=== PATIENT | male | born 1940 | race Caucasian/White ===

== ENCOUNTER → 2017-03-17 | Outpatient (CLI) | payer MEDICARE, BC ==
--- NOTE | 2017-03-17 09:50 | US ---
EXAMINATION TYPE: US abdomen comp/pelvis limited DATE OF EXAM: 03/17/2017 COMPARISON: US CLINICAL HISTORY: R10.9 abd pain. Patient c/o left abdomen pain when lays on left side and is constip ated. EXAM MEASUREMENTS: Liver Length: 17.7 cm Gallbladder Wall: 0.2 cm CBD: 0.4 cm Spleen: 11.5 cm Right Kidney: 11.6 x 5.4 x 4.9 cm Left Kidney: 11.3 x 5.5 x 6.4 cm Exam is technically limited due to overlying bowel gas Pancreas: hyperechoic as seen Liver: wnl Gallbladder: wnl Evidence for sonographic Trevino's sign: No CBD: wnl Spleen: wnl Right Kidney: No hydronephrosis or masses seen Left Kidney: No hydronephrosis or masses seen Upper IVC: wnl Abd Aorta: abnormally widened mid aorta at 4.7cm A/P with intimal thickening mid and distally Bladder: wnl, no ureteral jets seen after 3 minute observation The pancreas is poorly visualized. The liver is mildly prominent measuring 18 cm. There is no biliary dilatation. The gallbladder is normal without cholelithiasis. The gallbladder wall measures 2.3 mm. The distal co mmon hepatic duct measures 3.6 mm. There is no sonographic Trevino's sign. The spleen is normal in size. Both kidneys are normal. There is an infrarenal abdominal aortic aneurysm with maximal transverse dimension of 4.7 cm. Intrahe patic IVC is normal. IMPRESSION: Infrarenal 1. abdominal aortic aneurysm with maximal transverse diameter of 4.7 cm. 2. Mild hepatomegaly.
== END | disposition home or self-care (01) ==
LOC: RADUSWWP 08:01
PROVIDERS: ATTEND Family Medicine
DX: I71.4 Abdominal aortic aneurysm, without rupture (principal); R16.0 Hepatomegaly, not elsewhere classified
CPT/HCPCS: 76700; 76857

== ENCOUNTER 2017-04-26 14:36 | Observation (INO) | payer MEDICARE, BC ==
[2017-04-26] MEDS ORDERED: NON-FORMULARY DRUG (Sildenafil Citrate [Viagra] 100 MG) PO PRN (17:26)
[2017-04-26] MEDS ORDERED: ARTIFICIAL TEARS-HYPROMELLOSE DROPS 15 ML BTL BOTH EYES PRN (17:26)
[2017-04-26] MEDS ORDERED: diphenhydrAMINE 25 MG CAP PO PRN (17:26)
[2017-04-26] MEDS ORDERED: SODIUM CHLORIDE 0.9% 1,000 ML IV SCH (17:30)
[2017-04-26 19:07] LABS: INR 1.7 (<1.2); Prothrombin Time 16.5 sec (9.0-12.0)
[2017-04-26] MEDS: TERAZOSIN 5 MG CAP PO SCH (20:13)
[2017-04-26] MEDS: DOCUSATE 100 MG CAP PO SCH (20:13)
[2017-04-26] MEDS: MAGNESIUM OXIDE 400 MG TAB PO SCH (20:13)
[2017-04-26 20:36] LABS: Glucose,Whole Blood 110 mg/dL (75-99)
[2017-04-26] MEDS: HYDROcodone/APAP 7.5-325MG 1 EACH TAB PO PRN (21:27)
[2017-04-27] MEDS: HYDROcodone/APAP 7.5-325MG 1 EACH TAB PO PRN (02:19)
[2017-04-27 05:24] VITALS: RESP 16
[2017-04-27 06:56] LABS: Glucose,Whole Blood 95 mg/dL (75-99)
[2017-04-27] MEDS ORDERED: glipiZIDE 5 MG TAB PO SCH (07:30)
[2017-04-27] MEDS ORDERED: PANTOPRAZOLE 40 MG TABLET PO SCH (07:30)
[2017-04-27 08:05] VITALS: TEMP 97.6
[2017-04-27] MEDS ORDERED: FUROSEMIDE 40 MG TAB PO SCH (09:00)
[2017-04-27] MEDS ORDERED: METOPROLOL SUCCINATE (ER) 50 MG TAB.ER.24H PO SCH (09:00)
[2017-04-27] MEDS ORDERED: BISACODYL 5 MG TABLET.DR PO SCH (09:00)
[2017-04-27] MEDS ORDERED: LISINOPRIL 5 MG TAB PO SCH (09:00)
[2017-04-27] MEDS ORDERED: BETA PROSTATE PO SCH (09:00)
[2017-04-27] MEDS: DOCUSATE 100 MG CAP PO SCH (10:56)
[2017-04-27] MEDS: TERAZOSIN 5 MG CAP PO SCH (10:56)
[2017-04-27] MEDS: MAGNESIUM OXIDE 400 MG TAB PO SCH (10:57)
--- NOTE | 2017-04-27 11:03 | CT ---
EXAMINATION TYPE: CT abdomen pelvis wo con DATE OF EXAM: 04/27/2017 COMPARISON: NONE HISTORY: Abdominal aortic aneurysm without rupture CT DLP: 1130 mGycm Automated exposure control for dose reduction was used. TECHNIQUE: Helical acquisition of images was performed from the lung bases through the pelvis. FINDINGS: Limited noncontrast exam performed to assess size of aneurysm. Subsegmental changes involving the lungs are most typical of atelectasis. Chronic rib deformity sugge sts previous trauma and there is hypertrophic and degenerative change of the spine. Extensive atherosclerotic change of the vasculature. Tiny gallstone suspected. And there is extensive atherosclerotic change involving the origin of the SMA and proximal branches of the celiac axis and SMA. Moderate to extensive atherosclerotic change at the origin of the right renal artery. Similar finding s noted involving the left renal artery. Scoliosis and severe multilevel degenerative disc disease. There is an aneurysm of the abdominal aort a which originates approximately 2.9 cm below the lowest renal artery (left renal artery). Maximal di mension of the aneurysm is 4.2 cm in AP dimension. Maximal dimension in transverse diameter is 3.9 cm . Extends to the distal aorta proximal to the bifurcation. Iliac arteries demonstrate atherosclerotic changes and ectasia with a maximal dimension on the right measuring 1.5 cm and on the left measuring 1.4 cm. Atherosclerotic change of the junction of the comm on femoral and external iliac arteries is noted bilaterally with significant disease suspected. Prostate is somewhat prominent size with calcification. No free fluid or free air. Bowel gas pattern nonspecific. No renal stones. Adrenal glands normal morphology. Lack of IV and oral contrast limits assessment of the bowel and abdominal viscera. Cardiomegaly and coronary artery calcification noted. Her graft postsurgical changes involving the lo wer lumbar spine. There are small periumbilical hernia noted. IMPRESSION: 1. Infrarenal abdominal aortic aneurysm which extends to the level above the aortic bifurcation with maximal AP dimension of 4.2 cm in transverse dimension of 3.9 cm. Originates approximately 2.9 cm bel ow the left renal artery (lowest renal artery). 2. Extensive atherosclerotic changes as discussed above in the visualized vasculature.
[2017-04-27 11:54] LABS: Glucose,Whole Blood 200 mg/dL (75-99)
[2017-04-27] MEDS ORDERED: CYANOCOBALAMIN 500 MCG TAB PO SCH (12:00)
[2017-04-27 12:10] VITALS: BP 193/82; PULSE 51
[2017-04-27] MEDS ORDERED: WARFARIN 3 MG TAB PO SCH (18:00)
[2017-04-29] MEDS ORDERED: WARFARIN 3 MG TAB PO SCH (18:00)
--- NOTE | 2017-05-01 08:11 | DS ---
ADMISSION DATE: April 26, 2017 DISCHARGE DATE: April 27, 2017 BRIEF HISTORY: This is a pleasant 76-year-old gentleman who sees Dr. Jose Hines as an outpatient who was diagnosed with enlarging infrarenal aortic aneurysm. He was admitted to the hospital yesterday for hydration in preparation of CTA of the infrarenal aorta. Unfortunately, the creatinine came to be slightly worse and we decided to pursue the CT without contrast. The patient underwent CT without contrast and that showed 4.2 cm infrarenal aortic aneurysm. The patient is going to be discharged home and I will follow up with the patient as an outpatient. SRAVANI
== END 2017-04-27 15:20 | disposition home or self-care (01) ==
LOC: 3OBS 14:49
PROVIDERS: ADMIT Internal Medicine Interventional Cardiology; ATTEND Internal Medicine Interventional Cardiology
DX: I71.4 Abdominal aortic aneurysm, without rupture (principal); I48.2 Chronic atrial fibrillation; I11.0 Hypertensive heart disease with heart failure; I50.9 Heart failure, unspecified; I47.2 Ventricular tachycardia; I25.119 Atherosclerotic heart disease of native coronary artery with unspecified angina pectoris; E11.9 Type 2 diabetes mellitus without complications; Z79.01 Long term (current) use of anticoagulants; Z79.84 Long term (current) use of oral hypoglycemic drugs; Z79.899 Other long term (current) drug therapy; Z87.891 Personal history of nicotine dependence; Z88.0 Allergy status to penicillin
CPT/HCPCS: 96360; 96361 ×2; 82565 ×2; 84520 ×2; 85610; 74176; G0378 ×2; G0379

== ENCOUNTER → 2017-04-26 | Outpatient (CLI) | payer MEDICARE, BC ==
[2017-04-26 17:04] LABS: Glucose,Whole Blood 161 mg/dL (75-99)
== END | disposition home or self-care (01) ==
LOC: RADCTMAIN 13:02
PROVIDERS: ATTEND Internal Medicine Interventional Cardiology
DX: I71.4 Abdominal aortic aneurysm, without rupture (principal)
CPT/HCPCS: 82565; 84520

== ENCOUNTER → 2017-05-13 | Outpatient (CLI) | payer MEDICARE, BC ==
[~2017-05-13] MED LIST: SODIUM CHLORIDE 0.9% 1,000 ML IV ONE
[2017-05-13 07:30] VITALS: TEMP 97.7
[2017-05-13] MEDS: SODIUM CHLORIDE 0.9% 500 ML in EMPTY BAG 1 BAG IV PRN ×2 (07:43→11:56)
[2017-05-13 12:03] VITALS: BP 173/79; PULSE 49; RESP 18
== END | disposition home or self-care (01) ==
LOC: PROCWHC3 07:11
PROVIDERS: ATTEND Internal Medicine Interventional Cardiology
DX: I71.4 Abdominal aortic aneurysm, without rupture (principal)
CPT/HCPCS: 82565; 84520; 96360; 96361

== ENCOUNTER → 2017-05-13 | Outpatient (CLI) | payer MEDICARE, BC ==
--- NOTE | 2017-05-13 12:37 | CT ---
EXAMINATION TYPE: CT angio abd aorta wo/w con DATE OF EXAM: 05/13/2017 COMPARISON: 04/27/2017 HISTORY: Abdomninal aortic aneurysm, without rupture CT DLP: 1881.60 mGycm, Automated Exposure Control for Dose Reduction was Utilized. CONTRAST: CT scan of the abdomen and pelvis is performed with oral and without and with IV Contrast, patient in jected with 100 ml mL of Visipaque 320. FINDINGS: VASCULATURE: Moderate calcific plaquing is seen of the abdominal aorta and its branches. The celiac a xis is patent. There is approximately 50% stenosis of the ostium of the SMA and calcific plaque dista lly creating stenosis at least 50%. Patency is demonstrated to peripheral branches. Two renal arterie s are noted. There is redemonstration of a fusiform infrarenal abdominal aortic aneurysm measuring 4.3 x 3.9 cm in anterior posterior by transverse dimension, similar to the prior exam with measurements of 1.2 x 3.9 cm. This extends over a distance of 5.2 cm and again originates approximately 2.9 cm below the left renal artery. The common iliac arteries are upper limits of normal measuring 1.4 cm each. Anterior eccentric mural thrombus involves the fusiform abdominal aortic aneurysm measuring approximately 1.4 cm in thickness. No penetrating atheromatous ulcers are appreciated. LUNG BASES: Minimal bibasilar subsegmental atelectasis is appreciated. Old healed lateral right rib 8 fracture is present. LIVER/GB: No significant abnormality is appreciated. PANCREAS: No significant abnormality is seen. SPLEEN: No significant abnormality is seen. ADRENALS: No significant abnormality is seen. KIDNEYS: No significant abnormality is seen. BOWEL: No significant abnormality is seen. PROSTATE/SEMINAL VESICLES: Distinct gland is again heterogenous and prominent in size. LYMPH NODES: No greater than 1cm abdominal or pelvic lymph nodes are appreciated. OSSEOUS STRUCTURES: Degenerative changes are appreciated of the thoracolumbar and lumbosacral spine w ith postsurgical fusion of L4-S1. There is mild retrolisthesis of L2 with respect to L3 creating at l east mild spinal canal stenosis. OTHER: Small umbilical hernia is again noted. IMPRESSION: 1. Similar infrarenal fusiform abdominal aortic aneurysm in comparison to the prior exam of 04/27/2017 measuring 4.3 x 3.9 x 5.2 cm indicating 2.9 cm below the left renal artery. 2. No evidence of penetrating atheromatous ulcer, or dissection although there is eccentric mural thr ombus involving the aneurysmal sac measuring up to 1.4 cm.
== END | disposition home or self-care (01) ==
LOC: RADCTMAIN 10:51
PROVIDERS: ATTEND Internal Medicine Interventional Cardiology
DX: I71.4 Abdominal aortic aneurysm, without rupture (principal)
CPT/HCPCS: 82565; 84520; 75635; 96360; 96361; Q9967

== ENCOUNTER 2017-07-07 07:08 | Inpatient (IN) | payer MEDICARE, BC ==
[2017-07-02 16:14] VITALS: BMI 35.6
[~2017-07-07 07:08] MED LIST changes: -SODIUM CHLORIDE 0.9% 1,000 ML IV ONE; +SODIUM CHLORIDE 0.9% 1,000 ML in EMPTY BAG 1 BAG IV ONE
[2017-07-07 07:58] LABS: Glucose,Whole Blood 122 mg/dL (75-99)
[2017-07-07] MEDS ORDERED: LIDOCAINE 1% INJ 10MG/ML (20 ML MDV) ONE (09:24)
[2017-07-07] MEDS ORDERED: ePHEDrine SULFATE/0.9% NACL/PF 50 MG/5 ML SYRINGE IV ONE (09:24)
[2017-07-07] MEDS ORDERED: MIDAZOLAM 2 MG/2 ML VIAL ONE (09:24)
[2017-07-07] MEDS ORDERED: fentaNYL (PF) 50 MCG/ML 2 ML AMP ONE (09:24)
[2017-07-07] MEDS ORDERED: ROCURONIUM BROMIDE 10 MG/ML 10 ML VIAL IV ONE (09:24)
[2017-07-07] MEDS ORDERED: HEPARIN SODIUM,PORCINE 10,000 UNIT/ML 1 ML VIAL ONE (09:24)
[2017-07-07] MEDS ORDERED: SUCCINYLCHOLINE CHLORIDE 100 MG/5 ML SYR IV ONE (09:24)
[2017-07-07] MEDS ORDERED: PROPOFOL 10 MG/ML 20 ML VIAL IV ONE (09:24)
[2017-07-07] MEDS ORDERED: ONDANSETRON 4 MG/2 ML VIAL ONE (09:24)
[2017-07-07] MEDS ORDERED: VANCOMYCIN IVPB STA (09:31)
[2017-07-07] MEDS ORDERED: SODIUM CHLORIDE 0.9% IVPB STA (09:31)
[2017-07-07 09:40] LABS: INR 1.2 (<1.2); Prothrombin Time 11.9 sec (9.0-12.0)
[2017-07-07 09:52] LABS: Calcium 8.8 mg/dL (8.4-10.2); Potassium 4.1 mmol/L (3.5-5.1)
[2017-07-07] MEDS ORDERED: VANCOMYCIN 1,000 MG in SODIUM CHLORIDE 0.9% 250 ML IVPB STA (09:59)
[2017-07-07] MEDS ORDERED: LIDOCAINE 2% INJ 20 MG/ML SQ ONE (10:31)
[2017-07-07] MEDS ORDERED: SODIUM CHLORIDE 0.9% 1,000 ML IV ONE (11:00)
[2017-07-07] MEDS ORDERED: IODIXANOL 320 MG/ML 100 ML INTRAARTER ONE (11:55)
[2017-07-07] MEDS ORDERED: ALPRAZolam 0.25 MG TAB PO PRN (12:07)
[2017-07-07] MEDS ORDERED: ARTIFICIAL TEARS-HYPROMELLOSE DROPS 15 ML BTL BOTH EYES PRN (12:12)
[2017-07-07] MEDS ORDERED: SODIUM CHLORIDE 0.9% 1,000 ML IV SCH (12:15)
--- NOTE | 2017-07-07 12:50 | P.OP ---
Date of Procedure: 07/07/17 Preoperative Diagnosis: Abdominal aortic aneurysm Postoperative Diagnosis: Abdominal aortic aneurysm Procedure(s) Performed: Repair of abdominal aortic aneurysm with aortic stent grafting utilizing Medtronic Endurent device. Anesthesia: GETA Surgeon: Reymundo Armenta Estimated Blood Loss (ml): 50 Pathology: none sent Condition: stable Disposition: floor Description of Procedure: Patient was brought to the endo-grafting hybrid suite to the catheterization laboratory of [facility] he was a abdominal aortic aneurysm patient was under general anesthesia prepped and draped in usual sterile Betadine fashion for aortic endo-grafting cannulation of the common femoral arteries was accomplished bilaterally and Perclose devices to in the right and 2 in the left femoral were deployed guidewire access to the abdominal aneurysm was accomplished without difficulty and angiography and intravascular ultrasound was performed by Dr. Javier Loredo deployment of the endurance device ENG URA ENT by [employer]an[employer] was accomplished under fluoroscopic guidance as well as intravascular ultrasound control the device was placed in an infrarenal location and a extension limb was placed on the ipsilateral side the contralateral side had an extension limb as well distal landing zones were in the common iliac artery just before the bifurcation of the internal iliacs bilaterally Balloons were used to dilate the device once it was completely in position completion aortography revealed no aortic endo-leaks Perclose device was utilized to conclusion the procedure tied the sutures down tight onto the repairing the common femoral arteries bilaterally at the conclusion hemostasis was achieved and pulses were noted distally patient's was awakened and transferred to recovery room in stable condition C end of an operative report on patient Berny Armenta dictating from [facility]
[2017-07-07] MEDS ORDERED: MORPHINE SULFATE 4 MG/ML SYRINGE IVP ONE (12:55)
[2017-07-07] MEDS: hydrALAZINE HCL 20 MG/ML 1 ML VIAL IVP ONE ×2 (13:00→13:07)
[2017-07-07 13:15] LABS: Glucose,Whole Blood 124 mg/dL (75-99)
[2017-07-07] MEDS: NITROGLYCERIN-D5W PMX 50 MG in DEXTROSE/WATER 1 250ML.BAG IV SCH ×2 (13:30→22:20)
[2017-07-07 13:48] LABS: Glucose,Whole Blood 131 mg/dL (75-99)
--- NOTE | 2017-07-07 13:57 | IR ---
Fluoroscopy INDICATION: Abdominal aortic aneurysm FINDINGS: Fluoroscopy time: 17.5 minutes Images obtained: 9 sequences. Please see interpretation report from the cardiology. IMPRESSIONS: 1. Documentation of fluoroscopy.
[2017-07-07] MEDS: HYDROcodone/APAP 5-325MG 1 EACH TAB PO PRN ×2 (14:03→20:28)
[2017-07-07 15:25] LABS: Basophils % (A) 1 %; CH 32.1; CHCM 33.4; Eosinophils # (A) 0.2 k/uL (0-0.7); Eosinophils % (A) 4 %; HCT 38.7 % (39.0-53.0); HDW 2.61; HGB 12.7 gm/dL (13.0-17.5); Luc # (Auto) 0.09; Luc % (Auto) 2; Lymphocytes % (A) 21 %; MCH 31.7 pg (25.0-35.0); MCHC 32.8 g/dL (31.0-37.0); MCV 96.6 fL (80.0-100.0); Monocytes # (A) 0.3 k/uL (0-1.0); Monocytes % (A) 7 %; Neutrophils # (A) 3.2 k/uL (1.3-7.7); Neutrophils % (A) 67 %; RDW 13.6 % (11.5-15.5); WBC 4.9 k/uL (3.8-10.6); WBC (Perox) 5.15
[2017-07-07 16:21] LABS: Anion Gap 10 mmol/L; Blood Urea Nitrogen 30 mg/dL (9-20); Calcium 8.7 mg/dL (8.4-10.2); Carbon Dioxide 22 mmol/L (22-30); Chloride 109 mmol/L (98-107); Glucose 142 mg/dL (74-99); Non-African American GFR(MDRD) 53 (>60 ml/min/1.73 sqM); Potassium 4.1 mmol/L (3.5-5.1); Sodium 141 mmol/L (137-145)
--- NOTE | 2017-07-07 18:43 | AN ---
ANGIOGRAPHY REPORT DATE OF SERVICE: July 07, 2017. PERFORMING PHYSICIAN: Javier Oakley M.D. tariff inspector. PROCEDURE PERFORMED: 1. Catheter/sheath placement in the aorta with non selective injection of the infrarenal aorta under DSA. 2. Radiographic cine and image of endovascular AAA repair. 3. Intravascular ultrasound IVUS of non coronary. 4. Radiographic cine and image of endovascular infrarenal aortic aneurysm repair. INDICATION: This is a pleasant 77-year-old gentleman who is a patient of Dr. Beverly Hines as an outpatient who was diagnosed with infrarenal aortic aneurysm and he was scheduled today to undergo a stent graft of the infrarenal aortic aneurysm. APPROACH: Right and left common femoral arteries. COMPLICATION: None. LEVEL OF SEDATION: Sedation was performed with general anesthesia with the anesthesiologist in the room. DESCRIPTION OF PROCEDURE: I am dictating the radiographic and IVUS finding of the procedure only. Please refer to full dictation of the procedures in detail including the deployment of the stent graft, which was performed by Dr. Reymundo Armenta on a separate report. SELECTIVE PERIPHERAL ANGIOGRAM: Selective infrarenal aortic angiogram was performed using DSA and using a 5-[place] mocked pigtail catheter which was placed at the level of the renal arteries. The angiogram was performed using an LAO5 and 11 under DSA as I mentioned earlier. The angiogram revealed an infrarenal aortic aneurysm with a long neck. No evidence of dissection seen. Also selective bilateral iliac arteries angiogram was performed using the sheath in each groin. Also, the injection was performed using DSA as well. The injection mainly was performed to evaluate the diameter and length of each limb on each side for the stent graft. I performed intravascular ultrasound IVUS of the stent graft of the aorta to prove that the contralateral wire was in the true lumen of the stent graft as well. The IVUS revealed that the 035 wire was in the true lumen of the stent graft and was not behind the stent graft. We did not perform any measurements using the IVUS. CONCLUSION: 1. Infrarenal aortic aneurysm. 2. Status post repair using stent graft with Medtronic. 3. Please refer to full report of deployment of the stent graft was performed by Dr. Reymundo Armenta. MMODL / IJN: [id number] /
[2017-07-07] MEDS ORDERED: LISINOPRIL 10 MG TAB PO STA (19:19)
[2017-07-07] MEDS ORDERED: amLODIPine 5 MG TAB PO STA (19:20)
[2017-07-07] MEDS: TERAZOSIN 2 MG CAP PO SCH (20:18)
[2017-07-07] MEDS: TERAZOSIN 1 MG CAP PO SCH (20:18)
[2017-07-07] MEDS: DOCUSATE 100 MG CAP PO SCH (20:19)
[2017-07-07] MEDS: hydrALAZINE HCL 10 MG TAB PO SCH (23:29)
[2017-07-07] MEDS: CARVEDILOL 3.125 MG TAB PO SCH (23:29)
[2017-07-08] MEDS: ASPIRIN 325 MG TAB PO SCH ×2 (00:19→08:51)
[2017-07-08 04:47] LABS: Basophils % (A) 0 %; CH 31.3; CHCM 33.2; Eosinophils # (A) 0.1 k/uL (0-0.7); Eosinophils % (A) 1 %; HCT 36.6 % (39.0-53.0); HDW 2.61; Luc # (Auto) 0.11; Luc % (Auto) 1; Lymphocytes # (A) 0.7 k/uL (1.0-4.8); Lymphocytes % (A) 8 %; MCH 30.9 pg (25.0-35.0); MCHC 32.6 g/dL (31.0-37.0); MCV 94.7 fL (80.0-100.0); Mean Platelet Volume 8.2; Monocytes # (A) 0.7 k/uL (0-1.0); Monocytes % (A) 9 %; Neutrophils # (A) 6.9 k/uL (1.3-7.7); Neutrophils % (A) 81 %; RBC 3.87 m/uL (4.30-5.90); RDW 12.8 % (11.5-15.5); WBC 8.6 k/uL (3.8-10.6); WBC (Perox) 8.56
[2017-07-08 04:56] LABS: Anion Gap 7 mmol/L; Blood Urea Nitrogen 27 mg/dL (9-20); Carbon Dioxide 22 mmol/L (22-30); Chloride 105 mmol/L (98-107); Glucose 166 mg/dL (74-99); Magnesium 1.6 mg/dL (1.6-2.3); Non-African American GFR(MDRD) 53 (>60 ml/min/1.73 sqM); Potassium 4.4 mmol/L (3.5-5.1); Sodium 134 mmol/L (137-145)
[2017-07-08] MEDS: HYDROcodone/APAP 5-325MG 1 EACH TAB PO PRN ×2 (07:12→22:59)
[2017-07-08] MEDS: FUROSEMIDE 40 MG TAB PO SCH (08:50)
[2017-07-08] MEDS: TERAZOSIN 1 MG CAP PO SCH ×2 (08:50→20:20)
[2017-07-08] MEDS: CARVEDILOL 3.125 MG TAB PO SCH ×2 (08:50→17:29)
[2017-07-08] MEDS: glipiZIDE 5 MG TAB PO SCH ×2 (08:50→17:29)
[2017-07-08] MEDS: CYANOCOBALAMIN 500 MCG TAB PO SCH (08:50)
[2017-07-08] MEDS: PANTOPRAZOLE 40 MG TABLET PO SCH (08:50)
[2017-07-08] MEDS: LISINOPRIL 10 MG TAB PO SCH (08:51)
[2017-07-08] MEDS: DOCUSATE 100 MG CAP PO SCH ×2 (08:51→20:20)
[2017-07-08] MEDS: hydrALAZINE HCL 10 MG TAB PO SCH ×3 (08:52→22:50)
[2017-07-08] MEDS: amLODIPine 5 MG TAB PO SCH ×2 (08:52→20:20)
[2017-07-08] MEDS: TERAZOSIN 2 MG CAP PO SCH ×2 (08:53→20:20)
[2017-07-08] MEDS: BISACODYL 5 MG TABLET.DR PO SCH (09:00)
[2017-07-08] MEDS ORDERED: LISINOPRIL 5 MG TAB PO SCH (09:00)
[2017-07-08] MEDS ORDERED: amLODIPine 5 MG TAB PO SCH (09:00)
--- NOTE | 2017-07-08 09:23 | P.PN ---
Subjective Progress Note Date: 07/08/17 Principal diagnosis: Infrarenal abdominal aortic aneurysm, chronic atrial fibrillation, congestive heart failure class II, hypertension, hyperlipidemia, diabetes mellitus2, remote history of tobacco abuse. POD #1, repair of abdominal aortic aneurysm with aortic stent grafting utilizing Medtronic Endurant device. Patient is sitting up to the bedside chair. No acute distress. He is alert and oriented 3. Denies complaints of pain at this time. Objective - Vital Signs Vital signs: Vital Signs Temp 97.6 F 07/08/17 04:00 Pulse 75 07/08/17 07:00 Resp 24 07/08/17 07:00 BP 132/61 07/08/17 07:00 Pulse Ox 91 L 07/08/17 07:00 Intake & Output 07/07/17 07/08/17 07/08/17 18:59 06:59 18:59 Intake Total 2540 1645.10 403 Output Total 845 588 75 Balance 1695 1057.10 328 Weight 105.4 kg Intake: IV 2140 433 3 Art line 33 3 Sodium Chloride 0.9% 1, 400 0 000 ml @ 100 mls/hr IV . Q10H [place] Rx#:[id number] Intake, IV Titration 400 412.10 Amount Nitroglycerin-D5w Pmx 50 312.10 mg In Dextrose/Water 1 250ml.bag @ Titrate IV . Q0M [place] Rx#:[id number] Sodium Chloride 0.9% 1, 400 100 000 ml @ 100 mls/hr IV . Q10H [place] Rx#:[id number] Oral 800 400 Output: Urine 845 588 75 Other: Voiding Method Indwelling Catheter Indwelling Catheter ABP, PAP, CO, CI - Last Documented Arterial Blood Pressure 184/74 - Constitutional General appearance: Present: cooperative, no acute distress, obese - EENT Eyes: Present: PERRLA ENT: Present: hearing grossly normal - Neck Details: No JVD, no lymphadenopathy. - Respiratory Details: Lungs sounds essentially clear throughout, diminished bilateral bases. Respirations are symmetrical and nonlabored. Room air oxygen saturations are 92 %. - Cardiovascular Details: Irregular rhythm and rate controlled rate. S1 and S2 present, positive pansystolic murmur 2/6. Bedside telemetry showing atrial fibrillation heart rate 82. Positive palpable dorsalis pedis and posterior tibial pulses. No edema present. - Gastrointestinal Gastrointestinal Comment(s): Abdomen is soft, nontender and nondistended. Active bowel sounds to all 4 abdominal quadrants. Tolerating oral intake. - Genitourinary Genitourinary Comment(s): Clear yellow urine. Lai catheter for accurate I&O. - Integumentary Integumentary Comment(s): Bilateral groin puncture site clean dry and well approximated. Small ecchymosis to his bilateral groins. Integumentary: Present: normal turgor - Neurologic Neurologic Comment(s): No focal deficits. Neurologic: Present: CNII-XII intact - Musculoskeletal Musculoskeletal: Present: gait normal (Using a cane with ambulation.), strength equal bilaterally - Psychiatric Psychiatric: Present: A&O x's 3, appropriate affect, intact judgment & insight - Allied health notes Allied health notes reviewed: nursing - Labs CBC & Chem 7: 07/08/17 04:35 07/08/17 04:35 Labs: Abnormal Lab Results - Last 24 Hours (Table) 07/07/17 07/07/17 07/07/17 Range/Units 07:30 07:45 13:13 RBC (4.30-5.90) m/uL Hgb (13.0-17.5) gm/dL Hct (39.0-53.0) % Plt Count (150-450) k/uL Lymphocytes # (1.0-4.8) k/uL INR 1.2 H (<1.2) Sodium (137-145) mmol/L Chloride (98-107) mmol/L BUN 32 H (9-20) mg/dL Creatinine 1.50 H (0.66-1.25) mg/dL Glucose 126 H (74-99) mg/dL POC Glucose (mg/dL) 124 H (75-99) mg/dL Calcium (8.4-10.2) mg/dL 07/07/17 07/07/17 07/07/17 Range/Units 13:46 14:01 15:30 RBC 4.00 L (4.30-5.90) m/uL Hgb 12.7 L (13.0-17.5) gm/dL Hct 38.7 L (39.0-53.0) % Plt Count 66 L D (150-450) k/uL Lymphocytes # (1.0-4.8) k/uL INR (<1.2) Sodium (137-145) mmol/L Chloride 109 H (98-107) mmol/L BUN 30 H (9-20) mg/dL Creatinine 1.30 H (0.66-1.25) mg/dL Glucose 142 H (74-99) mg/dL POC Glucose (mg/dL) 131 H (75-99) mg/dL Calcium (8.4-10.2) mg/dL 07/08/17 07/08/17 Range/Units 04:35 04:35 RBC 3.87 L (4.30-5.90) m/uL Hgb 12.0 L (13.0-17.5) gm/dL Hct 36.6 L (39.0-53.0) % Plt Count 135 L D (150-450) k/uL Lymphocytes # 0.7 L (1.0-4.8) k/uL INR (<1.2) Sodium 134 L (137-145) mmol/L Chloride (98-107) mmol/L BUN 27 H (9-20) mg/dL Creatinine 1.30 H (0.66-1.25) mg/dL Glucose 166 H (74-99) mg/dL POC Glucose (mg/dL) (75-99) mg/dL Calcium 8.0 L (8.4-10.2) mg/dL Assessment and Plan (1) Aneurysm of infrarenal abdominal aorta Current Visit: Yes Status: Acute Code(s): I71.4 - ABDOMINAL AORTIC ANEURYSM , WITHOUT RUPTURE SNOMED Code(s): 884628936 (2) Diabetes mellitus type 2 in obese Current Visit: Yes Status: Acute Code(s): E11.69 - TYPE 2 DIABETES MELLITUS WITH OTHER SPECIFIED COMPLICATION; E66.9 - OBESITY, UNSPECIFIED SNOMED Code(s) : 42923592 (3) History of tobacco abuse Current Visit: Yes Status: Acute Code(s): Z87.891 - PERSONAL HISTORY OF NICOTINE DEPENDENCE SNOMED Code(s): 4300155279085 (4) CHF (congestive heart failure) Current Visit: No Status: Acute Code(s): I50.9 - HEART FAILURE, UNSPECIFIED SNOMED Code(s): 92071635 (5) Chronic a-fib Current Visit: No Status: Acute Code(s): I48.2 - CHRONIC ATRIAL FIBRILLATION SNOMED Code(s): 003291699 (6) HTN (hypertension) Current Visit: No Status: Acute Code(s): I10 - ESSENTIAL (PRIMARY) HYPERTENSION SNOMED Code(s): 99403497 Plan: 1. Wean oxygen as tolerated. 2. Discontinue Lai catheter. 3. May discharge home when okay with Dr. Loredo. Time with Patient: Greater than 30
--- NOTE | 2017-07-08 10:09 | P.PN ---
Progress Note - Text Progress Note Date: 07/08/17 This is a pleasant 77-year-old gentleman who was admitted to the hospital yesterday and underwent an endovascular repair of infrarenal abdominal aortic aneurysm using a Medtronic stent to graft with an excellent results and without any evidence of endoleak by the end of the procedure. The procedure was performed from the right and left groins placing 16-Prydeinig in the right groin and 12-Prydeinig in the left groin with the whole procedure was performed percutaneous 3 and without Down using the Perclose device. Postprocedure, the patient was hypertensive requiring nitro drip for about 12 hours but he is off nitro drip last night and this morning. We did some adjustment on the blood pressure medications by increasing the dose of Norvasc and adding hydralazine as well as increasing the dose of lisinopril. On follow-up with the patient today is doing good and he is asymptomatic. Both groins are soft and nontender and without any bruises. The patient does have reasonable pulses in both feet its in the dorsalis pedis artery. The blood work came in to be also unremarkable with a good hemoglobin and stable renal function. He was slightly the setting earlier today. I am going to obtain a BNP. I am going to transfer the patient to selective units. Keep him overnight for possible discharge home tomorrow morning.
--- NOTE | 2017-07-08 14:29 | CDI ---
In responding to this query, please exercise your independent professional judgment. The [facility] Coding Staff and Clinical Documentation Specialists appreciate your assistance in clarifying documentation, maintaining compliance with coding guidelines, accurately documenting patients condition and capturing severity of illness. The fact that a question is asked does not imply that any particular answer is desired or expected. Communication forms are a method of clarifying documentation and are not made part of the Legal Health Record. Thank you in advance for your clarification. Last Revision, November 2016 Eleuter[address] [place] [address] Documentation Clarification Form Date: 07/08/2017 2:16:00 PM From: Sandra Carias CCS, CCDS Admit Date: 07/07/2017 7:08:00 AM Patient Name: Berny Linares Visit Number: [id number] Discharge Date: Dr. Rhys Jerry: CHF is documented in the 07/08 surgical progress note: "Infrarenal abdominal aortic aneurysm, chronic atrial fibrillation, congestive heart failure class II , hypertension, hyperlipidemia, diabetes mellitus 2, remote history of tobacco abuse." History/Risk Factors: AAA, Chronic Atrial Fib, CHF, Hypertension, hyperlipidemia , DM II, Former smoker. Clinical Indicators: Diminished bilateral bases. VS: R 37 (sob), PO 90 ra BNP: 1950 Treatment: IV Vanco, O2 (weaning), BP meds adjusted per cardiology, ordered BNP. Telemetry In your professional opinion, can you please clarify the acuity and type of CHF if known? Systolic Heart Failure: o Acute o Chronic o Acute on Chronic Diastolic Heart Failure: o Acute o Chronic o Acute on Chronic Systolic & Diastolic Heart Failure: o Acute o Chronic o Acute on Chronic Unable to determine Other, please specify Please document in your progress notes and discharge summary in order to capture severity of illness and risk of mortality. Include clinical findings that support your diagnosis. FYI: Press F11 to launch patient chart. SRAVANI
[2017-07-08] MEDS ORDERED: WARFARIN 5 MG TAB PO ONE (18:00)
[2017-07-09 04:40] LABS: Basophils % (A) 0 %; CH 32.7; CHCM 33.5; Eosinophils # (A) 0.2 k/uL (0-0.7); Eosinophils % (A) 3 %; HCT 39.5 % (39.0-53.0); HDW 2.44; HGB 12.5 gm/dL (13.0-17.5); Luc # (Auto) 0.15; Luc % (Auto) 2; Lymphocytes % (A) 13 %; MCH 31.1 pg (25.0-35.0); MCHC 31.6 g/dL (31.0-37.0); MCV 98.3 fL (80.0-100.0); Mean Platelet Volume 8.7; Monocytes # (A) 0.9 k/uL (0-1.0); Monocytes % (A) 12 %; Neutrophils # (A) 5.3 k/uL (1.3-7.7); Neutrophils % (A) 70 %; RBC 4.02 m/uL (4.30-5.90); RDW 13.9 % (11.5-15.5); WBC 7.6 k/uL (3.8-10.6); WBC (Perox) 7.45
[2017-07-09 04:53] LABS: Calcium 8.4 mg/dL (8.4-10.2); Magnesium 1.8 mg/dL (1.6-2.3); Phosphorus 3.1 mg/dL (2.5-4.5)
[2017-07-09 05:08] LABS: INR 1.3 (<1.2); Prothrombin Time 12.8 sec (9.0-12.0)
[2017-07-09 05:34] VITALS: TEMP 98.5
[2017-07-09] MEDS ORDERED: Magnesium Replacement Protocol 1 EACH MISC MISCELLANE PRN (07:48)
--- NOTE | 2017-07-09 07:52 | P.PN ---
Subjective Progress Note Date: 07/09/17 Principal diagnosis: Infrarenal abdominal aortic aneurysm, chronic atrial fibrillation, congestive heart failure class II, hypertension, hyperlipidemia, diabetes mellitus2, remote history of tobacco abuse. POD #2, repair of abdominal aortic aneurysm with aortic stent grafting utilizing Medtronic Endurant device. Patient is sitting up to the bedside chair. No acute distress. He is alert and oriented 3. Denies complaints of pain at this time. Objective - Vital Signs Vital signs: Vital Signs Temp 98.5 F 07/09/17 04:00 Pulse 73 07/09/17 05:00 Resp 23 07/09/17 05:00 BP 167/80 07/09/17 05:00 Pulse Ox 94 L 07/09/17 05:00 Intake & Output 07/08/17 07/09/17 07/09/17 18:59 06:59 18:59 Intake Total 403 800 Output Total 125 200 Balance 278 600 Weight 104.2 kg Intake: IV 3 Art line 3 Sodium Chloride 0.9% 1, 0 000 ml @ 100 mls/hr IV . Q10H [place] Rx#:[id number] Oral 400 800 Output: Urine 125 200 Other: Voiding Method Urinal Urinal # Voids 2 1 ABP, PAP, CO, CI - Last Documented Arterial Blood Pressure 184/74 - Constitutional General appearance: Present: cooperative, no acute distress, obese - EENT Eyes: Present: PERRLA ENT: Present: hearing grossly normal - Neck Details: No JVD, no lymphadenopathy. - Respiratory Details: Lungs sounds essentially clear throughout, diminished at bilateral bases. Respirations are symmetrical and nonlabored. Oxygen saturation are 95% on 2 L nasal cannula, and 92% on room air. - Cardiovascular Details: Irregular rhythm with controlled rate. S1 and S2 present, pansystolic murmur 2/ 6. Bedside telemetry showing atrial fibrillation heart rate 91. 2+ pitting edema to his bilateral lower extremities. Palpable dorsalis pedis pulses bilateral. Bilateral feet warm to touch. - Gastrointestinal Gastrointestinal Comment(s): Abdomen soft, nontender and nondistended. Active bowel sounds to all 4 abdominal quadrants. Tolerating oral intake. - Genitourinary Genitourinary Comment(s): Clear yellow urine output. Adequate urine output. - Integumentary Integumentary Comment(s): Bilateral groin puncture sites clean, dry and well approximated. Small ecchymosis to his bilateral groins. - Neurologic Neurologic Comment(s): No focal deficits. Neurologic: Present: CNII-XII intact - Musculoskeletal Musculoskeletal: Present: gait normal (Use a cane with ambulation.), strength equal bilaterally - Psychiatric Psychiatric: Present: A&O x's 3, appropriate affect, intact judgment & insight - Allied health notes Allied health notes reviewed: nursing - Labs CBC & Chem 7: 07/09/17 04:10 07/09/17 04:10 Labs: Abnormal Lab Results - Last 24 Hours (Table) 07/09/17 07/09/17 07/09/17 Range/Units 04:10 04:10 04:10 RBC 4.02 L (4.30-5.90) m/uL Hgb 12.5 L (13.0-17.5) gm/dL Plt Count 129 L (150-450) k/uL PT 12.8 H (9.0-12.0) sec INR 1.3 H (<1.2) Sodium 136 L (137-145) mmol/L BUN 29 H (9-20) mg/dL Creatinine 1.50 H (0.66-1.25) mg/dL Assessment and Plan (1) Aneurysm of infrarenal abdominal aorta Current Visit: Yes Status: Acute Code(s): I71.4 - ABDOMINAL AORTIC ANEURYSM , WITHOUT RUPTURE SNOMED Code(s): 791331503 (2) Diabetes mellitus type 2 in obese Current Visit: Yes Status: Acute Code(s): E11.69 - TYPE 2 DIABETES MELLITUS WITH OTHER SPECIFIED COMPLICATION; E66.9 - OBESITY, UNSPECIFIED SNOMED Code(s) : 36350685 (3) History of tobacco abuse Current Visit: Yes Status: Acute Code(s): Z87.891 - PERSONAL HISTORY OF NICOTINE DEPENDENCE SNOMED Code(s): 1051722871800 (4) CHF (congestive heart failure) Current Visit: No Status: Acute Code(s): I50.9 - HEART FAILURE, UNSPECIFIED SNOMED Code(s): 33853740 (5) Chronic a-fib Current Visit: No Status: Acute Code(s): I48.2 - CHRONIC ATRIAL FIBRILLATION SNOMED Code(s): 153901076 (6) HTN (hypertension) Current Visit: No Status: Acute Code(s): I10 - ESSENTIAL (PRIMARY) HYPERTENSION SNOMED Code(s): 09182471 Plan: 1. Wean oxygen as tolerated. 2. Increase activity as tolerated. 3. GI and DVT prophylaxis. 4. May discharge home when okay with Dr. Loredo. Time with Patient: Greater than 30
[2017-07-09] MEDS: CARVEDILOL 3.125 MG TAB PO SCH (07:53)
[2017-07-09] MEDS: glipiZIDE 5 MG TAB PO SCH (07:53)
[2017-07-09] MEDS: PANTOPRAZOLE 40 MG TABLET PO SCH (07:54)
[2017-07-09] MEDS: MAGNESIUM SULFATE-D5W PMX 1 GM in DEXTROSE/WATER 1 100ML.BAG IVPB SCH ×2 (08:15→09:17)
[2017-07-09] MEDS: DOCUSATE 100 MG CAP PO SCH (08:24)
[2017-07-09] MEDS: ASPIRIN 325 MG TAB PO SCH ×2 (08:24→08:31)
[2017-07-09] MEDS: FUROSEMIDE 40 MG TAB PO SCH (08:24)
[2017-07-09] MEDS: CYANOCOBALAMIN 500 MCG TAB PO SCH (08:25)
[2017-07-09] MEDS: amLODIPine 5 MG TAB PO SCH (08:25)
[2017-07-09] MEDS: LISINOPRIL 10 MG TAB PO SCH (08:26)
[2017-07-09] MEDS: BISACODYL 5 MG TABLET.DR PO SCH (09:04)
[2017-07-09 09:07] VITALS: BP 133/81; PULSE 82; RESP 20
[2017-07-09] MEDS: hydrALAZINE HCL 10 MG TAB PO SCH (09:33)
[2017-07-09] MEDS: TERAZOSIN 2 MG CAP PO SCH (09:34)
[2017-07-09] MEDS: TERAZOSIN 1 MG CAP PO SCH (09:34)
--- NOTE | 2017-07-09 19:38 | P.DS ---
Providers Date of admission: 07/07/17 07:08 Attending physician: Javier Oakley Consults: 07/07/17 06:18 Consult to Anesthesia Routine Consulting Provider: Anesthesia,Services Consult Reason/Comments: General anesthesia for Aortic Stent procedure Primary care physician: Kelly Rai [facility] Course: This is a pleasant 77-year-old gentleman who was admitted to the hospital yesterday and underwent an endovascular repair of infrarenal abdominal aortic aneurysm using a Medtronic stent to graft with an excellent results and without any evidence of endoleak by the end of the procedure. The procedure was performed from the right and left groins placing 16-South African in the right groin and 12-South African in the left groin with the whole procedure was performed percutaneous 3 and without Down using the Perclose device. Postprocedure, the patient was hypertensive requiring nitro drip for about 12 hours but he is off nitro drip last night and this morning. We did some adjustment on the blood pressure medications by increasing the dose of Norvasc and adding hydralazine as well as increasing the dose of lisinopril. On follow-up with the patient today is doing good and he is asymptomatic. Both groins are soft and nontender and without any bruises. The patient does have reasonable pulses in both feet its in the dorsalis pedis artery. The blood work came in to be also unremarkable with a good hemoglobin and stable renal function. I am going to discharge the patient home on aspirin and he was started on Coumadin yesterday. I will follow-up with the patient next week in the office. Plan - Discharge Summary Discharge Rx Participant: Yes New Discharge Prescriptions: New Aspirin 325 mg PO DAILY #90 tab Carvedilol [Coreg] 3.125 mg PO BID-W/MEALS #60 tab hydrALAZINE HCL [Apresoline] 15 mg PO TID #90 tab Lisinopril [Zestril] 10 mg PO DAILY #90 tab Terazosin [Hytrin] 1 mg PO BID #90 cap Continue Omeprazole 20 mg PO DAILY Sildenafil Citrate [Viagra] 100 mg PO DAILY PRN PRN Reason: E.D. Terazosin HCl 5 mg PO BID glipiZIDE XL [Glucotrol XL] 10 mg PO DAILY #30 tab Warfarin Sodium [Coumadin] 3 mg PO SUTUTHSA Hydrocodone/Acetaminophen [Hydrocodon-Acetaminoph 7.5-325] 1 tab PO BID PRN PRN Reason: Pain Furosemide [Lasix] 40 mg PO DAILY tab Cyanocobalamin (Vitamin B-12) [Vitamin B-12] 1,000 mcg PO DAILY Artificial Tears-Hypromellose [Artificial Tear Drops] 1 drops BOTH EYES TID PRN PRN Reason: Dry Eye(S) diphenhydrAMINE [Benadryl] 25 mg PO TID PRN PRN Reason: Allergy Symptoms Docusate [Colace] 100 mg PO BID Bisacodyl [Dulcolax] 5 mg PO DAILY Beta-Prostate 1 tab PO DAILY Warfarin [Coumadin] 4.5 mg PO MOWEFR amLODIPine [Norvasc] 5 mg PO DAILY Discontinued Lisinopril [Prinivil] 5 mg PO DAILY Discharge Medication List Omeprazole 20 mg PO DAILY 12/28/15 [History] Sildenafil Citrate [Viagra] 100 mg PO DAILY PRN 12/28/15 [History] Terazosin HCl 5 mg PO BID 12/29/15 [History] glipiZIDE XL [Glucotrol XL] 10 mg PO DAILY #30 tab 01/01/16 [Rx] Warfarin Sodium [Coumadin] 3 mg PO SUTUTHSA 05/21/16 [History] Hydrocodone/Acetaminophen [Hydrocodon-Acetaminoph 7.5-325] 1 tab PO BID PRN 11/05 [History] Furosemide [Lasix] 40 mg PO DAILY tab 05/23/16 [Rx] Artificial Tears-Hypromellose [Artificial Tear Drops] 1 drops BOTH EYES TID PRN 04/26/17 [History] Beta-Prostate 1 tab PO DAILY 04/26/17 [History] Bisacodyl [Dulcolax] 5 mg PO DAILY 04/26/17 [History] Cyanocobalamin (Vitamin B-12) [Vitamin B-12] 1,000 mcg PO DAILY 04/26/17 [ History] Docusate [Colace] 100 mg PO BID 04/26/17 [History] Warfarin [Coumadin] 4.5 mg PO MOWEFR 04/26/17 [History] diphenhydrAMINE [Benadryl] 25 mg PO TID PRN 04/26/17 [History] amLODIPine [Norvasc] 5 mg PO DAILY 07/07/17 [History] Aspirin 325 mg PO DAILY #90 tab 07/09/17 [Rx] Carvedilol [Coreg] 3.125 mg PO BID-W/MEALS #60 tab 07/09/17 [Rx] Lisinopril [Zestril] 10 mg PO DAILY #90 tab 07/09/17 [Rx] Terazosin [Hytrin] 1 mg PO BID #90 cap 07/09/17 [Rx] hydrALAZINE HCL [Apresoline] 15 mg PO TID #90 tab 07/09/17 [Rx] Follow up Appointment(s)/Referral(s): Javier Oakley MD [STAFF PHYSICIAN] - 1 Week (office will be contacting patient in regards to appointment after speaking to dr oakley) Patient Instructions/Handouts: Heart Failure (ED), Abdominal Aortic Aneurysm Repair (DC), Abdominal Aortic Aneurysm (GEN) Discharge Disposition: HOME SELF-CARE
== END 2017-07-09 12:05 | disposition home or self-care (01) | DRG 269 ==
LOC: 2ORMAIN 07:08 → EDSTATUS 10:00 → 6ICU 13:10
PROVIDERS: ADMIT Internal Medicine Interventional Cardiology; ATTEND Internal Medicine Interventional Cardiology
PROC: 04V03DZ Restriction of Abdominal Aorta with Intraluminal Device, Percutaneous Approach (ICD-10-PCS; principal; 2017-07-07 09:35)
DX: I71.4 Abdominal aortic aneurysm, without rupture (principal); I50.32 Chronic diastolic (congestive) heart failure; I11.0 Hypertensive heart disease with heart failure; I42.9 Cardiomyopathy, unspecified; I48.2 Chronic atrial fibrillation; E11.9 Type 2 diabetes mellitus without complications; E66.9 Obesity, unspecified; I25.10 Atherosclerotic heart disease of native coronary artery without angina pectoris; E78.5 Hyperlipidemia, unspecified; Z79.01 Long term (current) use of anticoagulants; Z79.899 Other long term (current) drug therapy; Z88.0 Allergy status to penicillin; Z82.3 Family history of stroke; Z87.891 Personal history of nicotine dependence
CPT/HCPCS: 34803; 37252; 80048; 83735; 83880; 84100; 85025; 85610; 86850; 86900; 86901

== ENCOUNTER → 2018-01-13 | Outpatient (CLI) | payer MEDICARE, BC ==
[2018-01-13 10:56] LABS: Calcium 9.1 mg/dL (8.4-10.2); Potassium 4.8 mmol/L (3.5-5.1)
--- NOTE | 2018-01-13 17:02 | CT ---
EXAMINATION TYPE: CT angio abd aorta wo/w con DATE OF EXAM: 01/13/2018 COMPARISON: NONE INDICATION: Aortic Abd. aneurysm w/o mention of rupture DLP: 3027.8 mGycm, Automated exposure control for dose reduction was used. CONTRAST: 75 mL of Isovue 370. Study performed TECHNIQUE: Axial images were obtained from above the diaphragm to the pubic rami in the axial plane a t 5 mm thick sections. Reconstructed images are reviewed on the computer in the coronal plane. FINDINGS: Limited CT sections are obtained the lung bases. The lung bases are clear. CT ABDOMEN: Liver: Normal Spleen: Normal Pancreas: Some fatty infiltration and atrophy. Adrenal glands: The adrenal glands are normal. Gallbladder: Normal Kidneys: No masses are evident. No hydronephrosis is present. No cysts are present. No renal stone s are evident. Aorta: Vascular calcification is within the aorta. There is a stent within the aorta extending into the iliac vessels. The residual abdominal aortic aneurysm currently measures 4.8 centimeters AP by 3. 5 cm transverse. Postcontrast imaging is performed to evaluate for endovascular leak. Contrast timing however is very poor likely due to the patient's cardiac output. Small amount of contrast is identified within the st ent. Study however appears inadequate for accurate evaluation of endovascular leak. Recommend hydrati on and reattempting the postcontrast portion of this study. Inferior vena cava: Normal. Limited CT PELVIS: Loops of bowel within the abdomen and pelvis are normal. Study is without oral contrast limiting bowel loop evaluation. Appendix: Normal and air-filled as visualized. Osseous structures: No suspicious lytic or sclerotic lesions. Pedicle screws are present from a lumba r spine surgery. Degenerative disc changes are present. There is scoliosis and spondylosis within the visualized lumbar spine. IMPRESSIONS: 1. Stent in position within the abdominal aorta. 2. Contrast timing was in adequate on this examination. Recommend rehydration and reattempting postco ntrast imaging for adequate evaluation of endovascular leak
== END | disposition home or self-care (01) ==
LOC: RADCTMAIN 10:11
PROVIDERS: ATTEND Internal Medicine Interventional Cardiology
DX: I71.4 Abdominal aortic aneurysm, without rupture (principal); N18.9 Chronic kidney disease, unspecified; Z95.828 Presence of other vascular implants and grafts; Z88.0 Allergy status to penicillin
CPT/HCPCS: 80048; 75635; 36415; Q9967

== ENCOUNTER 2018-05-10 14:04 | Inpatient (IN) | payer MEDICARE, BC ==
[2018-05-10] MEDS ORDERED: SODIUM CHLORIDE 0.9% 500 ML IV STA (14:51)
--- NOTE | 2018-05-10 15:17 | ED ---
General Adult HPI - General Chief complaint: Neuro Symptoms/Deficit Stated complaint: Weakness/poss tia Source: family, RN notes reviewed Mode of arrival: wheelchair Limitations: no limitations - History of Present Illness Initial comments: This 77-year-old male who presents emergency department complaining of some numbness and weakness to his left side which started on Wednesday. Patient states on Wednesday he became weaker and fell and was almost unable to get up even with the use of his cane and help from family members. Patient thought it was just a muscle spasm so ignored it. Patient woke up today and had some facial droop on the left side which was noticed by family members at about 9:00 this morning and it was at that time they decided to bring the patient to the emergency department. Patient denies any headache. Patient denies any right- sided symptoms today. Patient denies any speech problems. Patient denies any visual disturbances. Patient states he only noted his weakness when he had fallen. Patient did note that when he was trying to drink his coffee this morning that it was drooling out of the side of his mouth but he didn't think much of it at the time. Patient denies any previous stroke symptoms in the past. Patient denies any chest pain difficulty breathing or shortness of breath. Patient denies any abdominal pain patient denies nausea vomiting diarrhea. Patient denies any recent fever chills or cough. Patient states he is a diabetic he does have high blood pressure and high cholesterol. - Related Data Home Medications Medication Instructions Recorded Confirmed Omeprazole 20 mg PO DAILY 12/28/15 05/10/18 Sildenafil Citrate [Viagra] 100 mg PO DAILY PRN 12/28/15 05/10/18 Terazosin HCl 5 mg PO BID 12/29/15 05/10/18 Warfarin Sodium [Coumadin] 3 mg PO SUTUTHSA 05/21/16 05/10/18 Hydrocodone/Acetaminophen 1 tab PO BID PRN 05/22/16 05/10/18 [Hydrocodone-Acetamin 7.5-325] Artificial Tears-Hypromellose 1 drops BOTH EYES TID PRN 04/26/17 05/10/18 [Artificial Tear Drops] Beta-Prostate 1 tab PO DAILY 04/26/17 05/10/18 Bisacodyl [Dulcolax] 5 mg PO BID 04/26/17 05/10/18 Cyanocobalamin (Vitamin B-12) 1,000 mcg PO DAILY 04/26/17 05/10/18 [Vitamin B-12] Docusate [Colace] 100 mg PO BID 04/26/17 05/10/18 Warfarin [Coumadin] 4.5 mg PO MOWEFR 04/26/17 05/10/18 diphenhydrAMINE [Benadryl] 25 mg PO TID PRN 04/26/17 05/10/18 amLODIPine [Norvasc] 5 mg PO DAILY 07/07/17 05/10/18 Aspirin EC [Ecotrin Low Dose] 81 mg PO DAILY 05/10/18 05/10/18 Cholecalciferol [Vitamin D3] 1,000 unit PO DAILY 05/10/18 05/10/18 Magnesium 1000mg 1 tab PO DAILY 05/10/18 05/10/18 Metoprolol Succinate (ER) [Toprol 50 mg PO DAILY 05/10/18 05/10/18 Xl] Multivitamins, Thera [Multivitamin 1 tab PO DAILY 05/10/18 05/10/18 (formulary)] Vitamin E 5,000 unit PO DAILY 05/10/18 05/10/18 Previous Rx's Medication Instructions Recorded glipiZIDE XL [Glucotrol XL] 10 mg PO DAILY #30 tab 01/01/16 Furosemide [Lasix] 40 mg PO DAILY tab 05/23/16 Lisinopril [Zestril] 10 mg PO DAILY #90 tab 07/09/17 Allergies Allergy/AdvReac Type Severity Reaction Status Date / Time Penicillins Allergy Unknown Verified 05/10/18 15:21 shellfish derived [Shellfish] Allergy Anaphylaxis Verified 05/10/18 15:21 Review of Systems ROS Statement: Those systems with pertinent positive or pertinent negative responses have been documented in the HPI. ROS Other: All systems not noted in ROS Statement are negative. Past Medical History Past Medical History: Atrial Fibrillation, Diabetes Mellitus, GERD/Reflux, Hypertension, Prostate Disorder, Renal Disease Additional Past Medical History / Comment(s): AAA History of Any Multi-Drug Resistant Organisms: None Reported Past Surgical History: Back Surgery, Heart Catheterization, Orthopedic Surgery Additional Past Surgical History / Comment(s): bilat carpal tunnel, sherrie knee replacments,rotator cuff Past Anesthesia/Blood Transfusion Reactions: No Reported Reaction Additional Past Anesthesia/Blood Transfusion Reaction / Comment(s): Clausterphobic Past Psychological History: No Psychological Hx Reported Smoking Status: Former smoker Past Alcohol Use History: None Reported Past Drug Use History: None Reported - Past Family History Father Family Medical History: Cancer Additional Family Medical History / Comment(s): prostate cancer Mother Family Medical History: CVA/TIA Sister(s) Family Medical History: Cancer Additional Family Medical History / Comment(s): heart problems but unsure of what exactly General Exam - General Exam Comments Initial Comments: GENERAL: Patient is well-developed and well-nourished. Patient is nontoxic and well- hydrated and is in mild distress. ENT: Neck is soft and supple. No significant lymphadenopathy is noted. Oropharynx is clear. Moist mucous membranes. Neck has full range of motion without eliciting any pain. EYES: The sclera were anicteric and conjunctiva were pink and moist. Extraocular movements were intact and pupils were equal round and reactive to light. Eyelids were unremarkable. PULMONARY: Unlabored respirations. Good breath sounds bilaterally. No audible rales rhonchi or wheezing was noted. CARDIOVASCULAR: There is a regular rate and rhythm without any murmurs gallops or rubs. ABDOMEN: Soft and nontender with normal bowel sounds. No palpable organomegaly was noted. There is no palpable pulsatile mass. SKIN: Skin is clear with no lesions or rashes and otherwise unremarkable. NEUROLOGIC: Patient is alert and oriented x3. Patient has facial droop on the left side both of the mouth and forehead MUSCULOSKELETAL: Normal extremities with adequate strength and full range of motion. LYMPHATICS: No significant lymphadenopathy is noted PSYCHIATRIC: Normal psychiatric evaluation. Limitations: no limitations Course Vital Signs 05/10/18 05/10/18 05/10/18 14:13 15:11 16:00 Temperature 97.8 F Pulse Rate 53 L 55 L 52 L Respiratory 18 18 18 Rate Blood Pressure 135/72 177/78 177/87 O2 Sat by Pulse 96 95 96 Oximetry Medical Decision Making - Medical Decision Making EKG shows a regular rate with possible flutter waves at a rate of 54 bpm QRS on a 54 QTC is 480 QTC is 455 patient has a right bundle ashli block. CT of the head shows no acute abnormality I spoke with Dr. Kebede he agreed to admit the patient admitted the patient I wrote admitting orders. - Lab Data Result diagrams: 05/10/18 14:39 05/10/18 14:39 Lab Results 05/10/18 05/10/18 05/10/18 Range/Units 14:39 14:39 14:39 WBC 6.0 (3.8-10.6) k/uL RBC 4.83 (4.30-5.90) m/uL Hgb 14.0 (13.0-17.5) gm/dL Hct 45.3 (39.0-53.0) % MCV 93.9 (80.0-100.0) fL MCH 28.9 (25.0-35.0) pg MCHC 30.8 L (31.0-37.0) g/dL RDW 13.2 (11.5-15.5) % Plt Count 173 (150-450) k/uL Neutrophils % 69 % Lymphocytes % 18 % Monocytes % 8 % Eosinophils % 3 % Basophils % 1 % Neutrophils # 4.1 (1.3-7.7) k/uL Lymphocytes # 1.1 (1.0-4.8) k/uL Monocytes # 0.5 (0-1.0) k/uL Eosinophils # 0.2 (0-0.7) k/uL Basophils # 0.1 (0-0.2) k/uL PT (9.0-12.0) sec INR (<1.2) APTT (22.0-30.0) sec Sodium 137 (137-145) mmol/L Potassium 4.8 (3.5-5.1) mmol/L Chloride 103 (98-107) mmol/L Carbon Dioxide 26 (22-30) mmol/L Anion Gap 8 mmol/L BUN 29 H (9-20) mg/dL Creatinine 1.42 H (0.66-1.25) mg/dL Est GFR (CKD-EPI)AfAm 54 (>60 ml/min/1.73 sqM) Est GFR (CKD-EPI)NonAf 47 (>60 ml/min/1.73 sqM) Glucose 140 H (74-99) mg/dL Calcium 8.9 (8.4-10.2) mg/dL Total Bilirubin 0.7 (0.2-1.3) mg/dL AST 35 (17-59) U/L ALT 37 (21-72) U/L Alkaline Phosphatase 61 (38-126) U/L Total Creatine Kinase 173 H (55-170) U/L CK-MB (CK-2) 3.8 H* (0.0-2.4) ng/mL CK-MB (CK-2) Rel Index 2.2 Troponin I 0.059 H* (0.000-0.034) ng/mL Total Protein 6.5 (6.3-8.2) g/dL Albumin 3.8 (3.5-5.0) g/dL 05/10/18 Range/Units 14:39 WBC (3.8-10.6) k/uL RBC (4.30-5.90) m/uL Hgb (13.0-17.5) gm/dL Hct (39.0-53.0) % MCV (80.0-100.0) fL MCH (25.0-35.0) pg MCHC (31.0-37.0) g/dL RDW (11.5-15.5) % Plt Count (150-450) k/uL Neutrophils % % Lymphocytes % % Monocytes % % Eosinophils % % Basophils % % Neutrophils # (1.3-7.7) k/uL Lymphocytes # (1.0-4.8) k/uL Monocytes # (0-1.0) k/uL Eosinophils # (0-0.7) k/uL Basophils # (0-0.2) k/uL PT 27.4 H (9.0-12.0) sec INR 3.1 H (<1.2) APTT 36.4 H (22.0-30.0) sec Sodium (137-145) mmol/L Potassium (3.5-5.1) mmol/L Chloride (98-107) mmol/L Carbon Dioxide (22-30) mmol/L Anion Gap mmol/L BUN (9-20) mg/dL Creatinine (0.66-1.25) mg/dL Est GFR (CKD-EPI)AfAm (>60 ml/min/1.73 sqM) Est GFR (CKD-EPI)NonAf (>60 ml/min/1.73 sqM) Glucose (74-99) mg/dL Calcium (8.4-10.2) mg/dL Total Bilirubin (0.2-1.3) mg/dL AST (17-59) U/L ALT (21-72) U/L Alkaline Phosphatase (38-126) U/L Total Creatine Kinase (55-170) U/L CK-MB (CK-2) (0.0-2.4) ng/mL CK-MB (CK-2) Rel Index Troponin I (0.000-0.034) ng/mL Total Protein (6.3-8.2) g/dL Albumin (3.5-5.0) g/dL Disposition Clinical Impression: Cerebrovascular accident Disposition: ADMITTED IP TO THIS [facility] Time of Disposition: 16:11
[2018-05-10 15:18] LABS: Basophils # (A) 0.1 k/uL (0-0.2); Basophils % (A) 1 %; Eosinophils # (A) 0.2 k/uL (0-0.7); Eosinophils % (A) 3 %; HCT 45.3 % (39.0-53.0); Lymphocytes # (A) 1.1 k/uL (1.0-4.8); Lymphocytes % (A) 18 %; MCH 28.9 pg (25.0-35.0); MCHC 30.8 g/dL (31.0-37.0); MCV 93.9 fL (80.0-100.0); Mean Platelet Volume 7.5; Monocytes # (A) 0.5 k/uL (0-1.0); Monocytes % (A) 8 %; Neutrophils # (A) 4.1 k/uL (1.3-7.7); Neutrophils % (A) 69 %; Platelet Count 173 k/uL (150-450); RBC 4.83 m/uL (4.30-5.90); RDW 13.2 % (11.5-15.5)
[2018-05-10 15:26] LABS: INR 3.1 (<1.2); Partial Thromboplastin Time 36.4 sec (22.0-30.0); Prothrombin Time 27.4 sec (9.0-12.0)
[2018-05-10 15:27] LABS: Albumin 3.8 g/dL (3.5-5.0); Calcium 8.9 mg/dL (8.4-10.2); Potassium 4.8 mmol/L (3.5-5.1); Total Bilirubin 0.7 mg/dL (0.2-1.3); Total Protein 6.5 g/dL (6.3-8.2)
--- NOTE | 2018-05-10 15:42 | CT ---
EXAMINATION TYPE: CT brain wo con DATE OF EXAM: 05/10/2018 HISTORY: Neurodeficits per order. Left-sided weakness. CT DLP: 1135 mGycm. Automated Exposure Control for Dose Reduction was Utilized. TECHNIQUE: CT scan of the head is performed without contrast. COMPARISON: None. FINDINGS: There is no acute intracranial hemorrhage or midline shift identified. There is diffuse v entricular and sulcal prominence consistent with diffuse age-related cerebral atrophy. There are are as of low-attenuation throughout the deep and periventricular white matter most likely on basis of pr oduct of chronic small vessel ischemic change in patient this age. There is 2 mm skin foreign body la teral to right globe axial image 11. Paranasal sinuses are clear. Moderate vascular calcification dis ruslan internal carotid arteries is present bilaterally. IMPRESSION: No acute intracranial hemorrhage or midline shift. There is mild to moderate diffuse ag e-related cerebral atrophy and moderate chronic small vessel ischemic change noted.
--- NOTE | 2018-05-10 16:01 | XR ---
EXAMINATION TYPE: XR chest 2V DATE OF EXAM: 05/10/2018 COMPARISON: Prior chest x-ray May 21, 2016 HISTORY: Altered mental status and weakness. TECHNIQUE: Frontal and lateral views of the chest are obtained. FINDINGS: There is chronic change without suspicious new focal air space opacity, pleural effusion, or pneumothorax seen. The cardiac silhouette size is enlarged with ectatic thoracic aorta. The oss eous structures are demineralized. Degenerative change of both shoulders worse than right shoulder is redemonstrated. High riding right humeral head consistent with chronic rotator cuff tear is redemons trated. There is partial visualization of stent graft in the upper abdomen on lateral view likely wit hin aorta. IMPRESSION: Chronic changes and cardiomegaly without suspicious acute pulmonary process.
[2018-05-10 16:20] LABS: Creatine Kinase MB 3.8 ng/mL (0.0-2.4)
[2018-05-10 16:22] LABS: Troponin I 0.059 ng/mL (0.000-0.034)
[2018-05-10] MEDS ORDERED: diphenhydrAMINE 25 MG CAP PO PRN (20:38)
[2018-05-10] MEDS ORDERED: ARTIFICIAL TEARS-HYPROMELLOSE DROPS 15 ML BTL BOTH EYES PRN (20:38)
[2018-05-10 21:08] LABS: Glucose,Whole Blood 183 mg/dL (75-99)
[2018-05-10] MEDS: HYDROcodone/APAP 7.5-325MG 1 EACH TAB PO PRN (21:30)
[2018-05-10] MEDS: INSULIN ASPART 100 UNIT/ML 1 ML 10 ML VIAL SQ SCH (21:30)
[2018-05-10] MEDS: DOCUSATE 100 MG CAP PO SCH (21:30)
[2018-05-10] MEDS: MAGNESIUM OXIDE 400 MG TAB PO SCH (21:30)
[2018-05-10] MEDS: BISACODYL 5 MG TABLET.DR PO SCH (21:30)
[2018-05-10] MEDS: DOXAZOSIN 4 MG TAB PO SCH (22:12)
[2018-05-10] MEDS: LORATADINE 10 MG TAB PO SCH (22:12)
--- NOTE | 2018-05-10 23:14 | CT ---
EXAMINATION TYPE: CT angio head neck with contrast and with 3-D reconstruction renderings DATE OF EXAM: 05/10/2018 HISTORY: Left sided weakness. COMPARISON: CT brain without contrast 05/10/2018 at 3:[address] DLP: 553.7 mGycm. Automated Exposure Control for Dose Reduction was Utilized. TECHNIQUE: CTA scan of the neck is performed with IV Contrast, patient injected with 130ml mL of Iso griffin 370, axial images are obtained, coronal and sagittal reformatted images are reviewed. Three-D rec onstructed images are created on an independent workstation and reviewed. FINDINGS: AORTIC ARCH: The great vasculature arising from the aortic arch are widely patent. CAROTID ARTERIAL SYSTEMS: The right and left common carotid are widely patent throughout their extent . The proximal right ICA and the proximal left ICA both show complex calcified and noncalcified plaqu e which appears to be laterally flow limiting - although there is no poststenotic dilatation of eithe r ICA. The cervical extent of the bilateral ICA show mild tortuosity. The intracranial anterior circu lation is widely patent, without focal stenosis or aneurysm. VERTEBROBASILAR ARTERIAL SYSTEMS: The bilateral vertebral arteries are patent from their origins and throughout their extent. The intracranial posterior circulation is widely patent, without focal steno sis or aneurysm. OTHER: Visualized lung apices are notable for a 1 cm diameter spherical subpleural soft tissue nodule, jarrett hly marginated, and unchanged when compared to the October 30, 2010 CT. Skeletal structures are unremarkable. Intracranial extravascular examination is unremarkable. The CT brain findings of the 05/10/2018 3:21 P M study can be further characterized using MRI. IMPRESSION: 1. No acute process. 2. Bilateral flow-limiting proximal ICA complex stenoses. 3. 1 cm diameter right upper lobe soft tissue pulmonary nodule, stable since 2010.
[2018-05-11 03:51] LABS: Cholesterol 187 mg/dL (<200); HDL Cholesterol 44 mg/dL (40-60); LDL Cholesterol,Calculated 101 mg/dL (0-99); Triglycerides 210 mg/dL (<150)
[2018-05-11 05:59] LABS: Glucose,Whole Blood 131 mg/dL (75-99)
[2018-05-11] MEDS: INSULIN ASPART 100 UNIT/ML 1 ML 10 ML VIAL SQ SCH ×4 (06:11→21:17)
[2018-05-11] MEDS: glipiZIDE 5 MG TAB PO SCH ×2 (06:32→17:11)
[2018-05-11] MEDS: PANTOPRAZOLE 40 MG TABLET PO SCH (06:32)
[2018-05-11 08:11] LABS: INR 3.2 (<1.2); Prothrombin Time 28.5 sec (9.0-12.0)
[2018-05-11 08:59] LABS: Basophils % (A) 1 %; Eosinophils # (A) 0.2 k/uL (0-0.7); Eosinophils % (A) 3 %; HCT 42.6 % (39.0-53.0); HGB 13.3 gm/dL (13.0-17.5); Lymphocytes # (A) 1.3 k/uL (1.0-4.8); Lymphocytes % (A) 24 %; MCH 29.6 pg (25.0-35.0); MCHC 31.3 g/dL (31.0-37.0); MCV 94.6 fL (80.0-100.0); Mean Platelet Volume 7.5; Monocytes # (A) 0.4 k/uL (0-1.0); Monocytes % (A) 8 %; Neutrophils # (A) 3.2 k/uL (1.3-7.7); Neutrophils % (A) 62 %; Platelet Count 174 k/uL (150-450); RBC 4.51 m/uL (4.30-5.90); RDW 13.2 % (11.5-15.5); WBC 5.2 k/uL (3.8-10.6)
[2018-05-11 09:05] LABS: Albumin 3.2 g/dL (3.5-5.0); Calcium 8.7 mg/dL (8.4-10.2); Potassium 4.5 mmol/L (3.5-5.1); Total Bilirubin 0.4 mg/dL (0.2-1.3); Total Protein 5.7 g/dL (6.3-8.2)
[2018-05-11] MEDS: CHOLECALCIFEROL 1,000 UNIT TAB PO SCH (09:23)
[2018-05-11] MEDS: DOCUSATE 100 MG CAP PO SCH ×2 (09:23→21:17)
[2018-05-11] MEDS: DOXAZOSIN 4 MG TAB PO SCH ×2 (09:23→21:17)
[2018-05-11] MEDS: MAGNESIUM OXIDE 400 MG TAB PO SCH ×2 (09:23→21:18)
[2018-05-11] MEDS: FUROSEMIDE 40 MG TAB PO SCH (09:23)
[2018-05-11] MEDS: LISINOPRIL 10 MG TAB PO SCH (09:23)
[2018-05-11] MEDS: amLODIPine 5 MG TAB PO SCH (09:23)
[2018-05-11] MEDS: BISACODYL 5 MG TABLET.DR PO SCH ×2 (09:25→21:17)
[2018-05-11] MEDS: CYANOCOBALAMIN 500 MCG TAB PO SCH (09:26)
--- NOTE | 2018-05-11 11:19 | P.HPIM ---
History of Present Illness H&P Date: 05/11/18 Chief Complaint: CVA This is a 77-year-old patient of Dr. Rai. Patient presented to the emergency room with complaints of numbness and weakness to his left side which started on Wednesday. Patient says he on Wednesday he became weaker and fell. And patient woke up on Wednesday with some facial droop on the left side which was noticed by family members at 9 am and decided to bring patient to the hospital for further evaluation. She does have a past medical history of atrial fibrillation in which she takes Coumadin. Additional medical history includes heart failure, diabetes mellitus, GERD, hypertension, prostate disorder, renal disease, AAA repair, back surgery, heart catheterization and orthopedic surgery. CT angiogram head and neck was performed in the ER showing no acute process. Bilateral flow limiting proximal ICA complex stenosis. An 1 cm diameter right upper lobe soft tissue pulmonary nodule, stable since 2010. Chest x-ray performed showing chronic changes and cardiomegaly without acute pulmonary process. CT of head performed showing no acute intracranial hemorrhage or midline shift. There is mild to moderate diffuse age-related cerebral atrophy and moderate chronic small vessel ischemic changes noted. EKG performed showing wide QRS rhythm, left axis deviation and right bundle branch block. Neurology services have been consulted. 2-D echo has been ordered. Cardiology service consulted. Patient denies chest pain or shortness of breath. Denies nausea vomiting or diarrhea. Denies any urinary burning or frequency. Review of Systems please refer to HPI otherwise unremarkable Past Medical History Past Medical History: Atrial Fibrillation, Heart Failure, Diabetes Mellitus, GERD/Reflux, Hypertension, Prostate Disorder, Renal Disease Additional Past Medical History / Comment(s): AAA(had sx), at time has difficulty swallowing pills History of Any Multi-Drug Resistant Organisms: None Reported Past Surgical History: Back Surgery, Heart Catheterization, Orthopedic Surgery Additional Past Surgical History / Comment(s): bilat carpal tunnel, sherrie knee replacments, lt rotator cuff Past Anesthesia/Blood Transfusion Reactions: No Reported Reaction Additional Past Anesthesia/Blood Transfusion Reaction / Comment(s): Clausterphobic. stated has never recieved any blood transfusions Smoking Status: Former smoker - Past Family History Father Family Medical History: Cancer Additional Family Medical History / Comment(s): prostate cancer Mother Family Medical History: CVA/TIA Sister(s) Family Medical History: Cancer Additional Family Medical History / Comment(s): heart problems but unsure of what exactly Medications and Allergies Home Medications Medication Instructions Recorded Confirmed Type Omeprazole 40 mg PO DAILY 12/28/15 05/11/18 History Sildenafil Citrate [Viagra] 100 mg PO DAILY PRN 12/28/15 05/10/18 History Terazosin HCl 5 mg PO BID 12/29/15 05/10/18 History glipiZIDE XL [Glucotrol XL] 10 mg PO DAILY #30 tab 01/01/16 05/10/18 Rx Warfarin Sodium [Coumadin] 3 mg PO SUTUWETHSA 05/21/16 05/11/18 History Hydrocodone/Acetaminophen 1 tab PO BID PRN 05/22/16 05/10/18 History [Hydrocodone-Acetamin 7.5-325] Furosemide [Lasix] 40 mg PO DAILY tab 05/23/16 05/10/18 Rx Artificial Tears-Hypromellose 1 drops BOTH EYES TID PRN 04/26/17 05/10/18 History [Artificial Tear Drops] Beta-Prostate 1 tab PO DAILY 04/26/17 05/10/18 History Bisacodyl [Dulcolax] 5 mg PO BID 04/26/17 05/10/18 History Cyanocobalamin (Vitamin B-12) 1,000 mcg PO DAILY 04/26/17 05/10/18 History [Vitamin B-12] Docusate [Colace] 100 mg PO BID 04/26/17 05/10/18 History Warfarin [Coumadin] 4.5 mg PO MOFR 04/26/17 05/11/18 History diphenhydrAMINE [Benadryl] 25 mg PO TID PRN 04/26/17 05/10/18 History amLODIPine [Norvasc] 5 mg PO DAILY 07/07/17 05/10/18 History Lisinopril [Zestril] 10 mg PO DAILY #90 tab 07/09/17 05/10/18 Rx Aspirin EC [Ecotrin Low Dose] 81 mg PO DAILY 05/10/18 05/10/18 History Cetirizine HCl [Zyrtec] 10 mg PO BID 05/10/18 05/10/18 History Cholecalciferol [Vitamin D3] 1,000 unit PO DAILY 05/10/18 05/10/18 History Magnesium 1000mg 1 tab PO BID 05/10/18 05/10/18 History Metoprolol Succinate (ER) [Toprol 50 mg PO DAILY 05/11/18 05/11/18 History Xl] Allergies Allergy/AdvReac Type Severity Reaction Status Date / Time Penicillins Allergy Unknown Verified 05/10/18 15:21 shellfish derived [Shellfish] Allergy Anaphylaxis Verified 05/10/18 15:21 Physical Exam Vitals: Vital Signs Temp Pulse Pulse Resp BP BP Pulse Ox 05/11/18 09:29 97.6 F 53 L 16 146/79 93 L 05/11/18 04:00 68 17 137/74 94 L 05/11/18 00:00 97.8 F 54 L 18 137/72 94 L 05/10/18 20:00 97.1 F L 56 L 17 140/76 93 L 05/10/18 18:26 53 L 18 170/79 96 05/10/18 17:57 98 F 57 L 18 157/111 98 05/10/18 16:00 52 L 18 177/87 96 05/10/18 15:11 55 L 18 177/78 95 05/10/18 14:13 97.8 F 53 L 18 135/72 96 Intake and Output 05/10/18 05/11/18 05/11/18 22:59 06:59 14:59 Output Total 420 300 Balance -420 -300 Output: Urine 420 300 Other: Voiding Method Urinal Urinal Urinal Weight 96.6 kg Head normocephalic Neck supple Lungs clear to auscultation bilaterally no wheezing or crackles Heart regular rate and rhythm S1-S2, no rub or gallop Abdomen is soft nontender nondistended positive bowel sounds no hepatosplenomegaly Extremities no edema Neuro alert and orientated to 3. Memory intact. 4/5 strength noted to left upper extremity. Speech is clear. Mild left facial droop. 4/5 strength noted to the lower left extremity. Results CBC & Chem 7: 05/11/18 07:07 05/11/18 07:07 Labs: Abnormal Lab Results - Last 24 Hours (Table) 05/10/18 05/10/18 05/10/18 Range/Units 14:39 14:39 14:39 MCHC 30.8 L (31.0-37.0) g/dL PT (9.0-12.0) sec INR (<1.2) APTT (22.0-30.0) sec BUN 29 H (9-20) mg/dL Creatinine 1.42 H (0.66-1.25) mg/dL Glucose 140 H (74-99) mg/dL POC Glucose (mg/dL) (75-99) mg/dL Total Creatine Kinase 173 H (55-170) U/L CK-MB (CK-2) 3.8 H* (0.0-2.4) ng/mL Troponin I 0.059 H* (0.000-0.034) ng/mL Total Protein (6.3-8.2) g/dL Albumin (3.5-5.0) g/dL Triglycerides (<150) mg/dL LDL Cholesterol, Calc (0-99) mg/dL 05/10/18 05/10/18 05/10/18 Range/Units 14:39 14:39 21:06 MCHC (31.0-37.0) g/dL PT 27.4 H (9.0-12.0) sec INR 3.1 H (<1.2) APTT 36.4 H (22.0-30.0) sec BUN (9-20) mg/dL Creatinine (0.66-1.25) mg/dL Glucose (74-99) mg/dL POC Glucose (mg/dL) 183 H (75-99) mg/dL Total Creatine Kinase (55-170) U/L CK-MB (CK-2) (0.0-2.4) ng/mL Troponin I (0.000-0.034) ng/mL Total Protein (6.3-8.2) g/dL Albumin (3.5-5.0) g/dL Triglycerides 210 H (<150) mg/dL LDL Cholesterol, Calc 101 H (0-99) mg/dL 05/11/18 05/11/18 05/11/18 Range/Units 05:58 07:07 07:07 MCHC (31.0-37.0) g/dL PT 28.5 H (9.0-12.0) sec INR 3.2 H (<1.2) APTT (22.0-30.0) sec BUN 26 H (9-20) mg/dL Creatinine 1.43 H (0.66-1.25) mg/dL Glucose 124 H (74-99) mg/dL POC Glucose (mg/dL) 131 H (75-99) mg/dL Total Creatine Kinase (55-170) U/L CK-MB (CK-2) (0.0-2.4) ng/mL Troponin I (0.000-0.034) ng/mL Total Protein 5.7 L (6.3-8.2) g/dL Albumin 3.2 L (3.5-5.0) g/dL Triglycerides (<150) mg/dL LDL Cholesterol, Calc (0-99) mg/dL Thrombosis Risk Factor Assmnt - Choose All That Apply Any of the Below Risk Factors Present?: Yes Each Factor Represents 1 point: Obesity (BMI >25), Swollen legs (current) Other Risk Factors: Yes Each Risk Factor Represents 3 Points: Age 75 years or older Other congenital or acquired thrombophilia - If yes, enter type in comment: Yes Each Risk Factor Represents 5 Points: Stroke (< 1 month) Thrombosis Risk Factor Assessment Total Risk Factor Score: 10 Thrombosis Risk Factor Assessment Level: High Risk Assessment and Plan Assessment: 1. Possible cerebrovascular accident. CT of head performed. Showing no acute intracranial hemorrhage or midline shift. There is mild to moderate diffuse age -related cerebral atrophy and moderate chronic small vessel ischemic changes noted. CT of and she'll of head and neck performed showing no acute process. Bilateral flow-limiting proximal ICA complex stenosis. 1 cm diameter right upper lobe soft tissue pulmonary nodule, stable since 2010. Neurology services have been consulted. Physical therapy has been consulted. 2. Chronic atrial fibrillation: Anticoagulated with Coumadin. INR 3.2. EKG performed showing wide QRS rhythm, left axis deviation and right bundle branch block. 2-D echo has been ordered. Cardiology services have been consulted 3. Diabetes mellitus type 2. Continue current home medications. Sliding scale added 4. Chronic kidney disease stage III. Creatinine 1.43 which appears to be baseline for patient. 5. History of congestive heart failure. Continue Lasix 6. History of essential hypertension. Continue home medication of lisinopril, Cardura and Norvasc 7. History of Abdominal aortic aneurysm repair. Performed by Dr. Loredo in June 2017. Cardiology services have been consulted. DVT prophylaxis Coumadin. GI prophylaxis pepcid Time with Patient: Greater than 30 (Greater than 60% of the total time spent in counseling and coordination of care.I performed an examination of the patient and discussed their management with the Nurse Practitioner. I have reviewed the Nurse Practitioner's notes and agree with the documented findings and plan of care)
--- NOTE | 2018-05-11 11:44 | ECHOF ---
Referral Reason:CVA MEASUREMENTS -------- HEIGHT: 167.6 cm WEIGHT: 96.2 kg BP: IVSd: 0.8 cm (0.6 - 1.1) LVIDd: 6.0 cm (3.9 - 5.3) LVPWd: 1.0 cm (0.6 - 1.1) IVSs: 1.4 cm LVIDs: 3.6 cm LVPWs: 1.8 cm LAESV Index (A-L): 37.70 ml/m Ao Diam: 3.1 cm (2.0 - 3.7) AV Cusp: 1.4 cm (1.5 - 2.6) LA Diam: 3.7 cm (2.7 - 3.8) MV EXCURSION: 25.683 mm (> 18.000) MV EF SLOPE: 101 mm/s (70 - 150) EPSS: 1.3 cm AV maxP.42 mmHg AV meanP.43 mmHg FINDINGS -------- Atrial fibrillation. This was a technically difficult study with suboptimal views. The left ventricle is mildly dilated. Left ventricular wall thickness is normal. Overall left maroln tricular systolic function is mildly impaired with, an EF between 45 - 50 %. The right ventricle is normal in size and function. LA is moderately dilated 34-39 ml/m2 The right atrium is normal in size. Lumason used There is mild aortic valve sclerosis. The mitral valve leaflets are mildly thickened. Mild mitral regurgitation is present. Mild tricuspid regurgitation present. The pulmonic valve was not well visualized. The aortic root, ascending aorta and aortic arch are normal. There is no pericardial effusion. CONCLUSIONS -------- 1. Atrial fibrillation. 2. This was a technically difficult study with suboptimal views. 3. The left ventricle is mildly dilated. 4. Left ventricular wall thickness is normal. 5. Overall left ventricular systolic function is mildly impaired with, an EF between 45 - 50 %. 6. LA is moderately dilated 34-39 ml/m2 7. Lumason used 8. There is mild aortic valve sclerosis. 9. The mitral valve leaflets are mildly thickened. 10. Mild mitral regurgitation is present. 11. Mild tricuspid regurgitation present. 12. The pulmonic valve was not well visualized. 13. The aortic root, ascending aorta and aortic arch are normal. 14. There is no pericardial effusion. MANUFACTURING ELECTRICIAN: Nona Salcido RDCS
[2018-05-11] MEDS: BETA PROSTATE PO SCH (12:11)
--- NOTE | 2018-05-11 12:25 | P.CRDCN ---
History of Present Illness Consult date: 05/11/18 Requesting physician: Shilo Kebede Chief complaint: Left-sided weakness History of present illness: This is a 77-year-old gentleman who follows regularly with Dr. VC Hines in the office. He has a known history of congestive heart failure, systolic acute on chronic, persistent atrial fibrillation, anticoagulated with warfarin, diabetes, hypertension, hyperlipidemia, GERD, history also of AAA for which the patient underwent stent graft, patient underwent a cardiac catheterization in December 2015 which revealed diffuse calcification of all of the coronary vessels. Mild irregularity noted in the LAD and the right coronary artery. Acute marginal branch of the right coronary artery was totally occluded and medical therapy was advised at that time. He also had an echo performed in December 2015 which revealed an ejection fraction of 40-45%, evidence of inferior hypokinesia with mild to moderate tricuspid regurgitation. Patient presents to the hospital on this occasion with symptoms of left arm and left leg numbness and weakness, numbness in the left side of his face with associated eye drooping and some drooling out of the left side of his mouth. According to the patient he initially noted symptoms on of last week, but because his was in the hospital he did not want to mention anything. He ultimately came to the hospital because of symptoms persisted. CT angiography was performed on arrival here which did not reveal any acute process , bilateral flow limiting proximal ICA complex stenosis, 1 cm diameter right upper lobe soft tissue pulmonary nodule noted, similar since 2010. CAT scan of the brain did not reveal any acute intracranial hemorrhage or midline shift. There is mild to moderate diffuse age-related cerebral atrophy noted. Chest x- ray showed chronic changes and cardiomegaly without suspicion for any acute process. EKG showed atrial fibrillation with a controlled ventricular response. Blood pressure on arrival here 135/70, heart rate in the 50s to 60s, blood pressure this morning 146/78. CBC is normal, INR 3.1 on admission 3.2 this morning. Sodium 138, potassium 4.5, BUN 26, creatinine 1.4. Troponin 0.059, cholesterol 187, triglycerides 210, LDL 101, HDL 44. At the time of my examination, patient still complains of weakness in his left arm and leg, however he did walk in the sun today with physical therapy. No facial or eyelid drooping is noted this morning. Past Medical History Past Medical History: Atrial Fibrillation, Heart Failure, Diabetes Mellitus, GERD/Reflux, Hypertension, Prostate Disorder, Renal Disease Additional Past Medical History / Comment(s): AAA(had sx), at time has difficulty swallowing pills History of Any Multi-Drug Resistant Organisms: None Reported Past Surgical History: Back Surgery, Heart Catheterization, Orthopedic Surgery Additional Past Surgical History / Comment(s): bilat carpal tunnel, sherrie knee replacments, lt rotator cuff Past Anesthesia/Blood Transfusion Reactions: No Reported Reaction Additional Past Anesthesia/Blood Transfusion Reaction / Comment(s): Clausterphobic. stated has never recieved any blood transfusions Smoking Status: Former smoker - Past Family History Father Family Medical History: Cancer Additional Family Medical History / Comment(s): prostate cancer Mother Family Medical History: CVA/TIA Sister(s) Family Medical History: Cancer Additional Family Medical History / Comment(s): heart problems but unsure of what exactly Medications and Allergies Home Medications Medication Instructions Recorded Confirmed Type Omeprazole 40 mg PO DAILY 12/28/15 05/11/18 History Sildenafil Citrate [Viagra] 100 mg PO DAILY PRN 12/28/15 05/10/18 History Terazosin HCl 5 mg PO BID 12/29/15 05/10/18 History glipiZIDE XL [Glucotrol XL] 10 mg PO DAILY #30 tab 01/01/16 05/10/18 Rx Warfarin Sodium [Coumadin] 3 mg PO SUTUWETHSA 05/21/16 05/11/18 History Hydrocodone/Acetaminophen 1 tab PO BID PRN 05/22/16 05/10/18 History [Hydrocodone-Acetamin 7.5-325] Furosemide [Lasix] 40 mg PO DAILY tab 05/23/16 05/10/18 Rx Artificial Tears-Hypromellose 1 drops BOTH EYES TID PRN 04/26/17 05/10/18 History [Artificial Tear Drops] Beta-Prostate 1 tab PO DAILY 04/26/17 05/10/18 History Bisacodyl [Dulcolax] 5 mg PO BID 04/26/17 05/10/18 History Cyanocobalamin (Vitamin B-12) 1,000 mcg PO DAILY 04/26/17 05/10/18 History [Vitamin B-12] Docusate [Colace] 100 mg PO BID 04/26/17 05/10/18 History Warfarin [Coumadin] 4.5 mg PO MOFR 04/26/17 05/11/18 History diphenhydrAMINE [Benadryl] 25 mg PO TID PRN 04/26/17 05/10/18 History amLODIPine [Norvasc] 5 mg PO DAILY 07/07/17 05/10/18 History Lisinopril [Zestril] 10 mg PO DAILY #90 tab 07/09/17 05/10/18 Rx Aspirin EC [Ecotrin Low Dose] 81 mg PO DAILY 05/10/18 05/10/18 History Cetirizine HCl [Zyrtec] 10 mg PO BID 05/10/18 05/10/18 History Cholecalciferol [Vitamin D3] 1,000 unit PO DAILY 05/10/18 05/10/18 History Magnesium 1000mg 1 tab PO BID 05/10/18 05/10/18 History Metoprolol Succinate (ER) [Toprol 50 mg PO DAILY 05/11/18 05/11/18 History Xl] Allergies Allergy/AdvReac Type Severity Reaction Status Date / Time Penicillins Allergy Unknown Verified 05/10/18 15:21 shellfish derived [Shellfish] Allergy Anaphylaxis Verified 05/10/18 15:21 Physical Exam Vitals: Vital Signs Temp Pulse Pulse Resp BP BP Pulse Ox 05/11/18 09:29 97.6 F 53 L 16 146/79 93 L 05/11/18 04:00 68 17 137/74 94 L 05/11/18 00:00 97.8 F 54 L 18 137/72 94 L 05/10/18 20:00 97.1 F L 56 L 17 140/76 93 L 05/10/18 18:26 53 L 18 170/79 96 05/10/18 17:57 98 F 57 L 18 157/111 98 05/10/18 16:00 52 L 18 177/87 96 05/10/18 15:11 55 L 18 177/78 95 05/10/18 14:13 97.8 F 53 L 18 135/72 96 Intake and Output 05/10/18 05/11/18 05/11/18 22:59 06:59 14:59 Output Total 420 300 Balance -420 -300 Output: Urine 420 300 Other: Voiding Method Urinal Urinal Urinal Weight 96.6 kg PHYSICAL EXAMINATION: GENERAL: 77-year-old gentleman in no acute distress at the time of my examination HEENT: Head is atraumatic, normocephalic. Pupils equal, round. Sclera anicteric. Conjunctiva are clear. Mucous membranes of the mouth are moist. Neck is supple. There is no elevated jugular venous pressure.] bruit is heard. HEART EXAMINATION: Heart S1 and S2 irregularly irregular a systolic murmur is heard. CHEST EXAMINATION: Lungs are clear to auscultation and precussion. No chest wall tenderness is noted on palpation or with deep breathing. ABDOMEN: Soft, obese, nontender. Bowel sounds are heard. No organomegaly noted. EXTREMITIES: 2+ peripheral pulses with no evidence of peripheral edema and no calf tenderness noted. NEUROLOGIC patient is awake, alert and oriented X3. No neuro deficits noted. . Results 05/11/18 07:07 05/11/18 07:07 Cardiac Enzymes 05/10/18 05/10/18 05/11/18 Range/Units 14:39 14:39 07:07 AST 35 28 (17-59) U/L CK-MB (CK-2) 3.8 H* (0.0-2.4) ng/mL Troponin I 0.059 H* (0.000-0.034) ng/mL Coagulation 05/10/18 05/11/18 Range/Units 14:39 07:07 PT 27.4 H 28.5 H (9.0-12.0) sec APTT 36.4 H (22.0-30.0) sec Lipids 05/10/18 Range/Units 14:39 Triglycerides 210 H (<150) mg/dL Cholesterol 187 (<200) mg/dL HDL Cholesterol 44 (40-60) mg/dL CBC 05/10/18 05/11/18 Range/Units 14:39 07:07 WBC 6.0 5.2 (3.8-10.6) k/uL RBC 4.83 4.51 (4.30-5.90) m/uL Hgb 14.0 13.3 (13.0-17.5) gm/dL Hct 45.3 42.6 (39.0-53.0) % Plt Count 173 174 (150-450) k/uL Comprehensive Metabolic Panel 08/21/18 08/22/18 Range/Units 14:39 07:07 Sodium 137 138 (137-145) mmol/L Potassium 4.8 4.5 (3.5-5.1) mmol/L Chloride 103 104 (98-107) mmol/L Carbon Dioxide 26 28 (22-30) mmol/L BUN 29 H 26 H (9-20) mg/dL Creatinine 1.42 H 1.43 H (0.66-1.25) mg/dL Glucose 140 H 124 H (74-99) mg/dL Calcium 8.9 8.7 (8.4-10.2) mg/dL AST 35 28 (17-59) U/L ALT 37 33 (21-72) U/L Alkaline Phosphatase 61 65 (38-126) U/L Total Protein 6.5 5.7 L (6.3-8.2) g/dL Albumin 3.8 3.2 L (3.5-5.0) g/dL Current Medications Generic Name Dose Route Start Last Admin Trade Name Freq PRN Reason Stop Dose Admin Hydrocodone Bitart/Acetaminophen 1 each 05/10/18 20:38 05/10/18 21:30 [place] 7.5-325 PO 1 each BID PRN Administration Pain Amlodipine Besylate 5 mg 05/11/18 09:00 05/11/18 09:23 Norvasc PO 5 mg DAILY [place] Administration Artificial Tears 1 drops 05/10/18 20:38 05/10/18 22:13 Artificial Tear Drops BOTH EYES 1 drops TID PRN Administration Dry Eye(s) Bisacodyl 5 mg 05/10/18 21:00 05/11/18 09:25 Dulcolax PO 5 mg BID [place] Administration Cholecalciferol 1,000 unit 05/11/18 09:00 05/11/18 09:23 Vitamin D3 PO 1,000 unit DAILY [place] Administration Cyanocobalamin 1,000 mcg 05/11/18 09:00 05/11/18 09:26 Vitamin B-12 PO 1,000 mcg DAILY [place] Administration Diphenhydramine HCl 25 mg 05/10/18 20:38 Benadryl PO TID PRN Allergy Symptoms Docusate Sodium 100 mg 05/10/18 21:00 05/11/18 09:23 Colace PO 100 mg BID [place] Administration Doxazosin Mesylate 4 mg 05/10/18 21:00 05/11/18 09:23 Cardura PO 4 mg BID [place] Administration Famotidine 20 mg 05/12/18 09:00 Pepcid PO DAILY [place] Furosemide 40 mg 05/11/18 09:00 05/11/18 09:23 Lasix PO 40 mg DAILY [place] Administration Glipizide 5 mg 05/11/18 07:30 05/11/18 06:32 Glucotrol PO 5 mg AC-BID [place] Administration Insulin Aspart 0 unit 05/10/18 21:00 05/11/18 06:11 Novolog SQ Not Given ACHS [facility] Protocol Lisinopril 10 mg 05/11/18 09:00 05/11/18 09:23 Zestril PO 10 mg DAILY [place] Administration Loratadine 10 mg 05/10/18 21:00 05/10/18 22:12 Claritin PO 10 mg HS [place] Administration Magnesium Oxide 400 mg 05/10/18 21:00 05/11/18 09:23 Mag-Ox PO 400 mg BID [place] Administration Beta-Prostate 1 tab 05/11/18 09:00 PO DAILY [place] Pantoprazole Sodium 40 mg 05/11/18 07:30 05/11/18 06:32 Protonix PO 40 mg [id number] [place] Administration Warfarin Sodium 4.5 mg 05/13/18 18:00 Coumadin PO MOFR [place] Warfarin Sodium 3 mg 05/11/18 18:00 Coumadin PO SUTUWETHSA [facility] Intake and Output 05/10/18 05/11/18 05/11/18 22:59 06:59 14:59 Output Total 420 300 Balance -420 -300 Output: Urine 420 300 Other: Voiding Method Urinal Urinal Urinal Weight 96.6 kg 05/11/18 07:07 05/11/18 07:07 EKG Interpretations (text) EKG shows atrial fibrillation with a controlled ventricular response Assessment and Plan Plan: Assessment and plan #1 symptoms of left-sided numbness and weakness, rule out CVA. Initial CAT scan did not reveal any acute intracranial hemorrhage or midline shift. There is mild to moderate diffuse age-related cerebral atrophy and moderate chronic small vessel ischemic changes noted #2 chronic persistent atrial fibrillation, on Coumadin for anticoagulation. INR 3.2. #3 diabetes #4 chronic kidney disease #5 hypertension #6 coronary artery disease, patient did have a cardiac catheterization performed in December 2015 which revealed diffuse calcification of all of the coronary vessels. Mild irregularity noted in the LAD and the right coronary artery. Acute marginal branch of the right coronary artery was totally occluded was advised at that time. #7 AAA with prior stenting Plan We will obtain an echocardiogram with Doppler study. Patient's INR was therapeutic on admission at 3.1, it is 3.2 this morning. It is possible that the patient's event could be secondary to small vessel disease. I did have a discussion with the patient regarding initiating one of the newer anticoagulants. Further recommendations to follow. DNP note has been reviewed, I agree with a documented findings and plan of care. Patient was seen and examined.
[2018-05-11 15:07] LABS: Hemoglobin A1C 7.7 % (4.0-6.0)
[2018-05-11 16:39] LABS: Glucose,Whole Blood 138 mg/dL (75-99)
[2018-05-11 16:50] LABS: Glucose,Whole Blood 154 mg/dL (75-99)
--- NOTE | 2018-05-11 17:40 | P.CNNES ---
History of Present Illness Consult date: 05/11/18 Requesting physician: Bernard Handley Reason for Consult: CVA Chief complaint: Left Upper and Lower Extremity Weakness History of Present Illness: Neurology is consulting a 77-year-old male with left upper and lower extremity weakness as well as numbness and tingling for 5 days. Patient became weak, difficult to ambulate. She then began experiencing left-sided facial droop and patient was brought to the ED. Patient denied any headache, right-sided symptoms, visual disturbances. Patient did state he had begun experiencing difficulty swallowing, formulating words due to decreased tongue control. Patient also had drooling at time of presentation. He does have a history of diabetes, hypertension, hyperlipidemia. Patient did have testing prior to neurological consult testing included CT angiogram of the head and neck which noted flow-limiting stenosis in the bilateral internal carotid arteries, no acute process. Patient's CT of the brain noted chronic small vessel ischemic disease and mild to moderate cerebral atrophy. MRI is contraindicated and patient due to presence of metal objects. On contact, patient was sitting at the bedside, family and the room, alert and oriented 3, no acute distress. Review of Systems systems not noted in HPI are negative. Past Medical History Past Medical History: Atrial Fibrillation, Heart Failure, Diabetes Mellitus, GERD/Reflux, Hypertension, Prostate Disorder, Renal Disease Additional Past Medical History / Comment(s): AAA(had sx), at time has difficulty swallowing pills History of Any Multi-Drug Resistant Organisms: None Reported Past Surgical History: Back Surgery, Heart Catheterization, Orthopedic Surgery Additional Past Surgical History / Comment(s): bilat carpal tunnel, sherrie knee replacments, lt rotator cuff Past Anesthesia/Blood Transfusion Reactions: No Reported Reaction Additional Past Anesthesia/Blood Transfusion Reaction / Comment(s): Clausterphobic. stated has never recieved any blood transfusions Smoking Status: Former smoker - Past Family History Father Family Medical History: Cancer Additional Family Medical History / Comment(s): prostate cancer Mother Family Medical History: CVA/TIA Sister(s) Family Medical History: Cancer Additional Family Medical History / Comment(s): heart problems but unsure of what exactly Medications and Allergies Home Medications Medication Instructions Recorded Confirmed Type Omeprazole 40 mg PO DAILY 12/28/15 05/11/18 History Sildenafil Citrate [Viagra] 100 mg PO DAILY PRN 12/28/15 05/10/18 History Terazosin HCl 5 mg PO BID 12/29/15 05/10/18 History glipiZIDE XL [Glucotrol XL] 10 mg PO DAILY #30 tab 01/01/16 05/10/18 Rx Warfarin Sodium [Coumadin] 3 mg PO SUTUWETHSA 05/21/16 05/11/18 History Hydrocodone/Acetaminophen 1 tab PO BID PRN 05/22/16 05/10/18 History [Hydrocodone-Acetamin 7.5-325] Furosemide [Lasix] 40 mg PO DAILY tab 05/23/16 05/10/18 Rx Artificial Tears-Hypromellose 1 drops BOTH EYES TID PRN 04/26/17 05/10/18 History [Artificial Tear Drops] Beta-Prostate 1 tab PO DAILY 04/26/17 05/10/18 History Bisacodyl [Dulcolax] 5 mg PO BID 04/26/17 05/10/18 History Cyanocobalamin (Vitamin B-12) 1,000 mcg PO DAILY 04/26/17 05/10/18 History [Vitamin B-12] Docusate [Colace] 100 mg PO BID 04/26/17 05/10/18 History Warfarin [Coumadin] 4.5 mg PO MOFR 04/26/17 05/11/18 History diphenhydrAMINE [Benadryl] 25 mg PO TID PRN 04/26/17 05/10/18 History amLODIPine [Norvasc] 5 mg PO DAILY 07/07/17 05/10/18 History Lisinopril [Zestril] 10 mg PO DAILY #90 tab 07/09/17 05/10/18 Rx Aspirin EC [Ecotrin Low Dose] 81 mg PO DAILY 05/10/18 05/10/18 History Cetirizine HCl [Zyrtec] 10 mg PO BID 05/10/18 05/10/18 History Cholecalciferol [Vitamin D3] 1,000 unit PO DAILY 05/10/18 05/10/18 History Magnesium 1000mg 1 tab PO BID 05/10/18 05/10/18 History Metoprolol Succinate (ER) [Toprol 50 mg PO DAILY 05/11/18 05/11/18 History Xl] Allergies Allergy/AdvReac Type Severity Reaction Status Date / Time Penicillins Allergy Unknown Verified 08/21/18 15:21 shellfish derived [Shellfish] Allergy Anaphylaxis Verified 05/10/18 15:21 Physical Examination - Vital Signs Vital Signs: Vital Signs Temp Pulse Pulse Resp BP BP Pulse Ox 05/11/18 12:33 97.6 F 63 16 188/112 92 L 05/11/18 09:29 97.6 F 53 L 16 146/79 93 L 05/11/18 04:00 68 17 137/74 94 L 05/11/18 00:00 97.8 F 54 L 18 137/72 94 L 05/10/18 20:00 97.1 F L 56 L 17 140/76 93 L 05/10/18 18:26 53 L 18 170/79 96 05/10/18 17:57 98 F 57 L 18 157/111 98 Intake and Output 05/11/18 05/11/18 05/11/18 06:59 14:59 22:59 Intake Total 240 Output Total 300 1000 Balance -300 -760 Intake: Oral 240 Output: Urine 300 1000 Other: Voiding Method Urinal Urinal # Voids 4 # Bowel Movements 2 Weight 96.6 kg General appearance: Alert & oriented x3, no apparent distress. Head: Atraumatic, normocephalic, normal inspection Eyes: Well appearance, PERRLA, EOMI. Absent scleral icterus, conjunctival injection, nystagmus, periorbital swelling. Ear, nose and throat: Normal exam, mucous membranes moist Neck: Normal inspection, absent tenderness, lymphadenopathy. Respiratory: No increased work of breathing Cardiovascular: Regular rate, rhythm GI/abdominal: No guarding Extremities: Full range of motion, normal capillary refill, no tenderness, pedal edema joint swelling, calf tenderness. Neurological: cranial nerves II through XII grossly intact lateralizing weaknessleft upper and lower extremity, left-sided perioral facial droop no seizure activity noted on physical exam no pronator drift and no nystagmus. Left lower extremity: 4-/5 Right lower extremity: 4+/5 Left upper extremity: 4-/5 Right upper extremity: 4+/5 Sensation: Left lower extremity: normal Right lower extremity: normal Left upper extremity: normal Right upper extremity:normal Psychological: Mood and Affect appropriate for setting Results lipid panel noted elevated LDL, elevated triglycerides serum homocystine level ordered CT angiogram head and neck as noted earlier CT brain as noted previous - Laboratory Findings CBC and BMP: 05/11/18 07:07 05/11/18 07:07 Abnormal Lab Findings: Abnormal Labs 05/10/18 05/10/18 05/10/18 14:39 14:39 14:39 MCHC 30.8 L PT INR APTT BUN 29 H Creatinine 1.42 H Glucose 140 H POC Glucose (mg/dL) Total Creatine Kinase 173 H CK-MB (CK-2) 3.8 H* Troponin I 0.059 H* Total Protein Albumin Triglycerides LDL Cholesterol, Calc 05/10/18 05/10/18 05/10/18 14:39 14:39 21:06 MCHC PT 27.4 H INR 3.1 H APTT 36.4 H BUN Creatinine Glucose POC Glucose (mg/dL) 183 H Total Creatine Kinase CK-MB (CK-2) Troponin I Total Protein Albumin Triglycerides 210 H LDL Cholesterol, Calc 101 H 05/11/18 05/11/18 05/11/18 05:58 07:07 07:07 MCHC PT 28.5 H INR 3.2 H APTT BUN 26 H Creatinine 1.43 H Glucose 124 H POC Glucose (mg/dL) 131 H Total Creatine Kinase CK-MB (CK-2) Troponin I Total Protein 5.7 L Albumin 3.2 L Triglycerides LDL Cholesterol, Calc 05/11/18 05/11/18 12:03 16:49 MCHC PT INR APTT BUN Creatinine Glucose POC Glucose (mg/dL) 138 H 154 H Total Creatine Kinase CK-MB (CK-2) Troponin I Total Protein Albumin Triglycerides LDL Cholesterol, Calc Assessment and Plan (1) Cerebrovascular accident Narrative/Plan: as noted elsewhere Current Visit: Yes Status: Acute Code(s): I63.9 - CEREBRAL INFARCTION, UNSPECIFIED SNOMED Code(s): 574926025 (2) Left-sided weakness Narrative/Plan: Patient is currently outside window for TIA and given the ongoing symptoms related to the patient's left upper and lower extremity weakness, left perioral droop,it is still possible that the patient is experiencing CVA although imaging is not currently reflective of that at this time. Patient does have flow-limiting stenosis in the bilateral internal carotid arteries on CT angiogram. Do recommend vascular referral for evaluation of the stenosis. Radiology report does not give percentage classification of stenosis. Further diagnostic workup to include: EEG Serum homocystine level recommend vascular consult related to CT angiogram results repeat CT brain on 05/12/18 ordered: Swallow study Treatment: Recommend PT/OT evaluation and consult Recommend speech consult prescribe Lipitor 20 mg by mouth daily at bedtime Continue antiplatelet therapy as implemented by primary team Continue neurological checks as ordered or implemented. Current Visit: Yes Status: Acute Code(s): R53.1 - WEAKNESS SNOMED Code(s) : 053838620 (3) Dysphasia Narrative/Plan: Patient does have observed difficulty with formulating different consonants and vowel patterns on physical exam. Diagnostic workup to include: Recommend speech evaluation Current Visit: Yes Status: Acute Code(s): R47.02 - DYSPHASIA SNOMED Code(s ): 52739885 (4) Dysphagia Narrative/Plan: Patient does have difficulty swallowing solids. Patient states that he does have a "gag" when attempting to swallow solid objects as well as scratchy dry sensation in his throat on a persistent basis. Diagnostic workup to include: Speech -evaluation and treatment swallow study Current Visit: Yes Status: Acute Code(s): R13.10 - DYSPHAGIA, UNSPECIFIED SNOMED Code(s): 69120439 Plan: Status: Neurology will continue to follow and provide updates as needed or warranted. Contact our office with any questions I have discussed the plan of care with the physician prior to implementation and he agrees with the plan as implemented.
[2018-05-11] MEDS ORDERED: WARFARIN 3 MG TAB PO SCH (18:00)
[2018-05-11 20:48] LABS: Glucose,Whole Blood 188 mg/dL (75-99)
[2018-05-11] MEDS: ATORVASTATIN 20 MG TAB PO SCH (21:17)
[2018-05-11] MEDS: LORATADINE 10 MG TAB PO SCH (21:18)
[2018-05-11] MEDS: HYDROcodone/APAP 7.5-325MG 1 EACH TAB PO PRN (21:19)
[2018-05-12 05:42] LABS: Glucose,Whole Blood 135 mg/dL (75-99)
[2018-05-12] MEDS: INSULIN ASPART 100 UNIT/ML 1 ML 10 ML VIAL SQ SCH ×4 (05:52→21:51)
[2018-05-12 06:58] LABS: Basophils % (A) 1 %; Eosinophils # (A) 0.2 k/uL (0-0.7); Eosinophils % (A) 3 %; HCT 43.5 % (39.0-53.0); INR 2.1 (<1.2); Lymphocytes # (A) 1.1 k/uL (1.0-4.8); Lymphocytes % (A) 18 %; MCH 30.2 pg (25.0-35.0); MCHC 32.3 g/dL (31.0-37.0); MCV 93.5 fL (80.0-100.0); Mean Platelet Volume 7.8; Monocytes # (A) 0.5 k/uL (0-1.0); Monocytes % (A) 9 %; Neutrophils % (A) 68 %; Platelet Count 185 k/uL (150-450); Prothrombin Time 19.1 sec (9.0-12.0); RBC 4.65 m/uL (4.30-5.90); WBC 5.8 k/uL (3.8-10.6)
[2018-05-12 07:17] LABS: Albumin 3.6 g/dL (3.5-5.0); Calcium 9.2 mg/dL (8.4-10.2); Potassium 4.4 mmol/L (3.5-5.1); Total Bilirubin 0.6 mg/dL (0.2-1.3); Total Protein 6.1 g/dL (6.3-8.2)
[2018-05-12] MEDS ORDERED: FAMOTIDINE 20 MG TAB PO SCH (09:00)
--- NOTE | 2018-05-12 09:39 | CT ---
EXAMINATION TYPE: CT brain wo con DATE OF EXAM: 05/12/2018 COMPARISON: Prior CT brain 05/10/2018 HISTORY: CVA CT DLP: 999.3 mGycm Automated exposure control for dose reduction was used. Helical imaging through the brain FINDINGS: There is no significant interval change. IMPRESSION: STABLE EXAM, NO ACUTE BRAIN ABNORMALITY IS EVIDENT.
--- NOTE | 2018-05-12 10:15 | P.PN ---
Subjective Progress Note Date: 05/12/18 Principal diagnosis: TIA/stroke This is a pleasant 77-year-old gentleman who sees Dr. VC Hines in the office as an outpatient with a past medical history significant for chronic atrial fibrillation on oral anticoagulation was Coumadin, mild cardiomyopathy with a known EF around 45%, hypertension, dyslipidemia, obesity, and status post triple a repair, was admitted to the hospital with TIA/CVA. The patient did have an episode of left arm weakness associated with slurred speech. He still have some weakness. He was seen and evaluated by the urology service who recommended obtaining computed tomography scan. The initial CT did not show any acute abnormalities but it did show age-related atrophic changes only. I'll follow-up with him today, he denies having any chest pain or discomfort or shortness of breath. But he still have left arm weakness. The blood pressure is elevated but he did not take his medications today because he is nothing by mouth for possible MARILYN later on today. If the MARILYN did not show any cardiac source of embolization I do recommend that the patient to be started on one of the newer anticoagulation agents and stop the Coumadin. Objective - Vital Signs Vital signs: Vital Signs Temp 98.0 F 05/12/18 04:00 Pulse 64 05/12/18 08:00 Resp 18 05/12/18 08:00 BP 176/84 05/12/18 08:00 Pulse Ox 93 L 05/12/18 08:00 Intake & Output 05/11/18 05/12/18 05/12/18 18:59 06:59 18:59 Intake Total 480 10 0 Output Total 1000 550 Balance -520 -540 0 Weight 98.7 kg Intake: IV 10 Invasive Line 1 10 Oral 480 0 Output: Urine 1000 550 Other: Voiding Method Urinal Urinal # Voids 4 # Bowel Movements 2 - Constitutional General appearance: Present: no acute distress - Respiratory Respiratory: bilateral: CTA - Cardiovascular Rhythm: irregularly irregular Heart sounds: normal: S1, S2 - Labs CBC & Chem 7: 05/12/18 05:39 05/12/18 05:39 Labs: Abnormal Lab Results - Last 24 Hours (Table) 05/10/18 05/11/18 05/11/18 Range/Units 14:39 12:03 16:49 PT (9.0-12.0) sec INR (<1.2) BUN (9-20) mg/dL Creatinine (0.66-1.25) mg/dL Glucose (74-99) mg/dL POC Glucose (mg/dL) 138 H 154 H (75-99) mg/dL Hemoglobin A1c 7.7 H (4.0-6.0) % Total Protein (6.3-8.2) g/dL 05/11/18 05/12/18 05/12/18 Range/Units 20:47 05:39 05:39 PT 19.1 H (9.0-12.0) sec INR 2.1 H (<1.2) BUN 25 H (9-20) mg/dL Creatinine 1.42 H (0.66-1.25) mg/dL Glucose 135 H (74-99) mg/dL POC Glucose (mg/dL) 188 H (75-99) mg/dL Hemoglobin A1c (4.0-6.0) % Total Protein 6.1 L (6.3-8.2) g/dL 05/12/18 Range/Units 05:41 PT (9.0-12.0) sec INR (<1.2) BUN (9-20) mg/dL Creatinine (0.66-1.25) mg/dL Glucose (74-99) mg/dL POC Glucose (mg/dL) 135 H (75-99) mg/dL Hemoglobin A1c (4.0-6.0) % Total Protein (6.3-8.2) g/dL Assessment and Plan Assessment: Assessment #1 TIA/CVA #2 chronic atrial fibrillation on oral anticoagulation was Coumadin #3 mild cardiomyopathy with EF around 45% #4 multiple comorbid conditions Plan #1 continue the current medical regimen #2 the patient is going to have a MARILYN later on today by Dr. VC Hines #3 follow-up with the patient.
--- NOTE | 2018-05-12 10:24 | P.PN ---
Subjective Progress Note Date: 05/12/18 This is a 77-year-old patient of Dr. Rai. Patient presented to the emergency room with complaints of numbness and weakness to his left side which started on Wednesday. Patient says he on Wednesday he became weaker and fell. And patient woke up on Wednesday with some facial droop on the left side which was noticed by family members at 9 am and decided to bring patient to the hospital for further evaluation. She does have a past medical history of atrial fibrillation in which she takes Coumadin. Additional medical history includes heart failure, diabetes mellitus, GERD, hypertension, prostate disorder, renal disease, AAA repair, back surgery, heart catheterization and orthopedic surgery. CT angiogram head and neck was performed in the ER showing no acute process. Bilateral flow limiting proximal ICA complex stenosis. An 1 cm diameter right upper lobe soft tissue pulmonary nodule, stable since 2010. Chest x-ray performed showing chronic changes and cardiomegaly without acute pulmonary process. CT of head performed showing no acute intracranial hemorrhage or midline shift. There is mild to moderate diffuse age-related cerebral atrophy and moderate chronic small vessel ischemic changes noted. EKG performed showing wide QRS rhythm, left axis deviation and right bundle branch block. Neurology services have been consulted. 2-D echo has been ordered. Cardiology service consulted. Patient denies chest pain or shortness of breath. Denies nausea vomiting or diarrhea. Denies any urinary burning or frequency. On 05/12/2018 patient is currently resting comfortably in bed. Patient is a and O 3. No neuro symptoms noted. Repeat CT of had EEG ordered per neurology. 2-D echo completed showing an EF between 45-50%. Cardiology services are following. Possible MARILYN today due to patient having history of atrial fibrillation. Patient denies chest pain or shortness of breath. Denies nausea vomiting or diarrhea. Denies any urinary burning or frequency. Objective - Vital Signs Vital signs: Vital Signs Temp 98.0 F 05/12/18 04:00 Pulse 64 05/12/18 08:00 Resp 18 05/12/18 08:00 BP 176/84 05/12/18 08:00 Pulse Ox 93 L 05/12/18 08:00 Intake & Output 05/11/18 05/12/18 05/12/18 18:59 06:59 18:59 Intake Total 480 10 0 Output Total 1000 550 Balance -520 -540 0 Weight 98.7 kg Intake: IV 10 Invasive Line 1 10 Oral 480 0 Output: Urine 1000 550 Other: Voiding Method Urinal Urinal # Voids 4 # Bowel Movements 2 - Exam Head normocephalic Neck supple Lungs clear to auscultation bilaterally no wheezing or crackles Heart regular rate and rhythm S1-S2, no rub or gallop Abdomen is soft nontender nondistended positive bowel sounds no hepatosplenomegaly Extremities no edema Neuro alert and orientated to 3. Equal strength throughout. No facial droop noted - Labs CBC & Chem 7: 05/12/18 05:39 05/12/18 05:39 Labs: Abnormal Lab Results - Last 24 Hours (Table) 05/10/18 05/11/18 05/11/18 Range/Units 14:39 12:03 16:49 PT (9.0-12.0) sec INR (<1.2) BUN (9-20) mg/dL Creatinine (0.66-1.25) mg/dL Glucose (74-99) mg/dL POC Glucose (mg/dL) 138 H 154 H (75-99) mg/dL Hemoglobin A1c 7.7 H (4.0-6.0) % Total Protein (6.3-8.2) g/dL 05/11/18 05/12/18 05/12/18 Range/Units 20:47 05:39 05:39 PT 19.1 H (9.0-12.0) sec INR 2.1 H (<1.2) BUN 25 H (9-20) mg/dL Creatinine 1.42 H (0.66-1.25) mg/dL Glucose 135 H (74-99) mg/dL POC Glucose (mg/dL) 188 H (75-99) mg/dL Hemoglobin A1c (4.0-6.0) % Total Protein 6.1 L (6.3-8.2) g/dL 05/12/18 Range/Units 05:41 PT (9.0-12.0) sec INR (<1.2) BUN (9-20) mg/dL Creatinine (0.66-1.25) mg/dL Glucose (74-99) mg/dL POC Glucose (mg/dL) 135 H (75-99) mg/dL Hemoglobin A1c (4.0-6.0) % Total Protein (6.3-8.2) g/dL Assessment and Plan Assessment: 1. Symptoms of Left upper and lower extremity weakness rule out cerebrovascular accident. CT of head performed. Showing no acute intracranial hemorrhage or midline shift. There is mild to moderate diffuse age-related cerebral atrophy and moderate chronic small vessel ischemic changes noted. CT of and she'll of head and neck performed showing no acute process. Bilateral flow-limiting proximal ICA complex stenosis. 1 cm diameter right upper lobe soft tissue pulmonary nodule, stable since 2010. Neurology services have been consulted. Physical therapy has been consulted. Per neurology repeat head and EEG has been ordered. Patient started on Lipitor. Homocysteine plasma level has been ordered. 2. Chronic atrial fibrillation: Anticoagulated with Coumadin. INR 3.2. EKG performed showing wide QRS rhythm, left axis deviation and right bundle branch block. 2-D echo has been ordered. Cardiology services have been consulted. 2- D echo completed showing EF of 45-50%. Plan for possible MARILYN today per cardiology. INR today 2.1 3. Diabetes mellitus type 2. Continue current home medications. Sliding scale added 4. Chronic kidney disease stage III. Creatinine 1.42 which appears to be baseline for patient. 5. History of congestive heart failure. Continue Lasix 6. History of essential hypertension. Continue home medication of lisinopril, Cardura and Norvasc 7. History of Abdominal aortic aneurysm repair. Performed by Dr. Loredo in June 2017. Cardiology services have been consulted. 8. Difficulty in swallowing. Discussed case with speech therapy. Bedside swallow did not reveal any significant findings. Will order barium swallow. DVT prophylaxis Coumadin. GI prophylaxis pepcid I performed an examination of the patient and discussed their management with the Nurse Practitioner. I have reviewed the Nurse Practitioner's notes and agree with the documented findings and plan of care
[2018-05-12 11:45] LABS: Glucose,Whole Blood 173 mg/dL (75-99)
[2018-05-12] MEDS ORDERED: fentaNYL (PF) 50 MCG/ML 2 ML AMP ONE (12:05)
[2018-05-12] MEDS ORDERED: MIDAZOLAM 2 MG/2 ML VIAL ONE (12:05)
[2018-05-12] MEDS ORDERED: SODIUM CHLORIDE 0.9% 500 ML IV ONE (12:22)
[2018-05-12] MEDS: BENZOCAINE SPRAY 1 CAN MUCOUS MEM ONE ×2 (12:25→12:40)
[2018-05-12] MEDS ORDERED: MIDAZOLAM 2 MG/2 ML VIAL IVP ONE (12:40)
[2018-05-12] MEDS ORDERED: fentaNYL (PF) 50 MCG/ML 2 ML AMP IV ONE (12:40)
[2018-05-12] MEDS ORDERED: SODIUM CHLORIDE 0.9% 1,000 ML IV SCH (13:45)
--- NOTE | 2018-05-12 14:31 | FL ---
EXAMINATION TYPE: FL barium swallow w video DATE OF EXAM: 05/12/2018 COMPARISON: NONE HISTORY: swallowing difficulty. FINDINGS: Patient was evaluated in real-time fluoroscopy in the lateral projection while ingesting barium mixe d with liquids and solids. No aspiration or laryngeal penetration. See dictated report from speech pathology. 1 minute 50 seconds fluoroscopy time, no intraoperative images.
[2018-05-12] MEDS: FUROSEMIDE 40 MG TAB PO SCH (14:39)
[2018-05-12] MEDS: LISINOPRIL 10 MG TAB PO SCH (14:39)
[2018-05-12] MEDS: MAGNESIUM OXIDE 400 MG TAB PO SCH ×2 (14:39→20:00)
[2018-05-12] MEDS: glipiZIDE 5 MG TAB PO SCH ×2 (14:40→17:45)
[2018-05-12] MEDS: CYANOCOBALAMIN 500 MCG TAB PO SCH (14:41)
[2018-05-12] MEDS: amLODIPine 5 MG TAB PO SCH (14:41)
[2018-05-12] MEDS: DOCUSATE 100 MG CAP PO SCH ×2 (14:41→20:00)
[2018-05-12] MEDS: DOXAZOSIN 4 MG TAB PO SCH ×2 (14:41→20:00)
[2018-05-12] MEDS: PANTOPRAZOLE 40 MG TABLET PO SCH (14:41)
[2018-05-12] MEDS: BISACODYL 5 MG TABLET.DR PO SCH ×2 (14:42→20:03)
[2018-05-12] MEDS: CHOLECALCIFEROL 1,000 UNIT TAB PO SCH (14:42)
--- NOTE | 2018-05-12 14:43 | ECHOT ---
TRANSESOPHAGEAL ECHOCARDIOGRAM Mr. Linares is a 77-year-old gentleman who came with the symptoms suggestive for TIA. Patient's two CAT scans were normal. The patient had recently aortic stent graft placed in. The patient has underlying atrial fibrillation with right bundle branch block, left anterior hemiblock. Patient's INR was therapeutic on admission. Transesophageal echocardiogram was performed to rule out any cardiac thrombi. PROCEDURE: The patient was given intravenous sedation with a fentanyl and Versed and transesophageal echocardiogram was performed without any complications. Left ventricular chamber is normal in size. There is evidence of hypokinetic septum as well as the inferior wall and overall generalized hypokinesia with ejection fraction in the range of 35%. Mitral valve morphology is normal. There is a mild mitral regurgitation noted. Aortic valve is mildly thickened. Minimal aortic regurgitation is noted. Mild tricuspid regurgitation is noted. There is no definite evidence of any thrombus in left atrial appendage or left atrium. There is no evidence of thrombus in the left ventricular apex. This intra-atrial septum is intact. There is no evidence of any PFO by saline contrast study. The descending thoracic aorta shows diffuse mild to moderate atherosclerotic plaque. FINAL IMPRESSION: 1. There is no definite evidence of thrombus in left atrium or atrial appendage or left ventricular apex. 2. There is a septal and inferior wall hypokinesia with moderate degree of global hypokinesis and estimated ejection fraction is in the range of 35%. 3. There is a mild thickening of the aortic wall noted. 4. Mild mitral regurgitation is noted. 5. Interatrial septum is intact. There is no evidence of any PFO. There is a diffuse arthrosclerotic plaque noted in descending thoracic aorta. RECOMMENDATIONS: The patient may benefit from switching from Coumadin to Eliquis after his INR is less than 2. MMODL / IJN: [id number] /
[2018-05-12 16:50] LABS: Glucose,Whole Blood 178 mg/dL (75-99)
--- NOTE | 2018-05-12 17:19 | EEG ---
ELECTROENCEPHALOGRAM REPORT DATE OF SERVICE: 05/12/2018. REASON FOR TESTING: Stroke. DESCRIPTION OF THE PROCEDURE: This EEG was performed using a 21 channel digital electroencephalograph, following international 10-20 system. DESCRIPTION OF THE RECORDING: From the beginning of the tracing, and with patient's eyes closed, the background rhythm was mostly consisting of 9-10 Hz alpha frequency, in the posterior occipital leads. No obvious asymmetry is seen. Photic stimulation was performed with a minimal driving response seen. No pathological waves were elicited. Hyperventilation was not performed. The patient remains awake throughout the tracing. No epileptiform discharges were seen. His EKG lead showed an irregularly irregular rhythm with a normal rate. INTERPRETATION: This awake EEG can be considered within normal limits except his EKG lead showed an irregularly irregular rhythm with a normal rate. No epileptiform discharges were seen. The absence of epileptiform discharges does not rule out the diagnosis of epilepsy; therefore clinical correlation is recommended. [id number] / IJN: [id number] /
[2018-05-12] MEDS: BETA PROSTATE PO SCH (17:40)
--- NOTE | 2018-05-12 19:05 | P.PN ---
Subjective Progress Note Date: 05/12/18 Principal diagnosis: TIA Neurology is following on a 77-year-old male for TIA. Patient had left upper and lower extremity weakness that presented to the ED. Began having extremity weakness as well as numbness and tingling for 5 days prior to presentation as well as difficulty with ambulation. Left-sided facial droop was also observed by family prior to arrival. Patient did not have any headache, right-sided symptoms, visual disturbances. Patient did have problems/difficulties with swallowing, formulating words due to decreased tongue control. Patient also had drooling at time of presentation in the ER. CT angiogram post-arrival of the head and neck noted flow-limiting stenosis in the bilateral internal carotid arteries, no acute process. Patient CT of the brain noted chronic small vessel ischemic disease and mild to moderate cerebral atrophy. MRI is contraindicated in patient due to presence of metal objects. On contact, patient was sitting at the bedside, in no acute distress, alert and oriented 3, spouse in the room. Objective - Vital Signs Vital signs: Vital Signs Temp 98.0 F 05/12/18 04:00 Pulse 52 L 05/12/18 16:00 Resp 16 05/12/18 16:00 BP 141/67 05/12/18 16:00 Pulse Ox 93 L 05/12/18 16:00 Intake & Output 05/11/18 05/12/18 05/12/18 18:59 06:59 18:59 Intake Total 480 10 218 Output Total 1000 550 Balance -520 -540 218 Weight 98.7 kg Intake: IV 10 100 Invasive Line 1 10 Oral 480 118 Output: Urine 1000 550 Other: Voiding Method Urinal Urinal # Voids 4 1 # Bowel Movements 2 1 - Exam General appearance: Alert & oriented x3, no apparent distress. Head: Atraumatic, normocephalic, normal inspection Eyes: Well appearance, PERRLA, EOMI. Absent scleral icterus, conjunctival injection, nystagmus, periorbital swelling. Ear, nose and throat: Normal exam, mucous membranes moist Neck: Normal inspection, absent tenderness, lymphadenopathy. Respiratory: No increased work of breathing Cardiovascular: Regular rate, rhythm GI/abdominal: No guarding Extremities: Full range of motion with exception of left shoulderknown prior deficit, normal capillary refill, no tenderness, pedal edema joint swelling, calf tenderness. Neurological: cranial nerves II through XII intact no lateralizing weakness no seizure activity noted on physical exam no pronator drift and no nystagmus. Left lower extremity: 4/5 Right lower extremity: 4/5 Left upper extremity: 4/5 Right upper extremity:4/5 Sensation: Left lower extremity: normal Right lower extremity: normal Left upper extremity: normal Right upper extremity:normal Psychological: Mood and Affect appropriate for setting - Labs CBC & Chem 7: 05/12/18 05:39 05/12/18 05:39 Labs: Abnormal Lab Results - Last 24 Hours (Table) 05/10/18 05/11/18 05/12/18 Range/Units 14:39 20:47 05:39 PT (9.0-12.0) sec INR (<1.2) BUN (9-20) mg/dL Creatinine (0.66-1.25) mg/dL Glucose (74-99) mg/dL POC Glucose (mg/dL) 188 H (75-99) mg/dL Hemoglobin A1c 7.7 H (4.0-6.0) % Total Protein (6.3-8.2) g/dL Homocysteine 18.28 H (4.00-14.00) umol/L 05/12/18 05/12/18 05/12/18 Range/Units 05:39 05:39 05:41 PT 19.1 H (9.0-12.0) sec INR 2.1 H (<1.2) BUN 25 H (9-20) mg/dL Creatinine 1.42 H (0.66-1.25) mg/dL Glucose 135 H (74-99) mg/dL POC Glucose (mg/dL) 135 H (75-99) mg/dL Hemoglobin A1c (4.0-6.0) % Total Protein 6.1 L (6.3-8.2) g/dL Homocysteine (4.00-14.00) umol/L 05/12/18 05/12/18 Range/Units 11:42 16:47 PT (9.0-12.0) sec INR (<1.2) BUN (9-20) mg/dL Creatinine (0.66-1.25) mg/dL Glucose (74-99) mg/dL POC Glucose (mg/dL) 173 H 178 H (75-99) mg/dL Hemoglobin A1c (4.0-6.0) % Total Protein (6.3-8.2) g/dL Homocysteine (4.00-14.00) umol/L Assessment and Plan (1) TIA (transient ischemic attack) Narrative/Plan: patient is approximate 95% return to baseline per patient and family. It does appear that the patient did experience a rather protracted duration of a TIA. However, patient has known blood thinner use as well as atrial fibrillation which could be contributory underlying etiology. Patient and family state that the patient is still progressing back to baseline in a positive manner. CT brain #2 was negative for acute process. Patient's EEG was normal but noted an arrhythmia. Cardiology is already on consult. continue risk reduction: Blood thinning agent, antihyperlipidemic, blood pressure control Current Visit: Yes Status: Acute Code(s): G45.9 - TRANSIENT CEREBRAL ISCHEMIC ATTACK, UNSPECIFIED SNOMED Code(s): 961203138 (2) Left-sided weakness Narrative/Plan: resolved Current Visit: Yes Status: Acute Code(s): R53.1 - WEAKNESS SNOMED Code(s) : 553388119 (3) Dysphasia Narrative/Plan: resolved Current Visit: Yes Status: Acute Code(s): R47.02 - DYSPHASIA SNOMED Code(s ): 91014336 (4) Dysphagia Narrative/Plan: Patient does have difficulty swallowing solids. Patient states that he does have a "gag" when attempting to swallow solid objects as well as scratchy dry sensation in his throat on a persistent basis. Barium swallow performed today. Defer to speech therapy for further recommendations and treatment. Primary team to continue ongoing management. Current Visit: Yes Status: Acute Code(s): R13.10 - DYSPHAGIA, UNSPECIFIED SNOMED Code(s): 14730178 Plan: STATUS: Patient will be cleared for discharge from a neurological standpoint. Patient to contact our office within 10 days for follow up. I have discussed the plan of care with the physician prior to implementation and he agrees with the plan as implemented.
[2018-05-12] MEDS: ATORVASTATIN 20 MG TAB PO SCH (20:00)
[2018-05-12] MEDS: LORATADINE 10 MG TAB PO SCH (20:00)
[2018-05-12 21:10] LABS: Glucose,Whole Blood 93 mg/dL (75-99)
[2018-05-13] MEDS ORDERED: MELATONIN 5 MG TABLET PO SCH (01:40)
[2018-05-13 05:51] LABS: Glucose,Whole Blood 110 mg/dL (75-99)
[2018-05-13] MEDS: INSULIN ASPART 100 UNIT/ML 1 ML 10 ML VIAL SQ SCH ×2 (05:53→13:08)
[2018-05-13] MEDS: PANTOPRAZOLE 40 MG TABLET PO SCH (06:41)
[2018-05-13] MEDS: glipiZIDE 5 MG TAB PO SCH (06:41)
[2018-05-13 06:53] LABS: Basophils % (A) 1 %; Eosinophils # (A) 0.2 k/uL (0-0.7); Eosinophils % (A) 2 %; HCT 45.9 % (39.0-53.0); HGB 14.7 gm/dL (13.0-17.5); Lymphocytes # (A) 1.4 k/uL (1.0-4.8); Lymphocytes % (A) 18 %; MCH 29.5 pg (25.0-35.0); MCHC 31.9 g/dL (31.0-37.0); MCV 92.5 fL (80.0-100.0); Mean Platelet Volume 7.8; Monocytes # (A) 0.6 k/uL (0-1.0); Monocytes % (A) 8 %; Neutrophils # (A) 5.2 k/uL (1.3-7.7); Neutrophils % (A) 69 %; Platelet Count 199 k/uL (150-450); RBC 4.97 m/uL (4.30-5.90); RDW 12.9 % (11.5-15.5); WBC 7.5 k/uL (3.8-10.6)
[2018-05-13 07:03] LABS: INR 1.8 (<1.2); Prothrombin Time 16.1 sec (9.0-12.0)
[2018-05-13 07:19] LABS: Albumin 3.9 g/dL (3.5-5.0); Calcium 9.6 mg/dL (8.4-10.2); Potassium 4.6 mmol/L (3.5-5.1); Total Protein 6.5 g/dL (6.3-8.2)
[2018-05-13] MEDS ORDERED: APIXABAN 5 MG TAB PO SCH (09:00)
--- NOTE | 2018-05-13 09:07 | P.PN ---
Subjective Progress Note Date: 05/13/18 Principal diagnosis: TIA/stroke This is a pleasant 77-year-old gentleman who sees Dr. VC Hines in the office as an outpatient with a past medical history significant for chronic atrial fibrillation on oral anticoagulation was Coumadin, mild cardiomyopathy with a known EF around 45%, hypertension, dyslipidemia, obesity, and status post triple a repair, was admitted to the hospital with TIA/CVA. The patient did have an episode of left arm weakness associated with slurred speech. He still have some weakness. He was seen and evaluated by the urology service who recommended obtaining computed tomography scan. The initial CT did not show any acute abnormalities but it did show age-related atrophic changes only. I'll follow-up with him today, he denies having any chest pain or discomfort or shortness of breath. But he still have left arm weakness. He underwent a MARILYN yesterday which revealed no evidence of cardiac source of embolization. The Coumadin was stopped yesterday and the patient was started on one of the new or anticoagulation agents. He is currently on Eliquis. From the cardiovascular standpoint overview, the patient can be discharged home. Objective - Vital Signs Vital signs: Vital Signs Temp 97.9 F 05/13/18 04:00 Pulse 77 05/13/18 04:00 Resp 18 05/13/18 04:00 BP 131/78 05/13/18 04:00 Pulse Ox 93 L 05/13/18 04:00 Intake & Output 05/12/18 05/13/18 05/13/18 18:59 06:59 18:59 Intake Total 218 400 Output Total 1030 Balance 218 -630 Weight 98.5 kg Intake: IV 100 Oral 118 400 Output: Urine 1030 Other: Voiding Method Urinal # Voids 1 400 # Bowel Movements 1 - Constitutional General appearance: Present: no acute distress - Respiratory Respiratory: bilateral: CTA - Cardiovascular Rhythm: irregularly irregular Heart sounds: normal: S1, S2 - Labs CBC & Chem 7: 05/13/18 06:12 05/13/18 06:12 Labs: Abnormal Lab Results - Last 24 Hours (Table) 05/12/18 05/12/18 05/12/18 Range/Units 05:39 11:42 16:47 PT (9.0-12.0) sec INR (<1.2) BUN (9-20) mg/dL Creatinine (0.66-1.25) mg/dL Glucose (74-99) mg/dL POC Glucose (mg/dL) 173 H 178 H (75-99) mg/dL Homocysteine 18.28 H (4.00-14.00) umol/L 05/13/18 05/13/18 05/13/18 Range/Units 05:50 06:12 06:12 PT 16.1 H (9.0-12.0) sec INR 1.8 H (<1.2) BUN 26 H (9-20) mg/dL Creatinine 1.58 H (0.66-1.25) mg/dL Glucose 113 H (74-99) mg/dL POC Glucose (mg/dL) 110 H (75-99) mg/dL Homocysteine (4.00-14.00) umol/L Assessment and Plan Assessment: Assessment #1 TIA/CVA #2 chronic atrial fibrillation on oral anticoagulation was Coumadin #3 mild cardiomyopathy with EF around 45% #4 multiple comorbid conditions Plan #1 continue the current medical regimen #2 the MARILYN did not show any evidence of cardiac source of embolization #3 the patient can be discharged home.
[2018-05-13 09:12] VITALS: RESP 16; TEMP 97.6
[2018-05-13] MEDS: CHOLECALCIFEROL 1,000 UNIT TAB PO SCH (09:17)
[2018-05-13] MEDS: amLODIPine 5 MG TAB PO SCH (09:17)
[2018-05-13] MEDS: DOCUSATE 100 MG CAP PO SCH (09:18)
[2018-05-13] MEDS: MAGNESIUM OXIDE 400 MG TAB PO SCH (09:18)
[2018-05-13] MEDS: BISACODYL 5 MG TABLET.DR PO SCH (09:18)
[2018-05-13] MEDS: LISINOPRIL 10 MG TAB PO SCH (09:18)
[2018-05-13] MEDS: FUROSEMIDE 40 MG TAB PO SCH (09:18)
[2018-05-13] MEDS: BETA PROSTATE PO SCH (09:18)
[2018-05-13] MEDS: CYANOCOBALAMIN 500 MCG TAB PO SCH (09:18)
[2018-05-13] MEDS: DOXAZOSIN 4 MG TAB PO SCH (09:18)
[2018-05-13 11:50] LABS: Glucose,Whole Blood 193 mg/dL (75-99)
[2018-05-13 12:54] VITALS: BP 160/94; PULSE 86
--- NOTE | 2018-05-13 14:02 | P.DS ---
Providers Date of admission: 05/10/18 16:11 Expected date of discharge: 05/13/18 Attending physician: Shilo Kebede Consults: 05/10/18 16:11 Consult Physician Routine Consulting Provider: Chanda Woods Consult Reason/Comments: CVA Do you want consulting provider notified?: Yes 05/11/18 10:46 Consult Physician Routine Consulting Provider: Berta Jason Consult Reason/Comments: CVA, history of a-fib Do you want consulting provider notified?: Yes Primary care physician: Kelly Rai Hospital Course: Discharge diagnosis 1. TIA: Symptoms of Left upper and lower extremity weakness . Continue statin and Eliquis 2. Chronic atrial fibrillation: Patient switched to Eliquis . There is a $ 43.50 co-pay which patient is willing to pay for 3. Diabetes mellitus type 2. Continue current home medications. Sliding scale added 4. Acute on Chronic kidney disease stage III. Creatinine 1.42 which appears to be baseline for patient. Creatinine at discharge is 1.58. Recommend checking BMP in 1 week 5. History of congestive heart failure. Continue Lasix 6. History of essential hypertension. Continue home medication of lisinopril, Cardura and Norvasc 7. History of Abdominal aortic aneurysm repair. Performed by Dr. Loredo in June 2017. Cardiology services have been consulted. 8. Difficulty in swallowing. Underwent modified barium swallow no evidence of aspiration. Speech therapy recommended regular diet and thin liquids Hospital course This is a 77-year-old patient of Dr. Rai. Patient presented to the emergency room with complaints of numbness and weakness to his left side which started on Wednesday. Patient says he on Wednesday he became weaker and fell. And patient woke up on Wednesday with some facial droop on the left side which was noticed by family members at 9 am and decided to bring patient to the hospital for further evaluation. She does have a past medical history of atrial fibrillation in which she takes Coumadin. Additional medical history includes heart failure, diabetes mellitus, GERD, hypertension, prostate disorder, renal disease, AAA repair, back surgery, heart catheterization and orthopedic surgery. CT angiogram head and neck was performed in the ER showing no acute process. Bilateral flow limiting proximal ICA complex stenosis. An 1 cm diameter right upper lobe soft tissue pulmonary nodule, stable since 2010. Chest x-ray performed showing chronic changes and cardiomegaly without acute pulmonary process. CT of head performed showing no acute intracranial hemorrhage or midline shift. There is mild to moderate diffuse age-related cerebral atrophy and moderate chronic small vessel ischemic changes noted. EKG performed showing wide QRS rhythm, left axis deviation and right bundle branch block. Neurology services have been consulted. 2-D echo has been ordered. Cardiology service consulted. Patient denies chest pain or shortness of breath. Denies nausea vomiting or diarrhea. Denies any urinary burning or frequency. On 05/12/2018 patient is currently resting comfortably in bed. Patient is a and O 3. No neuro symptoms noted. Repeat CT of had EEG ordered per neurology. 2-D echo completed showing an EF between 45-50%. Cardiology services are following. Possible MARILYN today due to patient having history of atrial fibrillation. Patient denies chest pain or shortness of breath. Denies nausea vomiting or diarrhea. Denies any urinary burning or frequency. Patient is medically stable for discharge on 05/13/2018. He's been cleared by cardiology and neurology for discharge. The MARILYN showed no evidence of thrombus or PFO. Showed EF of 35%. Repeat computed tomography scan of the brain was negative and EEG negative for any seizure activity. Cardiology has discontinue the Coumadin and place patient on Eliquis for anticoagulation for his atrial fibrillation to help prevent clots that could be contributing to his TIA. Patient also was evaluated for some difficulty with swallowing underwent a modified barium swallow speech therapy recommended to continue regular diet with thin liquids. Patient's symptoms are improving he reports still having some left-sided weakness. But better than admission. Patient is medically stable for discharge. We'll have him follow up with vascular surgery regarding CTA of the head and neck showing a bilateral flow limiting proximal ICA complex stenosis. Check BMP in 1 week I performed an examination of the patient and discussed their management with the physician Systems Eng. I have reviewed the Physician Systems Eng's notes and agree with the documented findings and plan of care Patient Condition at Discharge: Stable Plan - Discharge Summary Discharge Rx Participant: No New Discharge Prescriptions: New Apixaban [Eliquis] 5 mg PO BID #60 tab Atorvastatin [Lipitor] 20 mg PO HS #30 tab Continue Omeprazole 40 mg PO DAILY Sildenafil Citrate [Viagra] 100 mg PO DAILY PRN PRN Reason: E.D. Terazosin HCl 5 mg PO BID glipiZIDE XL [Glucotrol XL] 10 mg PO DAILY #30 tab Hydrocodone/Acetaminophen [Hydrocodone-Acetamin 7.5-325] 1 tab PO BID PRN PRN Reason: Pain Furosemide [Lasix] 40 mg PO DAILY tab Cyanocobalamin (Vitamin B-12) [Vitamin B-12] 1,000 mcg PO DAILY Artificial Tears-Hypromellose [Artificial Tear Drops] 1 drops BOTH EYES TID PRN PRN Reason: Dry Eye(S) diphenhydrAMINE [Benadryl] 25 mg PO TID PRN PRN Reason: Allergy Symptoms Docusate [Colace] 100 mg PO BID Bisacodyl [Dulcolax] 5 mg PO BID Beta-Prostate 1 tab PO DAILY amLODIPine [Norvasc] 5 mg PO DAILY Lisinopril [Zestril] 10 mg PO DAILY #90 tab Cholecalciferol [Vitamin D3] 1,000 unit PO DAILY Magnesium 1000mg 1 tab PO BID Cetirizine HCl [Zyrtec] 10 mg PO BID Metoprolol Succinate (ER) [Toprol XL] 50 mg PO DAILY Discontinued Warfarin Sodium [Coumadin] 3 mg PO SUTUWETHSA Warfarin [Coumadin] 4.5 mg PO MOFR No Action Aspirin EC [Ecotrin Low Dose] 81 mg PO DAILY Discharge Medication List Omeprazole 40 mg PO DAILY 12/28/15 [History] Sildenafil Citrate [Viagra] 100 mg PO DAILY PRN 12/28/15 [History] Terazosin HCl 5 mg PO BID 12/29/15 [History] glipiZIDE XL [Glucotrol XL] 10 mg PO DAILY #30 tab 01/01/16 [Rx] Hydrocodone/Acetaminophen [Hydrocodone-Acetamin 7.5-325] 1 tab PO BID PRN [History] Furosemide [Lasix] 40 mg PO DAILY tab 05/23/16 [Rx] Artificial Tears-Hypromellose [Artificial Tear Drops] 1 drops BOTH EYES TID PRN 04/26/17 [History] Beta-Prostate 1 tab PO DAILY 04/26/17 [History] Bisacodyl [Dulcolax] 5 mg PO BID 04/26/17 [History] Cyanocobalamin (Vitamin B-12) [Vitamin B-12] 1,000 mcg PO DAILY 04/26/17 [ History] Docusate [Colace] 100 mg PO BID 04/26/17 [History] diphenhydrAMINE [Benadryl] 25 mg PO TID PRN 04/26/17 [History] amLODIPine [Norvasc] 5 mg PO DAILY 07/07/17 [History] Lisinopril [Zestril] 10 mg PO DAILY #90 tab 07/09/17 [Rx] Aspirin EC [Ecotrin Low Dose] 81 mg PO DAILY 05/10/18 [History] Cetirizine HCl [Zyrtec] 10 mg PO BID 05/10/18 [History] Cholecalciferol [Vitamin D3] 1,000 unit PO DAILY 05/10/18 [History] Magnesium 1000mg 1 tab PO BID 05/10/18 [History] Metoprolol Succinate (ER) [Toprol XL] 50 mg PO DAILY 05/11/18 [History] Apixaban [Eliquis] 5 mg PO BID #60 tab 05/13/18 [Rx] Atorvastatin [Lipitor] 20 mg PO HS #30 tab 05/13/18 [Rx] Follow up Appointment(s)/Referral(s): [facility], [NON-STAFF] - Kelly Rai MD [Primary Care Provider] - 05/16/18 1:15 pm (Wednesday) Jermaine Schmitt NPC [REFERRING] - 2 Weeks (Office will call you at home to make follow up appointment. ) Javier Oakley MD [STAFF PHYSICIAN] - 06/17/18 3:45 pm Nikita Grayson MD [STAFF PHYSICIAN] - 1 Week Patient Instructions/Handouts: Ischemic Stroke (DC) Activity/Diet/Wound Care/Special Instructions: Diet: cardiac Activity: as tolerated Discharge Disposition: HOME WITH HOME HEALTH SERVICES
[2018-05-13] MEDS ORDERED: WARFARIN 1.5 MG TAB PO SCH (18:00)
== END 2018-05-13 15:29 | disposition home health service (06) | DRG 69 ==
LOC: EC 14:04 → 6SEL 16:11
PROVIDERS: ADMIT Internal Medicine; ATTEND Internal Medicine
DX: G45.9 Transient cerebral ischemic attack, unspecified (principal); I13.0 Hypertensive heart and chronic kidney disease with heart failure and stage 1 through stage 4 chronic kidney disease, or unspecified chronic kidney disease; I42.9 Cardiomyopathy, unspecified; I50.22 Chronic systolic (congestive) heart failure; N17.9 Acute kidney failure, unspecified; E11.22 Type 2 diabetes mellitus with diabetic chronic kidney disease; E78.00 Pure hypercholesterolemia, unspecified; E78.5 Hyperlipidemia, unspecified; I07.1 Rheumatic tricuspid insufficiency; I25.10 Atherosclerotic heart disease of native coronary artery without angina pectoris; I25.82 Chronic total occlusion of coronary artery; I45.10 Unspecified right bundle-branch block; I48.2 Chronic atrial fibrillation; K21.9 Gastro-esophageal reflux disease without esophagitis; N18.3 Chronic kidney disease, stage 3 (moderate); R13.10 Dysphagia, unspecified; R47.02 Dysphasia; Z79.01 Long term (current) use of anticoagulants; Z79.899 Other long term (current) drug therapy; Z80.42 Family history of malignant neoplasm of prostate; Z86.79 Personal history of other diseases of the circulatory system; R53.1 Weakness; Z96.653 Presence of artificial knee joint, bilateral; Z79.84 Long term (current) use of oral hypoglycemic drugs; Z79.82 Long term (current) use of aspirin; Z79.891 Long term (current) use of opiate analgesic; Z88.0 Allergy status to penicillin; Z91.013 Allergy to seafood
CPT/HCPCS: 36415; 70450; 70496; 70498; 71046; 74230; 80053; 80061; 82550; 82553; 83036; 83090; 84484; 85025; 85610; 85730; 93005; 93306; 93312; 93320; 93325; 95816; 96360; 99285

== ENCOUNTER 2019-01-09 05:04 | Inpatient (IN) | payer MEDICARE, BC ==
--- NOTE | 2019-01-09 05:08 | ED ---
SOB HPI - General Stated Complaint: CARMEL Time Seen by Provider: 01/09/19 05:06 - History of Present Illness Initial Comments: Berny is an 78-year-old gentleman with a known history of systolic heart failure with an ejection fraction of only 35%. Patient comes the emergency department today for evaluation of 3-4 days of progressively worsening shortness of breath. Patient has had multiple sick contacts with family members who have nasal congestion and nonproductive cough consistent with viral URI symptoms. Initially this is what the patient and family believed he was suffering from however he has persistent shortness of breath and is not getting better - Related Data Home Medications Medication Instructions Recorded Confirmed Omeprazole 40 mg PO DAILY 12/28/15 05/11/18 Sildenafil Citrate [Viagra] 100 mg PO DAILY PRN 12/28/15 05/10/18 Terazosin HCl 5 mg PO BID 12/29/15 05/10/18 Hydrocodone/Acetaminophen 1 tab PO BID PRN 05/22/16 05/10/18 [Hydrocodone-Acetamin 7.5-325] Artificial Tears-Hypromellose 1 drops BOTH EYES TID PRN 04/26/17 05/10/18 [Artificial Tear Drops] Beta-Prostate 1 tab PO DAILY 04/26/17 05/10/18 Bisacodyl [Dulcolax] 5 mg PO BID 04/26/17 05/10/18 Cyanocobalamin (Vitamin B-12) 1,000 mcg PO DAILY 04/26/17 05/10/18 [Vitamin B-12] Docusate [Colace] 100 mg PO BID 04/26/17 05/10/18 diphenhydrAMINE [Benadryl] 25 mg PO TID PRN 04/26/17 05/10/18 amLODIPine [Norvasc] 5 mg PO DAILY 07/07/17 05/10/18 Cetirizine HCl [Zyrtec] 10 mg PO BID 05/10/18 05/10/18 Cholecalciferol [Vitamin D3] 1,000 unit PO DAILY 05/10/18 05/10/18 Magnesium 1000mg 1 tab PO BID 05/10/18 05/10/18 Previous Rx's Medication Instructions Recorded glipiZIDE XL [Glucotrol XL] 10 mg PO DAILY #30 tab 01/01/16 Furosemide [Lasix] 40 mg PO DAILY tab 05/23/16 Lisinopril [Zestril] 10 mg PO DAILY #90 tab 07/09/17 Apixaban [Eliquis] 5 mg PO BID #60 tab 05/13/18 Atorvastatin [Lipitor] 20 mg PO HS #30 tab 05/13/18 Metoprolol Succinate (ER) [Toprol 25 mg PO DAILY #30 tab 05/13/18 XL] Allergies Allergy/AdvReac Type Severity Reaction Status Date / Time Penicillins Allergy Unknown Verified 01/09/19 05:12 shellfish derived [Shellfish] Allergy Anaphylaxis Verified 01/09/19 05:12 Review of Systems ROS Statement: Those systems with pertinent positive or pertinent negative responses have been documented in the HPI. ROS Other: All systems not noted in ROS Statement are negative. Past Medical History Past Medical History: Atrial Fibrillation, Heart Failure, Diabetes Mellitus, GERD/Reflux, Hypertension, Prostate Disorder, Renal Disease Additional Past Medical History / Comment(s): AAA(had sx), at time has difficulty swallowing pills History of Any Multi-Drug Resistant Organisms: None Reported Past Surgical History: Back Surgery, Heart Catheterization, Orthopedic Surgery Additional Past Surgical History / Comment(s): bilat carpal tunnel, sherrie knee replacments, lt rotator cuff Past Anesthesia/Blood Transfusion Reactions: No Reported Reaction Additional Past Anesthesia/Blood Transfusion Reaction / Comment(s): Clausterphobic. stated has never recieved any blood transfusions Smoking Status: Former smoker - Past Family History Father Family Medical History: Cancer Additional Family Medical History / Comment(s): prostate cancer Mother Family Medical History: CVA/TIA Sister(s) Family Medical History: Cancer Additional Family Medical History / Comment(s): heart problems but unsure of what exactly Course Vital Signs 01/09/19 01/09/19 01/09/19 05:08 05:19 05:20 Temperature 98.4 F Pulse Rate 80 Respiratory 30 H Rate Blood Pressure 140/69 O2 Sat by Pulse 93 L 85 L 84 L Oximetry 01/09/19 01/09/19 01/09/19 05:25 05:28 05:33 Temperature Pulse Rate 80 84 Respiratory 27 H Rate Blood Pressure O2 Sat by Pulse Oximetry 01/09/19 01/09/19 06:00 06:20 Temperature Pulse Rate 77 80 Respiratory 18 27 H Rate Blood Pressure 144/87 O2 Sat by Pulse 96 94 L Oximetry Medical Decision Making - Medical Decision Making The patient was seen and evaluated, history is obtained from the patient and family at bedside pleasant 78-year-old gentleman with URI symptoms for 4 days but persistent shortness of breath Labs and imaging were ordered audible wheezing though no history of COPD, DuoNeb was ordered EKG reveals wide complex rhythm at a rate is 90 there are no discernible P waves, there is a right bundle branch block, QRS is 158, QTC is [address] elevations or depressions there is no evidence of acute ischemia or infarction. Previous EKG is not available for evaluation. CBC and CMP are baseline, troponin is mildly elevated, influenza A is positive Patients PCP admits to Dr Kebede who is being covered by Dr. Mooney, Dr Vinicio segovia for admission - Lab Data Result diagrams: 01/09/19 05:21 01/09/19 05:21 Lab Results 01/09/19 01/09/19 01/09/19 Range/Units 05:21 05:21 05:21 WBC 3.7 L (3.8-10.6) k/uL RBC 4.22 L (4.30-5.90) m/uL Hgb 12.7 L (13.0-17.5) gm/dL Hct 39.3 (39.0-53.0) % MCV 93.3 (80.0-100.0) fL MCH 30.2 (25.0-35.0) pg MCHC 32.3 (31.0-37.0) g/dL RDW 12.9 (11.5-15.5) % Plt Count 117 L (150-450) k/uL Neutrophils % 72 % Lymphocytes % 15 % Monocytes % 9 % Eosinophils % 1 % Basophils % 0 % Neutrophils # 2.7 (1.3-7.7) k/uL Lymphocytes # 0.6 L (1.0-4.8) k/uL Monocytes # 0.3 (0-1.0) k/uL Eosinophils # 0.1 (0-0.7) k/uL Basophils # 0.0 (0-0.2) k/uL PT (9.0-12.0) sec INR (<1.2) APTT (22.0-30.0) sec Sodium 135 L (137-145) mmol/L Potassium 3.9 (3.5-5.1) mmol/L Chloride 101 (98-107) mmol/L Carbon Dioxide 26 (22-30) mmol/L Anion Gap 8 mmol/L BUN 40 H (9-20) mg/dL Creatinine 1.74 H (0.66-1.25) mg/dL Est GFR (CKD-EPI)AfAm 42 (>60 ml/min/1.73 sqM) Est GFR (CKD-EPI)NonAf 36 (>60 ml/min/1.73 sqM) Glucose 171 H (74-99) mg/dL Calcium 8.1 L (8.4-10.2) mg/dL Magnesium 1.5 L (1.6-2.3) mg/dL Total Bilirubin 0.4 (0.2-1.3) mg/dL AST 41 (17-59) U/L ALT 35 (21-72) U/L Alkaline Phosphatase 60 (38-126) U/L Troponin I (0.000-0.034) ng/mL NT-Pro-B Natriuret Pep 2200 pg/mL Total Protein 5.8 L (6.3-8.2) g/dL Albumin 3.5 (3.5-5.0) g/dL Influenza Type A RNA (Not Detectd) Influenza Type B (PCR) (Not Detectd) 01/09/19 01/09/19 01/09/19 Range/Units 05:21 05:21 06:35 WBC (3.8-10.6) k/uL RBC (4.30-5.90) m/uL Hgb (13.0-17.5) gm/dL Hct (39.0-53.0) % MCV (80.0-100.0) fL MCH (25.0-35.0) pg MCHC (31.0-37.0) g/dL RDW (11.5-15.5) % Plt Count (150-450) k/uL Neutrophils % % Lymphocytes % % Monocytes % % Eosinophils % % Basophils % % Neutrophils # (1.3-7.7) k/uL Lymphocytes # (1.0-4.8) k/uL Monocytes # (0-1.0) k/uL Eosinophils # (0-0.7) k/uL Basophils # (0-0.2) k/uL PT 11.1 (9.0-12.0) sec INR 1.0 (<1.2) APTT 33.3 H (22.0-30.0) sec Sodium (137-145) mmol/L Potassium (3.5-5.1) mmol/L Chloride (98-107) mmol/L Carbon Dioxide (22-30) mmol/L Anion Gap mmol/L BUN (9-20) mg/dL Creatinine (0.66-1.25) mg/dL Est GFR (CKD-EPI)AfAm (>60 ml/min/1.73 sqM) Est GFR (CKD-EPI)NonAf (>60 ml/min/1.73 sqM) Glucose (74-99) mg/dL Calcium (8.4-10.2) mg/dL Magnesium (1.6-2.3) mg/dL Total Bilirubin (0.2-1.3) mg/dL AST (17-59) U/L ALT (21-72) U/L Alkaline Phosphatase (38-126) U/L Troponin I 0.181 H* (0.000-0.034) ng/mL NT-Pro-B Natriuret Pep pg/mL Total Protein (6.3-8.2) g/dL Albumin (3.5-5.0) g/dL Influenza Type A RNA Detected H (Not Detectd) Influenza Type B (PCR) Not Detected (Not Detectd) Disposition Referrals: Kelly Rai MD [Primary Care Provider] - 1-2 days
[2019-01-09] MEDS ORDERED: SODIUM CHLORIDE 0.9% 1,000 ML IV STA (05:13)
[2019-01-09] MEDS ORDERED: ASPIRIN 81 MG PO STA (05:13)
[2019-01-09] MEDS ORDERED: IPRATROPIUM-ALBUTEROL 3 ML NEB INHALATION STA (05:24)
[2019-01-09] MEDS ORDERED: FUROSEMIDE 10 MG/ML 4 ML VIAL IV STA (05:39)
[2019-01-09 05:45] LABS: Basophils % (A) 0 %; Eosinophils # (A) 0.1 k/uL (0-0.7); Eosinophils % (A) 1 %; HCT 39.3 % (39.0-53.0); HGB 12.7 gm/dL (13.0-17.5); Lymphocytes # (A) 0.6 k/uL (1.0-4.8); Lymphocytes % (A) 15 %; MCH 30.2 pg (25.0-35.0); MCHC 32.3 g/dL (31.0-37.0); MCV 93.3 fL (80.0-100.0); Mean Platelet Volume 8.5; Monocytes # (A) 0.3 k/uL (0-1.0); Monocytes % (A) 9 %; Neutrophils # (A) 2.7 k/uL (1.3-7.7); Neutrophils % (A) 72 %; Platelet Count 117 k/uL (150-450); RBC 4.22 m/uL (4.30-5.90); RDW 12.9 % (11.5-15.5); WBC 3.7 k/uL (3.8-10.6)
--- NOTE | 2019-01-09 05:54 | XR ---
EXAM: XR Chest, 2 Views CLINICAL HISTORY: ITS.REASON XR Reason: Chest Pain TECHNIQUE: Frontal and lateral views of the chest. COMPARISON: 05/17/2018 chest x-ray IMPRESSION: Cardiomegaly. No consolidation or pleural effusion. Tortuous aorta.
[2019-01-09 05:58] LABS: Partial Thromboplastin Time 33.3 sec (22.0-30.0); Prothrombin Time 11.1 sec (9.0-12.0)
[2019-01-09 05:59] LABS: Albumin 3.5 g/dL (3.5-5.0); Calcium 8.1 mg/dL (8.4-10.2); Magnesium 1.5 mg/dL (1.6-2.3); Potassium 3.9 mmol/L (3.5-5.1); Total Bilirubin 0.4 mg/dL (0.2-1.3); Total Protein 5.8 g/dL (6.3-8.2)
[2019-01-09] MEDS ORDERED: NALOXONE 0.4 MG/ML 1 ML VIAL IV PRN (07:15)
[2019-01-09] MEDS ORDERED: IPRATROPIUM-ALBUTEROL 3 ML NEB INHALATION PRN (07:18)
[2019-01-09] MEDS ORDERED: ACETAMINOPHEN TAB 325 MG TAB PO PRN (10:24)
[2019-01-09] MEDS ORDERED: amLODIPine 5 MG TAB PO SCH (11:15)
[2019-01-09] MEDS: APIXABAN 5 MG TAB PO SCH ×2 (11:32→20:46)
[2019-01-09] MEDS: LOSARTAN 25 MG TAB PO SCH (11:32)
[2019-01-09] MEDS: MAGNESIUM SULFATE-D5W PMX 1 GM in DEXTROSE/WATER 1 100ML.BAG IVPB SCH ×2 (11:33→15:43)
[2019-01-09] MEDS: OSELTAMIVIR 60 MG/10 ML ORAL SYRINGE PO SCH ×2 (11:33→20:46)
[2019-01-09 12:00] LABS: Creatine Kinase MB 5.9 ng/mL (0.0-2.4)
[2019-01-09 12:02] LABS: Glucose,Whole Blood 123 mg/dL (75-99)
[2019-01-09 12:06] LABS: Troponin I 0.196 ng/mL (0.000-0.034)
--- NOTE | 2019-01-09 12:28 | CONS ---
CONSULTATION CHIEF COMPLAINT: Elevated troponin. Berny is an 78-year-old gentleman with history of chronic systolic heart failure, chronic atrial fibrillation, diabetes, hypertension, abdominal aortic aneurysm, status post stent graft and coronary artery disease who is admitted to hospital with influenza A and Cardiology has been consulted because of mild elevation in troponin. His predominant symptom is in the form of shortness of breath and patient also became hypoxic at home. He has history of COPD and is currently on home O2. PAST MEDICAL HISTORY: Past medical history is significant for chronic systolic heart failure, chronic atrial fibrillation, hypertension, dyslipidemia. MEDICATIONS: Medications at home include Eliquis 5 b.i.d., atorvastatin 20 q. daily, Toprol-XL 25 q. daily, glipizide, Lasix, Zyrtec, Norvasc, Benadryl, vitamin D, Viagra, Dulcolax and Colace. ALLERGIES: Allergic to PENICILLIN and SHELLFISH. FAMILY HISTORY: Family history is negative for premature coronary artery disease. SOCIAL HISTORY: Social history is negative for current smoking, EtOH abuse or drug abuse. PAST SURGICAL HISTORY: Significant for back surgery, AAA repair, and cardiac catheterization. REVIEW OF SYSTEMS: Fourteen out of fourteen system review had been performed. Pertinent for as documented. PHYSICAL EXAMINATION: On exam, patient appears comfortable at rest. Afebrile. Heart rate is 77 beats per minute. Blood pressure is 170/72. Respiratory rate is 18. Chest exam reveals bilateral wheezing. Heart exam reveals first and second heart sounds, irregular rhythm. Examination of extremities revealed trace edema. Peripheral pulses are palpable. EKG shows atrial fibrillation with left bundle branch block. LABS: Labs show that the hemoglobin is 12.7, potassium is 3.4, creatinine is 1.7. BNP is at 0.18. He has always had elevated troponins. BNP is 2200. Again, he usually runs elevated BNP. At last admission, he was 2130 BNP. ASSESSMENT: 1. Elevated troponin of no clinical significance. Could be related to the flu-like illness or could be due to underlying renal insufficiency. The patient did not have myocardial infarction. 2. Chronic atrial fibrillation. 3. Uncontrolled hypertension. 4. Influenza. PLAN: Increase the dose of Norvasc to 10 mg daily for more optimal blood pressure control. The patient is having frequent PVCs. He was on beta blockers in the outpatient setting, not quite sure why this was stopped. Will get hold of his information from the office and if he has frequent ventricular ectopy and did not have bradycardia, we will consider restarting the beta blockers. STEPHANIE / AGATHAN: [id number] /
--- NOTE | 2019-01-09 12:38 | P.HPIM ---
History of Present Illness H&P Date: 01/09/19 Chief Complaint: Cough and shortness of breath This is a 78-year-old male, patient of Dr. Rai. He has a known past medical history of systolic congestive heart failure with an EF of 35%, chronic atrial fibrillation anticoagulated with Eliquis, diabetes mellitus, TIA, chronic kidney disease and an abdominal aortic aneurysm that was repaired in June 2017 and COPD. Patient presented to the emergency room with complaints of worsening shortness of breath over the last 3-4 days. Also having productive cough. He had multiple sick contacts with family members. Complaining of muscle aches throughout the body. He was found to be influenza A positive. Started on Ta miflu. He did complain of one episode of chest pain when he came into the ER. Troponin was elevated at 0.181. Cardiology on consult. Patient also having PVCs on grill associate. Her daughter the metoprolol was discontinued about 8 weeks ago by patient's PCP due to patient having a heart rate in the 40s. EKG on admission showed a wide QRS with frequent PVCs and a right bundle branch block. Patient also received 1 dose of IV Lasix for possible fluid overload in the ER. BNP was elevated at 2200. Chest x-ray was negative. Cardiology has ordered an echocardiogram. Patient denies any nausea vomiting or diarrhea. He is currently on 3 L of oxygen satting at 95%. Oxygen when he came into the ER was 84-85%. He does not usually have home oxygen. Pulmonary service has been placed on consult. Patient denies any fevers chills or sweats. Review of Systems Please refer to HPI otherwise unremarkable Past Medical History Past Medical History: Atrial Fibrillation, Heart Failure, Diabetes Mellitus, GERD/Reflux, Hypertension, Prostate Disorder, Renal Disease Additional Past Medical History / Comment(s): AAA with repair, NIDDM type II, TIA 2018, difficulty swallowing pills if he has a full stomach, CKD stage III, lower GI bleed, diverticular disease, benign colon polyp, anemia, seasonal sinus problems, constipation, arthritis bilateral elbows/shoulders with limied ROM shoulders and elbows bilaterally, chronic low back pain, gait disturbance. History of Any Multi-Drug Resistant Organisms: None Reported Past Surgical History: Back Surgery, Heart Catheterization, Orthopedic Surgery Additional Past Surgical History / Comment(s): AAA repair, bilat carpal tunnel, L knee arthroscopy, sherrie total knee replacments, lt rotator cuff repair, low back surgery, pain clinic procedures, colonoscopy/benitn polypectomy. Past Anesthesia/Blood Transfusion Reactions: No Reported Reaction Additional Past Anesthesia/Blood Transfusion Reaction / Comment(s): Clausterphobic. stated has never recieved any blood transfusions Smoking Status: Former smoker - Past Family History Father Family Medical History: Cancer Additional Family Medical History / Comment(s): prostate cancer Mother Family Medical History: CVA/TIA Sister(s) Family Medical History: Cancer Additional Family Medical History / Comment(s): heart problems but unsure of what exactly Medications and Allergies Home Medications Medication Instructions Recorded Confirmed Type Terazosin HCl 5 mg PO BID 12/29/15 01/09/19 History glipiZIDE XL [Glucotrol XL] 10 mg PO DAILY #30 tab 01/01/16 01/09/19 Rx Hydrocodone/Acetaminophen 1 tab PO BID PRN 05/22/16 01/09/19 History [Hydrocodone-Acetamin 7.5-325] Bisacodyl [Dulcolax] 5 mg PO BID 04/26/17 01/09/19 History Cyanocobalamin (Vitamin B-12) 1,000 mcg PO DAILY 04/26/17 01/09/19 History [Vitamin B-12] Docusate [Colace] 200 mg PO BID 04/26/17 01/09/19 History amLODIPine [Norvasc] 5 mg PO DAILY 07/07/17 01/09/19 History Cholecalciferol [Vitamin D3] 1,000 unit PO HS 05/10/18 01/09/19 History Apixaban [Eliquis] 5 mg PO BID #60 tab 05/13/18 01/09/19 Rx Atorvastatin [Lipitor] 20 mg PO HS #30 tab 05/13/18 01/09/19 Rx Cholecalciferol [Vitamin D3] 2,000 unit PO DAILY 01/09/19 01/09/19 History Furosemide [Lasix] 40 mg PO BID@0800,1200 01/09/19 01/09/19 History Losartan Potassium [Cozaar] 25 mg PO DAILY 01/09/19 01/09/19 History Magnesium Oxide [Mag-Ox] 500 mg PO BID 01/09/19 01/09/19 History Metolazone [Zaroxolyn] 2.5 mg PO DAILY PRN 01/09/19 01/09/19 History Omeprazole [PriLOSEC] 40 mg PO DAILY 01/09/19 01/09/19 History Prosta Genix 1 tab PO BID 01/09/19 01/09/19 History Allergies Allergy/AdvReac Type Severity Reaction Status Date / Time Penicillins Allergy Unknown Verified 01/09/19 07:29 shellfish derived [Shellfish] Allergy Anaphylaxis Verified 01/09/19 07:29 Physical Exam Vitals: Vital Signs Temp Pulse Pulse Resp BP BP Pulse Ox 01/09/19 09:35 98.3 F 77 22 171/72 95 01/09/19 09:13 98.4 F 80 27 H 144/87 94 L 01/09/19 06:20 80 27 H 144/87 94 L 01/09/19 06:00 77 18 96 01/09/19 05:33 84 01/09/19 05:28 80 01/09/19 05:25 27 H 01/09/19 05:20 84 L 01/09/19 05:19 85 L 01/09/19 05:08 98.4 F 80 30 H 140/69 93 L Intake and Output 01/08/19 01/09/19 01/09/19 22:59 06:59 14:59 Output Total 300 Balance -300 Output: Urine 300 Other: Weight 94.801 kg Head normocephalic Neck supple Lungs coarse breath sounds with few scattered wheezes bilaterally Heart regular rate and rhythm S1-S2, no rub or gallop Abdomen is soft nontender nondistended positive bowel sounds no hepatosplenomegaly Extremities trace edema bilateral lower extremities Neuro alert and orientated to 3 Results CBC & Chem 7: 01/09/19 05:21 01/09/19 05:21 Labs: Abnormal Lab Results - Last 24 Hours (Table) 01/09/19 01/09/19 01/09/19 Range/Units 05:21 05:21 05:21 WBC 3.7 L (3.8-10.6) k/uL RBC 4.22 L (4.30-5.90) m/uL Hgb 12.7 L (13.0-17.5) gm/dL Plt Count 117 L (150-450) k/uL Lymphocytes # 0.6 L (1.0-4.8) k/uL APTT 33.3 H (22.0-30.0) sec Sodium 135 L (137-145) mmol/L BUN 40 H (9-20) mg/dL Creatinine 1.74 H (0.66-1.25) mg/dL Glucose 171 H (74-99) mg/dL POC Glucose (mg/dL) (75-99) mg/dL Calcium 8.1 L (8.4-10.2) mg/dL Magnesium 1.5 L (1.6-2.3) mg/dL CK-MB (CK-2) (0.0-2.4) ng/mL Troponin I (0.000-0.034) ng/mL Total Protein 5.8 L (6.3-8.2) g/dL Influenza Type A RNA (Not Detectd) 01/09/19 01/09/19 01/09/19 Range/Units 05:21 05:21 06:35 WBC (3.8-10.6) k/uL RBC (4.30-5.90) m/uL Hgb (13.0-17.5) gm/dL Plt Count (150-450) k/uL Lymphocytes # (1.0-4.8) k/uL APTT (22.0-30.0) sec Sodium (137-145) mmol/L BUN (9-20) mg/dL Creatinine (0.66-1.25) mg/dL Glucose (74-99) mg/dL POC Glucose (mg/dL) (75-99) mg/dL Calcium (8.4-10.2) mg/dL Magnesium (1.6-2.3) mg/dL CK-MB (CK-2) 4.9 H (0.0-2.4) ng/mL Troponin I 0.181 H* (0.000-0.034) ng/mL Total Protein (6.3-8.2) g/dL Influenza Type A RNA Detected H (Not Detectd) 01/09/19 01/09/19 Range/Units 11:07 11:48 WBC (3.8-10.6) k/uL RBC (4.30-5.90) m/uL Hgb (13.0-17.5) gm/dL Plt Count (150-450) k/uL Lymphocytes # (1.0-4.8) k/uL APTT (22.0-30.0) sec Sodium (137-145) mmol/L BUN (9-20) mg/dL Creatinine (0.66-1.25) mg/dL Glucose (74-99) mg/dL POC Glucose (mg/dL) 123 H (75-99) mg/dL Calcium (8.4-10.2) mg/dL Magnesium (1.6-2.3) mg/dL CK-MB (CK-2) 5.9 H (0.0-2.4) ng/mL Troponin I 0.196 H* (0.000-0.034) ng/mL Total Protein (6.3-8.2) g/dL Influenza Type A RNA (Not Detectd) Thrombosis Risk Factor Assmnt - Choose All That Apply Any of the Below Risk Factors Present?: Yes Each Factor Represents 1 point: Obesity (BMI >25) Other Risk Factors: Yes Each Risk Factor Represents 3 Points: Age 75 years or older Other congenital or acquired thrombophilia - If yes, enter type in comment: No Thrombosis Risk Factor Assessment Total Risk Factor Score: 4 Thrombosis Risk Factor Assessment Level: Moderate Risk Assessment and Plan Assessment: 1. Acute hypoxic respiratory failure: Patient requiring 3 L of nasal cannula. Consult pulmonary service. Possibly secondary to patient's influenza infection. We'll monitor. Add scheduled DuoNeb nebulizer treatments. 2. Influenza A+: Start Tamiflu 75 mg twice a day 3. Hypomagnesemia: Patient receiving magnesium supplement. Repeat magnesium level in a.m. 4. Acute on chronic systolic CHF exacerbation: Patient did receive a dose of IV Lasix in the ER. Cardiology on consult. They did order a 2-D echo. Per ER report patient has known EF of 35% 5. Elevated troponins consult cardiology 6. Frequent PVCs on EKG and telemetry monitoring. Patient recently had metoprolol discontinued by his PCP due to heart rate in the 40s. While patient evaluated by cardiology 7. Chronic atrial fibrillation anticoagulated with Eliquis 8. Acute on chronic renal failure stage III: Baseline creatinine close to 1.5. Due to patient's low EF encouraged oral water intake. We'll monitor 9. Diabetes mellitus type 2: Had sinus coverage. Continue glipizide. Check A1c 10. Essential hypertension: Patient did have some elevated blood pressures resume his Norvasc and Cozaar GI prophylaxis Protonix and DVT prophylaxis Eliquis Time with Patient: Greater than 30 (Greater than 50% of the total time spent in counseling and coordination of care.I performed an examination of the patient and discussed their management with the physician Rotoprinter. I have reviewed the Physician Rotoprinter's notes and agree with the documented findings and plan of care)
[2019-01-09 14:31] VITALS: BMI 32.7
[2019-01-09] MEDS: INSULIN ASPART (NovoLOG) 100 UNIT/ML VIAL SQ SCH ×3 (15:42→20:47)
[2019-01-09] MEDS: DOCUSATE 100 MG CAP PO SCH ×2 (15:43→20:50)
[2019-01-09] MEDS: BISACODYL 5 MG TABLET.DR PO SCH (15:43)
--- NOTE | 2019-01-09 16:38 | P.CNPUL ---
History of Present Illness Consult date: 01/09/19 Reason for consult: dyspnea, cough Chief complaint: Cough History of present illness: This is an 78-year-old gentleman who presented to the emergency department complaining of cough and shortness of breath. The patient states he could not lay down flat because he was coughing. He had to sleep in the recliner. He den ies fevers and chills. He states he was not producing phlegm a few days ago but he is now. He denies any chest pain or chest tightness. He denies abdominal pain, nausea, vomiting, diarrhea. The patient is currently complaining of left arm pain. He denies numbness and tingling. He denies pain in his chest or jaw or back. He is a former smoker and quit 30 years ago. He states he used to smoke less than 2 packs per day for about 20 years. He used cigarettes with no filters. He denies a history of COPD or asthma. He states he did have a pulmonary function test in the past but is unsure of when or where it was done. He does occasionally wheeze. He states he is never short of breath. He does not use any inhalers or nebulizers at home. He does use a nasal spray. He does not wear home oxygen and states that he never well. The patient has known congestive heart failure with an ejection fraction of 35%. He also has atrial fibrillation and is on Eliquis. The patient's chest x-ray is reviewed and shows no acute process. Review of Systems All systems: negative Past Medical History Past Medical History: Atrial Fibrillation, Heart Failure, Diabetes Mellitus, GERD/Reflux, Hypertension, Prostate Disorder, Renal Disease Additional Past Medical History / Comment(s): AAA with repair, NIDDM type II, TIA 2018, difficulty swallowing pills if he has a full stomach, CKD stage III, lower GI bleed, diverticular disease, benign colon polyp, anemia, seasonal sinus problems, constipation, arthritis bilateral elbows/shoulders with limied ROM shoulders and elbows bilaterally, chronic low back pain, gait disturbance. History of Any Multi-Drug Resistant Organisms: None Reported Past Surgical History: Back Surgery, Heart Catheterization, Orthopedic Surgery Additional Past Surgical History / Comment(s): AAA repair, bilat carpal tunnel, L knee arthroscopy, sherrie total knee replacments, lt rotator cuff repair, low back surgery, pain clinic procedures, colonoscopy/benitn polypectomy. Past Anesthesia/Blood Transfusion Reactions: No Reported Reaction Additional Past Anesthesia/Blood Transfusion Reaction / Comment(s): Clausterphobic. stated has never recieved any blood transfusions Smoking Status: Former smoker - Past Family History Father Family Medical History: Cancer Additional Family Medical History / Comment(s): prostate cancer Mother Family Medical History: CVA/TIA Sister(s) Family Medical History: Cancer Additional Family Medical History / Comment(s): heart problems but unsure of what exactly Medications and Allergies Home Medications Medication Instructions Recorded Confirmed Type Terazosin HCl 5 mg PO BID 12/29/15 01/09/19 History glipiZIDE XL [Glucotrol XL] 10 mg PO DAILY #30 tab 01/01/16 01/09/19 Rx Hydrocodone/Acetaminophen 1 tab PO BID PRN 05/22/16 01/09/19 History [Hydrocodone-Acetamin 7.5-325] Bisacodyl [Dulcolax] 5 mg PO BID 04/26/17 01/09/19 History Cyanocobalamin (Vitamin B-12) 1,000 mcg PO DAILY 04/26/17 01/09/19 History [Vitamin B-12] Docusate [Colace] 200 mg PO BID 04/26/17 01/09/19 History amLODIPine [Norvasc] 5 mg PO DAILY 07/07/17 01/09/19 History Cholecalciferol [Vitamin D3] 1,000 unit PO HS 05/10/18 01/09/19 History Apixaban [Eliquis] 5 mg PO BID #60 tab 05/13/18 01/09/19 Rx Atorvastatin [Lipitor] 20 mg PO HS #30 tab 05/13/18 01/09/19 Rx Cholecalciferol [Vitamin D3] 2,000 unit PO DAILY 01/09/19 01/09/19 History Furosemide [Lasix] 40 mg PO BID@0800,1200 01/09/19 01/09/19 History Losartan Potassium [Cozaar] 25 mg PO DAILY 01/09/19 01/09/19 History Magnesium Oxide [Mag-Ox] 500 mg PO BID 01/09/19 01/09/19 History Metolazone [Zaroxolyn] 2.5 mg PO DAILY PRN 01/09/19 01/09/19 History Omeprazole [PriLOSEC] 40 mg PO DAILY 01/09/19 01/09/19 History Prosta Genix 1 tab PO BID 01/09/19 01/09/19 History Allergies Allergy/AdvReac Type Severity Reaction Status Date / Time Penicillins Allergy Unknown Verified 01/09/19 07:29 shellfish derived [Shellfish] Allergy Anaphylaxis Verified 01/09/19 07:29 Physical Exam Osteopathic Statement: *. No significant issues noted on an osteopathic structural exam other than those noted in the History and Physical/Consult. Vitals: Vital Signs Temp Pulse Pulse Resp BP BP Pulse Ox 01/09/19 12:00 98.1 F 77 20 139/95 94 L 01/09/19 09:35 98.3 F 77 22 171/72 95 01/09/19 09:13 98.4 F 80 27 H 144/87 94 L 01/09/19 06:20 80 27 H 144/87 94 L 01/09/19 06:00 77 18 96 01/09/19 05:33 84 01/09/19 05:28 80 01/09/19 05:25 27 H 01/09/19 05:20 84 L 01/09/19 05:19 85 L 01/09/19 05:08 98.4 F 80 30 H 140/69 93 L Intake and Output 01/09/19 01/09/19 01/09/19 06:59 14:59 22:59 Intake Total 440 Output Total 300 Balance -300 440 Intake: Oral 440 Output: Urine 300 Other: Weight 94.801 kg 94.801 kg General: Patient is alert and oriented 3, no acute distress Cardiovascular: Regular rate and rhythm, S1/S2 Lungs: Diffuse bilateral expiratory wheezing Abdomen: Soft nontender nondistended positive bowel sounds Extremities: +1 pitting edema Results - Laboratory Findings CBC and BMP: 01/09/19 05:21 01/09/19 05:21 PT/INR, D-dimer PT 11.1 sec (9.0-12.0) 01/09/19 05:21 INR 1.0 (<1.2) 01/09/19 05:21 Abnormal lab findings: Abnormal Labs 01/09/19 01/09/19 01/09/19 05:21 05:21 05:21 WBC 3.7 L RBC 4.22 L Hgb 12.7 L Plt Count 117 L Lymphocytes # 0.6 L APTT 33.3 H Sodium 135 L BUN 40 H Creatinine 1.74 H Glucose 171 H POC Glucose (mg/dL) Calcium 8.1 L Magnesium 1.5 L CK-MB (CK-2) Troponin I Total Protein 5.8 L Influenza Type A RNA 01/09/19 01/09/19 01/09/19 05:21 05:21 06:35 WBC RBC Hgb Plt Count Lymphocytes # APTT Sodium BUN Creatinine Glucose POC Glucose (mg/dL) Calcium Magnesium CK-MB (CK-2) 4.9 H Troponin I 0.181 H* Total Protein Influenza Type A RNA Detected H 01/09/19 01/09/19 11:07 11:48 WBC RBC Hgb Plt Count Lymphocytes # APTT Sodium BUN Creatinine Glucose POC Glucose (mg/dL) 123 H Calcium Magnesium CK-MB (CK-2) 5.9 H Troponin I 0.196 H* Total Protein Influenza Type A RNA - Diagnostic Findings Chest x-ray: report reviewed, image reviewed Assessment and Plan Assessment: Acute hypoxic respiratory failure Influenza A Tracheobronchitis Acute on chronic congestive heart failure, systolic, ejection fraction 35% Hypomagnesemia Pancytopenia Chronic Atrial fibrillation Diabetes mellitus type 2 History of TIA Chronic kidney disease 3 Abdominal aortic aneurysm Remote history of tobacco use Hypertension Troponin release Suspect PASQUALE O2 to maintain saturation greater than or equal to 90%, currently on 3L NC Will order CT chest EKG now as patient is having left arm pain which he states is atypical for him Serial troponin Duonebs Add Pulmicort Add Mucinex Add Prednisone taper Outpatient PFT and PSG Tamiflu ABX: add Doxycycline Sputum culture GI and DVT prophylaxis: Eliquis and Protonix IS and pulmonary hygiene Thank you for this consultation. We will continue to follow along.
[2019-01-09 17:10] LABS: Glucose,Whole Blood 131 mg/dL (75-99)
[2019-01-09] MEDS: IPRATROPIUM-ALBUTEROL 3 ML NEB INHALATION SCH ×2 (17:14→21:30)
[2019-01-09 17:52] LABS: Creatine Kinase MB 6.5 ng/mL (0.0-2.4)
[2019-01-09 18:10] LABS: Troponin I 0.214 ng/mL (0.000-0.034)
[2019-01-09] MEDS: predniSONE 20 MG TAB PO SCH (18:15)
--- NOTE | 2019-01-09 18:38 | CT ---
EXAMINATION TYPE: CT chest wo con DATE OF EXAM: 01/09/2019 COMPARISON: CT chest 10/30/2010 HISTORY: Hypoxia, influenza a, cough and wheezing. CT DLP: 573.3 mGycm. Automated Exposure Control for Dose Reduction was Utilized. TECHNIQUE: CT scan of the thorax is performed without IV contrast. FINDINGS: There is a 10 mm noncalcified subpleural nodule in the posterior right upper lobe. There is some subp leural mild infiltrate in the lateral right lower lobe. There are adjacent old rib fracture. There is no pleural effusion or pneumothorax. There is very small pericardial effusion. Heart is slightly enl arged. There is coronary artery calcification. There is no evidence of thoracic aortic aneurysm. Ther e are no hilar masses. There is no mediastinal adenopathy. The bony thorax shows hypertrophic spurrin g in the mid and lower thoracic spine. I see no focal bone destruction. 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 Non calcified right upper lobe nodule. Chest appears not significantly different than old exam. No eviden ce of acute lung disease.
[2019-01-09 20:39] LABS: Glucose,Whole Blood 190 mg/dL (75-99)
[2019-01-09] MEDS: DOXAZOSIN 4 MG TAB PO SCH (20:45)
[2019-01-09] MEDS: ATORVASTATIN 20 MG TAB PO SCH (20:46)
[2019-01-09] MEDS: CHOLECALCIFEROL 1,000 UNIT TAB PO SCH (20:46)
[2019-01-09] MEDS: MAGNESIUM OXIDE 400 MG TAB PO SCH (20:46)
[2019-01-09] MEDS: DOXYCYCLINE 100 MG CAP PO SCH (20:46)
[2019-01-09] MEDS: guaiFENesin 600 MG TABLET.ER PO SCH (20:46)
[2019-01-09] MEDS: HYDROcodone/APAP 7.5-325MG 1 EACH TAB PO PRN (20:50)
[2019-01-09] MEDS ORDERED: BISACODYL 5 MG TABLET.DR PO SCH (21:00)
[2019-01-09] MEDS ORDERED: DOCUSATE 100 MG CAP PO SCH (21:00)
[2019-01-09] MEDS: BUDESONIDE 0.5 MG/2 ML NEBU INHALATION SCH (21:30)
[2019-01-10 06:21] LABS: Glucose,Whole Blood 239 mg/dL (75-99)
[2019-01-10] MEDS: BISACODYL 5 MG TABLET.DR PO SCH ×3 (06:58→21:38)
[2019-01-10] MEDS: PANTOPRAZOLE 40 MG TABLET PO SCH (07:01)
[2019-01-10] MEDS: INSULIN ASPART (NovoLOG) 100 UNIT/ML VIAL SQ SCH ×4 (07:02→21:45)
[2019-01-10] MEDS: glipiZIDE 5 MG TAB PO SCH ×2 (07:02→17:11)
[2019-01-10 07:23] LABS: Albumin 3.5 g/dL (3.5-5.0); Calcium 8.3 mg/dL (8.4-10.2); Magnesium 2.1 mg/dL (1.6-2.3); Potassium 4.7 mmol/L (3.5-5.1); Total Bilirubin 0.4 mg/dL (0.2-1.3); Total Protein 5.9 g/dL (6.3-8.2)
[2019-01-10 07:27] LABS: Basophils % (A) 0 %; Eosinophils % (A) 1 %; HCT 40.7 % (39.0-53.0); HGB 13.2 gm/dL (13.0-17.5); Lymphocytes # (A) 0.3 k/uL (1.0-4.8); Lymphocytes % (A) 18 %; MCH 30.5 pg (25.0-35.0); MCHC 32.4 g/dL (31.0-37.0); Mean Platelet Volume 9.4; Monocytes # (A) 0.1 k/uL (0-1.0); Monocytes % (A) 5 %; Neutrophils # (A) 1.3 k/uL (1.3-7.7); Neutrophils % (A) 74 %; Platelet Count 119 k/uL (150-450); RBC 4.33 m/uL (4.30-5.90); RDW 13.3 % (11.5-15.5); WBC 1.8 k/uL (3.8-10.6)
[2019-01-10] MEDS ORDERED: LOSARTAN 25 MG TAB PO SCH (09:00)
[2019-01-10] MEDS ORDERED: amLODIPine 5 MG TAB PO SCH (09:00)
[2019-01-10] MEDS: IPRATROPIUM-ALBUTEROL 3 ML NEB INHALATION SCH ×4 (09:13→20:43)
[2019-01-10] MEDS: BUDESONIDE 0.5 MG/2 ML NEBU INHALATION SCH ×2 (09:13→20:43)
[2019-01-10] MEDS: HYDROcodone/APAP 7.5-325MG 1 EACH TAB PO PRN ×2 (09:29→21:38)
[2019-01-10] MEDS: amLODIPine 10 MG TAB PO SCH (09:29)
[2019-01-10] MEDS: FUROSEMIDE 40 MG TAB PO SCH ×2 (09:29→12:40)
[2019-01-10] MEDS: CYANOCOBALAMIN 500 MCG TAB PO SCH (09:29)
[2019-01-10] MEDS: CHOLECALCIFEROL 1,000 UNIT TAB PO SCH ×3 (09:30→21:39)
[2019-01-10] MEDS: DOCUSATE 100 MG CAP PO SCH ×2 (09:30→21:38)
[2019-01-10] MEDS: predniSONE 20 MG TAB PO SCH (09:30)
[2019-01-10] MEDS: APIXABAN 5 MG TAB PO SCH (09:30)
[2019-01-10] MEDS: LOSARTAN 25 MG TAB PO SCH (09:31)
[2019-01-10] MEDS: MAGNESIUM OXIDE 400 MG TAB PO SCH ×2 (09:32→21:38)
[2019-01-10] MEDS: OSELTAMIVIR 60 MG/10 ML ORAL SYRINGE PO SCH ×2 (09:32→23:17)
[2019-01-10] MEDS: DOXYCYCLINE 100 MG CAP PO SCH ×2 (09:32→21:45)
[2019-01-10] MEDS: guaiFENesin 600 MG TABLET.ER PO SCH ×2 (09:32→21:39)
--- NOTE | 2019-01-10 10:07 | P.PN ---
Subjective Progress Note Date: 01/10/19 01/10/2019: Patient seen and examined. Patient is sitting up in the chair. He is on 2 L nasal cannula. He states that his cough is about the same. He continues to have wheezing. His shortness of breath is slightly improved. The patient had computed tomography scan which showed chronic changes as well as a 10 mm right upper lobe pulmonary nodule. This is discussed with patient. He will need repeat CT in 6-12 months. The patient is asking to have his pancreas checked. He states that his sisters both from pancreatic cancer. T-max 99.4. Creatinine is stable at 1.79. The patient's white blood cell count has gone down to 1.8. Objective - Vital Signs Vital signs: Vital Signs Temp 99.4 F 01/10/19 04:00 Pulse 72 01/10/19 09:27 Resp 17 01/10/19 04:00 BP 163/76 01/10/19 04:00 Pulse Ox 95 01/10/19 09:13 Intake & Output 01/09/19 01/10/19 01/10/19 18:59 06:59 18:59 Intake Total 440 780 Output Total 200 Balance 440 580 Weight 94.801 kg 96 kg Intake: Oral 440 780 Output: Urine 200 Other: Voiding Method Toilet # Voids 3 1 - Exam General: Patient is alert and oriented 3, no acute distress Cardiovascular: Regular rate and rhythm, S1/S2 Lungs: Bilateral expiratory wheezing - improving Abdomen: Soft nontender nondistended positive bowel sounds Extremities: +1 pitting edema L > R - Labs CBC & Chem 7: 01/10/19 06:18 01/10/19 06:18 Labs: Abnormal Lab Results - Last 24 Hours (Table) 01/09/19 01/09/19 01/09/19 Range/Units 11:07 11:48 17:03 WBC (3.8-10.6) k/uL Plt Count (150-450) k/uL Lymphocytes # (1.0-4.8) k/uL Sodium (137-145) mmol/L BUN (9-20) mg/dL Creatinine (0.66-1.25) mg/dL Glucose (74-99) mg/dL POC Glucose (mg/dL) 123 H 131 H (75-99) mg/dL Calcium (8.4-10.2) mg/dL CK-MB (CK-2) 5.9 H (0.0-2.4) ng/mL Troponin I 0.196 H* (0.000-0.034) ng/mL Total Protein (6.3-8.2) g/dL 01/09/19 01/09/19 01/10/19 Range/Units 17:12 20:37 06:18 WBC 1.8 L (3.8-10.6) k/uL Plt Count 119 L (150-450) k/uL Lymphocytes # 0.3 L (1.0-4.8) k/uL Sodium (137-145) mmol/L BUN (9-20) mg/dL Creatinine (0.66-1.25) mg/dL Glucose (74-99) mg/dL POC Glucose (mg/dL) 190 H (75-99) mg/dL Calcium (8.4-10.2) mg/dL CK-MB (CK-2) 6.5 H (0.0-2.4) ng/mL Troponin I 0.214 H* (0.000-0.034) ng/mL Total Protein (6.3-8.2) g/dL 01/10/19 01/10/19 Range/Units 06:18 06:20 WBC (3.8-10.6) k/uL Plt Count (150-450) k/uL Lymphocytes # (1.0-4.8) k/uL Sodium 135 L (137-145) mmol/L BUN 45 H (9-20) mg/dL Creatinine 1.79 H (0.66-1.25) mg/dL Glucose 257 H (74-99) mg/dL POC Glucose (mg/dL) 239 H (75-99) mg/dL Calcium 8.3 L (8.4-10.2) mg/dL CK-MB (CK-2) (0.0-2.4) ng/mL Troponin I (0.000-0.034) ng/mL Total Protein 5.9 L (6.3-8.2) g/dL Assessment and Plan Assessment: Acute hypoxic respiratory failure Influenza A Tracheobronchitis Acute on chronic congestive heart failure, systolic, ejection fraction 35% Hypomagnesemia 10 mm RUL pulmonary nodule Pancytopenia Chronic Atrial fibrillation Diabetes mellitus type 2 History of TIA Chronic kidney disease 3 Abdominal aortic aneurysm Remote history of tobacco use Hypertension Troponin release Suspect PASQUALE O2 to maintain saturation greater than or equal to 90%, currently on 3L NC Repeat CT in 6-12 months to assess pulmonary nodule Duonebs Pulmicort Mucinex Prednisone taper Outpatient PFT and PSG Tamiflu ABX: Doxycycline Sputum culture pending GI and DVT prophylaxis: Eliquis and Protonix IS and pulmonary hygiene Monitor labs including CBC closely
[2019-01-10 11:51] LABS: Glucose,Whole Blood 126 mg/dL (75-99)
--- NOTE | 2019-01-10 12:02 | P.PN ---
Subjective Progress Note Date: 01/10/19 This is a 78-year-old male, patient of Dr. Rai. He has a known past medical history of systolic congestive heart failure with an EF of 35%, chronic atrial fibrillation anticoagulated with Eliquis, diabetes mellitus, TIA, chronic kidney disease and an abdominal aortic aneurysm that was repaired in June 2017 and COPD. Patient presented to the emergency room with complaints of worsening shortness of breath over the last 3-4 days. Also having productive cough. He had multiple sick contacts with family members. Complaining of muscle aches throughout the body. He was found to be influenza A positive. Started on Tamiflu. He did complain of one episode of chest pain when he came into the ER. Troponin was elevated at 0.181. Cardiology on consult. Patient also having PVCs on monitoring analyst. Her daughter the metoprolol was discontinued about 8 weeks ago by patient's PCP due to patient having a heart rate in the 40s. EKG on admission showed a wide QRS with frequent PVCs and a right bundle branch block. Patient also received 1 dose of IV Lasix for possible fluid overload in the ER. BNP was elevated at 2200. Chest x-ray was negative. Cardiology has ordered an echocardiogram. Patient denies any nausea vomiting or diarrhea. He is currently on 3 L of oxygen satting at 95%. Oxygen when he came into the ER was 84-85%. He does not usually have home oxygen. Pulmonary service has been placed on consult. Patient denies any fevers chills or sweats. 01/10/2019 patient has been seen by both pulmonary and cardiology services. Pulmonary service has cleared patient for discharge. He did have some bradycardia heart rate in the 40s while sleeping. Patient reports that his cough and shortness of breath improving. He did have a low-grade temp of 99.4. Did have cold couple blood sugars are elevated in the 200s likely related to steroids. Pulmonary service to place him on prednisone and doxycycline for his bronchitis. They ordered a computed tomography scan of the chest which showed a 10 mm non-calcified right upper lobe nodule and an old right rib fracture. White count is 1.8 platelets are 119. Patient denies any chest pain. Was able to ambulate to the bathroom without shortness of breath. Denies any nausea or vomiting. Denies any difficulty urinating. Objective - Vital Signs Vital signs: Vital Signs Temp 99.4 F 01/10/19 04:00 Pulse 72 01/10/19 09:27 Resp 16 01/10/19 11:28 BP 168/77 01/10/19 08:00 Pulse Ox 95 01/10/19 09:13 Intake & Output 01/09/19 01/10/19 01/10/19 18:59 06:59 18:59 Intake Total 440 780 120 Output Total 200 Balance 440 580 120 Weight 94.801 kg 96 kg Intake: Oral 440 780 120 Output: Urine 200 Other: Voiding Method Toilet Toilet # Voids 3 1 0 - Exam Head normocephalic Neck supple Lungs few coarse breath sounds with wheezing Heart regular rate and rhythm S1-S2, no rub or gallop Abdomen is soft nontender nondistended positive bowel sounds no hepatosplenomegaly Extremities no edema Neuro alert and orientated to 3 - Labs CBC & Chem 7: 01/10/19 06:18 01/10/19 06:18 Labs: Abnormal Lab Results - Last 24 Hours (Table) 01/09/19 01/09/19 01/09/19 Range/Units 11:07 11:48 17:03 WBC (3.8-10.6) k/uL Plt Count (150-450) k/uL Lymphocytes # (1.0-4.8) k/uL Sodium (137-145) mmol/L BUN (9-20) mg/dL Creatinine (0.66-1.25) mg/dL Glucose (74-99) mg/dL POC Glucose (mg/dL) 123 H 131 H (75-99) mg/dL Calcium (8.4-10.2) mg/dL CK-MB (CK-2) 5.9 H (0.0-2.4) ng/mL Troponin I 0.196 H* (0.000-0.034) ng/mL Total Protein (6.3-8.2) g/dL 01/09/19 01/09/19 01/10/19 Range/Units 17:12 20:37 06:18 WBC 1.8 L (3.8-10.6) k/uL Plt Count 119 L (150-450) k/uL Lymphocytes # 0.3 L (1.0-4.8) k/uL Sodium (137-145) mmol/L BUN (9-20) mg/dL Creatinine (0.66-1.25) mg/dL Glucose (74-99) mg/dL POC Glucose (mg/dL) 190 H (75-99) mg/dL Calcium (8.4-10.2) mg/dL CK-MB (CK-2) 6.5 H (0.0-2.4) ng/mL Troponin I 0.214 H* (0.000-0.034) ng/mL Total Protein (6.3-8.2) g/dL 01/10/19 01/10/19 01/10/19 Range/Units 06:18 06:20 11:45 WBC (3.8-10.6) k/uL Plt Count (150-450) k/uL Lymphocytes # (1.0-4.8) k/uL Sodium 135 L (137-145) mmol/L BUN 45 H (9-20) mg/dL Creatinine 1.79 H (0.66-1.25) mg/dL Glucose 257 H (74-99) mg/dL POC Glucose (mg/dL) 239 H 126 H (75-99) mg/dL Calcium 8.3 L (8.4-10.2) mg/dL CK-MB (CK-2) (0.0-2.4) ng/mL Troponin I (0.000-0.034) ng/mL Total Protein 5.9 L (6.3-8.2) g/dL Assessment and Plan Assessment: 1. Acute hypoxic respiratory failure: Patient requiring 3 L of nasal cannula. Possibly secondary to patient's influenza infection and bronchitis. Add scheduled DuoNeb nebulizer treatments. Patient evaluated by pulmonary service appreciates their recommendations 2. Influenza A: Start Tamiflu 75 mg twice a day 3. Hypomagnesemia: Patient receiving magnesium supplement. Magnesium level normalized 4. Acute on chronic systolic CHF exacerbation: Patient did receive a dose of IV Lasix in the ER. Per ER report patient has known EF of 35%. Echo pending 5. Elevated troponins: Evaluated by cardiology. Frederick with elevated troponins were likely related to patient's acute infection and renal failure 6. Frequent PVCs on EKG and telemetry monitoring. Patient recently had metoprolol discontinued by his PCP due to heart rate in the 40s. Discussed with cardiology they will hold off on starting a beta wil due to patient's respiratory issues 7. Chronic atrial fibrillation anticoagulated with Eliquis 8. Acute on chronic renal failure stage III: Baseline creatinine close to 1.5. Due to patient's low EF encouraged oral water intake and hold off on starting IV fluids. 9. Diabetes mellitus type 2: Continue sliding scale coverage. Continue glipizide. Check A1c. Patient did have elevated blood sugar likely related to steroids. We'll monitor 10. Essential hypertension: Patient did have some elevated blood pressures resu me his Norvasc and Cozaar. Cardiology increased patient's Norvasc 10 mg daily. Continue to monitor blood pressures 11. Suspected obstructive sleep apnea per pulmonary service 12. 10 mm right upper lobe pulmonary nodule: Pulmicort service recommending repeat computed tomography scan in 6-12 months 13. Acute tracheal bronchitis. Plan her service has added prednisone and doxycycline GI prophylaxis Protonix and DVT prophylaxis Eliquis Plan Try to wean patient off of oxygen Consult PT OT I performed an examination of the patient and discussed their management with the physician Net Application Support Specialist. I have reviewed the Physician Net Application Support Specialist's notes and agree with the documented findings and plan of care
--- NOTE | 2019-01-10 12:52 | ECHOF ---
Referral Reason:[facility] MEASUREMENTS -------- HEIGHT: 170.2 cm WEIGHT: 94.8 kg BP: IVSd: 0.8 cm (0.6 - 1.1) LVIDd: 5.3 cm (3.9 - 5.3) LVPWd: 1.2 cm (0.6 - 1.1) IVSs: 1.1 cm LVIDs: 4.5 cm LVPWs: 1.4 cm Ao Diam: 3.1 cm (2.0 - 3.7) AV Cusp: 1.6 cm (1.5 - 2.6) LA Diam: 4.8 cm (2.7 - 3.8) MV E Rivas: 1.20 m/s MV DecT: 288 ms MV A Rivas: 0.34 m/s MV E/A Ratio: 3.51 AV maxP.86 mmHg AV meanP.70 mmHg RAP: 5.00 mmHg RVSP: 10.65 mmHg FINDINGS -------- Atrial fibrillation. Right bundle branch block. This was a technically difficult study with suboptimal views. The left ventricular size is normal. There is mild concentric left ventricular hypertrophy. Overa ll left ventricular systolic function is moderately impaired with, an EF between 35 - 40 %. The right ventricle is normal in size. The left atrium is moderately dilated. The right atrial size is normal. Interatrial and interventricular septum intact. Aortic valve is trileaflet and is mildly thickened. There is mild aortic stenosis present. Peak/m morris gradient across the Aortic Valve is 15.86mmHg / 9.70mmHg. The mitral valve leaflets are mildly thickened. Mild mitral regurgitation is present. Mild tricuspid regurgitation present. The right ventricular systolic pressure, as measured by Doppl er, is 10.65mmHg. There is no pulmonic regurgitation present. The aortic root size is normal. IVC Not well visulized. There is no pericardial effusion. Lumason used CONCLUSIONS -------- 1. Atrial fibrillation. 2. Right bundle branch block. 3. This was a technically difficult study with suboptimal views. 4. The left ventricular size is normal. 5. There is mild concentric left ventricular hypertrophy. 6. The right ventricle is normal in size. 7. The left atrium is moderately dilated. 8. The right atrial size is normal. 9. Interatrial and interventricular septum intact. 10. Lumason used 11. Aortic valve is trileaflet and is mildly thickened. 12. There is mild aortic stenosis present. 13. Peak/mean gradient across the Aortic Valve is 15.86mmHg / 9.70mmHg. 14. The mitral valve leaflets are mildly thickened. 15. Mild mitral regurgitation is present. 16. Mild tricuspid regurgitation present. 17. The right ventricular systolic pressure, as measured by Doppler, is 10.65mmHg. 18. There is no pulmonic regurgitation present. 19. The aortic root size is normal. 20. IVC Not well visulized. 21. There is no pericardial effusion. PRODUCTION MANAGER: Nona Salcido RDCS
[2019-01-10 13:29] LABS: Hemoglobin A1C 8.2 % (4.0-6.0)
--- NOTE | 2019-01-10 14:21 | P.PN ---
Subjective Progress Note Date: 01/10/19 Is an 78-year-old gentleman with history of chronic systolic congestive heart failure, chronic persistent atrial fibrillation, hypertension, diabetes, abdominal aortic aneurysm, status post stent graft and coronary artery disease was admitted to the hospital with influenza A. Cardiology consultation was r equested because of abnormality in troponin. Patient also has history of COPD and is currently on home O2. also has sleep apnea, and it is noted that while he is sleeping his heart rate is down into the 40s. While he was awake, the heart rate is mainly in the 60s to 70s. We will put him on a low-dose beta wil. He had an echocardiogram with Doppler study performed which revealed an ejection fraction of 35-40%. Let pressure 134/72 with a heart rate in the 70s, 94% on room air. White blood cell count 1.8, hemoglobin 13.2, platelet count 119. Sodium 135, potassium 4.7, BUN 45 and creatinine 1.7. Objective - Vital Signs Vital signs: Vital Signs Temp 99.4 F 01/10/19 04:00 Pulse 72 01/10/19 12:45 Resp 16 01/10/19 12:00 BP 134/73 01/10/19 12:00 Pulse Ox 94 L 01/10/19 12:00 Intake & Output 01/09/19 01/10/19 01/10/19 18:59 06:59 18:59 Intake Total 440 780 360 Output Total 200 Balance 440 580 360 Weight 94.801 kg 96 kg Intake: Oral 440 780 360 Output: Urine 200 Other: Voiding Method Toilet Toilet # Voids 3 1 1 - Exam PHYSICAL EXAMINATION: GENERAL: 78-year-old gentleman in no acute distress at the time of my examination HEENT: Head is atraumatic, normocephalic. Pupils equal, round. Sclera anicteric. Conjunctiva are clear. Mucous membranes of the mouth are moist. Neck is supple. There is no elevated jugular venous pressure. No carotid bruit is heard. HEART EXAMINATION: R S1 and S2 irregularly irregular CHEST EXAMINATION: On's reveal wheezing bilaterally. ABDOMEN: Soft, nontender. Bowel sounds are heard. No organomegaly noted. EXTREMITIES: 2+ peripheral pulses with trace evidence of peripheral edema and no calf tenderness noted. NEUROLOGIC patient is awake, alert and oriented 3 . . - Labs CBC & Chem 7: 01/10/19 06:18 01/10/19 06:18 Labs: Abnormal Lab Results - Last 24 Hours (Table) 01/09/19 01/09/19 01/09/19 Range/Units 17:03 17:12 20:37 WBC (3.8-10.6) k/uL Plt Count (150-450) k/uL Lymphocytes # (1.0-4.8) k/uL Sodium (137-145) mmol/L BUN (9-20) mg/dL Creatinine (0.66-1.25) mg/dL Glucose (74-99) mg/dL POC Glucose (mg/dL) 131 H 190 H (75-99) mg/dL Hemoglobin A1c (4.0-6.0) % Calcium (8.4-10.2) mg/dL CK-MB (CK-2) 6.5 H (0.0-2.4) ng/mL Troponin I 0.214 H* (0.000-0.034) ng/mL Total Protein (6.3-8.2) g/dL 01/10/19 01/10/19 01/10/19 Range/Units 06:18 06:18 06:18 WBC 1.8 L (3.8-10.6) k/uL Plt Count 119 L (150-450) k/uL Lymphocytes # 0.3 L (1.0-4.8) k/uL Sodium 135 L (137-145) mmol/L BUN 45 H (9-20) mg/dL Creatinine 1.79 H (0.66-1.25) mg/dL Glucose 257 H (74-99) mg/dL POC Glucose (mg/dL) (75-99) mg/dL Hemoglobin A1c 8.2 H (4.0-6.0) % Calcium 8.3 L (8.4-10.2) mg/dL CK-MB (CK-2) (0.0-2.4) ng/mL Troponin I (0.000-0.034) ng/mL Total Protein 5.9 L (6.3-8.2) g/dL 01/10/19 01/10/19 Range/Units 06:20 11:45 WBC (3.8-10.6) k/uL Plt Count (150-450) k/uL Lymphocytes # (1.0-4.8) k/uL Sodium (137-145) mmol/L BUN (9-20) mg/dL Creatinine (0.66-1.25) mg/dL Glucose (74-99) mg/dL POC Glucose (mg/dL) 239 H 126 H (75-99) mg/dL Hemoglobin A1c (4.0-6.0) % Calcium (8.4-10.2) mg/dL CK-MB (CK-2) (0.0-2.4) ng/mL Troponin I (0.000-0.034) ng/mL Total Protein (6.3-8.2) g/dL Microbiology - Last 24 Hours (Table) 01/09/19 20:30 Gram Stain - Preliminary Sputum Assessment and Plan Plan: Assessment and plan #1 influenza A #2 abnormality in troponin, likely secondary to influenza #3 chronic persistent atrial fibrillation #4 hypertension Plan Will put the patient on 12-1/2 of metoprolol twice a day. He may be able to be discharged once cleared by primary, we will make a follow-up appointment in the office post discharge. DNP note has been reviewed, I agree with a documented findings and plan of care. Patient was seen and examined.
[2019-01-10 16:56] LABS: Glucose,Whole Blood 325 mg/dL (75-99)
[2019-01-10 20:32] LABS: Glucose,Whole Blood 385 mg/dL (75-99)
[2019-01-10] MEDS: METOPROLOL TARTRATE 12.5 MG TAB PO SCH (21:37)
[2019-01-10] MEDS: APIXABAN 2.5 MG TABLET PO SCH (21:38)
[2019-01-10] MEDS: ATORVASTATIN 20 MG TAB PO SCH (21:38)
[2019-01-10] MEDS: DOXAZOSIN 4 MG TAB PO SCH (21:38)
[2019-01-11 05:37] LABS: Glucose,Whole Blood 92 mg/dL (75-99)
[2019-01-11] MEDS: INSULIN ASPART (NovoLOG) 100 UNIT/ML VIAL SQ SCH ×3 (06:29→17:49)
[2019-01-11] MEDS: PANTOPRAZOLE 40 MG TABLET PO SCH (06:37)
[2019-01-11] MEDS: glipiZIDE 5 MG TAB PO SCH ×2 (06:37→17:49)
[2019-01-11 06:52] LABS: Basophils % (A) 0 %; Eosinophils % (A) 0 %; HCT 37.7 % (39.0-53.0); HGB 12.7 gm/dL (13.0-17.5); Lymphocytes # (A) 0.7 k/uL (1.0-4.8); Lymphocytes % (A) 15 %; MCH 30.5 pg (25.0-35.0); MCHC 33.5 g/dL (31.0-37.0); MCV 91.1 fL (80.0-100.0); Mean Platelet Volume 9.2; Monocytes # (A) 0.4 k/uL (0-1.0); Monocytes % (A) 9 %; Neutrophils # (A) 3.4 k/uL (1.3-7.7); Neutrophils % (A) 75 %; Platelet Count 123 k/uL (150-450); RBC 4.14 m/uL (4.30-5.90); RDW 13.3 % (11.5-15.5); WBC 4.5 k/uL (3.8-10.6)
[2019-01-11 07:06] LABS: Albumin 3.5 g/dL (3.5-5.0); Calcium 8.8 mg/dL (8.4-10.2); Magnesium 1.9 mg/dL (1.6-2.3); Potassium 4.1 mmol/L (3.5-5.1); Total Bilirubin 0.4 mg/dL (0.2-1.3); Total Protein 5.9 g/dL (6.3-8.2)
[2019-01-11] MEDS: CHOLECALCIFEROL 1,000 UNIT TAB PO SCH (08:36)
[2019-01-11] MEDS: guaiFENesin 600 MG TABLET.ER PO SCH (08:37)
[2019-01-11] MEDS: FUROSEMIDE 40 MG TAB PO SCH ×2 (08:37→12:24)
[2019-01-11] MEDS: MAGNESIUM OXIDE 400 MG TAB PO SCH (08:37)
[2019-01-11] MEDS: APIXABAN 2.5 MG TABLET PO SCH (08:37)
[2019-01-11] MEDS: predniSONE 20 MG TAB PO SCH (08:37)
[2019-01-11] MEDS: DOCUSATE 100 MG CAP PO SCH (08:37)
[2019-01-11] MEDS: amLODIPine 10 MG TAB PO SCH (08:37)
[2019-01-11] MEDS: CYANOCOBALAMIN 500 MCG TAB PO SCH (08:37)
[2019-01-11] MEDS: BISACODYL 5 MG TABLET.DR PO SCH (08:37)
[2019-01-11] MEDS: METOPROLOL TARTRATE 12.5 MG TAB PO SCH (08:38)
[2019-01-11] MEDS: OSELTAMIVIR 60 MG/10 ML ORAL SYRINGE PO SCH (08:38)
[2019-01-11] MEDS: DOXYCYCLINE 100 MG CAP PO SCH (08:39)
[2019-01-11] MEDS: LOSARTAN 25 MG TAB PO SCH (08:39)
[2019-01-11 08:54] VITALS: RESP 16
[2019-01-11] MEDS: IPRATROPIUM-ALBUTEROL 3 ML NEB INHALATION SCH ×3 (08:58→16:18)
[2019-01-11] MEDS: BUDESONIDE 0.5 MG/2 ML NEBU INHALATION SCH (08:58)
[2019-01-11 09:37] LABS: T4, Free (Free Thyroxine) 1.61 ng/dL (0.78-2.19)
--- NOTE | 2019-01-11 09:56 | PN ---
PROGRESS NOTE DATE OF SERVICE: 01/11/2019 He continues to have some shortness of breath and wheezing. He has been bradycardic. PHYSICAL EXAMINATION: Respiratory rate is 16, pulse rate of 47, temperature 97.8, blood pressure 156/77, O2 saturation on room air is 93%. HEENT is unremarkable. Chest reveals decreased breath sounds in the bases with prolonged exhalation and faint expiratory wheeze. Cardiovascular system reveals an S1, S2. Abdomen is soft. There is no edema. IMPRESSION: 1. Acute hypoxic respiratory failure. 2. Tracheobronchitis. 3. Congestive heart failure. 4. Influenza A. 5. Right upper lobe nodule. Optimize his fluid status. Increase his activity level. Continue bronchodilators, steroid taper, would benefit from an outpatient PFT. Depending on how he does, we shall make further changes to his care. STEPHANIE / CARLOZ: [id number] /
--- NOTE | 2019-01-11 11:50 | P.PN ---
Subjective Progress Note Date: 01/11/19 Is an 78-year-old gentleman with history of chronic systolic congestive heart failure, chronic persistent atrial fibrillation, hypertension, diabetes, abdominal aortic aneurysm, status post stent graft and coronary artery disease was admitted to the hospital with influenza A. Cardiology consultation was r equested because of abnormality in troponin. Patient also has history of COPD and is currently on home O2. also has sleep apnea, and it is noted that while he is sleeping his heart rate is down into the 40s. While he was awake, the heart rate is mainly in the 60s to 70s. We will put him on a low-dose beta wil. He had an echocardiogram with Doppler study performed which revealed an ejection fraction of 35-40%. Let pressure 134/72 with a heart rate in the 70s, 94% on room air. White blood cell count 1.8, hemoglobin 13.2, platelet count 119. Sodium 135, potassium 4.7, BUN 45 and creatinine 1.7. 01/11/2019 Patient was seen and examined this morning, overall doing well. Heart rate remaining in the 70s during the day, he does dip down into the 40s but only with sleep. His blood pressure today is 156/70 with a heart rate in the 60s to 70s, 93% on room air. White blood cell count 4.5, hemoglobin 12.7, platelet count 123. Sodium 136, potassium 4.1, BUN 52 and creatinine 1.7, magnesium level is 1.9. Objective - Vital Signs Vital signs: Vital Signs Temp 97.8 F 01/11/19 08:53 Pulse 64 01/11/19 09:36 Resp 16 01/11/19 08:53 BP 156/77 01/11/19 08:53 Pulse Ox 93 L 01/11/19 08:53 Intake & Output 01/10/19 01/11/19 01/11/19 18:59 06:59 18:59 Intake Total 600 240 Balance 600 240 Weight 96.9 kg Intake: Oral 600 240 Other: Voiding Method Toilet Toilet Toilet # Voids 1 1 1 - Exam PHYSICAL EXAMINATION: GENERAL: 78-year-old gentleman in no acute distress at the time of my examination HEENT: Head is atraumatic, normocephalic. Pupils equal, round. Sclera anicteric. Conjunctiva are clear. Mucous membranes of the mouth are moist. Neck is supple. There is no elevated jugular venous pressure. No carotid bruit is heard. HEART EXAMINATION: R S1 and S2 irregularly irregular CHEST EXAMINATION: On's reveal wheezing bilaterally. ABDOMEN: Soft, nontender. Bowel sounds are heard. No organomegaly noted. EXTREMITIES: 2+ peripheral pulses with trace evidence of peripheral edema and no calf tenderness noted. NEUROLOGIC patient is awake, alert and oriented 3 . . - Labs CBC & Chem 7: 01/11/19 06:14 01/11/19 06:14 Labs: Abnormal Lab Results - Last 24 Hours (Table) 01/10/19 01/10/19 01/10/19 Range/Units 06:18 11:45 16:51 RBC (4.30-5.90) m/uL Hgb (13.0-17.5) gm/dL Hct (39.0-53.0) % Plt Count (150-450) k/uL Lymphocytes # (1.0-4.8) k/uL Sodium (137-145) mmol/L BUN (9-20) mg/dL Creatinine (0.66-1.25) mg/dL POC Glucose (mg/dL) 126 H 325 H (75-99) mg/dL Hemoglobin A1c 8.2 H (4.0-6.0) % Total Protein (6.3-8.2) g/dL TSH (0.465-4.680) mIU/L 01/10/19 01/11/19 01/11/19 Range/Units 20:30 06:14 06:14 RBC 4.14 L (4.30-5.90) m/uL Hgb 12.7 L (13.0-17.5) gm/dL Hct 37.7 L (39.0-53.0) % Plt Count 123 L (150-450) k/uL Lymphocytes # 0.7 L (1.0-4.8) k/uL Sodium 136 L (137-145) mmol/L BUN 52 H (9-20) mg/dL Creatinine 1.79 H (0.66-1.25) mg/dL POC Glucose (mg/dL) 385 H (75-99) mg/dL Hemoglobin A1c (4.0-6.0) % Total Protein 5.9 L (6.3-8.2) g/dL TSH 0.392 L (0.465-4.680) mIU/L Microbiology - Last 24 Hours (Table) 01/09/19 20:30 Gram Stain - Preliminary Sputum Assessment and Plan Plan: Assessment and plan #1 influenza A #2 abnormality in troponin, likely secondary to influenza #3 chronic persistent atrial fibrillation #4 hypertension Plan From cardiology's perspective, patient may be able to be discharged home once cleared by primary. He may also transferred to medical surgical unit from our standpoint. DNP note has been reviewed, I agree with a documented findings and plan of care. Patient was seen and examined.
[2019-01-11 12:09] LABS: Glucose,Whole Blood 215 mg/dL (75-99)
[2019-01-11 12:40] VITALS: BP 155/74; TEMP 98.1
--- NOTE | 2019-01-11 15:18 | P.DS ---
Providers Date of admission: 01/09/19 07:15 Expected date of discharge: 01/11/19 Attending physician: Shilo Kebede Consults: 01/09/19 07:16 Consult Physician Urgent Consulting Provider: [facility] Consult Reason/Comments: EKG changes, elevateed trop Do you want consulting provider notified?: Yes 01/09/19 12:29 Consult Physician Routine Consulting Provider: Juliana Baker Consult Reason/Comments: hypoxia Do you want consulting provider notified?: Yes Primary care physician: Kelly Rai Hospital Course: Discharge diagnosis 1. Acute hypoxic respiratory failure: Patient requiring 3 L of nasal cannula. Possibly secondary to patient's influenza infection and bronchitis. Add scheduled DuoNeb nebulizer treatments. Patient evaluated by pulmonary service appreciates their recommendations. Patient has been cleared for discharge from pulmonary standpoint. Patient to continue with steroid taper and doxycycline. Patient also outpatient PFTs. Patient has been tolerating room air 2. Influenza A: Start Tamiflu 75 mg twice a day. Patient has received 5 doses inpatient Tamiflu. Patient to follow-up outpatient with 5 more doses 3. Hypomagnesemia: Patient receiving magnesium supplement. Magnesium level normalized 4. Acute on chronic systolic CHF exacerbation: Patient did receive a dose of IV Lasix in the ER. Per ER report patient has known EF of 35%. 2-D echo completed showing EF of 35-40%. Patient is maintained on Lasix 5. Elevated troponins: Evaluated by cardiology. [place] with elevated troponins were likely related to patient's acute infection and renal failure 6. Frequent PVCs on EKG and telemetry monitoring. Patient recently had metoprolol discontinued by his PCP due to heart rate in the 40s. Beta wil has been added per cardiology services. Per urology aware of patient's low heart rate was sleeping continue beta wil per cardiology 7. Chronic atrial fibrillation anticoagulated with Eliquis 8. Acute on chronic renal failure stage III: Baseline creatinine close to 1.5. Due to patient's low EF encouraged oral water intake and hold off on starting IV fluids. Creatinine has remained the same 1.79. 9. Diabetes mellitus type 2: Continue sliding scale coverage. Continue glipizide. Hemoglobin A1c of 8.2. Patient did have elevated blood sugar likely related to steroids. We'll monitor 10. Essential hypertension: Patient did have some elevated blood pressures resume his Norvasc and Cozaar. Cardiology increased patient's Norvasc 10 mg daily. Continue to monitor blood pressures 11. Suspected obstructive sleep apnea per pulmonary service 12. 10 mm right upper lobe pulmonary nodule: Pulmicort service recommending repeat computed tomography scan in 6-12 months 13. Acute tracheal bronchitis. Plan her service has added prednisone and doxycycline 14. TSH 0.392. Patient to follow-up outpatient with endocrinology services for further management 15. leukopenia and thrombocytopenia: Likely secondary to infection process. WBC improving at 4.5. Platelets also increasing to 123 16. Patient mentioned that sister has pancreatic cancer and he would like to have a CT of the Abdomen. Check Amylase and lipase. recommend CT abdomen to be completed outpatient. Amylase 39 lipase 50. Patient to follow-up outpatient with PCP for further workup 17. Episodes of bradycardia while sleeping. Discussed case with cardiology services. Per Dr. Cruz with cardiology team, bradycardia does occur when sleeping. Recommending that patient continue current dose of all medications including increased dose of Norvasc and additional dose of beta wil. Hospital course This is a 78-year-old male, patient of Dr. Rai. He has a known past medical history of systolic congestive heart failure with an EF of 35%, chronic atrial fibrillation anticoagulated with Eliquis, diabetes mellitus, TIA, chronic kidney disease and an abdominal aortic aneurysm that was repaired in June 2017 and COPD. Patient presented to the emergency room with complaints of worsening shortness of breath over the last 3-4 days. Also having productive cough. He had multiple sick contacts with family members. Complaining of muscle aches throughout the body. He was found to be influenza A positive. Started on Tamiflu. He did complain of one episode of chest pain when he came into the ER. Troponin was elevated at 0.181. Cardiology on consult. Patient also having PVCs on child and family services worker. Her daughter the metoprolol was discontinued about 8 weeks ago by patient's PCP due to patient having a heart rate in the 40s. EKG on admission showed a wide QRS with frequent PVCs and a right bundle branch block. Patient also received 1 dose of IV Lasix for possible fluid overload in the ER. BNP was elevated at 2200. Chest x-ray was negative. Cardiology has ordered an echocardiogram. Patient denies any nausea vomiting or diarrhea. He is currently on 3 L of oxygen satting at 95%. Oxygen when he came into the ER was 84-85%. He does not usually have home oxygen. Pulmonary service has been placed on consult. Patient denies any fevers chills or sweats. 01/10/2019 patient has been seen by both pulmonary and cardiology services. Pulmonary service has cleared patient for discharge. He did have some bradycardia heart rate in the 40s while sleeping. Patient reports that his cough and shortness of breath improving. He did have a low-grade temp of 99.4. Did have cold couple blood sugars are elevated in the 200s likely related to st eroids. Pulmonary service to place him on prednisone and doxycycline for his bronchitis. They ordered a computed tomography scan of the chest which showed a 10 mm non-calcified right upper lobe nodule and an old right rib fracture. White count is 1.8 platelets are 119. Patient denies any chest pain. Was able to ambulate to the bathroom without shortness of breath. Denies any nausea or vomiting. Denies any difficulty urinating. On 01/11/2019 patient is currently on room air. Patient expresses he is very eager to go home and feels that he is back to his baseline. Patient has been cleared for discharge from cardiology and pulmonary services. Patient will be DC'd home on additional doses of Tamiflu, prednisone taper and doxycycline. Patient did have episodes of heart rate dropping down in the 40s while sleeping. Discussed case with cardiology Dr. Cruz. Requesting the patient be maintained on all current medication including increased dose of Norvasc and metoprolol 12.5 twice a day. Patient to follow-up outpatient with cardiology and pulmonary services. TSH level also low at 0.392. Patient to follow-up outpatient with endocrinology's services for further workup. Patient has been cleared for discharge from cardiology and pulmonary services. I performed an examination of the patient and discussed their management with the Nurse Practitioner. I have reviewed the Nurse Practitioner's notes and agree with the documented findings and plan of care Patient Condition at Discharge: Stable Plan - Discharge Summary Discharge Rx Participant: No New Discharge Prescriptions: New Oseltamivir 6Mg/ml Oral Susp [Tamiflu] 30 mg PO Q12HR 3 Days #25 ml predniSONE 10 mg PO DIRECTED 15 Days #48 tab Doxycycline [Vibramycin] 100 mg PO BID 5 Days #10 cap Continue glipiZIDE XL [Glucotrol XL] 10 mg PO DAILY #30 tab Hydrocodone/Acetaminophen [Hydrocodone-Acetamin 7.5-325] 1 tab PO BID PRN PRN Reason: Pain/Discomfort Cyanocobalamin (Vitamin B-12) [Vitamin B-12] 1,000 mcg PO DAILY Docusate [Colace] 200 mg PO BID Bisacodyl [Dulcolax] 5 mg PO BID Cholecalciferol [Vitamin D3] 1,000 unit PO HS Apixaban [Eliquis] 5 mg PO BID #60 tab Atorvastatin [Lipitor] 20 mg PO HS #30 tab Omeprazole [PriLOSEC] 40 mg PO DAILY Losartan Potassium [Cozaar] 25 mg PO DAILY Furosemide [Lasix] 40 mg PO BID@0800,1200 Prosta Genix 1 tab PO BID Cholecalciferol [Vitamin D3] 2,000 unit PO DAILY Magnesium Oxide [Mag-Ox] 500 mg PO BID Metolazone [Zaroxolyn] 2.5 mg PO DAILY PRN PRN Reason: Edema No Action Terazosin HCl 5 mg PO BID amLODIPine [Norvasc] 5 mg PO DAILY Discharge Medication List Terazosin HCl 5 mg PO BID 12/29/15 [History] glipiZIDE XL [Glucotrol XL] 10 mg PO DAILY #30 tab 01/01/16 [Rx] Hydrocodone/Acetaminophen [Hydrocodone-Acetamin 7.5-325] 1 tab PO BID PRN 05/22/16 [History] Bisacodyl [Dulcolax] 5 mg PO BID 04/26/17 [History] Cyanocobalamin (Vitamin B-12) [Vitamin B-12] 1,000 mcg PO DAILY 04/26/17 [History] Docusate [Colace] 200 mg PO BID 04/26/17 [History] amLODIPine [Norvasc] 5 mg PO DAILY 07/07/17 [History] Cholecalciferol [Vitamin D3] 1,000 unit PO HS 05/10/18 [History] Apixaban [Eliquis] 5 mg PO BID #60 tab 05/13/18 [Rx] Atorvastatin [Lipitor] 20 mg PO HS #30 tab 05/13/18 [Rx] Cholecalciferol [Vitamin D3] 2,000 unit PO DAILY 01/09/19 [History] Furosemide [Lasix] 40 mg PO BID@0800,1200 01/09/19 [History] Losartan Potassium [Cozaar] 25 mg PO DAILY 01/09/19 [History] Magnesium Oxide [Mag-Ox] 500 mg PO BID 01/09/19 [History] Metolazone [Zaroxolyn] 2.5 mg PO DAILY PRN 01/09/19 [History] Omeprazole [PriLOSEC] 40 mg PO DAILY 01/09/19 [History] Prosta Genix 1 tab PO BID 01/09/19 [History] Doxycycline [Vibramycin] 100 mg PO BID 5 Days #10 cap 01/11/19 [Rx] Oseltamivir 6Mg/ml Oral Susp [Tamiflu] 30 mg PO Q12HR 3 Days #25 ml 01/11/19 [Rx] predniSONE 10 mg PO DIRECTED 15 Days #48 tab 01/11/19 [Rx] Follow up Appointment(s)/Referral(s): Kelly Rai MD [Primary Care Provider] - 01/18/19 1:15 pm (Wednesday) Morro Fontenot MD [STAFF PHYSICIAN] - 1 Week Franck Grullon MD [STAFF PHYSICIAN] - 1 Week Activity/Diet/Wound Care/Special Instructions: cardio cleared Activity as tolerated Heart healthy diet Discharge Disposition: HOME SELF-CARE
[2019-01-11 16:29] VITALS: PULSE 72
[2019-01-11 16:54] LABS: Glucose,Whole Blood 358 mg/dL (75-99)
== END 2019-01-11 19:03 | disposition home or self-care (01) | DRG 291 ==
LOC: EC 05:04 → 3SCARD 07:15
PROVIDERS: ADMIT Internal Medicine; ATTEND Internal Medicine
DX: I13.0 Hypertensive heart and chronic kidney disease with heart failure and stage 1 through stage 4 chronic kidney disease, or unspecified chronic kidney disease (principal); J96.01 Acute respiratory failure with hypoxia; I50.23 Acute on chronic systolic (congestive) heart failure; N17.9 Acute kidney failure, unspecified; D61.818 Other pancytopenia; J44.0 Chronic obstructive pulmonary disease with (acute) lower respiratory infection; I48.1 Persistent atrial fibrillation; E11.22 Type 2 diabetes mellitus with diabetic chronic kidney disease; E11.65 Type 2 diabetes mellitus with hyperglycemia; E83.42 Hypomagnesemia; N18.3 Chronic kidney disease, stage 3 (moderate); I45.10 Unspecified right bundle-branch block; R00.1 Bradycardia, unspecified; J10.1 Influenza due to other identified influenza virus with other respiratory manifestations; R74.8 Abnormal levels of other serum enzymes; K21.9 Gastro-esophageal reflux disease without esophagitis; N42.9 Disorder of prostate, unspecified; E78.5 Hyperlipidemia, unspecified; J20.9 Acute bronchitis, unspecified; I25.10 Atherosclerotic heart disease of native coronary artery without angina pectoris; G47.33 Obstructive sleep apnea (adult) (pediatric); R91.1 Solitary pulmonary nodule; T38.0X5A Adverse effect of glucocorticoids and synthetic analogues, initial encounter; Z79.01 Long term (current) use of anticoagulants; Z79.899 Other long term (current) drug therapy; Z79.84 Long term (current) use of oral hypoglycemic drugs; Z96.653 Presence of artificial knee joint, bilateral; Z87.891 Personal history of nicotine dependence; Z86.73 Personal history of transient ischemic attack (TIA), and cerebral infarction without residual deficits; Z95.5 Presence of coronary angioplasty implant and graft; Z86.79 Personal history of other diseases of the circulatory system; Z87.81 Personal history of (healed) traumatic fracture; Z99.81 Dependence on supplemental oxygen; Z88.0 Allergy status to penicillin; Z91.013 Allergy to seafood; Z80.42 Family history of malignant neoplasm of prostate; Z82.3 Family history of stroke; Z80.0 Family history of malignant neoplasm of digestive organs
CPT/HCPCS: 36415; 71046; 71250; 80053; 82150; 82553; 83036; 83690; 83735; 83880; 84439; 84443; 84484; 85025; 85610; 85730; 87070; 87205; 87502; 93005; 93306; 94640; 94760; 96374; 99285

== ENCOUNTER 2021-04-19 23:34 | Inpatient (IN) | payer MEDICARE, BC ==
--- NOTE | 2021-04-20 00:25 | XR ---
EXAMINATION TYPE: XR chest 1V portable DATE OF EXAM: 04/20/2021 COMPARISON: 01/07/2019 HISTORY: Chest pain TECHNIQUE: Single view FINDINGS: Heart is enlarged. There is mild pulmonary vascular congestion. There is blunting of the co stophrenic angles. There are chest leads. IMPRESSION: There is some congestive heart failure with pleural fluid that is new compared to old patricia mAlden
[2021-04-20 00:38] LABS: Basophils % (A) 1 %; Eosinophils # (A) 0.1 k/uL (0-0.7); Eosinophils % (A) 1 %; HCT 38.5 % (39.0-53.0); HGB 12.4 gm/dL (13.0-17.5); Lymphocytes # (A) 0.7 k/uL (1.0-4.8); Lymphocytes % (A) 15 %; MCH 31.3 pg (25.0-35.0); MCHC 32.2 g/dL (31.0-37.0); MCV 97.1 fL (80.0-100.0); Mean Platelet Volume 9.6; Monocytes # (A) 0.4 k/uL (0-1.0); Monocytes % (A) 9 %; Neutrophils # (A) 3.1 k/uL (1.3-7.7); Neutrophils % (A) 71 %; Platelet Count 108 k/uL (150-450); RBC 3.97 m/uL (4.30-5.90); RDW 14.9 % (11.5-15.5); WBC 4.4 k/uL (3.8-10.6)
[2021-04-20 00:40] LABS: INR 1.4 (<1.2); Partial Thromboplastin Time 29.1 sec (22.0-30.0); Prothrombin Time 14.2 sec (9.0-12.0)
[2021-04-20 00:45] LABS: Albumin 3.6 g/dL (3.5-5.0); Magnesium 2.1 mg/dL (1.6-2.3); Potassium 4.2 mmol/L (3.5-5.1); Total Bilirubin 0.8 mg/dL (0.2-1.3); Total Protein 5.8 g/dL (6.3-8.2)
[2021-04-20] MEDS ORDERED: FUROSEMIDE 10 MG/ML 4 ML VIAL IV STA (00:49)
[2021-04-20] MEDS ORDERED: MORPHINE SULFATE 4 MG/ML SYRINGE IV STA (01:47)
--- NOTE | 2021-04-20 02:08 | ED ---
Chest Pain [facility] - General Chief Complaint: Chest Pain Stated Complaint: SOB Time Seen by Provider: 04/19/21 23:48 Source: patient Mode of arrival: ambulatory Limitations: no limitations - History of Present Illness Initial Comments: This patient is an 80-year-old man with history of congestive heart failure and also COPD. Patient presents for evaluation of dyspnea and also upper thorax pain. He had some mild symptoms starting over a day ago but he notes that the shortness of breath started getting bad last night. He notes it is worse if he is attempting to lie flat. He notes that he is having increasing leg edema and that he has gained a number of pounds recently. He describes the thorax pain as being in both shoulders and also towards the back of his neck. He has not noted worsening or relieving factors. MD Complaint: chest pain -: hour(s) Onset: during rest Pain Location: other (Back) Pain Radiation: RUE, LUE Severity: moderate Quality: aching Consistency: constant Improves With: nothing Worsens With: nothing Anginal Symptoms: dyspnea Treatments Prior to Arrival: none - Related Data Home Medications Medication Instructions Recorded Confirmed Terazosin HCl 5 mg PO BID 12/29/15 04/20/21 Hydrocodone/Acetaminophen 1 tab PO QID PRN 05/22/16 04/20/21 [Hydrocodone-Acetamin 7.5-325] Cyanocobalamin (Vitamin B-12) 1,000 mcg PO DAILY 04/26/17 04/20/21 [Vitamin B-12] Docusate [Colace] 200 mg PO BID 04/26/17 04/20/21 bisacodyL [Dulcolax] 5 mg PO BID 04/26/17 04/20/21 Cholecalciferol [Vitamin D3 (25 1,000 unit PO HS 05/10/18 04/20/21 Mcg = 1000 Iu)] Cholecalciferol [Vitamin D3 (25 2,000 unit PO DAILY 01/09/19 04/20/21 Mcg = 1000 Iu)] Furosemide [Lasix] 80 mg PO BID@0800,1200 01/09/19 04/20/21 Losartan Potassium [Cozaar] 25 mg PO DAILY 01/09/19 04/20/21 Magnesium Oxide [Mag-Ox] 500 mg PO BID 01/09/19 04/20/21 Omeprazole [PriLOSEC] 40 mg PO DAILY 01/09/19 04/20/21 metOLazone [Zaroxolyn] 2.5 mg PO DAILY PRN 01/09/19 04/20/21 Metoprolol Tartrate [Lopressor] 12.5 mg PO DAILY 04/20/21 04/20/21 Sildenafil [Revatio] 40 mg PO BID 04/20/21 04/20/21 diphenhydrAMINE [Benadryl] 25 mg PO BID 04/20/21 04/20/21 Previous Rx's Medication Instructions Recorded glipiZIDE XL [Glucotrol XL] 10 mg PO DAILY #30 tab 01/01/16 Apixaban [Eliquis] 5 mg PO BID #60 tab 05/13/18 Atorvastatin [Lipitor] 20 mg PO HS #30 tab 05/13/18 Allergies Allergy/AdvReac Type Severity Reaction Status Date / Time Penicillins Allergy Unknown Verified 04/20/21 08:14 shellfish derived [Shellfish] Allergy Anaphylaxis Verified 04/20/21 08:14 Review of Systems ROS Statement: Those systems with pertinent positive or pertinent negative responses have been documented in the HPI. ROS Other: All systems not noted in ROS Statement are negative. Constitutional: Denies: fever, chills Respiratory: Reports: dyspnea. Denies: cough, wheezes, hemoptysis Cardiovascular: Reports: as per HPI, chest pain, orthopnea, edema. Denies: palpitations, syncope Gastrointestinal: Denies: abdominal pain, nausea, vomiting, diarrhea, melena, hematochezia Genitourinary: Denies: dysuria, hematuria Musculoskeletal: Denies: back pain Skin: Denies: rash Neurological: Denies: headache, weakness, numbness Past Medical History Past Medical History: Atrial Fibrillation, Heart Failure, CVA/TIA, Diabetes Mellitus, GERD/Reflux, Hypertension, Prostate Disorder, Renal Disease Additional Past Medical History / Comment(s): AAA(had sx), at time has difficulty swallowing pills History of Any Multi-Drug Resistant Organisms: None Reported Past Surgical History: Back Surgery, Heart Catheterization, Orthopedic Surgery Additional Past Surgical History / Comment(s): bilat carpal tunnel, sherrie knee replacments, lt rotator cuff Past Anesthesia/Blood Transfusion Reactions: No Reported Reaction Additional Past Anesthesia/Blood Transfusion Reaction / Comment(s): Clausterphobic. stated has never recieved any blood transfusions Past Psychological History: No Psychological Hx Reported Smoking Status: Former smoker Past Alcohol Use History: None Reported Past Drug Use History: None Reported - Past Family History Father Family Medical History: Cancer Additional Family Medical History / Comment(s): prostate cancer Mother Family Medical History: CVA/TIA Sister(s) Family Medical History: Cancer Additional Family Medical History / Comment(s): heart problems but unsure of what exactly General Exam Limitations: no limitations General appearance: alert, in distress Head exam: Present: atraumatic, normocephalic Eye exam: Present: normal appearance. Absent: scleral icterus, conjunctival injection ENT exam: Present: normal oropharynx Neck exam: Present: normal inspection Respiratory exam: Present: respiratory distress, rales (Bilateral bases). Absent: wheezes, rhonchi, stridor Cardiovascular Exam: Present: bradycardia, irregular rhythm, gallop. Absent: systolic murmur, diastolic murmur, rubs GI/Abdominal exam: Present: soft. Absent: distended, tenderness, guarding, r ebound, rigid, mass Extremities exam: Present: normal capillary refill, pedal edema (There is bilateral leg edema to the knees). Absent: tenderness, calf tenderness Back exam: Present: normal inspection. Absent: CVA tenderness (R), CVA tenderness (L) Neurological exam: Present: alert Skin exam: Present: warm, dry, intact, normal color. Absent: rash Course Vital Signs 04/19/21 04/20/21 04/20/21 23:35 00:39 00:58 Temperature 98.1 F Pulse Rate 49 L 40 L Pulse Rate [ 44 L Manager Mass ] Respiratory 20 18 Rate Blood Pressure 118/63 129/65 O2 Sat by Pulse 92 L 95 Oximetry Chest Pain [facility] Patient is an 80-year-old man brought for dyspnea and chest pain. History and physical are consistent with exacerbation of congestive heart failure. The wor kup supports this as well. The patient does have mildly elevated troponin and at this point suspect this is related to the congestive heart failure and renal failure. Patient admitted for cardiology and nephrology consultation as well as further diuresis and oxygen treatment. He is feeling better with therapy. Critical Care Time Critical Care Time: Yes (30 minutes) Disposition Clinical Impression: Acute exacerbation of CHF (congestive heart failure), Elevated troponin, Chest pain, Symptomatic bradycardia Disposition: ADMITTED IP TO THIS HOSP Condition: Poor
[2021-04-20] MEDS ORDERED: FUROSEMIDE 10 MG/ML 4 ML VIAL IV SCH (02:15)
[2021-04-20 06:44] LABS: Glucose,Whole Blood 145 mg/dL (75-99)
[2021-04-20] MEDS: INSULIN ASPART (NovoLOG) 100 UNIT/ML VIAL SQ SCH ×4 (06:54→21:00)
[2021-04-20] MEDS ORDERED: metOLazone 2.5 MG TAB PO PRN (08:47)
[2021-04-20] MEDS ORDERED: METOPROLOL TARTRATE 25 MG TAB PO SCH (09:00)
[2021-04-20] MEDS ORDERED: ENOXAPARIN 30 MG/0.3 ML SYRINGE SQ SCH (09:00)
[2021-04-20] MEDS: bisacodyL 5 MG TABLET.DR PO SCH ×2 (09:19→21:02)
[2021-04-20] MEDS: DOCUSATE 100 MG CAP PO SCH ×2 (09:19→21:02)
[2021-04-20] MEDS: CHOLECALCIFEROL 25 MCG (1000 IU) TABLET PO SCH ×2 (09:19→21:02)
[2021-04-20] MEDS: CYANOCOBALAMIN 500 MCG TAB PO SCH (09:19)
[2021-04-20] MEDS: APIXABAN 5 MG TAB PO SCH ×2 (09:19→21:03)
[2021-04-20] MEDS: DOXAZOSIN 4 MG TAB PO SCH (09:20)
[2021-04-20] MEDS: MAGNESIUM OXIDE 400 MG TAB PO SCH ×2 (09:20→21:02)
[2021-04-20] MEDS: SILDENAFIL 20 MG TAB PO SCH ×2 (09:20→21:02)
[2021-04-20] MEDS: PANTOPRAZOLE 40 MG TABLET PO SCH (09:20)
[2021-04-20] MEDS: glipiZIDE 5 MG TAB PO SCH ×2 (09:20→21:03)
[2021-04-20] MEDS: diphenhydrAMINE 25 MG CAP PO SCH ×2 (09:20→21:03)
[2021-04-20] MEDS: LOSARTAN 25 MG TAB PO SCH (09:20)
--- NOTE | 2021-04-20 09:20 | P.HPIM ---
History of Present Illness H&P Date: 04/20/21 Berny Linares, is an 80 year old male who presented to [facility] emergency room with a chief complaint of worsening shortness of breath and upper chest pain, patient stated that his symptoms started 1 day prior to presentation and has been worsening, he was having difficulty breathing when he was trying to lie down, he was also having worsening lower extremity edema, on the day of presentation patient started having upper chest pain radiating to the back of his neck and to both shoulders, at that point he decided to come to emergency room. He was evaluated in the emergency room vital examination on presentation revealed a temperature of 98.1 pulse 49 respiration 20 blood pressure 118/62 pulse ox 92% on room air Laboratory data reveals a white blood count of 4.4 hemoglobin 12.4 platelet count 108 sodium 134 potassium 4.2 chloride 95 CO2 31 BUN 61 creatinine 2.33 troponin level was elevated at 0.183. Review of the chart revealed creatinine 2.2 on 10/16/2020 and 1.8 on 06/20/2020. BNP was 16,400 Testing in the emergency room revealed, chest x-ray done in the emergency room revealed evidence of congestive heart failure blunting of the bilateral costophrenic angles suggestive of mild bilateral pleural effusion Patient was admitted to medical floor for further evaluation and treatment, he was started on IV Lasix, cardiology consultation was requested. Past medical history is significant for history of chronic systolic congestive heart failure echocardiogram done in December 2018 revealed ejection fraction of 35-40%, patient also has a known history of atrial fibrillation maintained on coagulation with Eliquis, history of diffuse coronary artery disease patient had cardiac catheterization in 2015 at that time medication treatment was advised. History of AAA for which patient underwent stent grafting, patient also has a known history of hypertension, [id number] diabetes mellitus, benign prostatic hypertrophy, chronic kidney disease stage III, diverticulosis was previous history of lower gastrointestinal bleeding, degenerative disc disease with history of back surgery. Patient stated that he used to smoke he quit many years ago. Past Medical History Past Medical History: Atrial Fibrillation, Heart Failure, CVA/TIA, Diabetes Mellitus, GERD/Reflux, Hypertension, Prostate Disorder, Renal Disease Additional Past Medical History / Comment(s): AAA(had sx), at time has difficu lty swallowing pills History of Any Multi-Drug Resistant Organisms: None Reported Past Surgical History: Back Surgery, Heart Catheterization, Orthopedic Surgery Additional Past Surgical History / Comment(s): bilat carpal tunnel, sherrie knee replacments, lt rotator cuff Past Anesthesia/Blood Transfusion Reactions: No Reported Reaction Additional Past Anesthesia/Blood Transfusion Reaction / Comment(s): Clausterphobic. stated has never recieved any blood transfusions Past Psychological History: No Psychological Hx Reported Smoking Status: Former smoker Past Alcohol Use History: None Reported Past Drug Use History: None Reported - Past Family History Father Family Medical History: Cancer Additional Family Medical History / Comment(s): prostate cancer Mother Family Medical History: CVA/TIA Sister(s) Family Medical History: Cancer Additional Family Medical History / Comment(s): heart problems but unsure of what exactly Medications and Allergies Home Medications Medication Instructions Recorded Confirmed Type Terazosin HCl 5 mg PO BID 12/29/15 04/20/21 History glipiZIDE XL [Glucotrol XL] 10 mg PO DAILY #30 tab 01/01/16 04/20/21 Rx Hydrocodone/Acetaminophen 1 tab PO QID PRN 05/22/16 04/20/21 History [Hydrocodone-Acetamin 7.5-325] Cyanocobalamin (Vitamin B-12) 1,000 mcg PO DAILY 04/26/17 04/20/21 History [Vitamin B-12] Docusate [Colace] 200 mg PO BID 04/26/17 04/20/21 History bisacodyL [Dulcolax] 5 mg PO BID 04/26/17 04/20/21 History Cholecalciferol [Vitamin D3 (25 1,000 unit PO HS 05/10/18 04/20/21 History Mcg = 1000 Iu)] Apixaban [Eliquis] 5 mg PO BID #60 tab 05/13/18 04/20/21 Rx Atorvastatin [Lipitor] 20 mg PO HS #30 tab 05/13/18 04/20/21 Rx Cholecalciferol [Vitamin D3 (25 2,000 unit PO DAILY 01/09/19 04/20/21 History Mcg = 1000 Iu)] Furosemide [Lasix] 80 mg PO BID@0800,1200 01/09/19 04/20/21 History Losartan Potassium [Cozaar] 25 mg PO DAILY 01/09/19 04/20/21 History Magnesium Oxide [Mag-Ox] 500 mg PO BID 01/09/19 04/20/21 History Omeprazole [PriLOSEC] 40 mg PO DAILY 01/09/19 04/20/21 History metOLazone [Zaroxolyn] 2.5 mg PO DAILY PRN 01/09/19 04/20/21 History Metoprolol Tartrate [Lopressor] 12.5 mg PO DAILY 04/20/21 04/20/21 History Sildenafil [Revatio] 40 mg PO BID 04/20/21 04/20/21 History diphenhydrAMINE [Benadryl] 25 mg PO BID 04/20/21 04/20/21 History Allergies Allergy/AdvReac Type Severity Reaction Status Date / Time Penicillins Allergy Unknown Verified 04/20/21 08:14 shellfish derived [Shellfish] Allergy Anaphylaxis Verified 04/20/21 08:14 Physical Exam Vitals: Vital Signs Temp Pulse Pulse Pulse Resp BP BP 04/20/21 08:00 40 L 19 04/20/21 07:58 40 L 19 145/64 04/20/21 04:30 47 L 20 04/20/21 04:00 97.6 F 51 L 20 135/81 04/20/21 03:12 97.7 F 46 L 20 145/78 04/20/21 00:58 40 L 18 129/65 04/20/21 00:39 44 L 04/19/21 23:35 98.1 F 49 L 20 118/63 Pulse Ox 04/20/21 08:00 04/20/21 07:58 94 L 04/20/21 04:30 04/20/21 04:00 96 04/20/21 03:12 94 L 04/20/21 00:58 95 04/20/21 00:39 04/19/21 23:35 92 L Intake and Output 04/19/21 04/20/21 04/20/21 22:59 06:59 14:59 Intake Total 0 Output Total 500 Balance 0 -500 Intake: Oral 0 Output: Urine 500 Other: Voiding Method Indwelling Catheter Indwelling Catheter Weight 104.5 kg In general patient is alert and oriented x 3 in no distress HEENT head normocephalic and atraumatic Neck is supple no JVD no goiter no lymphadenopathy no carotid bruit Chest examination few scattered rhonchi no wheezing Cardiac exam reveals irregular heart sounds S1 and S2 no gallops no murmurs Abdomen is soft nontender no organomegaly with normal bowel sounds Extremity exam reveals no edema no cyanosis or clubbing Neurological examination reveals no gross focal deficits Results CBC & Chem 7: 04/19/21 00:09 04/19/21 00:09 Labs: Abnormal Lab Results - Last 24 Hours (Table) 04/19/21 04/19/21 04/19/21 Range/Units 00:09 00:09 00:09 RBC 3.97 L (4.30-5.90) m/uL Hgb 12.4 L (13.0-17.5) gm/dL Hct 38.5 L (39.0-53.0) % Plt Count 108 L (150-450) k/uL Lymphocytes # 0.7 L (1.0-4.8) k/uL PT 14.2 H (9.0-12.0) sec INR 1.4 H (<1.2) Sodium 134 L (137-145) mmol/L Chloride 95 L (98-107) mmol/L Carbon Dioxide 31 H (22-30) mmol/L BUN 61 H (9-20) mg/dL Creatinine 2.33 H (0.66-1.25) mg/dL Glucose 197 H (74-99) mg/dL POC Glucose (mg/dL) (75-99) mg/dL Troponin I (0.000-0.034) ng/mL Total Protein 5.8 L (6.3-8.2) g/dL 04/19/21 04/20/21 04/20/21 Range/Units 00:09 03:28 06:42 RBC (4.30-5.90) m/uL Hgb (13.0-17.5) gm/dL Hct (39.0-53.0) % Plt Count (150-450) k/uL Lymphocytes # (1.0-4.8) k/uL PT (9.0-12.0) sec INR (<1.2) Sodium (137-145) mmol/L Chloride (98-107) mmol/L Carbon Dioxide (22-30) mmol/L BUN (9-20) mg/dL Creatinine (0.66-1.25) mg/dL Glucose (74-99) mg/dL POC Glucose (mg/dL) 145 H (75-99) mg/dL Troponin I 0.167 H* 0.183 H* (0.000-0.034) ng/mL Total Protein (6.3-8.2) g/dL 04/20/21 Range/Units 07:27 RBC (4.30-5.90) m/uL Hgb (13.0-17.5) gm/dL Hct (39.0-53.0) % Plt Count (150-450) k/uL Lymphocytes # (1.0-4.8) k/uL PT (9.0-12.0) sec INR (<1.2) Sodium (137-145) mmol/L Chloride (98-107) mmol/L Carbon Dioxide (22-30) mmol/L BUN (9-20) mg/dL Creatinine (0.66-1.25) mg/dL Glucose (74-99) mg/dL POC Glucose (mg/dL) (75-99) mg/dL Troponin I 0.165 H* (0.000-0.034) ng/mL Total Protein (6.3-8.2) g/dL Thrombosis Risk Factor Assmnt - Choose All That Apply Any of the Below Risk Factors Present?: Yes Each Factor Represents 1 point: Abnormal pulmonary function (COPD), Obesity (BMI >25) Each Risk Factor Represents 3 Points: Age 75 years or older Thrombosis Risk Factor Assessment Total Risk Factor Score: 5 Thrombosis Risk Factor Assessment Level: High Risk Assessment and Plan Plan: Acute on chronic systolic congestive heart failure exacerbation Underlying history of coronary artery disease Underlying history of atrial fibrillation Bradycardia on presentation Underlying history of hypertension Underlying history of chronic kidney disease stage III Underlying history of [id number] diabetes mellitus type 2 Underlying history of hyperlipidemia Underlying history of diverticulosis with previous history of gastrointestinal bleeding Underlying history of degenerative disc disease with chronic back pain Underlying history of benign prostatic hypertrophy At this time patient is admitted to telemetry floor He was started on IV Lasix 40 mg every 12 hours Home medications reviewed and reordered Metoprolol is held due to bradycardia on presentation Cardiology consultation was requested Nephrology consultation was also requested in the emergency room We will follow closely
--- NOTE | 2021-04-20 11:03 | P.CRDCN ---
History of Present Illness History of present illness: HISTORY OF PRESENTING ILLNESS Patient is a pleasant 80-year-old male with history of chronic systolic heart failure, chronic atrial fibrillation, diabetes mellitus type 2, hypertension, abdominal aortic aneurysm status post graft placement, COPD on home O2 and coronary artery disease. Patient has a history of cardiomyopathy with ejection fraction 35-40% by most recent echo 01/09/2019. At the time he had mild aortic stenosis, mild mitral regurgitation. He had a heart catheterization in 2016 which showed heavily calcified arteries however mild disease and a DIE MAINTENANCE of the marginal branch however no intervention. Patient states he has been feeling short of breath for one week. He states that he has also been having lower extremity edema. No fevers, chills or cough. He was thinking about going out to the lawn to mow his lawn however called his daughter and daughter convinced him to come to the emergency department as he has been significantly short of breath. Chest x-ray performed this morning showed new congestive heart failure, mild pulmonary vascular congestion. EKG shows atrial fibrillation, right bundle branch block, Q waves inferiorly, occasional PVCs. On telemetry he has been bradycardic with heart rates in the predominantly 40-50s, and occasion of the 30s. His metoprolol has been held. He was placed on Lasix 40 mg IV twice a day and has had 500 mL output. Normally on Lasix 80 mg as well as Zaroxolyn at home and we will increase his Lasix to 80 mg IV twice a day. He states he also has been having off-and-on chest pain. He states it mainly occurred when he was having a hard time breathing yesterday and is better today, has not had any recurrence. REVIEW OF SYSTEMS At the time of my exam: CONSTITUTIONAL: Denies fever or chills. CARDIOVASCULAR: + chest pain, +shortness of breath, +orthopnea, no palpitations. RESPIRATORY: Denies cough. GASTROINTESTINAL: Denies abdominal pain, diarrhea, constipation, nausea or vomiting. MUSCULOSKELETAL: Denies myalgias. NEUROLOGIC: Denies numbness, tingling or weakness. ENDOCRINE: Denies fatigue, weight change, polydipsia or polyurina. GENITOURINARY: Denies burning, hematuria or urgency with micturation. HEMATOLOGIC: Denies history of anemia or bleeding. PHYSICAL EXAMINATION Vital signs reviewed. CONSTITUTIONAL: No apparent distress, somewhat somnolent, mildly tachypnic HEENT: Head is normocephalic. Pupils are equal, round. Sclerae anicteric. Mucous membranes of the mouth are moist. No JVD. No carotid bruit. CHEST EXAMINATION: +bilateral crackles HEART EXAMINATION: +Bradycardic, irregular, +3/6 systolic murmur, no gallops or rub. ABDOMEN: Soft, nontender. Positive bowel sounds. EXTREMITIES: 2+ peripheral pulses, 2+ lower extremity edema and no calf tenderness. NEUROLOGIC EXAMINATION: Patient is awake, alert ASSESSMENT 1. Acute on chronic systolic heart failure 2. Chronic atrial fibrillation 3. Bradycardia with heart rates in the 40s. Data block on hold. Rule out sick sinus syndrome 4. History of heavily calcified however nonobstructive coronary artery disease by heart catheterization 2015 5. Non-STEMI, rule out type I mechanism with chest pain occurring on presentation 6. Hypertension 7. Diabetes mellitus 8. Systolic murmur PLAN Increased IV diuresis from 40 mg up to 80 mg IV twice a day as well as one dose of Zaroxolyn now. Monitor kidney function, appears close to his baseline. Check repeat 2-D echo given elevated troponins and chest pain, rule out worsened ejection fraction. Previously his heart catheterization showed nonobstructive disease. Patient is having significant bradycardia and monitor if this responds with discontinuing beta wil. Rule out sick sinus syndrome causing worsening heart failure. If this is the case, patient may need pacemaker or AICD. Past Medical History Past Medical History: Atrial Fibrillation, Heart Failure, CVA/TIA, Diabetes Mellitus, GERD/Reflux, Hypertension, Prostate Disorder, Renal Disease Additional Past Medical History / Comment(s): AAA(had sx), at time has difficulty swallowing pills History of Any Multi-Drug Resistant Organisms: None Reported Past Surgical History: Back Surgery, Heart Catheterization, Orthopedic Surgery Additional Past Surgical History / Comment(s): bilat carpal tunnel, sherrei knee replacments, lt rotator cuff Past Anesthesia/Blood Transfusion Reactions: No Reported Reaction Additional Past Anesthesia/Blood Transfusion Reaction / Comment(s): Clausterphobic. stated has never recieved any blood transfusions Past Psychological History: No Psychological Hx Reported Smoking Status: Former smoker Past Alcohol Use History: None Reported Past Drug Use History: None Reported - Past Family History Father Family Medical History: Cancer Additional Family Medical History / Comment(s): prostate cancer Mother Family Medical History: CVA/TIA Sister(s) Family Medical History: Cancer Additional Family Medical History / Comment(s): heart problems but unsure of what exactly Medications and Allergies Home Medications Medication Instructions Recorded Confirmed Type Terazosin HCl 5 mg PO BID 12/29/15 04/20/21 History glipiZIDE XL [Glucotrol XL] 10 mg PO DAILY #30 tab 01/01/16 04/20/21 Rx Hydrocodone/Acetaminophen 1 tab PO QID PRN 05/22/16 04/20/21 History [Hydrocodone-Acetamin 7.5-325] Cyanocobalamin (Vitamin B-12) 1,000 mcg PO DAILY 04/26/17 04/20/21 History [Vitamin B-12] Docusate [Colace] 200 mg PO BID 04/26/17 04/20/21 History bisacodyL [Dulcolax] 5 mg PO BID 04/26/17 04/20/21 History Cholecalciferol [Vitamin D3 (25 1,000 unit PO HS 05/10/18 04/20/21 History Mcg = 1000 Iu)] Apixaban [Eliquis] 5 mg PO BID #60 tab 05/13/18 04/20/21 Rx Atorvastatin [Lipitor] 20 mg PO HS #30 tab 05/13/18 04/20/21 Rx Cholecalciferol [Vitamin D3 (25 2,000 unit PO DAILY 01/09/19 04/20/21 History Mcg = 1000 Iu)] Furosemide [Lasix] 80 mg PO BID@0800,1200 01/09/19 04/20/21 History Losartan Potassium [Cozaar] 25 mg PO DAILY 01/09/19 04/20/21 History Magnesium Oxide [Mag-Ox] 500 mg PO BID 01/09/19 04/20/21 History Omeprazole [PriLOSEC] 40 mg PO DAILY 01/09/19 04/20/21 History metOLazone [Zaroxolyn] 2.5 mg PO DAILY PRN 01/09/19 04/20/21 History Metoprolol Tartrate [Lopressor] 12.5 mg PO DAILY 04/20/21 04/20/21 History Sildenafil [Revatio] 40 mg PO BID 04/20/21 04/20/21 History diphenhydrAMINE [Benadryl] 25 mg PO BID 04/20/21 04/20/21 History Allergies Allergy/AdvReac Type Severity Reaction Status Date / Time Penicillins Allergy Unknown Verified 04/20/21 08:14 shellfish derived [Shellfish] Allergy Anaphylaxis Verified 04/20/21 08:14 Physical Exam Vitals: Vital Signs Temp Pulse Pulse Pulse Resp BP BP 04/20/21 08:00 40 L 19 04/20/21 07:58 40 L 19 145/64 04/20/21 04:30 47 L 20 04/20/21 04:00 97.6 F 51 L 20 135/81 04/20/21 03:12 97.7 F 46 L 20 145/78 04/20/21 00:58 40 L 18 129/65 04/20/21 00:39 44 L 04/19/21 23:35 98.1 F 49 L 20 118/63 Pulse Ox 04/20/21 08:00 04/20/21 07:58 94 L 04/20/21 04:30 04/20/21 04:00 96 04/20/21 03:12 94 L 04/20/21 00:58 95 04/20/21 00:39 04/19/21 23:35 92 L Intake and Output 04/19/21 04/20/21 04/20/21 22:59 06:59 14:59 Intake Total 0 240 Output Total 500 Balance 0 -260 Intake: Oral 0 240 Output: Urine 500 Other: Voiding Method Indwelling Catheter Indwelling Catheter Weight 104.5 kg Results 04/19/21 00:09 04/19/21 00:09 Cardiac Enzymes 04/19/21 04/19/21 04/20/21 Range/Units 00:09 00:09 03:28 AST 28 (17-59) U/L Troponin I 0.167 H* 0.183 H* (0.000-0.034) ng/mL 04/20/21 Range/Units 07:27 AST (17-59) U/L Troponin I 0.165 H* (0.000-0.034) ng/mL Coagulation 04/19/21 Range/Units 00:09 PT 14.2 H (9.0-12.0) sec APTT 29.1 (22.0-30.0) sec CBC 04/19/21 Range/Units 00:09 WBC 4.4 (3.8-10.6) k/uL RBC 3.97 L (4.30-5.90) m/uL Hgb 12.4 L (13.0-17.5) gm/dL Hct 38.5 L (39.0-53.0) % Plt Count 108 L (150-450) k/uL Comprehensive Metabolic Panel 04/19/21 Range/Units 00:09 Sodium 134 L (137-145) mmol/L Potassium 4.2 (3.5-5.1) mmol/L Chloride 95 L (98-107) mmol/L Carbon Dioxide 31 H (22-30) mmol/L BUN 61 H (9-20) mg/dL Creatinine 2.33 H (0.66-1.25) mg/dL Glucose 197 H (74-99) mg/dL Calcium 9.0 (8.4-10.2) mg/dL AST 28 (17-59) U/L ALT 15 (4-49) U/L Alkaline Phosphatase 69 (38-126) U/L Total Protein 5.8 L (6.3-8.2) g/dL Albumin 3.6 (3.5-5.0) g/dL Current Medications Generic Name Dose Route Start Last Admin Trade Name Freq PRN Reason Stop Dose Admin Hydrocodone Bitart/Acetaminophen 1 each 04/20/21 08:47 Hydrocodone/Apap 7.5-325mg 1 Each Tab PO QID PRN Pain Apixaban 5 mg 04/20/21 09:00 04/20/21 09:19 Apixaban 5 Mg Tab PO 5 mg BID [place] Administration Protocol Atorvastatin Calcium 20 mg 04/20/21 21:00 Atorvastatin 20 Mg Tab PO HS [place] Bisacodyl 5 mg 04/20/21 09:00 04/20/21 09:19 Bisacodyl 5 Mg Tablet.Dr PO 5 mg BID [place] Administration Cholecalciferol 25 mcg 04/20/21 21:00 Cholecalciferol 25 Mcg (1000 Iu) Tablet PO HS [place] Cholecalciferol 50 mcg 04/20/21 09:00 04/20/21 09:19 Cholecalciferol 25 Mcg (1000 Iu) Tablet PO 50 mcg DAILY [place] Administration Cyanocobalamin 1,000 mcg 04/20/21 09:00 04/20/21 09:19 Cyanocobalamin 500 Mcg Tab PO 1,000 mcg DAILY [place] Administration Diphenhydramine HCl 25 mg 04/20/21 09:00 04/20/21 09:20 Diphenhydramine 25 Mg Cap PO 25 mg BID [place] Administration Docusate Sodium 200 mg 04/20/21 09:00 04/20/21 09:19 Docusate 100 Mg Cap PO 200 mg BID [place] Administration Doxazosin Mesylate 8 mg 04/20/21 09:00 04/20/21 09:20 Doxazosin 4 Mg Tab PO 8 mg DAILY [place] Administration Furosemide 80 mg 04/20/21 10:56 Furosemide 10 Mg/Ml 4 Ml Vial IV Q12H [place] Glipizide 5 mg 04/20/21 09:00 04/20/21 09:20 Glipizide 5 Mg Tab PO 5 mg BID [place] Administration Insulin Aspart 0 unit 04/20/21 07:30 04/20/21 06:54 Insulin Aspart (Novolog) 100 Unit/Ml Vial SQ 1 unit ACHS [place] Administration Protocol Losartan Potassium 25 mg 04/20/21 09:00 04/20/21 09:20 Losartan 25 Mg Tab PO 25 mg DAILY [place] Administration Magnesium Oxide 400 mg 04/20/21 09:00 04/20/21 09:20 Magnesium Oxide 400 Mg Tab PO 400 mg BID [place] Administration Metolazone 2.5 mg 04/20/21 08:47 Metolazone 2.5 Mg Tab PO DAILY PRN Edema Pantoprazole Sodium 40 mg 04/20/21 09:00 04/20/21 09:20 Pantoprazole 40 Mg Tablet PO 40 mg DAILY [place] Administration Sildenafil Citrate 40 mg 04/20/21 09:00 04/20/21 09:20 Sildenafil 20 Mg Tab PO 40 mg BID [place] Administration Sodium Chloride 10 ml 04/20/21 09:00 04/20/21 07:54 Sodium Chloride 0.9% Flush 10 Ml Syringe IV 10 ml BID [place] Administration Intake and Output 04/19/21 04/20/21 04/20/21 22:59 06:59 14:59 Intake Total 0 240 Output Total 500 Balance 0 -260 Intake: Oral 0 240 Output: Urine 500 Other: Voiding Method Indwelling Catheter Indwelling Catheter Weight 104.5 kg 04/19/21 00:09 04/19/21 00:09
[2021-04-20 11:29] LABS: Glucose,Whole Blood 194 mg/dL (75-99)
[2021-04-20] MEDS ORDERED: FUROSEMIDE 10 MG/ML 10 ML VIAL IV SCH (12:00)
--- NOTE | 2021-04-20 14:46 | P.NPCON ---
History of Present Illness - Reason for Consult Consult date: 04/20/21 chronic renal failure - Chief Complaint Shortness of breath - History of Present Illness 86-year-old gentleman coming to the hospital with worsening shortness of breath. He is more sleepy today, most of the history obtained from the son at bedside and the charts. He has no previous nephrology care. Baseline creatinine around 2.0-2.2 MG per DL with CK D stage IIIB him a suspected nephrosclerosis. He takes Lasix 2 g by mouth twice a day along with losartan 25 mg daily. He has EF of 25-30%. No documented hypotensive episodes. Chest x-ray consistent with pulmonary vascular congestion. No recent contrast studies or NSAID use. As per the son not compliant with dietary component of low fluid and salt intake Review of Systems Constitutional: Reports as per HPI Past Medical History Past Medical History: Atrial Fibrillation, Heart Failure, CVA/TIA, Diabetes Mellitus, GERD/Reflux, Hypertension, Prostate Disorder, Renal Disease Additional Past Medical History / Comment(s): AAA(had sx), at time has difficulty swallowing pills History of Any Multi-Drug Resistant Organisms: None Reported Past Surgical History: Back Surgery, Heart Catheterization, Orthopedic Surgery Additional Past Surgical History / Comment(s): bilat carpal tunnel, sherrie knee replacments, lt rotator cuff Past Anesthesia/Blood Transfusion Reactions: No Reported Reaction Additional Past Anesthesia/Blood Transfusion Reaction / Comment(s): Clausterphobic. stated has never recieved any blood transfusions Past Psychological History: No Psychological Hx Reported Smoking Status: Former smoker Past Alcohol Use History: None Reported Past Drug Use History: None Reported - Past Family History Father Family Medical History: Cancer Additional Family Medical History / Comment(s): prostate cancer Mother Family Medical History: CVA/TIA Sister(s) Family Medical History: Cancer Additional Family Medical History / Comment(s): heart problems but unsure of what exactly Medications and Allergies Home Medications Medication Instructions Recorded Confirmed Type Terazosin HCl 5 mg PO BID 12/29/15 04/20/21 History glipiZIDE XL [Glucotrol XL] 10 mg PO DAILY #30 tab 01/01/16 04/20/21 Rx Hydrocodone/Acetaminophen 1 tab PO QID PRN 05/22/16 04/20/21 History [Hydrocodone-Acetamin 7.5-325] Cyanocobalamin (Vitamin B-12) 1,000 mcg PO DAILY 04/26/17 04/20/21 History [Vitamin B-12] Docusate [Colace] 200 mg PO BID 04/26/17 04/20/21 History bisacodyL [Dulcolax] 5 mg PO BID 04/26/17 04/20/21 History Cholecalciferol [Vitamin D3 (25 1,000 unit PO HS 05/10/18 04/20/21 History Mcg = 1000 Iu)] Apixaban [Eliquis] 5 mg PO BID #60 tab 05/13/18 04/20/21 Rx Atorvastatin [Lipitor] 20 mg PO HS #30 tab 05/13/18 04/20/21 Rx Cholecalciferol [Vitamin D3 (25 2,000 unit PO DAILY 01/09/19 04/20/21 History Mcg = 1000 Iu)] Furosemide [Lasix] 80 mg PO BID@0800,1200 01/09/19 04/20/21 History Losartan Potassium [Cozaar] 25 mg PO DAILY 01/09/19 04/20/21 History Magnesium Oxide [Mag-Ox] 500 mg PO BID 01/09/19 04/20/21 History Omeprazole [PriLOSEC] 40 mg PO DAILY 01/09/19 04/20/21 History metOLazone [Zaroxolyn] 2.5 mg PO DAILY PRN 01/09/19 04/20/21 History Metoprolol Tartrate [Lopressor] 12.5 mg PO DAILY 04/20/21 04/20/21 History Sildenafil [Revatio] 40 mg PO BID 04/20/21 04/20/21 History diphenhydrAMINE [Benadryl] 25 mg PO BID 04/20/21 04/20/21 History Allergies Allergy/AdvReac Type Severity Reaction Status Date / Time Penicillins Allergy Unknown Verified 04/20/21 08:14 shellfish derived [Shellfish] Allergy Anaphylaxis Verified 04/20/21 08:14 Physical Exam Vitals: Vital Signs Temp Pulse Pulse Pulse Resp BP BP 04/20/21 13:09 41 L 19 04/20/21 11:30 98.2 F 41 L 19 118/69 04/20/21 08:00 40 L 19 04/20/21 07:58 40 L 19 145/64 04/20/21 04:30 47 L 20 04/20/21 04:00 97.6 F 51 L 20 135/81 04/20/21 03:12 97.7 F 46 L 20 145/78 04/20/21 00:58 40 L 18 129/65 04/20/21 00:39 44 L 04/19/21 23:35 98.1 F 49 L 20 118/63 Pulse Ox 04/20/21 13:09 04/20/21 11:30 95 04/20/21 08:00 04/20/21 07:58 94 L 04/20/21 04:30 04/20/21 04:00 96 04/20/21 03:12 94 L 04/20/21 00:58 95 04/20/21 00:39 04/19/21 23:35 92 L Intake and Output 04/19/21 04/20/21 04/20/21 22:59 06:59 14:59 Intake Total 0 480 Output Total 500 Balance 0 -20 Intake: Oral 0 480 Output: Urine 500 Other: Voiding Method Indwelling Catheter Indwelling Catheter Weight 104.5 kg No acute distress S1-S2 heard Decreased breath sounds Abdomen distended Edema Results - Lab Results Most recent lab results Calcium 9.0 mg/dL (8.4-10.2) 04/19/21 00:09 Magnesium 2.1 mg/dL (1.6-2.3) 04/19/21 00:09 04/19/21 00:09 04/19/21 00:09 Assessment and Plan Assessment: #1 nonoliguric acute kidney injury secondary to type I CRS. #2 CHF with systolic dysfunction #3 volume overload #4 CK D3 B secondary to nephrosclerosis with a baseline creatinine of 2.0-2.2 MG per DL. #5 anemia with chronic kidney disease #6 hypertension with chronic kidney disease Plan: #1 renal function stable around baseline. Currently on Lasix and metolazone. #2 increase Lasix to 80 mg IV 3 times a day and metolazone to 2.5 mg twice a day. Goal net negative of 2.5 L per day. #3 avoid nephrotoxic agents and hypotensive episodes. #4 labs in the morning
[2021-04-20 16:36] LABS: Glucose,Whole Blood 109 mg/dL (75-99)
[2021-04-20] MEDS: FUROSEMIDE 10 MG/ML 10 ML VIAL IV SCH ×2 (16:45→21:03)
[2021-04-20] MEDS: HYDROcodone/APAP 7.5-325MG 1 EACH TAB PO PRN (21:01)
[2021-04-20] MEDS: ATORVASTATIN 20 MG TAB PO SCH (21:02)
[2021-04-20] MEDS: metOLazone 2.5 MG TAB PO SCH (21:02)
[2021-04-20 21:04] LABS: Glucose,Whole Blood 160 mg/dL (75-99)
[2021-04-21] MEDS: HYDROcodone/APAP 7.5-325MG 1 EACH TAB PO PRN ×3 (03:19→23:11)
[2021-04-21] MEDS: INSULIN ASPART (NovoLOG) 100 UNIT/ML VIAL SQ SCH ×4 (06:29→21:23)
[2021-04-21 06:50] LABS: Glucose,Whole Blood 138 mg/dL (75-99)
[2021-04-21 08:09] LABS: Calcium 9.1 mg/dL (8.4-10.2)
--- NOTE | 2021-04-21 08:59 | P.PN ---
Subjective Patient is seen in follow-up for acute kidney injury on chronic kidney disease. Renal function is stable. Maintained on IV Lasix. Nonoliguric. Currently on 4 L nasal cannula. Oral intake is good. Vital signs are stable. General: The patient appeared well nourished and normally developed. HEENT: Head exam is unremarkable. Neck is without jugular venous distension. LUNGS: Breath sounds decreased. HEART: Rate and Rhythm are regular. ABDOMEN: Soft, no distention. EXTREMITITES: 2+ edema. Objective - Vital Signs Vital signs: Vital Signs Temp 98.8 F 04/21/21 08:00 Pulse 62 04/21/21 08:00 Resp 16 04/21/21 08:00 BP 119/63 04/21/21 08:00 Pulse Ox 91 L 04/21/21 08:00 Intake & Output 04/20/21 04/21/21 04/21/21 18:59 06:59 18:59 Intake Total 720 120 240 Output Total 800 1300 Balance -80 -1180 240 Weight 104 kg Intake: Oral 720 120 240 Output: Urine 800 1300 Other: Voiding Method Indwelling Catheter Indwelling Catheter Indwelling Catheter # Voids 0 - Labs CBC & Chem 7: 04/19/21 00:09 04/21/21 07:21 Labs: Abnormal Lab Results - Last 24 Hours (Table) 04/20/21 04/20/21 04/20/21 Range/Units 11:26 16:35 20:20 Chloride (98-107) mmol/L Carbon Dioxide (22-30) mmol/L BUN (9-20) mg/dL Creatinine (0.66-1.25) mg/dL Glucose (74-99) mg/dL POC Glucose (mg/dL) 194 H 109 H 160 H (75-99) mg/dL 04/21/21 04/21/21 Range/Units 06:17 07:21 Chloride 95 L (98-107) mmol/L Carbon Dioxide 36 H (22-30) mmol/L BUN 59 H (9-20) mg/dL Creatinine 2.35 H (0.66-1.25) mg/dL Glucose 129 H (74-99) mg/dL POC Glucose (mg/dL) 138 H (75-99) mg/dL Assessment and Plan Plan: Assessment: 1. Acute kidney injury secondary to ATN secondary to cardiorenal syndrome. Renal function stable. 2. Acute on chronic systolic CHF with ejection fraction of 35-40%. 3. Volume overload. 4. Diabetes mellitus. 5. Chronic kidney disease stage IIIb with baseline creatinine near 2. Plan: Maintain IV Lasix and metolazone. Dobutamine added today by cardiology. Low-salt diet. Follow-up echocardiogram. Continue to monitor renal function and urine output.
[2021-04-21] MEDS: diphenhydrAMINE 25 MG CAP PO SCH ×2 (09:00→21:32)
[2021-04-21] MEDS: DOCUSATE 100 MG CAP PO SCH ×2 (09:00→21:33)
[2021-04-21] MEDS: CHOLECALCIFEROL 25 MCG (1000 IU) TABLET PO SCH ×2 (09:00→21:33)
[2021-04-21] MEDS: FUROSEMIDE 10 MG/ML 10 ML VIAL IV SCH ×3 (09:00→21:37)
[2021-04-21] MEDS: APIXABAN 5 MG TAB PO SCH (09:01)
[2021-04-21] MEDS: PANTOPRAZOLE 40 MG TABLET PO SCH (09:01)
[2021-04-21] MEDS: MAGNESIUM OXIDE 400 MG TAB PO SCH ×2 (09:01→21:33)
[2021-04-21] MEDS: bisacodyL 5 MG TABLET.DR PO SCH ×2 (09:01→21:33)
[2021-04-21] MEDS: LOSARTAN 25 MG TAB PO SCH (09:01)
[2021-04-21] MEDS: DOXAZOSIN 4 MG TAB PO SCH (09:01)
[2021-04-21] MEDS: CYANOCOBALAMIN 500 MCG TAB PO SCH (09:01)
[2021-04-21] MEDS: glipiZIDE 5 MG TAB PO SCH ×2 (09:02→21:32)
[2021-04-21] MEDS: SILDENAFIL 20 MG TAB PO SCH ×2 (09:03→21:37)
[2021-04-21] MEDS: metOLazone 2.5 MG TAB PO SCH ×2 (09:03→21:38)
[2021-04-21] MEDS: DOBUTamine DRIP 500 MG in DEXTROSE/WATER 1 250ML.BAG IV SCH (10:10)
[2021-04-21 11:00] LABS: Glucose,Whole Blood 189 mg/dL (75-99)
--- NOTE | 2021-04-21 11:46 | P.PN ---
Subjective HISTORY OF PRESENTING ILLNESS Patient is a pleasant 80-year-old male with history of chronic systolic heart failure, chronic atrial fibrillation, diabetes mellitus type 2, hypertension, abdominal aortic aneurysm status post graft placement, COPD on home O2, severe pulmonary hypertension, non-ischemic cardiomyopathy and mild non-obstructive coronary artery disease. He is seen and examined sitting up in bed in mild respiratory distress. He continues to feel short of breath and fatigued. He denies chest pain, dizziness or palpitations. Blood pressure 136/64 heart rate 80 afebrile and maintaining oxygen saturation on nasal cannula. Laboratory data reviewed, sodium 137, potassium 4, creatinine 2.35 and magnesium 2.0. 24-hr urine output 2.1 liters. Heart rates are improved with beta blockers discontinued. No plans for PPM at this time. PHYSICAL EXAMINATION CONSTITUTIONAL: No apparent distress, somewhat somnolent, mildly tachypnic HEENT: Head is normocephalic. Pupils are equal, round. Sclerae anicteric. Mucous membranes of the mouth are moist. No JVD. No carotid bruit. CHEST EXAMINATION: Bilateral rales, no wheezes or rhonchi HEART EXAMINATION: Irregular rate and rhythm, +3/6 systolic murmur at the base, no gallops or rub. EXTREMITIES: 2+ peripheral pulses, 2+ lower extremity edema with weeping noted on the left and no calf tenderness. ASSESSMENT Acute on chronic systolic heart failure Chronic persistent atrial fibrillation Bradycardia with heart rates in the 40s. Data block on hold. Rule out sick sinus syndrome History of heavily calcified however nonobstructive coronary artery disease by heart catheterization 2016 Non-STEMI, rule out type I mechanism with chest pain occurring on presentation Hypertension Diabetes mellitus PLAN Add dobutamine for renal perfusion. Continue IV lasix. Echo has been obtained and will be reviewed. Continue to follow renal function and electrolytes daily. Document accurate intake and output along with daily weights. Continue close monitoring of telemetry for bradycardia. No AV aylin blocking agents to be given. Further recommendations to follow based on clinical course. Nurse Practitioner note has been reviewed, I agree with a documented findings and plan of care. Patient was seen and examined. Objective - Vital Signs Vital signs: Vital Signs Temp 98.8 F 04/21/21 11:23 Pulse 80 04/21/21 11:23 Resp 18 04/21/21 11:23 BP 136/64 04/21/21 11:23 Pulse Ox 94 L 04/21/21 11:23 Intake & Output 04/20/21 04/21/21 04/21/21 18:59 06:59 18:59 Intake Total 720 120 240 Output Total 800 1300 1000 Balance -80 1180 -760 Weight 104 kg Intake: Oral 720 120 240 Output: Urine 800 1300 1000 Other: Voiding Method Indwelling Catheter Indwelling Catheter Indwelling Catheter # Voids 0 - Labs CBC & Chem 7: 04/19/21 00:09 04/21/21 07:21 Labs: Abnormal Lab Results - Last 24 Hours (Table) 04/20/21 04/20/21 04/20/21 Range/Units 11:26 16:35 20:20 Chloride (98-107) mmol/L Carbon Dioxide (22-30) mmol/L BUN (9-20) mg/dL Creatinine (0.66-1.25) mg/dL Glucose (74-99) mg/dL POC Glucose (mg/dL) 194 H 109 H 160 H (75-99) mg/dL 04/21/21 04/21/21 04/21/21 Range/Units 06:17 07:21 10:58 Chloride 95 L (98-107) mmol/L Carbon Dioxide 36 H (22-30) mmol/L BUN 59 H (9-20) mg/dL Creatinine 2.35 H (0.66-1.25) mg/dL Glucose 129 H (74-99) mg/dL POC Glucose (mg/dL) 138 H 189 H (75-99) mg/dL
--- NOTE | 2021-04-21 12:40 | ECHOF ---
Referral Reason:CHF exacerbation MEASUREMENTS -------- HEIGHT: 170.2 cm WEIGHT: 104.3 kg BP: 116/59 RVIDd: 3.8 cm (< 3.3) IVSd: 1.2 cm (0.6 - 1.1) LVIDd: 5.2 cm (3.9 - 5.3) LVPWd: 1.3 cm (0.6 - 1.1) IVSs: 1.7 cm LVIDs: 4.2 cm LVPWs: 1.5 cm LA Diam: 3.8 cm (2.7 - 3.8) LAESV Index (A-L): 59.59 ml/m Ao Diam: 3.4 cm (2.0 - 3.7) AV Cusp: 2.0 cm (1.5 - 2.6) MV EXCURSION: 16.594 mm (> 18.000) MV EF SLOPE: 58 mm/s (70 - 150) EPSS: 1.8 cm AV maxP.08 mmHg AV meanP.16 mmHg RAP: 15.00 mmHg RVSP: 64.53 mmHg FINDINGS -------- Atrial fibrillation. This was a technically adequate study. The left ventricular size is normal. There is mild concentric left ventricular hypertrophy. Overa ll left ventricular systolic function is moderate-severely impaired with, an EF between 30 - 35 %. Basal inferoseptal LV wall motion is hypokinetic. Mid inferoseptal LV wall motion is hypokinetic. Apical septum LV wall motion is hypokinetic. The right ventricle is mild to moderately enlarged. LA is severely dilated >40 ml/m2 The right atrial size is normal. Interatrial and interventricular septum intact. There is moderate aortic valve sclerosis. There is mild aortic stenosis present. Peak/mean gradie nt across the Aortic Valve is 24.08mmHg / 13.16mmHg. Moderate mitral annular calcification present. Ievn-wr-lyoncuui mitral regurgitation is present. The tricuspid valve appears structurally normal. Mild tricuspid regurgitation present. There is s evere pulmonary hypertension. The right ventricular systolic pressure, as measured by Doppler, is 6 4.53mmHg. Trace/mild (physiologic) pulmonic regurgitation. The aortic root size is normal. The inferior vena cava is dilated with no significant inspiratory collapse which is consistent estima annette right atrial pressure of >15 mmHg. There is a trivial pericardial effusion present. CONCLUSIONS -------- 1. Atrial fibrillation. 2. There is mild concentric left ventricular hypertrophy. 3. Overall left ventricular systolic function is moderate-severely impaired with, an EF between 30 - 35 %. 4. Basal inferoseptal LV wall motion is hypokinetic. 5. Mid inferoseptal LV wall motion is hypokinetic. 6. Apical septum LV wall motion is hypokinetic. 7. The right ventricle is mild to moderately enlarged. 8. LA is severely dilated >40 ml/m2 9. There is moderate aortic valve sclerosis. 10. There is mild aortic stenosis present. 11. Peak/mean gradient across the Aortic Valve is 24.08mmHg / 13.16mmHg. 12. Lihi-ti-gxelfpeg mitral regurgitation is present. 13. Mild tricuspid regurgitation present. 14. There is severe pulmonary hypertension. 15. Trace/mild (physiologic) pulmonic regurgitation. 16. The inferior vena cava is dilated with no significant inspiratory collapse which is consistent es timated right atrial pressure of >15 mmHg. [employer] HELPER PRESERVES: Penny Obrien RDCS
[2021-04-21 17:01] LABS: Glucose,Whole Blood 131 mg/dL (75-99)
--- NOTE | 2021-04-21 19:25 | P.PN ---
Subjective Progress Note Date: 04/21/21 Berny Linares, is an 80 year old male who presented to [facility] emergency room with a chief complaint of worsening shortness of breath and upper chest pain, patient stated that his symptoms started 1 day prior to presentation and has been worsening, he was having difficulty breathing when he was trying to lie down, he was also having worsening lower extremity edema, on the day of presentation patient started having upper chest pain radiating to the back of his neck and to both shoulders, at that point he decided to come to emergency room. He was evaluated in the emergency room vital examination on presentation revealed a temperature of 98.1 pulse 49 respiration 20 blood pressure 118/62 pulse ox 92% on room air Laboratory data reveals a white blood count of 4.4 hemoglobin 12.4 platelet count 108 sodium 134 potassium 4.2 chloride 95 CO2 31 BUN 61 creatinine 2.33 troponin level was elevated at 0.183. Review of the chart revealed creatinine 2.2 on 10/16/2020 and 1.8 on 06/20/2020. BNP was 16,400 Testing in the emergency room revealed, chest x-ray done in the emergency room revealed evidence of congestive heart failure blunting of the bilateral costophrenic angles suggestive of mild bilateral pleural effusion Patient was admitted to medical floor for further evaluation and treatment, he was started on IV Lasix, cardiology consultation was requested. Past medical history is significant for history of chronic systolic congestive heart failure echocardiogram done in December 2018 revealed ejection fraction of 35-40%, patient also has a known history of atrial fibrillation maintained on coagulation with Eliquis, history of diffuse coronary artery disease patient had cardiac catheterization in 2016 at that time medication treatment was advised. History of AAA for which patient underwent stent grafting, patient also has a known history of hypertension, esq-wjlivus-saadbseef diabetes mellitus, benign prostatic hypertrophy, chronic kidney disease stage III, diverticulosis was previous history of lower gastrointestinal bleeding, degenerative disc disease with history of back surgery. Patient stated that he used to smoke he quit many years ago. On 04/21/2021 Patient was seen and examined on the medical floor, he is alert and oriented x 3 in no distress, patient is complaining of shortness of breath with activity otherwise he denies any complaints there is no fever or chills no headache or dizziness no chest pain no cough no nausea or vomiting no abdominal pain no diarrhea no blood in the stools no burning with urination no frequency or urgency and no hematuria, there is no weakness or numbness in any of the extremities no change in vision speech or gait. Objective - Vital Signs Vital signs: Vital Signs Temp 99.4 F 04/21/21 16:00 Pulse 70 04/21/21 16:00 Resp 20 04/21/21 16:00 BP 123/50 04/21/21 16:00 Pulse Ox 94 L 04/21/21 16:00 Intake & Output 04/21/21 04/21/21 04/22/21 06:59 18:59 06:59 Intake Total 120 720 Output Total 1300 1650 Balance -1180 -930 Weight 104 kg 104 kg Intake: Oral 120 720 Output: Urine 1300 1650 Other: Voiding Method Indwelling Catheter Indwelling Catheter # Voids 0 - Exam In general patient is alert and oriented x 3 in no distress HEENT head normocephalic and atraumatic Neck is supple no JVD no goiter no lymphadenopathy no carotid bruit Chest examination few scattered rhonchi no wheezing Cardiac exam reveals irregular heart sounds S1 and S2 no gallops no murmurs Abdomen is soft nontender no organomegaly with normal bowel sounds Extremity exam reveals no edema no cyanosis or clubbing Neurological examination reveals no gross focal deficits - Labs CBC & Chem 7: 04/19/21 00:09 04/21/21 07:21 Labs: Abnormal Lab Results - Last 24 Hours (Table) 04/20/21 04/21/21 04/21/21 Range/Units 20:20 06:17 07:21 Chloride 95 L (98-107) mmol/L Carbon Dioxide 36 H (22-30) mmol/L BUN 59 H (9-20) mg/dL Creatinine 2.35 H (0.66-1.25) mg/dL Glucose 129 H (74-99) mg/dL POC Glucose (mg/dL) 160 H 138 H (75-99) mg/dL 04/21/21 04/21/21 Range/Units 10:58 16:47 Chloride (98-107) mmol/L Carbon Dioxide (22-30) mmol/L BUN (9-20) mg/dL Creatinine (0.66-1.25) mg/dL Glucose (74-99) mg/dL POC Glucose (mg/dL) 189 H 131 H (75-99) mg/dL Assessment and Plan Plan: Acute on chronic systolic congestive heart failure exacerbation Underlying history of coronary artery disease Underlying history of atrial fibrillation Bradycardia on presentation Underlying history of hypertension Underlying history of chronic kidney disease stage III Underlying history of [id number]-iuemwbpko diabetes mellitus type 2 Underlying history of hyperlipidemia Underlying history of diverticulosis with previous history of gastrointestinal bleeding Underlying history of degenerative disc disease with chronic back pain Underlying history of benign prostatic hypertrophy At this time patient is admitted to telemetry floor He was started on IV Lasix 40 mg every 12 hours IV dopamine drip was added by cardiology Home medications reviewed and reordered Metoprolol is held due to bradycardia on presentation Cardiology consultation was requested Nephrology consultation was also requested in the emergency room We will follow closely
[2021-04-21 20:17] LABS: Glucose,Whole Blood 122 mg/dL (75-99)
[2021-04-21] MEDS: ATORVASTATIN 20 MG TAB PO SCH (21:32)
[2021-04-21] MEDS: APIXABAN 2.5 MG TABLET PO SCH (21:32)
[2021-04-22 06:22] LABS: Glucose,Whole Blood 58 mg/dL (75-99)
[2021-04-22] MEDS: INSULIN ASPART (NovoLOG) 100 UNIT/ML VIAL SQ SCH ×4 (06:28→21:27)
[2021-04-22 06:36] LABS: Glucose,Whole Blood 60 mg/dL (75-99)
[2021-04-22 06:51] LABS: Glucose,Whole Blood 75 mg/dL (75-99)
[2021-04-22] MEDS: glipiZIDE 5 MG TAB PO SCH ×2 (08:30→21:32)
--- NOTE | 2021-04-22 08:40 | P.PN ---
Subjective Patient is seen in follow-up for acute kidney injury on chronic kidney disease. Renal function stable as of yesterday. Maintained on IV Lasix and dobutamine. Nonoliguric. Currently on 4 L nasal cannula. Oral intake is good. Complaining of constipation. Vital signs are stable. General: The patient appeared well nourished and normally developed. HEENT: Head exam is unremarkable. Neck is without jugular venous distension. LUNGS: Breath sounds decreased. HEART: Rate and Rhythm are regular. ABDOMEN: Soft, no distention. EXTREMITITES: 1+ edema. Objective - Vital Signs Vital signs: Vital Signs Temp 98.4 F 04/22/21 04:50 Pulse 57 L 04/22/21 04:50 Resp 20 04/22/21 04:50 BP 151/54 04/22/21 04:50 Pulse Ox 92 L 04/22/21 04:50 Intake & Output 04/21/21 04/22/21 04/22/21 18:59 06:59 18:59 Intake Total 720 Output Total 1650 1800 Balance -930 -1800 Weight 104 kg 105.5 kg Intake: Oral 720 Output: Urine 1650 1800 Other: Voiding Method Indwelling Catheter Indwelling Catheter # Voids 0 - Labs CBC & Chem 7: 04/19/21 00:09 04/21/21 07:21 Labs: Abnormal Lab Results - Last 24 Hours (Table) 04/21/21 04/21/21 04/21/21 Range/Units 10:58 16:47 20:15 POC Glucose (mg/dL) 189 H 131 H 122 H (75-99) mg/dL 04/22/21 04/22/21 Range/Units 06:21 06:35 POC Glucose (mg/dL) 58 L 60 L (75-99) mg/dL Assessment and Plan Plan: Assessment: 1. Acute kidney injury secondary to ATN secondary to cardiorenal syndrome. Renal function stable as of yesterday. 2. Acute on chronic systolic CHF with ejection fraction of 30-35% with mild to moderate mitral regurgitation and severe pulmonary hypertension. 3. Volume overload. Improving with diuresis. 4. Diabetes mellitus. 5. Chronic kidney disease stage IIIb with baseline creatinine near 2. Plan: Decreased metolazone to 2.5 mg once daily. Decrease dose of IV Lasix to 40 mg IV twice daily. Dobutamine per cardiology. Low-salt diet. Continue to monitor renal function and urine output.
[2021-04-22] MEDS: FUROSEMIDE 10 MG/ML 10 ML VIAL IV SCH (08:44)
[2021-04-22] MEDS: APIXABAN 2.5 MG TABLET PO SCH ×2 (08:44→21:32)
[2021-04-22] MEDS: DOXAZOSIN 4 MG TAB PO SCH (08:44)
[2021-04-22] MEDS: diphenhydrAMINE 25 MG CAP PO SCH ×2 (08:45→21:31)
[2021-04-22] MEDS: PANTOPRAZOLE 40 MG TABLET PO SCH (08:45)
[2021-04-22] MEDS: CYANOCOBALAMIN 500 MCG TAB PO SCH (08:45)
[2021-04-22] MEDS: LOSARTAN 25 MG TAB PO SCH (08:45)
[2021-04-22] MEDS: SILDENAFIL 20 MG TAB PO SCH ×2 (08:46→21:32)
[2021-04-22] MEDS: DOCUSATE 100 MG CAP PO SCH ×2 (08:46→21:32)
[2021-04-22] MEDS: bisacodyL 5 MG TABLET.DR PO SCH ×2 (08:46→21:32)
[2021-04-22] MEDS: HYDROcodone/APAP 7.5-325MG 1 EACH TAB PO PRN ×2 (08:47→23:39)
[2021-04-22] MEDS: metOLazone 2.5 MG TAB PO SCH (08:50)
[2021-04-22] MEDS: FUROSEMIDE 10 MG/ML 4 ML VIAL IV SCH ×2 (08:51→21:33)
[2021-04-22] MEDS: MAGNESIUM OXIDE 400 MG TAB PO SCH ×2 (08:52→21:31)
[2021-04-22] MEDS: CHOLECALCIFEROL 25 MCG (1000 IU) TABLET PO SCH ×2 (08:52→21:31)
[2021-04-22 09:08] LABS: Magnesium 1.9 mg/dL (1.6-2.3); Potassium 3.7 mmol/L (3.5-5.1); Total Bilirubin 1.2 mg/dL (0.2-1.3); Total Protein 5.2 g/dL (6.3-8.2)
[2021-04-22 09:14] LABS: HCT 37.2 % (39.0-53.0); HGB 11.9 gm/dL (13.0-17.5); Hypochromasia Slight; MCH 31.4 pg (25.0-35.0); MCHC 31.9 g/dL (31.0-37.0); MCV 98.4 fL (80.0-100.0); Mean Platelet Volume 9.5; RBC 3.78 m/uL (4.30-5.90); RDW 14.8 % (11.5-15.5)
[2021-04-22] MEDS: DOBUTamine DRIP 500 MG in DEXTROSE/WATER 1 250ML.BAG IV SCH (10:20)
--- NOTE | 2021-04-22 10:31 | P.PN ---
Subjective HISTORY OF PRESENTING ILLNESS Patient is a pleasant 80-year-old male with history of chronic systolic heart failure, chronic atrial fibrillation, diabetes mellitus type 2, hypertension, abdominal aortic aneurysm status post graft placement, COPD on home O2, severe pulmonary hypertension, non-ischemic cardiomyopathy and mild non-obstructive coronary artery disease. He is seen and examined sitting up in bed in mild respiratory distress. He continues to feel short of breath and fatigued. He denies chest pain, dizziness or palpitations. Blood pressure 136/64 heart rate 80 afebrile and maintaining oxygen saturation on nasal cannula. Laboratory data reviewed, sodium 137, potassium 4, creatinine 2.35 and magnesium 2.0. 24-hr urine output 2.1 liters. Heart rates are improved with beta blockers discontinued. No plans for PPM at this time. 04/22/2021 Pt seen and examined sitting up in bed with daughter at the bedside. He still feels weak and short of breath, but does admit some improvement in the last 24 hours. Blood pressure 112/50 heart rate 68 afebrile and maintaining oxygen saturation on nasal cannula. Laboratory data reviewed, WBC 8.0, hgb 11.9, sodium 134, potassium 3.7, creatinine 2.35 and magnesium 1.9. 24-hr urine output 3.4 li ters and maintaining a negative balance. Telemetry tracings reviewed, he is in persistent afib with frequent PVCs. Daughter at the bedside states prior to arrival he was short of breath and bradycardic. 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 Echocardiogram obtained revealed impaired LV systoilc function with EF 30-35%, basal inferoseptal, mid inferoseptal and apical septal hypokinesia, severely dilated LA, RV mild to moderately enlarged, mild with mean gradient 13 mmHg, mild-moderate MR, mild TR and severe pulmonary hypertension with RVSP 64 mmHg. PHYSICAL EXAMINATION CONSTITUTIONAL: No apparent distress, somewhat somnolent, mildly tachypnic HEENT: Head is normocephalic. Pupils are equal, round. Sclerae anicteric. Mucous membranes of the mouth are moist. No JVD. No carotid bruit. CHEST EXAMINATION: Bilateral rales, no wheezes or rhonchi. HEART EXAMINATION: Irregular rate and rhythm, +3/6 systolic murmur at the base, no gallops or rub. EXTREMITIES: 2+ peripheral pulses, 1+ lower extremity edema with weeping noted on the left and no calf tenderness. ASSESSMENT Acute on chronic systolic heart failure Chronic persistent atrial fibrillation Bradycardia with heart rates in the 40s. Beta wil on hold. Rule out sick sinus syndrome History of heavily calcified however nonobstructive coronary artery disease by heart catheterization 2016 Non-STEMI, rule out type I mechanism with chest pain occurring on presentation Hypertension Diabetes mellitus Acute kidney injury. PLAN Diuretic adjustments per neprhology. We will ask Dr. Esparza to evaluate for possible BiV pacemaker implantation. Follow renal function and electrolytes in the morning. Further recommendations to follow. Nurse Practitioner note has been reviewed, I agree with a documented findings and plan of care. Patient was seen and examined. Objective - Vital Signs Vital signs: Vital Signs Temp 99.6 F 04/22/21 08:00 Pulse 68 04/22/21 08:00 Resp 18 04/22/21 08:00 BP 112/50 04/22/21 08:00 Pulse Ox 94 L 04/22/21 08:00 Intake & Output 04/21/21 04/22/21 04/22/21 18:59 06:59 18:59 Intake Total 720 188.5 Output Total 1650 1800 Balance -930 -1800 188.5 Weight 104 kg 105.5 kg Intake: Intake, IV Titration 188.5 Amount DOBUTamine DRIP 500 mg In 188.5 Dextrose/Water 1 250ml. bag @ 2.5 MCG/KG/MIN 7.8 mls/hr IV .Q24H [place] Rx#: [id number] Oral 720 Output: Urine 1650 1800 Other: Voiding Method Indwelling Catheter Indwelling Catheter # Voids 0 - Labs CBC & Chem 7: 04/22/21 07:45 04/22/21 07:45 Labs: Abnormal Lab Results - Last 24 Hours (Table) 04/21/21 04/21/21 04/21/21 Range/Units 10:58 16:47 20:15 RBC (4.30-5.90) m/uL Hgb (13.0-17.5) gm/dL Hct (39.0-53.0) % Sodium (137-145) mmol/L Chloride (98-107) mmol/L Carbon Dioxide (22-30) mmol/L BUN (9-20) mg/dL Creatinine (0.66-1.25) mg/dL Glucose (74-99) mg/dL POC Glucose (mg/dL) 189 H 131 H 122 H (75-99) mg/dL Total Protein (6.3-8.2) g/dL Albumin (3.5-5.0) g/dL 04/22/21 04/22/21 04/22/21 Range/Units 06:21 06:35 07:45 RBC (4.30-5.90) m/uL Hgb (13.0-17.5) gm/dL Hct (39.0-53.0) % Sodium 134 L (137-145) mmol/L Chloride 93 L (98-107) mmol/L Carbon Dioxide 32 H (22-30) mmol/L BUN 67 H (9-20) mg/dL Creatinine 2.35 H (0.66-1.25) mg/dL Glucose 109 H (74-99) mg/dL POC Glucose (mg/dL) 58 L 60 L (75-99) mg/dL Total Protein 5.2 L (6.3-8.2) g/dL Albumin 3.0 L (3.5-5.0) g/dL 04/22/21 Range/Units 07:45 RBC 3.78 L (4.30-5.90) m/uL Hgb 11.9 L (13.0-17.5) gm/dL Hct 37.2 L (39.0-53.0) % Sodium (137-145) mmol/L Chloride (98-107) mmol/L Carbon Dioxide (22-30) mmol/L BUN (9-20) mg/dL Creatinine (0.66-1.25) mg/dL Glucose (74-99) mg/dL POC Glucose (mg/dL) (75-99) mg/dL Total Protein (6.3-8.2) g/dL Albumin (3.5-5.0) g/dL
[2021-04-22 11:44] LABS: Glucose,Whole Blood 115 mg/dL (75-99)
[2021-04-22 13:06] LABS: Lymphocytes # (M) 0.56 k/uL (1.0-4.8); Monocytes # (M) 1.12 k/uL (0-1.0); Neutrophils # (M) 6.32 k/uL (1.3-7.7); Neutrophils % (M) 79 %; Nucleated Red Blood Cells 0 /100 WBC (0-0); Platelet Count 90 k/uL (150-450); Total Cells Counted 100
[2021-04-22 16:52] LABS: Glucose,Whole Blood 120 mg/dL (75-99)
--- NOTE | 2021-04-22 17:04 | P.PN ---
Subjective Progress Note Date: 04/22/21 Berny Linares, is an 80 year old male who presented to [facility] emergency room with a chief complaint of worsening shortness of breath and upper chest pain, patient stated that his symptoms started 1 day prior to presentation and has been worsening, he was having difficulty breathing when he was trying to lie down, he was also having worsening lower extremity edema, on the day of presentation patient started having upper chest pain radiating to the back of his neck and to both shoulders, at that point he decided to come to emergency room. He was evaluated in the emergency room vital examination on presentation revealed a temperature of 98.1 pulse 49 respiration 20 blood pressure 118/62 pulse ox 92% on room air Laboratory data reveals a white blood count of 4.4 hemoglobin 12.4 platelet count 108 sodium 134 potassium 4.2 chloride 95 CO2 31 BUN 61 creatinine 2.33 troponin level was elevated at 0.183. Review of the chart revealed creatinine 2.2 on 10/16/2020 and 1.8 on 06/20/2020. BNP was 16,400 Testing in the emergency room revealed, chest x-ray done in the emergency room revealed evidence of congestive heart failure blunting of the bilateral costophrenic angles suggestive of mild bilateral pleural effusion Patient was admitted to medical floor for further evaluation and treatment, he was started on IV Lasix, cardiology consultation was requested. Past medical history is significant for history of chronic systolic congestive heart failure echocardiogram done in December 2018 revealed ejection fraction of 35-40%, patient also has a known history of atrial fibrillation maintained on coagulation with Eliquis, history of diffuse coronary artery disease patient had cardiac catheterization in 2016 at that time medication treatment was advised. History of AAA for which patient underwent stent grafting, patient also has a known history of hypertension, [id number] diabetes mellitus, benign prostatic hypertrophy, chronic kidney disease stage III, diverticulosis was previous history of lower gastrointestinal bleeding, degenerative disc disease with history of back surgery. Patient stated that he used to smoke he quit many years ago. On 04/21/2021 Patient was seen and examined on the medical floor, he is alert and oriented x 3 in no distress, patient is complaining of shortness of breath with activity otherwise he denies any complaints there is no fever or chills no headache or dizziness no chest pain no cough no nausea or vomiting no abdominal pain no diarrhea no blood in the stools no burning with urination no frequency or urgency and no hematuria, there is no weakness or numbness in any of the extremities no change in vision speech or gait. On 04/22/2021 Patient was seen and examined on the medical floor, he is alert and oriented x 3 in no distress, he denies any complaints there is no fever or chills no headache or dizziness no chest pain no shortness of breath no palpitation no cough no nausea or vomiting no abdominal pain no diarrhea no blood in the stools no burning with urination no frequency or urgency and no hematuria, there is no weakness or numbness in any of the extremities no change in vision speech or gait. Patient is comfortable while lying in bed he has significant shortness of breath with any activity Objective - Vital Signs Vital signs: Vital Signs Temp 99.6 F 04/22/21 08:00 Pulse 68 04/22/21 08:00 Resp 18 04/22/21 08:00 BP 112/50 04/22/21 08:00 Pulse Ox 94 L 04/22/21 08:00 Intake & Output 04/21/21 04/22/21 04/22/21 18:59 06:59 18:59 Intake Total 720 Output Total 1650 1800 Balance -930 -1800 Weight 104 kg 105.5 kg Intake: Oral 720 Output: Urine 1650 1800 Other: Voiding Method Indwelling Catheter Indwelling Catheter # Voids 0 - Exam In general patient is alert and oriented x 3 in no distress HEENT head normocephalic and atraumatic Neck is supple no JVD no goiter no lymphadenopathy no carotid bruit Chest examination few scattered rhonchi no wheezing Cardiac exam reveals irregular heart sounds S1 and S2 no gallops no murmurs Abdomen is soft nontender no organomegaly with normal bowel sounds Extremity exam reveals no edema no cyanosis or clubbing Neurological examination reveals no gross focal deficits - Labs CBC & Chem 7: 04/22/21 07:45 04/22/21 07:45 Labs: Abnormal Lab Results - Last 24 Hours (Table) 04/21/21 04/21/21 04/21/21 Range/Units 10:58 16:47 20:15 RBC (4.30-5.90) m/uL Hgb (13.0-17.5) gm/dL Hct (39.0-53.0) % Sodium (137-145) mmol/L Chloride (98-107) mmol/L Carbon Dioxide (22-30) mmol/L BUN (9-20) mg/dL Creatinine (0.66-1.25) mg/dL Glucose (74-99) mg/dL POC Glucose (mg/dL) 189 H 131 H 122 H (75-99) mg/dL Total Protein (6.3-8.2) g/dL Albumin (3.5-5.0) g/dL 04/22/21 04/22/21 04/22/21 Range/Units 06:21 06:35 07:45 RBC (4.30-5.90) m/uL Hgb (13.0-17.5) gm/dL Hct (39.0-53.0) % Sodium 134 L (137-145) mmol/L Chloride 93 L (98-107) mmol/L Carbon Dioxide 32 H (22-30) mmol/L BUN 67 H (9-20) mg/dL Creatinine 2.35 H (0.66-1.25) mg/dL Glucose 109 H (74-99) mg/dL POC Glucose (mg/dL) 58 L 60 L (75-99) mg/dL Total Protein 5.2 L (6.3-8.2) g/dL Albumin 3.0 L (3.5-5.0) g/dL 04/22/21 Range/Units 07:45 RBC 3.78 L (4.30-5.90) m/uL Hgb 11.9 L (13.0-17.5) gm/dL Hct 37.2 L (39.0-53.0) % Sodium (137-145) mmol/L Chloride (98-107) mmol/L Carbon Dioxide (22-30) mmol/L BUN (9-20) mg/dL Creatinine (0.66-1.25) mg/dL Glucose (74-99) mg/dL POC Glucose (mg/dL) (75-99) mg/dL Total Protein (6.3-8.2) g/dL Albumin (3.5-5.0) g/dL Assessment and Plan Plan: Acute on chronic systolic congestive heart failure exacerbation Underlying history of coronary artery disease Underlying history of atrial fibrillation Bradycardia on presentation Underlying history of hypertension Underlying history of chronic kidney disease stage III Underlying history of [id number] diabetes mellitus type 2 Underlying history of hyperlipidemia Underlying history of diverticulosis with previous history of gastrointestinal bleeding Underlying history of degenerative disc disease with chronic back pain Underlying history of benign prostatic hypertrophy At this time patient is admitted to telemetry floor He was started on IV Lasix 40 mg every 12 hours IV dopamine drip was added by cardiology Dr. Esparza was consulted for evaluation for pacemaker placement Home medications reviewed and reordered Metoprolol is held due to bradycardia on presentation Cardiology consultation was requested Nephrology consultation was also requested in the emergency room We will follow closely
--- NOTE | 2021-04-22 18:42 | P.EPCON ---
Electrophysiology Consult - EP Consult Electrophysiology Consult: This is Dr. Esparza dictating a consult on this patient The patient was interviewed and examined IMPRESSION / ASSESSMENT: Acute and chronic congestive heart failure, systolic, patient short of breath at rest Bradycardia necessitating backing off on beta blockers Underlying atrial fibrillation with alternating bundle branch block and PVCs Acute kidney injury secondary to cardiorenal syndrome Elevated RVSP Hypertension Coronary artery disease PLAN: I had a detailed discussion with the patient and I also called his daughter He has atrial fibrillation with a slow ventricular response and intolerance to beta blockers A standard permanent pacemaker would be detrimental to his heart failure He has significant conduction system disease with alternating bundle branch block and a biventricular pacemaker with beta blockers would be beneficial If not, AV node modification can be considered at a later date but not at this time. I would recommend a biventricular device with beta blockers and heart failure therapy His main risk is that of anesthesia. I would like him to be evaluated by anesthesia tomorrow, well before the procedure Tentatively I am planning for The patient would like a biventricular ICD he understands the benefits of biventricular pacing as explained to him I will speak to the cardiac team regarding starting him on Lasix drip at least in the morning of the procedure He will continue ELIQUIS I will also start hydralazine 25 mg 4 times a day for afterload reduction along with IV dobutamine Follow procedure the TVP may be placed from the right femoral vein just before starting the device implant IV vancomycin 1 dose few hours prior to the procedure HPI 80y male patient with a history of congestive heart failure who presented with worsening shortness of breath or chest discomfort He is a history of coronary myopathy with ejection fraction of 35% documented in 2019 at that time he had mild aortic stenosis mild mitral regurgitation and cardiac catheterization in 2016 showed heavily calcified arteries with mild disease and a chronically occluded marginal branch The patient is been complaining of worsening shortness of breath for about a week and his daughter that he was extremely short of breath while trying to cut the grass He has known persistent atrial fibrillation His twelve-lead EKG shows underlying atrial fibrillation with right bundle branch block but there are some beats which appeared to be a left bundle branch block morphology and could represent alternating bundle branch block. He also has left bundle branch block like morphology PVCs He was found to be bradycardic with heart rates in the 40s and beta blockers were held ROS: No fever chills or rigors, no cough, phlegm or expectoration, no nausea, vomiting or diarrhea, no hematuria, dysuria, no musculoskeletal complaints, no strokes or seizures, no skin lesions. EXAMINATION: REVIEW OF LABS, ECG & MEDICAL DATA Twelve-lead EKG shows atrial fibrillation with bradycardia, right bundle branch block pattern/alternating with left bundle branch block morphology CC PVCs 2-D echo shows severe LV dysfunction ejection fraction 30-35% Inferior and apical septal hypokinesis Moderately enlarged right ventricle Severely enlarged left atrium Mild aortic stenosis with peak gradient of 24 mmHg and a mean gradient of 13 mmHg Mild to moderate mitral regurgitation Elevated RVSP of 60 Dilated IVC
[2021-04-22 20:18] LABS: Glucose,Whole Blood 140 mg/dL (75-99)
[2021-04-22] MEDS: hydrALAZINE HCL 25 MG TAB PO SCH (21:32)
[2021-04-22] MEDS: ATORVASTATIN 20 MG TAB PO SCH (21:32)
[2021-04-23 06:03] LABS: Glucose,Whole Blood 149 mg/dL (75-99)
[2021-04-23] MEDS: INSULIN ASPART (NovoLOG) 100 UNIT/ML VIAL SQ SCH ×4 (06:41→20:49)
[2021-04-23] MEDS: hydrALAZINE HCL 25 MG TAB PO SCH ×4 (07:50→20:39)
[2021-04-23] MEDS: CYANOCOBALAMIN 500 MCG TAB PO SCH (07:50)
[2021-04-23] MEDS: LOSARTAN 25 MG TAB PO SCH (07:50)
[2021-04-23] MEDS: DOXAZOSIN 4 MG TAB PO SCH (07:50)
[2021-04-23] MEDS: SILDENAFIL 20 MG TAB PO SCH ×2 (07:50→20:47)
[2021-04-23] MEDS: APIXABAN 2.5 MG TABLET PO SCH ×2 (07:50→20:48)
[2021-04-23] MEDS: bisacodyL 5 MG TABLET.DR PO SCH ×2 (07:50→20:40)
[2021-04-23] MEDS: CHOLECALCIFEROL 25 MCG (1000 IU) TABLET PO SCH ×2 (07:51→20:40)
[2021-04-23] MEDS: DOCUSATE 100 MG CAP PO SCH ×2 (07:51→20:49)
[2021-04-23] MEDS: PANTOPRAZOLE 40 MG TABLET PO SCH (07:51)
[2021-04-23] MEDS: glipiZIDE 5 MG TAB PO SCH ×2 (07:51→20:40)
[2021-04-23] MEDS: HYDROcodone/APAP 7.5-325MG 1 EACH TAB PO PRN ×2 (07:51→20:39)
[2021-04-23] MEDS: MAGNESIUM OXIDE 400 MG TAB PO SCH ×2 (07:51→20:40)
[2021-04-23] MEDS: FUROSEMIDE 10 MG/ML 4 ML VIAL IV SCH ×2 (07:51→20:40)
[2021-04-23] MEDS: diphenhydrAMINE 25 MG CAP PO SCH ×2 (07:51→20:40)
[2021-04-23] MEDS: metOLazone 2.5 MG TAB PO SCH (07:52)
[2021-04-23 08:50] LABS: Potassium 3.9 mmol/L (3.5-5.1)
--- NOTE | 2021-04-23 09:25 | P.PN ---
Subjective Patient is seen in follow-up for acute kidney injury on chronic kidney disease. Renal function stable. Maintained on IV Lasix and dobutamine. Nonoliguric. Currently on 4 L nasal cannula. Oral intake is good. Vital signs are stable. General: The patient appeared well nourished and normally developed. HEENT: Head exam is unremarkable. Neck is without jugular venous distension. LUNGS: Breath sounds decreased. HEART: Rate and Rhythm are regular. ABDOMEN: Soft, no distention. EXTREMITITES: 1+ edema. Objective - Vital Signs Vital signs: Vital Signs Temp 98.8 F 04/23/21 08:00 Pulse 60 04/23/21 08:00 Resp 22 04/23/21 08:00 BP 106/64 04/23/21 08:00 Pulse Ox 95 04/23/21 08:51 Intake & Output 04/22/21 04/23/21 04/23/21 18:59 06:59 18:59 Intake Total 968.5 120 Output Total 1025 300 400 Balance -56.5 -300 -280 Weight 94.5 kg Intake: Intake, IV Titration 188.5 Amount DOBUTamine DRIP 500 mg In 188.5 Dextrose/Water 1 250ml. bag @ 2.5 MCG/KG/MIN 7.8 mls/hr IV .Q24H [facility] Rx#: [id number] Oral 780 120 Output: Urine 1025 300 400 Other: Voiding Method Indwelling Catheter Indwelling Catheter Indwelling Catheter # Bowel Movements 1 1 - Labs CBC & Chem 7: 04/22/21 07:45 04/23/21 07:40 Labs: Abnormal Lab Results - Last 24 Hours (Table) 04/22/21 04/22/21 04/22/21 Range/Units 07:45 11:42 16:49 RBC 3.78 L (4.30-5.90) m/uL Hgb 11.9 L (13.0-17.5) gm/dL Hct 37.2 L (39.0-53.0) % Plt Count 90 L (150-450) k/uL Lymphocytes # (Manual) 0.56 L (1.0-4.8) k/uL Monocytes # (Manual) 1.12 H (0-1.0) k/uL Sodium (137-145) mmol/L Chloride (98-107) mmol/L Carbon Dioxide (22-30) mmol/L BUN (9-20) mg/dL Creatinine (0.66-1.25) mg/dL Glucose (74-99) mg/dL POC Glucose (mg/dL) 115 H 120 H (75-99) mg/dL 04/22/21 04/23/21 04/23/21 Range/Units 20:16 06:02 07:40 RBC (4.30-5.90) m/uL Hgb (13.0-17.5) gm/dL Hct (39.0-53.0) % Plt Count (150-450) k/uL Lymphocytes # (Manual) (1.0-4.8) k/uL Monocytes # (Manual) (0-1.0) k/uL Sodium 131 L (137-145) mmol/L Chloride 90 L (98-107) mmol/L Carbon Dioxide 33 H (22-30) mmol/L BUN 74 H (9-20) mg/dL Creatinine 2.26 H (0.66-1.25) mg/dL Glucose 134 H (74-99) mg/dL POC Glucose (mg/dL) 140 H 149 H (75-99) mg/dL Assessment and Plan Plan: Assessment: 1. Acute kidney injury secondary to ATN secondary to cardiorenal syndrome. Renal function stable. 2. Acute on chronic systolic CHF with ejection fraction of 30-35% with mild to moderate mitral regurgitation and severe pulmonary hypertension. 3. Volume overload. Improving with diuresis. 4. Diabetes mellitus. 5. Chronic kidney disease stage IIIb with baseline creatinine near 2. 6. Bradycardia. Plan for biventricular ICD this admission. 7. Hypervolemic hyponatremia. Plan: Maintain IV Lasix and metolazone. Dobutamine per cardiology. Low-salt diet. 1200 mL fluid restriction. Continue to monitor renal function and urine output. Follow-up chest x-ray.
--- NOTE | 2021-04-23 09:50 | P.PN ---
Subjective Progress Note Date: 04/23/21 Berny Linares, is an 80 year old male who presented to [facility] emergency room with a chief complaint of worsening shortness of breath and upper chest pain, patient stated that his symptoms started 1 day prior to presentation and has been worsening, he was having difficulty breathing when he was trying to lie down, he was also having worsening lower extremity edema, on the day of presentation patient started having upper chest pain radiating to the back of his neck and to both shoulders, at that point he decided to come to emergency room. He was evaluated in the emergency room vital examination on presentation revealed a temperature of 98.1 pulse 49 respiration 20 blood pressure 118/62 pulse ox 92% on room air Laboratory data reveals a white blood count of 4.4 hemoglobin 12.4 platelet count 108 sodium 134 potassium 4.2 chloride 95 CO2 31 BUN 61 creatinine 2.33 troponin level was elevated at 0.183. Review of the chart revealed creatinine 2.2 on 10/16/2020 and 1.8 on 06/20/2020. BNP was 16,400 Testing in the emergency room revealed, chest x-ray done in the emergency room revealed evidence of congestive heart failure blunting of the bilateral costophrenic angles suggestive of mild bilateral pleural effusion Patient was admitted to medical floor for further evaluation and treatment, he was started on IV Lasix, cardiology consultation was requested. Past medical history is significant for history of chronic systolic congestive heart failure echocardiogram done in December 2018 revealed ejection fraction of 35-40%, patient also has a known history of atrial fibrillation maintained on coagulation with Eliquis, history of diffuse coronary artery disease patient had cardiac catheterization in 2016 at that time medication treatment was advised. History of AAA for which patient underwent stent grafting, patient also has a known history of hypertension, [id number] diabetes mellitus, benign prostatic hypertrophy, chronic kidney disease stage III, diverticulosis was previous history of lower gastrointestinal bleeding, degenerative disc disease with history of back surgery. Patient stated that he used to smoke he quit many years ago. On 04/21/2021 Patient was seen and examined on the medical floor, he is alert and oriented x 3 in no distress, patient is complaining of shortness of breath with activity otherwise he denies any complaints there is no fever or chills no headache or dizziness no chest pain no cough no nausea or vomiting no abdominal pain no diarrhea no blood in the stools no burning with urination no frequency or urgency and no hematuria, there is no weakness or numbness in any of the extremities no change in vision speech or gait. On 04/22/2021 Patient was seen and examined on the medical floor, he is alert and oriented x 3 in no distress, he denies any complaints there is no fever or chills no headache or dizziness no chest pain no shortness of breath no palpitation no cough no nausea or vomiting no abdominal pain no diarrhea no blood in the stools no burning with urination no frequency or urgency and no hematuria, there is no weakness or numbness in any of the extremities no change in vision speech or gait. Patient is comfortable while lying in bed he has significant shortness of breath with any activity On 04/23/2021 patient is alert and oriented 3 resting comfortably in bed. Tentative plans for AICD placement tomorrow per Dr. Jara. Patient maintained on dobutamine drip. Patient remains on IV Lasix. At this time patient denies chest pain or shortness of breath. Patient denies nausea vomiting or diarrhea. Patient denies any urinary burning or frequency. Objective - Vital Signs Vital signs: Vital Signs Temp 98.8 F 04/23/21 08:00 Pulse 60 04/23/21 08:00 Resp 22 04/23/21 08:00 BP 106/64 04/23/21 08:00 Pulse Ox 95 04/23/21 08:51 Intake & Output 04/22/21 04/23/21 04/23/21 18:59 06:59 18:59 Intake Total 968.5 120 Output Total 1025 300 400 Balance -56.5 -300 -280 Weight 94.5 kg Intake: Intake, IV Titration 188.5 Amount DOBUTamine DRIP 500 mg In 188.5 Dextrose/Water 1 250ml. bag @ 2.5 MCG/KG/MIN 7.8 mls/hr IV .Q24H [facility] Rx#: [id number] Oral 780 120 Output: Urine 1025 300 400 Other: Voiding Method Indwelling Catheter Indwelling Catheter Indwelling Catheter # Bowel Movements 1 1 - Exam In general patient is alert and oriented x 3 in no distress HEENT head normocephalic and atraumatic Neck is supple no JVD no goiter no lymphadenopathy no carotid bruit Chest examination few scattered rhonchi no wheezing Cardiac exam reveals irregular heart sounds S1 and S2 no gallops no murmurs Abdomen is soft nontender no organomegaly with normal bowel sounds Extremity exam reveals no edema no cyanosis or clubbing Neurological examination reveals no gross focal deficits - Labs CBC & Chem 7: 04/22/21 07:45 04/23/21 07:40 Labs: Abnormal Lab Results - Last 24 Hours (Table) 04/22/21 04/22/21 04/22/21 Range/Units 07:45 11:42 16:49 Plt Count 90 L (150-450) k/uL Lymphocytes # (Manual) 0.56 L (1.0-4.8) k/uL Monocytes # (Manual) 1.12 H (0-1.0) k/uL Sodium (137-145) mmol/L Chloride (98-107) mmol/L Carbon Dioxide (22-30) mmol/L BUN (9-20) mg/dL Creatinine (0.66-1.25) mg/dL Glucose (74-99) mg/dL POC Glucose (mg/dL) 115 H 120 H (75-99) mg/dL 04/22/21 04/23/21 04/23/21 Range/Units 20:16 06:02 07:40 Plt Count (150-450) k/uL Lymphocytes # (Manual) (1.0-4.8) k/uL Monocytes # (Manual) (0-1.0) k/uL Sodium 131 L (137-145) mmol/L Chloride 90 L (98-107) mmol/L Carbon Dioxide 33 H (22-30) mmol/L BUN 74 H (9-20) mg/dL Creatinine 2.26 H (0.66-1.25) mg/dL Glucose 134 H (74-99) mg/dL POC Glucose (mg/dL) 140 H 149 H (75-99) mg/dL Assessment and Plan Plan: Acute on chronic systolic congestive heart failure exacerbation Underlying history of coronary artery disease Underlying history of atrial fibrillation Bradycardia on presentation Underlying history of hypertension Underlying history of chronic kidney disease stage III Underlying history of hrh-mshvicw-claswcyud diabetes mellitus type 2 Underlying history of hyperlipidemia Underlying history of diverticulosis with previous history of gastrointestinal bleeding Underlying history of degenerative disc disease with chronic back pain Underlying history of benign prostatic hypertrophy At this time patient is admitted to telemetry floor Maintained on IV Lasix IV dopamine drip was added by cardiology And for AICD placement on 04/24/[address] Esparza Home medications reviewed and reordered Metoprolol is held due to bradycardia on presentation Cardiology consultation was requested Nephrology consultation was also requested in the emergency room We will follow closely
--- NOTE | 2021-04-23 10:11 | XR ---
EXAMINATION TYPE: XR chest 1V portable DATE OF EXAM: 04/23/2021 Comparison: 04/20/2021 Clinical History: 80-year-old male follow up diuresis Findings: Heart remains enlarged. Continued small to moderate right effusion with right basilar opacity. A smal l left effusion is noted. Advanced bone on bone degenerative change both shoulders. Bilateral chronic full-thickness rotator cuff tears. Impression: Persistent cardiomegaly. A small to moderate right pleural effusion with adjacent atelectasis and/or consolidation shows slight improvement. Small left pleural effusion better seen now.
[2021-04-23] MEDS: DOBUTamine DRIP 500 MG in DEXTROSE/WATER 1 250ML.BAG IV SCH (10:36)
--- NOTE | 2021-04-23 11:23 | P.PN ---
Subjective HISTORY OF PRESENTING ILLNESS Patient is a pleasant 80-year-old male with history of chronic systolic heart failure, chronic atrial fibrillation, diabetes mellitus type 2, hypertension, abdominal aortic aneurysm status post graft placement, COPD on home O2, severe pulmonary hypertension, non-ischemic cardiomyopathy and mild non-obstructive coronary artery disease. He is seen and examined sitting up in bed in mild respiratory distress. He continues to feel short of breath and fatigued. He denies chest pain, dizziness or palpitations. Blood pressure 136/64 heart rate 80 afebrile and maintaining oxygen saturation on nasal cannula. Laboratory data reviewed, sodium 137, potassium 4, creatinine 2.35 and magnesium 2.0. 24-hr urine output 2.1 liters. Heart rates are improved with beta blockers discontinued. No plans for PPM at this time. 04/23/2021 Pt seen and examined sitting up eating breakfast. He states he was quite restless last night and didn't sleep too well. Dr. Esparza evaluated him last night and is recommending BiV device implantation tomorrow. He added hydralazine. Laboratory data reviewed, sodium 131, potassium 3.9, magnesium 2.0 and creatinine 2.26. Blood pressure 106/64 heart rate 60 afebrile maintaining oxygen saturation on nasal cannula. 24 hour urine output 1.3 L. PHYSICAL EXAMINATION CONSTITUTIONAL: No apparent distress, somewhat somnolent, mildly tachypnic HEENT: Head is normocephalic. Pupils are equal, round. Sclerae anicteric. Mucous membranes of the mouth are moist. No JVD. No carotid bruit. CHEST EXAMINATION: Bilateral rales, no wheezes or rhonchi. HEART EXAMINATION: Irregular rate and rhythm, +3/6 systolic murmur at the base, no gallops or rub. EXTREMITIES: 2+ peripheral pulses, 1+ lower extremity edema with weeping noted on the left and no calf tenderness. ASSESSMENT Acute on chronic systolic heart failure Chronic persistent atrial fibrillation Bradycardia with heart rates in the 40s. Beta wil on hold. Rule out sick sinus syndrome History of heavily calcified however non-obstructive coronary artery disease by heart catheterization 2015 Non-STEMI, rule out type I mechanism with chest pain occurring on presentation Hypertension Diabetes mellitus Acute kidney injury Pulmonary hypertension PLAN Continue current medical regimen with addition of hydralazine for afterload reduction. Discussed with [employer] charge regarding him being seen today for anesthesia recommendations prior to device implantation. NPO after midnight tonight. Lasix drip to start tomorrow at 0600 in preparation for procedure. Nurse Practitioner note has been reviewed, I agree with a documented findings and plan of care. Patient was seen and examined. Objective - Vital Signs Vital signs: Vital Signs Temp 98.8 F 04/23/21 08:00 Pulse 60 04/23/21 08:00 Resp 22 04/23/21 08:00 BP 106/64 04/23/21 08:00 Pulse Ox 95 04/23/21 08:51 Intake & Output 04/22/21 04/23/21 04/23/21 18:59 06:59 18:59 Intake Total 968.5 120 Output Total 1025 300 400 Balance -56.5 -300 -280 Weight 94.5 kg Intake: Intake, IV Titration 188.5 Amount DOBUTamine DRIP 500 mg In 188.5 Dextrose/Water 1 250ml. bag @ 2.5 MCG/KG/MIN 7.8 mls/hr IV .Q24H [facility] Rx#: [id number] Oral 780 120 Output: Urine 1025 300 400 Other: Voiding Method Indwelling Catheter Indwelling Catheter Indwelling Catheter # Bowel Movements 1 1 - Labs CBC & Chem 7: 04/22/21 07:45 04/23/21 07:40 Labs: Abnormal Lab Results - Last 24 Hours (Table) 04/22/21 04/22/21 04/22/21 Range/Units 07:45 07:45 11:42 RBC 3.78 L (4.30-5.90) m/uL Hgb 11.9 L (13.0-17.5) gm/dL Hct 37.2 L (39.0-53.0) % Plt Count 90 L (150-450) k/uL Lymphocytes # (Manual) 0.56 L (1.0-4.8) k/uL Monocytes # (Manual) 1.12 H (0-1.0) k/uL Sodium 134 L (137-145) mmol/L Chloride 93 L (98-107) mmol/L Carbon Dioxide 32 H (22-30) mmol/L BUN 67 H (9-20) mg/dL Creatinine 2.35 H (0.66-1.25) mg/dL Glucose 109 H (74-99) mg/dL POC Glucose (mg/dL) 115 H (75-99) mg/dL Total Protein 5.2 L (6.3-8.2) g/dL Albumin 3.0 L (3.5-5.0) g/dL 04/22/21 04/22/21 04/23/21 Range/Units 16:49 20:16 06:02 RBC (4.30-5.90) m/uL Hgb (13.0-17.5) gm/dL Hct (39.0-53.0) % Plt Count (150-450) k/uL Lymphocytes # (Manual) (1.0-4.8) k/uL Monocytes # (Manual) (0-1.0) k/uL Sodium (137-145) mmol/L Chloride (98-107) mmol/L Carbon Dioxide (22-30) mmol/L BUN (9-20) mg/dL Creatinine (0.66-1.25) mg/dL Glucose (74-99) mg/dL POC Glucose (mg/dL) 120 H 140 H 149 H (75-99) mg/dL Total Protein (6.3-8.2) g/dL Albumin (3.5-5.0) g/dL 04/23/21 Range/Units 07:40 RBC (4.30-5.90) m/uL Hgb (13.0-17.5) gm/dL Hct (39.0-53.0) % Plt Count (150-450) k/uL Lymphocytes # (Manual) (1.0-4.8) k/uL Monocytes # (Manual) (0-1.0) k/uL Sodium 131 L (137-145) mmol/L Chloride 90 L (98-107) mmol/L Carbon Dioxide 33 H (22-30) mmol/L BUN 74 H (9-20) mg/dL Creatinine 2.26 H (0.66-1.25) mg/dL Glucose 134 H (74-99) mg/dL POC Glucose (mg/dL) (75-99) mg/dL Total Protein (6.3-8.2) g/dL Albumin (3.5-5.0) g/dL
[2021-04-23 11:54] LABS: Glucose,Whole Blood 265 mg/dL (75-99)
[2021-04-23] MEDS ORDERED: ONDANSETRON 4 MG/2 ML VIAL IVP ONE (14:00)
[2021-04-23] MEDS ORDERED: DEXAMETHASONE SOD PHOSPHATE 4 MG/ML 1 ML VIAL IV ONE (14:00)
[2021-04-23] MEDS ORDERED: LIDOCAINE 1% (10MG/ML) FOR IV START INTRADERMA PRN (14:00)
[2021-04-23 16:44] LABS: Glucose,Whole Blood 268 mg/dL (75-99)
[2021-04-23 20:14] LABS: Glucose,Whole Blood 284 mg/dL (75-99)
[2021-04-23] MEDS: ATORVASTATIN 20 MG TAB PO SCH (20:40)
[2021-04-24 06:13] LABS: Basophils % (A) 0 %; Eosinophils % (A) 0 %; HGB 11.9 gm/dL (13.0-17.5); Hypochromasia Slight; Lymphocytes # (A) 0.3 k/uL (1.0-4.8); Lymphocytes % (A) 5 %; MCH 31.8 pg (25.0-35.0); MCHC 32.1 g/dL (31.0-37.0); MCV 99.2 fL (80.0-100.0); Mean Platelet Volume 9.8; Monocytes # (A) 0.4 k/uL (0-1.0); Monocytes % (A) 8 %; Neutrophils # (A) 4.8 k/uL (1.3-7.7); Neutrophils % (A) 84 %; Platelet Count 109 k/uL (150-450); RBC 3.73 m/uL (4.30-5.90); RDW 14.4 % (11.5-15.5); WBC 5.7 k/uL (3.8-10.6)
[2021-04-24] MEDS: LACTATED RINGERS 1,000 ML IV SCH (06:20)
[2021-04-24 06:29] LABS: Albumin 2.9 g/dL (3.5-5.0); Calcium 8.9 mg/dL (8.4-10.2); Magnesium 2.1 mg/dL (1.6-2.3); Potassium 4.3 mmol/L (3.5-5.1); Total Bilirubin 0.7 mg/dL (0.2-1.3); Total Protein 5.3 g/dL (6.3-8.2)
[2021-04-24 06:33] LABS: Glucose,Whole Blood 208 mg/dL (75-99)
[2021-04-24] MEDS: FUROSEMIDE 100 MG in SODIUM CHLORIDE 0.9% 90 ML IV SCH (06:37)
[2021-04-24] MEDS: INSULIN ASPART (NovoLOG) 100 UNIT/ML VIAL SQ SCH ×4 (06:40→22:45)
[2021-04-24] MEDS ORDERED: CLINDAMYCIN 900 MG in DEXTROSE 5% IN WATER 50 ML IVPB PRN ×2 (07:00)
[2021-04-24] MEDS ORDERED: CLINDAMYCIN 600 MG in SODIUM CHLORIDE 0.9% 250 ML IRRIGATION PRN (07:00)
[2021-04-24] MEDS: glipiZIDE 5 MG TAB PO SCH ×2 (08:40→21:52)
[2021-04-24] MEDS: DOCUSATE 100 MG CAP PO SCH ×2 (09:05→21:51)
[2021-04-24] MEDS: APIXABAN 2.5 MG TABLET PO SCH ×4 (09:06→22:25)
[2021-04-24] MEDS: bisacodyL 5 MG TABLET.DR PO SCH ×2 (09:06→21:52)
[2021-04-24] MEDS: CHOLECALCIFEROL 25 MCG (1000 IU) TABLET PO SCH ×2 (09:06→21:52)
[2021-04-24] MEDS: PANTOPRAZOLE 40 MG TABLET PO SCH (09:06)
[2021-04-24] MEDS: CYANOCOBALAMIN 500 MCG TAB PO SCH (09:06)
[2021-04-24] MEDS: DOXAZOSIN 4 MG TAB PO SCH (09:06)
[2021-04-24] MEDS: MAGNESIUM OXIDE 400 MG TAB PO SCH ×2 (09:06→21:52)
[2021-04-24] MEDS: LOSARTAN 25 MG TAB PO SCH (09:07)
[2021-04-24] MEDS: hydrALAZINE HCL 25 MG TAB PO SCH ×3 (09:07→21:52)
[2021-04-24] MEDS: diphenhydrAMINE 25 MG CAP PO SCH ×2 (09:07→21:51)
[2021-04-24] MEDS: SILDENAFIL 20 MG TAB PO SCH ×2 (09:07→22:45)
[2021-04-24] MEDS: metOLazone 2.5 MG TAB PO SCH (09:08)
--- NOTE | 2021-04-24 09:41 | P.PN ---
Subjective Patient is seen in follow-up for acute kidney injury on chronic kidney disease. Renal function fairly stable. Maintained on Lasix drip and dobutamine. Still quite edematous. Nonoliguric. Currently on 3 L nasal cannula. Oral intake is good. Vital signs are stable. General: The patient appeared well nourished and normally developed. HEENT: Head exam is unremarkable. Neck is without jugular venous distension. LUNGS: Breath sounds decreased. HEART: Rate and Rhythm are regular. ABDOMEN: Soft, no distention. EXTREMITITES: 2+ edema. Objective - Vital Signs Vital signs: Vital Signs Temp 98.0 F 04/24/21 08:37 Pulse 54 L 04/24/21 08:37 Resp 16 04/24/21 04:04 BP 132/69 04/24/21 08:37 Pulse Ox 94 L 04/24/21 08:37 Intake & Output 04/23/21 04/24/21 04/24/21 18:59 06:59 18:59 Intake Total 789.28 Output Total 1000 400 Balance -210.72 -400 Weight 102.2 kg Intake: Intake, IV Titration 189.28 Amount DOBUTamine DRIP 500 mg In 189.28 Dextrose/Water 1 250ml. bag @ 2.5 MCG/KG/MIN 7.8 mls/hr IV .Q24H [facility] Rx#: [id number] Oral 600 Output: Urine 1000 400 Other: Voiding Method Indwelling Catheter Indwelling Catheter # Bowel Movements 1 - Labs CBC & Chem 7: 04/24/21 05:50 04/24/21 05:50 Labs: Abnormal Lab Results - Last 24 Hours (Table) 04/23/21 04/23/21 04/23/21 Range/Units 11:53 16:42 20:10 RBC (4.30-5.90) m/uL Hgb (13.0-17.5) gm/dL Hct (39.0-53.0) % Plt Count (150-450) k/uL Lymphocytes # (1.0-4.8) k/uL Sodium (137-145) mmol/L Chloride (98-107) mmol/L Carbon Dioxide (22-30) mmol/L BUN (9-20) mg/dL Creatinine (0.66-1.25) mg/dL Glucose (74-99) mg/dL POC Glucose (mg/dL) 265 H 268 H 284 H (75-99) mg/dL Total Protein (6.3-8.2) g/dL Albumin (3.5-5.0) g/dL 04/24/21 04/24/21 04/24/21 Range/Units 05:50 05:50 06:09 RBC 3.73 L (4.30-5.90) m/uL Hgb 11.9 L (13.0-17.5) gm/dL Hct 37.0 L (39.0-53.0) % Plt Count 109 L (150-450) k/uL Lymphocytes # 0.3 L (1.0-4.8) k/uL Sodium 130 L (137-145) mmol/L Chloride 89 L (98-107) mmol/L Carbon Dioxide 34 H (22-30) mmol/L BUN 80 H (9-20) mg/dL Creatinine 2.42 H (0.66-1.25) mg/dL Glucose 225 H (74-99) mg/dL POC Glucose (mg/dL) 208 H (75-99) mg/dL Total Protein 5.3 L (6.3-8.2) g/dL Albumin 2.9 L (3.5-5.0) g/dL Assessment and Plan Plan: Assessment: 1. Acute kidney injury secondary to ATN secondary to cardiorenal syndrome. Renal function fairly stable. Creatinine 2.42 today. 2. Acute on chronic systolic CHF with ejection fraction of 30-35% with mild to moderate mitral regurgitation and severe pulmonary hypertension. 3. Volume overload. Improving with diuresis. 4. Diabetes mellitus. 5. Chronic kidney disease stage IIIb with baseline creatinine near 2. 6. Bradycardia. Plan for biventricular ICD this admission. 7. Hypervolemic hyponatremia. Plan: Increase Lasix drip to 15 mL an hour. Maintain metolazone. Dobutamine per cardiology. Low-salt diet. 1200 mL fluid restriction. Continue to monitor renal function and urine output.
[2021-04-24 11:43] LABS: Glucose,Whole Blood 179 mg/dL (75-99)
[2021-04-24 16:32] LABS: Glucose,Whole Blood 135 mg/dL (75-99)
[2021-04-24] MEDS ORDERED: MIDAZOLAM 2 MG/2 ML VIAL ONE (17:23)
[2021-04-24] MEDS ORDERED: IV FLUID CONTINUATION 900 ML IV ONE (17:28)
[2021-04-24] MEDS ORDERED: SODIUM CHLORIDE 0.9% 250 ML IV ONE (17:28)
[2021-04-24] MEDS ORDERED: LIDOCAINE 1% INJ 10MG/ML (20 ML MDV) ONE ×2 (17:41)
[2021-04-24] MEDS ORDERED: IOPAMIDOL-250 50ML BTL IV ONE (17:52)
[2021-04-24] MEDS ORDERED: LIDOCAINE 1% INJ 10MG/ML (20 ML MDV) SQ ONE ×2 (18:14→18:26)
--- NOTE | 2021-04-24 21:29 | P.EPPROC ---
- EP Procedure Note Electrophysiology Procedure Note: Patient underwent a Bi V ICD generator implant He has Severe pulmonary hypertension with high right-sided pressures Severe LV dysfunction with severe congestive heart failure class 3 unstable, with cardiorenal syndrome Extremely large right atrium Extremely enlarged right ventricle that could barely accommodate the standard single-chamber ICD lead, 62 cm This was successfully implanted but with great difficulty. Excellent thresholds and sensing as well as impedances at the end of the procedure Very tortuous and enlarged coronary sinus After multiple attempts and numerous sheath cultures the coronary sinus was accessed Thereafter multiple different telescoping/inner sheaths were used. Multiple telescoping sheaths and guidewires were used to gain a deeper access into the coronary sinus Coronary sinus venography revealed dilated mean coronary sinus, very diminutive /small caliber LV veins LV lead placement was attempted at multiple veins including the anterior veins, lateral vein and the posterior lateral vein However these veins could not be accessed because the diameter of these veins was smaller than the subselective sheaths as well as the LV lead A [employer] lead as well as a [employer] medical social worker was attempted but the lead diameter was larger than the coronary veins diameter Finally the lead was placed in the septal branch but once the stylet was removed the lead spontaneously dislodged as a result of high pressures and the tortuosity of the coronary sinus The septal branch in the great cardiac vein is a suboptimal LV position anyways A biventricular ICD with a bipolar LV port was implanted for future placement of an epicardial LV lead RV lead was a ICD lead, model number 6935M, 62 cm in length and serial number [id number] This was screwed in the low RV septum This 62 cm lead was barely adequate in length given the size of the right atrium and the right ventricle with a final position was excellent R waves 10 mV, pacing impedance 456 ohms high-voltage impedance 49 ohms and pacing threshold 0.5 V at 0.4 ms The device placed was a EQU[employer]ADER-D cobalt heart failure MRI device which will accommodate a bipolar epicardial LV lead This is a very long procedure lasting four hours Despite being a very sick patient, with severe heart failure he was able to lie flat in bed and tolerate a lengthy procedure very comfortably without any respiratory distress Currently the device is been programmed to VVI 50 beats a minute but over time RV pacing is detrimental to his heart failure and therefore biventricular pacing is his best option followed by beta wil therapy He has severe conduction system disease with permanent atrial fibrillation. He is alternating bundle branch block pattern with severe bradycardia and intolerance to beta blockers on account of bradycardia A His bundle lead was not attempted given the extremely large size of the right atrium and the presence of both right and left bundle disease Plan Hold ELIQUIS for one to 2 doses Continue Lasix drip Continue IV dobutamine I discussed this with the family in detail and I would recommend epicardial LV lead placement RV pacing will be detrimental to his heart failure
[2021-04-24] MEDS: ATORVASTATIN 20 MG TAB PO SCH (21:51)
[2021-04-24] MEDS: HYDROcodone/APAP 7.5-325MG 1 EACH TAB PO PRN (21:51)
[2021-04-24 22:14] LABS: Glucose,Whole Blood 132 mg/dL (75-99)
--- NOTE | 2021-04-24 22:16 | XR ---
EXAMINATION TYPE: XR chest 1V portable DATE OF EXAM: 04/24/2021 COMPARISON: 04/23/2021 HISTORY: 80 years Male. STUDY INDICATION GIVEN: Lead placement check . TECHNIQUE: Portable chest radiograph FINDINGS AND IMPRESSION: Interval placement of single lead AICD device placed over the left upper chest. Cardiomegaly with mild pulmonary vascular congestion and small bilateral right greater than left pleu ral effusions, findings improved in the interval. Bibasilar subsegmental atelectasis mildly improved in the interval. Generalized osteopenia, no acute osseous abnormality. Degenerative changes demonstrated in the spine and right shoulder joint.
[2021-04-25] MEDS: CLINDAMYCIN 900 MG in DEXTROSE 5% IN WATER 50 ML IVPB SCH ×6 (00:55→11:42)
[2021-04-25] MEDS: LACTATED RINGERS 1,000 ML IV SCH ×2 (06:22→14:09)
[2021-04-25 06:26] LABS: Glucose,Whole Blood 111 mg/dL (75-99)
[2021-04-25] MEDS: DOBUTamine DRIP 500 MG in DEXTROSE/WATER 1 250ML.BAG IV SCH ×2 (06:27→14:08)
[2021-04-25] MEDS: hydrALAZINE HCL 25 MG TAB PO SCH ×5 (06:27→20:44)
[2021-04-25] MEDS: FUROSEMIDE 100 MG in SODIUM CHLORIDE 0.9% 90 ML IV SCH ×5 (06:43→22:17)
[2021-04-25] MEDS: INSULIN ASPART (NovoLOG) 100 UNIT/ML VIAL SQ SCH ×4 (08:02→20:43)
[2021-04-25] MEDS: PANTOPRAZOLE 40 MG TABLET PO SCH (08:16)
[2021-04-25] MEDS: DOXAZOSIN 4 MG TAB PO SCH (08:17)
[2021-04-25] MEDS: CYANOCOBALAMIN 500 MCG TAB PO SCH (08:17)
[2021-04-25] MEDS: glipiZIDE 5 MG TAB PO SCH ×2 (08:17→20:43)
[2021-04-25] MEDS: DOCUSATE 100 MG CAP PO SCH ×2 (08:17→20:42)
[2021-04-25] MEDS: diphenhydrAMINE 25 MG CAP PO SCH ×2 (08:17→20:42)
[2021-04-25] MEDS: CHOLECALCIFEROL 25 MCG (1000 IU) TABLET PO SCH ×2 (08:17→20:42)
[2021-04-25] MEDS: bisacodyL 5 MG TABLET.DR PO SCH ×2 (08:17→20:42)
[2021-04-25] MEDS: metOLazone 2.5 MG TAB PO SCH (08:18)
[2021-04-25] MEDS: SILDENAFIL 20 MG TAB PO SCH ×2 (08:18→20:43)
[2021-04-25] MEDS: MAGNESIUM OXIDE 400 MG TAB PO SCH ×2 (08:18→20:43)
[2021-04-25] MEDS: LOSARTAN 25 MG TAB PO SCH (08:18)
[2021-04-25 08:51] LABS: Calcium 8.9 mg/dL (8.4-10.2); Magnesium 2.2 mg/dL (1.6-2.3); Potassium 4.3 mmol/L (3.5-5.1)
[2021-04-25 09:29] LABS: Total Bilirubin 0.7 mg/dL (0.2-1.3); Total Protein 5.4 g/dL (6.3-8.2)
[2021-04-25 09:36] LABS: Basophils % (A) 0 %; Eosinophils # (A) 0.1 k/uL (0-0.7); Eosinophils % (A) 2 %; HCT 35.4 % (39.0-53.0); HGB 11.5 gm/dL (13.0-17.5); Hypochromasia Slight; Lymphocytes # (A) 0.6 k/uL (1.0-4.8); Lymphocytes % (A) 13 %; MCH 31.8 pg (25.0-35.0); MCHC 32.4 g/dL (31.0-37.0); MCV 98.2 fL (80.0-100.0); Mean Platelet Volume 9.2; Monocytes # (A) 0.5 k/uL (0-1.0); Monocytes % (A) 11 %; Neutrophils % (A) 71 %; Platelet Count 112 k/uL (150-450); RBC 3.61 m/uL (4.30-5.90); WBC 4.2 k/uL (3.8-10.6)
--- NOTE | 2021-04-25 09:52 | P.PN ---
Subjective Progress Note Date: 04/25/21 Berny Linares, is an 80 year old male who presented to [facility] emergency room with a chief complaint of worsening shortness of breath and upper chest pain, patient stated that his symptoms started 1 day prior to presentation and has been worsening, he was having difficulty breathing when he was trying to lie down, he was also having worsening lower extremity edema, on the day of presentation patient started having upper chest pain radiating to the back of his neck and to both shoulders, at that point he decided to come to emergency room. He was evaluated in the emergency room vital examination on presentation revealed a temperature of 98.1 pulse 49 respiration 20 blood pressure 118/62 pulse ox 92% on room air Laboratory data reveals a white blood count of 4.4 hemoglobin 12.4 platelet count 108 sodium 134 potassium 4.2 chloride 95 CO2 31 BUN 61 creatinine 2.33 troponin level was elevated at 0.183. Review of the chart revealed creatinine 2.2 on 10/16/2020 and 1.8 on 06/20/2020. BNP was 16,400 Testing in the emergency room revealed, chest x-ray done in the emergency room revealed evidence of congestive heart failure blunting of the bilateral costophrenic angles suggestive of mild bilateral pleural effusion Patient was admitted to medical floor for further evaluation and treatment, he was started on IV Lasix, cardiology consultation was requested. Past medical history is significant for history of chronic systolic congestive heart failure echocardiogram done in December 2018 revealed ejection fraction of 35-40%, patient also has a known history of atrial fibrillation maintained on coagulation with Eliquis, history of diffuse coronary artery disease patient had cardiac catheterization in 2016 at that time medication treatment was advised. History of AAA for which patient underwent stent grafting, patient also has a known history of hypertension, [id number] diabetes mellitus, benign prostatic hypertrophy, chronic kidney disease stage III, diverticulosis was previous history of lower gastrointestinal bleeding, degenerative disc disease with history of back surgery. Patient stated that he used to smoke he quit many years ago. On 04/21/2021 Patient was seen and examined on the medical floor, he is alert and oriented x 3 in no distress, patient is complaining of shortness of breath with activity otherwise he denies any complaints there is no fever or chills no headache or dizziness no chest pain no cough no nausea or vomiting no abdominal pain no diarrhea no blood in the stools no burning with urination no frequency or urgency and no hematuria, there is no weakness or numbness in any of the extremities no change in vision speech or gait. On 04/22/2021 Patient was seen and examined on the medical floor, he is alert and oriented x 3 in no distress, he denies any complaints there is no fever or chills no headache or dizziness no chest pain no shortness of breath no palpitation no cough no nausea or vomiting no abdominal pain no diarrhea no blood in the stools no burning with urination no frequency or urgency and no hematuria, there is no weakness or numbness in any of the extremities no change in vision speech or gait. Patient is comfortable while lying in bed he has significant shortness of breath with any activity On 04/23/2021 patient is alert and oriented 3 resting comfortably in bed. Tentative plans for AICD placement tomorrow per Dr. Jara. Patient maintained on dobutamine drip. Patient remains on IV Lasix. At this time patient denies chest pain or shortness of breath. Patient denies nausea vomiting or diarrhea. Patient denies any urinary burning or frequency. On 04/24/2021 patient is alert and oriented 3 in no distress, he denies any chest pain or palpitation no shortness of breath at rest he has shortness of breath with any activity. Tentative plans for AICD placement tomorrow per Dr. Jara. Patient maintained on dobutamine drip. Patient remains on IV Lasix. At this time patient denies chest pain or shortness of breath. Patient denies nausea vomiting or diarrhea. Patient denies any urinary burning or frequency. On 04/25/2021 patient is alert and oriented 3. Status post BIV ICD placement Dr. Esparza. Postop day 1. Patient remains on Lasix and dobutamine drip. Patient still having +2 pitting edema. Cardiology and nephrology services are following. Cardiothoracic surgery consulted for requirement of epicardial lead placement per Dr. Jara. At this time patient denies any chest pain or shortness of breath. Patient denies nausea vomiting or diarrhea. Patient den ies any urinary burning or frequency Objective - Vital Signs Vital signs: Vital Signs Temp 98.2 F 04/25/21 08:15 Pulse 57 L 04/25/21 08:15 Resp 18 04/25/21 08:15 BP 129/79 04/25/21 08:15 Pulse Ox 94 L 04/25/21 08:15 Intake & Output 04/24/21 04/25/21 04/25/21 18:59 06:59 18:59 Intake Total 206 550 240 Output Total 400 800 Balance -194 550 -560 Weight 102 kg Intake: IV 106 Intake, IV Titration 100 Amount Furosemide 100 mg In 100 Sodium Chloride 0.9% 90 ml @ 15 MG/HR 15 mls/hr IV .Q6H40M [facility] Rx#: [id number] Oral 0 550 240 Output: Urine 400 800 Other: Voiding Method Indwelling Catheter Indwelling Catheter - Exam In general patient is alert and oriented x 3 in no distress HEENT head normocephalic and atraumatic Neck is supple no JVD no goiter no lymphadenopathy no carotid bruit Chest examination few scattered rhonchi no wheezing Cardiac exam reveals irregular heart sounds S1 and S2 no gallops no murmurs Abdomen is soft nontender no organomegaly with normal bowel sounds Extremity exam reveals no edema no cyanosis or clubbing Neurological examination reveals no gross focal deficits - Labs CBC & Chem 7: 04/25/21 07:42 04/25/21 07:42 Labs: Abnormal Lab Results - Last 24 Hours (Table) 04/24/21 04/24/21 04/24/21 Range/Units 11:40 16:20 22:09 RBC (4.30-5.90) m/uL Hgb (13.0-17.5) gm/dL Hct (39.0-53.0) % Plt Count (150-450) k/uL Lymphocytes # (1.0-4.8) k/uL Sodium (137-145) mmol/L Chloride (98-107) mmol/L Carbon Dioxide (22-30) mmol/L BUN (9-20) mg/dL Creatinine (0.66-1.25) mg/dL Glucose (74-99) mg/dL POC Glucose (mg/dL) 179 H 135 H 132 H (75-99) mg/dL Total Protein (6.3-8.2) g/dL Albumin (3.5-5.0) g/dL 04/25/21 04/25/21 04/25/21 Range/Units 06:20 07:42 07:42 RBC 3.61 L (4.30-5.90) m/uL Hgb 11.5 L (13.0-17.5) gm/dL Hct 35.4 L (39.0-53.0) % Plt Count 112 L (150-450) k/uL Lymphocytes # 0.6 L (1.0-4.8) k/uL Sodium 129 L (137-145) mmol/L Chloride 88 L (98-107) mmol/L Carbon Dioxide 33 H (22-30) mmol/L BUN 92 H (9-20) mg/dL Creatinine 2.95 H (0.66-1.25) mg/dL Glucose 104 H (74-99) mg/dL POC Glucose (mg/dL) 111 H (75-99) mg/dL Total Protein 5.4 L (6.3-8.2) g/dL Albumin 3.0 L (3.5-5.0) g/dL Assessment and Plan Plan: Acute on chronic systolic congestive heart failure exacerbation Underlying history of coronary artery disease Underlying history of atrial fibrillation Bradycardia on presentation here he is status post AICD placement on 04/24/2021 Underlying history of hypertension Underlying history of chronic kidney disease stage III Underlying history of [id number] diabetes mellitus type 2 Underlying history of hyperlipidemia Underlying history of diverticulosis with previous history of gastrointestinal bleeding Underlying history of degenerative disc disease with chronic back pain Underlying history of benign prostatic hypertrophy At this time patient is admitted to telemetry floor Patient remains on IV Lasix and dobutamine drips Cardiology nephrology services are following Cardiothoracic surgery consulted for requirement of epicardial lead placement
--- NOTE | 2021-04-25 10:16 | P.PN ---
Subjective Patient is seen in follow-up for acute kidney injury on chronic kidney disease. Renal function worse from diuresis. Maintained on Lasix drip and dobutamine. Still quite edematous. Nonoliguric. Currently on 3 L nasal cannula. Oral intake is good. Underwent biventricular ICD placement yesterday. Vital signs are stable. General: The patient appeared well nourished and normally developed. HEENT: Head exam is unremarkable. Neck is without jugular venous distension. LUNGS: Breath sounds decreased. HEART: Rate and Rhythm are regular. ABDOMEN: Soft, no distention. EXTREMITITES: 2+ edema. Objective - Vital Signs Vital signs: Vital Signs Temp 98.2 F 04/25/21 08:15 Pulse 57 L 04/25/21 08:15 Resp 18 04/25/21 08:15 BP 129/79 04/25/21 08:15 Pulse Ox 94 L 04/25/21 08:15 Intake & Output 04/24/21 04/25/21 04/25/21 18:59 06:59 18:59 Intake Total 206 550 240 Output Total 400 800 Balance -194 550 -560 Weight 102 kg Intake: IV 106 Intake, IV Titration 100 Amount Furosemide 100 mg In 100 Sodium Chloride 0.9% 90 ml @ 15 MG/HR 15 mls/hr IV .Q6H40M [facility] Rx#: [id number] Oral 0 550 240 Output: Urine 400 800 Other: Voiding Method Indwelling Catheter Indwelling Catheter - Labs CBC & Chem 7: 04/25/21 07:42 04/25/21 07:42 Labs: Abnormal Lab Results - Last 24 Hours (Table) 04/24/21 04/24/21 04/24/21 Range/Units 11:40 16:20 22:09 RBC (4.30-5.90) m/uL Hgb (13.0-17.5) gm/dL Hct (39.0-53.0) % Plt Count (150-450) k/uL Lymphocytes # (1.0-4.8) k/uL Sodium (137-145) mmol/L Chloride (98-107) mmol/L Carbon Dioxide (22-30) mmol/L BUN (9-20) mg/dL Creatinine (0.66-1.25) mg/dL Glucose (74-99) mg/dL POC Glucose (mg/dL) 179 H 135 H 132 H (75-99) mg/dL Total Protein (6.3-8.2) g/dL Albumin (3.5-5.0) g/dL 04/25/21 04/25/21 04/25/21 Range/Units 06:20 07:42 07:42 RBC 3.61 L (4.30-5.90) m/uL Hgb 11.5 L (13.0-17.5) gm/dL Hct 35.4 L (39.0-53.0) % Plt Count 112 L (150-450) k/uL Lymphocytes # 0.6 L (1.0-4.8) k/uL Sodium 129 L (137-145) mmol/L Chloride 88 L (98-107) mmol/L Carbon Dioxide 33 H (22-30) mmol/L BUN 92 H (9-20) mg/dL Creatinine 2.95 H (0.66-1.25) mg/dL Glucose 104 H (74-99) mg/dL POC Glucose (mg/dL) 111 H (75-99) mg/dL Total Protein 5.4 L (6.3-8.2) g/dL Albumin 3.0 L (3.5-5.0) g/dL Assessment and Plan Plan: Assessment: 1. Acute kidney injury secondary to ATN secondary to cardiorenal syndrome. Renal function worsened diuresis. Creatinine 2.95 today. 2. Acute on chronic systolic CHF with ejection fraction of 30-35% with mild to moderate mitral regurgitation and severe pulmonary hypertension. 3. Volume overload. Improving with diuresis. 4. Diabetes mellitus. 5. Chronic kidney disease stage IIIb with baseline creatinine near 2. 6. Bradycardia. Status post biventricular ICD placement on 04/24/2021. 7. Hypervolemic hyponatremia. Plan: Maintain Lasix drip. Maintain metolazone. Dobutamine per cardiology. Low-salt diet. 1200 mL fluid restriction. Samsca 15 mg once today. Continue to monitor renal function and urine output.
--- NOTE | 2021-04-25 10:29 | P.PN ---
Subjective HISTORY OF PRESENTING ILLNESS Patient is a pleasant 80-year-old male with history of chronic systolic heart failure, chronic atrial fibrillation, diabetes mellitus type 2, hypertension, abdominal aortic aneurysm status post graft placement, COPD on home O2, severe pulmonary hypertension, non-ischemic cardiomyopathy and mild non-obstructive coronary artery disease. He is seen and examined sitting up in bed in mild respiratory distress. He continues to feel short of breath and fatigued. He denies chest pain, dizziness or palpitations. Blood pressure 136/64 heart rate 80 afebrile and maintaining oxygen saturation on nasal cannula. Laboratory data reviewed, sodium 137, potassium 4, creatinine 2.35 and magnesium 2.0. 24-hr urine output 2.1 liters. Heart rates are improved with beta blockers discontinued. No plans for PPM at this time. 04/25/2021 Pt is seen and examined sitting up in bed in no acute distress. He is eating breakfast comfortably. Dr. Esparza attempted BiV ICD placement yesterday, however was only successful at single lead placement due to anatomy. He continues to be maintained on lasix infusion, dobutamine infusion, hydralazine, losartan, zaroxolyn, cardura, atorvastatin and eliquis. Blood pressure 129/79 heart rate 57 afebrile and maintaining oxygen saturation on nasal cannula. 24- hour urine output 400 ml. Laboratory data reviewed, sodium 129, potassium 4.3, creatinine 2.95. Repeat chest xray last night revealed interval improvement in bibasilar atelectasis, mild pulmonary congestion and small right greater than left bilateral effusions that are improving. PHYSICAL EXAMINATION CONSTITUTIONAL: No apparent distress, somewhat somnolent, mildly tachypnic HEENT: Head is normocephalic. Pupils are equal, round. Sclerae anicteric. Mucous membranes of the mouth are moist. No JVD. No carotid bruit. CHEST EXAMINATION: Diminished bilaterally, no wheezes, rales or rhonchi. HEART EXAMINATION: Irregular rate and rhythm, +3/6 systolic murmur at the base, no gallops or rub. EXTREMITIES: 2+ peripheral pulses, 1+ lower extremity edema with weeping noted on the left and no calf tenderness. ASSESSMENT Acute on chronic systolic heart failure Chronic persistent atrial fibrillation Bradycardia with heart rates in the 40s. Beta wil on hold. Rule out sick sinus syndrome History of heavily calcified however non-obstructive coronary artery disease by heart catheterization 2016 Non-STEMI, rule out type I mechanism with chest pain occurring on presentation Hypertension Diabetes mellitus Acute kidney injury Pulmonary hypertension PLAN Dr. Esparza has recommended epicardial lead placement per CT surgery, we will place the consult this morning. Continue current medical regimen. Further recommendations to follow based on clinical course. Nurse Practitioner note has been reviewed, I agree with a documented findings and plan of care. Patient was seen and examined. Objective - Vital Signs Vital signs: Vital Signs Temp 98.2 F 04/25/21 08:15 Pulse 57 L 04/25/21 08:15 Resp 18 04/25/21 08:15 BP 129/79 04/25/21 08:15 Pulse Ox 94 L 04/25/21 08:15 Intake & Output 04/24/21 04/25/21 04/25/21 18:59 06:59 18:59 Intake Total 206 550 240 Output Total 400 800 Balance -194 550 -560 Weight 102 kg Intake: IV 106 Intake, IV Titration 100 Amount Furosemide 100 mg In 100 Sodium Chloride 0.9% 90 ml @ 15 MG/HR 15 mls/hr IV .Q6H40M [facility] Rx#: [id number] Oral 0 550 240 Output: Urine 400 800 Other: Voiding Method Indwelling Catheter Indwelling Catheter - Labs CBC & Chem 7: 04/25/21 07:42 04/25/21 07:42 Labs: Abnormal Lab Results - Last 24 Hours (Table) 04/24/21 04/24/21 04/24/21 Range/Units 11:40 16:20 22:09 Sodium (137-145) mmol/L Chloride (98-107) mmol/L Carbon Dioxide (22-30) mmol/L BUN (9-20) mg/dL Creatinine (0.66-1.25) mg/dL Glucose (74-99) mg/dL POC Glucose (mg/dL) 179 H 135 H 132 H (75-99) mg/dL 04/25/21 04/25/21 Range/Units 06:20 07:42 Sodium 129 L (137-145) mmol/L Chloride 88 L (98-107) mmol/L Carbon Dioxide 33 H (22-30) mmol/L BUN 92 H (9-20) mg/dL Creatinine 2.95 H (0.66-1.25) mg/dL Glucose 104 H (74-99) mg/dL POC Glucose (mg/dL) 111 H (75-99) mg/dL
[2021-04-25] MEDS ORDERED: TOLVAPTAN 15 MG 1/2 TABLET PO ONE (11:00)
[2021-04-25 11:35] LABS: Glucose,Whole Blood 130 mg/dL (75-99)
[2021-04-25] MEDS: HYDROcodone/APAP 7.5-325MG 1 EACH TAB PO PRN ×2 (11:39→21:21)
[2021-04-25 16:41] LABS: Glucose,Whole Blood 132 mg/dL (75-99)
--- NOTE | 2021-04-25 17:22 | P.GSCN ---
History of Present Illness Consult date: 04/25/21 Reason for Consult: Left ventricular epicardial lead placement Requesting physician: Bipin Esparza History of present illness: This is an 80-year-old gentleman who follows with Dr. Rai on an outpatient basis for his primary care needs. His past medical history significant for chronic systolic heart failure, cardiomyopathy with an ejection fraction 35-40%, chronic atrial fibrillation on Eliquis for anticoagulation, diabetes mellitus type 2, hypertension, hyperlipidemia, history of CVA, benign prostatic hypertro phy, chronic kidney disease stage IIIB with a baseline creatinine near to, COPD on home oxygen at 2 L nasal cannula, abdominal aortic aneurysm status post graft placement, coronary artery disease with previous PCI and remote history of smoking dependence. He presented to the emergency department here at [facility] on 04/19/2021 with complaints of increased shortness of breath, increased edema to his bilateral lower extremities and upper chest pain which radiated to his back. He denies any recent fever, chills, cough, hematemesis, hemoptysis, headache, syncope, nausea, vomiting, diarrhea or constipation. A 12-lead EKG was completed which showed atrial fibrillation with slow ventricular response with premature ventricular complexes, a right bundle branch block, Q waves inferiorly with a heart rate of 53 BPM. Initial laboratory results showed a WBC count 4.4, hemoglobin 12.4, hematocrit 38.5, platelets 108, INR 1.4, PT 14.2, sodium 134, BUN 61, creatinine 2.33, glucose 197, plasma lactic acid 1.3, and positive serial troponins as high as 0.183. Initial chest x-ray was completed which showed some congestive heart failure with pleural fluid. Due to the patient's presenting symptoms and positive troponins a consult was placed to Dr. Montoya from cardiology for further evaluation and treatment recommendations. Due to the patient's bradycardia is beta blockers were subsequently held and he was seen by Dr. Esparza from electrophysiology. On 04/24/2021 the patient underwent a placement of a bi-V ICD generator with RV lead placement performed by Dr. Esparza, although due to some challenging anatomy the patient's LV lead placement was attempted but was unsuccessfully placed. Subsequently, due to the challenge of the LV lead placement Dr. Reymundo Aleman from cardiothoracic surgery was consulted for an epicardial LV lead placement. Review of Systems A 14 point review of systems was discussed and negative except as mentioned in the HPI. Past Medical History Past Medical History: Atrial Fibrillation, Coronary Artery Disease (CAD), Chest Pain / Angina, Heart Failure, COPD, CVA/TIA, Diabetes Mellitus, GERD/Reflux, Hearing Disorder / Deafness, Hyperlipidemia, Hypertension, Prostate Disorder, Renal Disease, Thyroid Disorder Additional Past Medical History / Comment(s): AAA(had sx), at time has difficulty swallowing pills History of Any Multi-Drug Resistant Organisms: None Reported Past Surgical History: Back Surgery, Heart Catheterization, Orthopedic Surgery Additional Past Surgical History / Comment(s): bilat carpal tunnel, sherrie knee replacments, lt rotator cuff Past Anesthesia/Blood Transfusion Reactions: No Reported Reaction Additional Past Anesthesia/Blood Transfusion Reaction / Comm: Clausterphobic. stated has never recieved any blood transfusions Type of Cardiac Device: AICD Device Placement Date:: 04/24/2021 Past Psychological History: No Psychological Hx Reported Smoking Status: Former smoker Past Alcohol Use History: None Reported Past Drug Use History: None Reported - Past Family History Father Family Medical History: Cancer Additional Family Medical History / Comment(s): prostate cancer Mother Family Medical History: CVA/TIA Sister(s) Family Medical History: Cancer Additional Family Medical History / Comment(s): heart problems but unsure of what exactly Medications and Allergies Home Medications Medication Instructions Recorded Confirmed Type Terazosin HCl 5 mg PO BID 12/29/15 04/20/21 History glipiZIDE XL [Glucotrol XL] 10 mg PO DAILY #30 tab 01/01/16 04/20/21 Rx Hydrocodone/Acetaminophen 1 tab PO QID PRN 05/22/16 04/20/21 History [Hydrocodone-Acetamin 7.5-325] Cyanocobalamin (Vitamin B-12) 1,000 mcg PO DAILY 04/26/17 04/20/21 History [Vitamin B-12] Docusate [Colace] 200 mg PO BID 04/26/17 04/20/21 History bisacodyL [Dulcolax] 5 mg PO BID 04/26/17 04/20/21 History Cholecalciferol [Vitamin D3 (25 1,000 unit PO HS 05/10/18 04/20/21 History Mcg = 1000 Iu)] Apixaban [Eliquis] 5 mg PO BID #60 tab 05/13/18 04/20/21 Rx Atorvastatin [Lipitor] 20 mg PO HS #30 tab 05/13/18 04/20/21 Rx Cholecalciferol [Vitamin D3 (25 2,000 unit PO DAILY 01/09/19 04/20/21 History Mcg = 1000 Iu)] Furosemide [Lasix] 80 mg PO BID@0800,1200 01/09/19 04/20/21 History Losartan Potassium [Cozaar] 25 mg PO DAILY 01/09/19 04/20/21 History Magnesium Oxide [Mag-Ox] 500 mg PO BID 01/09/19 04/20/21 History Omeprazole [PriLOSEC] 40 mg PO DAILY 01/09/19 04/20/21 History metOLazone [Zaroxolyn] 2.5 mg PO DAILY PRN 01/09/19 04/20/21 History Metoprolol Tartrate [Lopressor] 12.5 mg PO DAILY 04/20/21 04/20/21 History Sildenafil [Revatio] 40 mg PO BID 04/20/21 04/20/21 History diphenhydrAMINE [Benadryl] 25 mg PO BID 04/20/21 04/20/21 History Allergies Allergy/AdvReac Type Severity Reaction Status Date / Time Penicillins Allergy Unknown Verified 04/20/21 08:14 shellfish derived [Shellfish] Allergy Anaphylaxis Verified 04/20/21 08:14 Surgical - Exam Vital Signs Temp Pulse Resp BP Pulse Ox 98.1 F 49 L 20 118/63 92 L 04/19/21 23:35 04/19/21 23:35 04/19/21 23:35 04/19/21 23:35 04/19/21 23:35 CONSTITUTIONAL: Sitting up to the bedside chair on the cardiac stepdown unit, appears comfortable, cooperative, no apparent acute distress. HEENT: Neck is supple, no JVD, no lymphadenopathy. RESPIRATORY: Lungs sounds with few scattered crackles throughout, diminished to his bilateral bases. Respirations are symmetrical and nonlabored. Currently on 5 L nasal cannula with oxygen saturations 96%. +2 edema to his bilateral lower extremities. No calf tenderness. Mildly tachpynic. CARDIOVASCULAR: Irregular rhythm and controlled rate. S1 and S2 present, negative for S3, or gallop. Positive systolic murmur 3/6 heard best to his left sternal border. GASTROINTESTINAL: Abdomen soft, nontender, nondistended. Hypoactive bowel sounds present 4 quadrants. Tolerating diet. Passing flatus. No guarding or rigidity. GENITOURINARY: Lai catheter present for accurate I&O, clear antonietta urine. INTEGUMENTARY: Skin is warm and dry with no evidence of clubbing or cyanosis. NEUROLOGIC: Cranial nerves II through XII intact. No focal deficits. MUSKULOSKELETAL: Able to move all extremities, strength equal bilaterally, generalized weakness. PSYCHIATRIC: Alert and oriented to person place and time, appropriate affect, intact judgment and insight. Results - Labs 04/25/21 07:42 04/25/21 07:42 Abnormal Lab Results - Last 24 Hours (Table) 04/24/21 04/25/21 04/25/21 Range/Units 22:09 06:20 07:42 RBC (4.30-5.90) m/uL Hgb (13.0-17.5) gm/dL Hct (39.0-53.0) % Plt Count (150-450) k/uL Lymphocytes # (1.0-4.8) k/uL Sodium 129 L (137-145) mmol/L Chloride 88 L (98-107) mmol/L Carbon Dioxide 33 H (22-30) mmol/L BUN 92 H (9-20) mg/dL Creatinine 2.95 H (0.66-1.25) mg/dL Glucose 104 H (74-99) mg/dL POC Glucose (mg/dL) 132 H 111 H (75-99) mg/dL Total Protein 5.4 L (6.3-8.2) g/dL Albumin 3.0 L (3.5-5.0) g/dL 04/25/21 04/25/21 Range/Units 07:42 11:34 RBC 3.61 L (4.30-5.90) m/uL Hgb 11.5 L (13.0-17.5) gm/dL Hct 35.4 L (39.0-53.0) % Plt Count 112 L (150-450) k/uL Lymphocytes # 0.6 L (1.0-4.8) k/uL Sodium (137-145) mmol/L Chloride (98-107) mmol/L Carbon Dioxide (22-30) mmol/L BUN (9-20) mg/dL Creatinine (0.66-1.25) mg/dL Glucose (74-99) mg/dL POC Glucose (mg/dL) 130 H (75-99) mg/dL Total Protein (6.3-8.2) g/dL Albumin (3.5-5.0) g/dL Diabetes panel 04/25/21 Range/Units 07:42 Sodium 129 L (137-145) mmol/L Potassium 4.3 (3.5-5.1) mmol/L Chloride 88 L (98-107) mmol/L Carbon Dioxide 33 H (22-30) mmol/L BUN 92 H (9-20) mg/dL Creatinine 2.95 H (0.66-1.25) mg/dL Glucose 104 H (74-99) mg/dL Calcium 8.9 (8.4-10.2) mg/dL AST 45 (17-59) U/L ALT 25 (4-49) U/L Alkaline Phosphatase 73 (38-126) U/L Total Protein 5.4 L (6.3-8.2) g/dL Albumin 3.0 L (3.5-5.0) g/dL Calcium panel 04/25/21 Range/Units 07:42 Calcium 8.9 (8.4-10.2) mg/dL Albumin 3.0 L (3.5-5.0) g/dL Pituitary panel 04/25/21 Range/Units 07:42 Sodium 129 L (137-145) mmol/L Potassium 4.3 (3.5-5.1) mmol/L Chloride 88 L (98-107) mmol/L Carbon Dioxide 33 H (22-30) mmol/L BUN 92 H (9-20) mg/dL Creatinine 2.95 H (0.66-1.25) mg/dL Glucose 104 H (74-99) mg/dL Calcium 8.9 (8.4-10.2) mg/dL Adrenal panel 04/25/21 Range/Units 07:42 Sodium 129 L (137-145) mmol/L Potassium 4.3 (3.5-5.1) mmol/L Chloride 88 L (98-107) mmol/L Carbon Dioxide 33 H (22-30) mmol/L BUN 92 H (9-20) mg/dL Creatinine 2.95 H (0.66-1.25) mg/dL Glucose 104 H (74-99) mg/dL Calcium 8.9 (8.4-10.2) mg/dL Total Bilirubin 0.7 (0.2-1.3) mg/dL AST 45 (17-59) U/L ALT 25 (4-49) U/L Alkaline Phosphatase 73 (38-126) U/L Total Protein 5.4 L (6.3-8.2) g/dL Albumin 3.0 L (3.5-5.0) g/dL - Imaging Chest x-ray: report reviewed, image reviewed EKG: image reviewed Assessment and Plan Assessment: 1. Bradycardia requiring holding of his beta blockers, status post insertion of by V ICD with successful placement of RV lead 2. Acute on chronic congestive heart failure, systolic with an ejection fraction of 35-40% 3. Chronic atrial fibrillation on Eliquis for anticoagulation 4. Non-ST elevated myocardial infarction this admission with elevated troponins 5. History of coronary artery disease 6. Hypertension 7. Hyperlipidemia 8. Diabetes mellitus 9. Benign prostatic hypertrophy 10. History of CVA 11. COPD with home oxygen use 2 L nasal cannula 12. GERD Plan: The patient was seen and examined at his bedside on the cardiac stepdown unit. His chart and diagnostics were reviewed. He was seen and examined by Dr. Reymundo Aleamn. The patient is currently considered a high risk surgical candidate at this time. He will need to be optimized medically and be scheduled in the office to see Dr. Aleman as an outpatient basis for further discussion of LV epicardial lead placement. Dr. Aleman discussed with Dr. Esparza and Dr. Aleman also discussed this with the patient. Medical management other comorbidities per primary care service. Once the patient is ready to be discharged home we will make a follow-up appointment for him to see Dr. Aleman in the office for further discussion regarding the LV epicardial lead placement. Thank you Dr. Esparza for this consult and we look forward to working with you with this patient. Time with Patient: Greater than 30
--- NOTE | 2021-04-25 17:39 | ECHOF ---
Referral Reason:assess aortic valve MEASUREMENTS -------- HEIGHT: 170.2 cm WEIGHT: 101.6 kg BP: 139/64 Ao Diam: 3.4 cm (2.0 - 3.7) AV Cusp: 1.8 cm (1.5 - 2.6) AV maxP.40 mmHg AV meanP.00 mmHg RAP: 5.00 mmHg RVSP: 58.88 mmHg FINDINGS -------- Atrial fibrillation. Pacerwire seen in RV and RA. Limited Study Overall left ventricular systolic function is moderate-severely impaired with, an EF between 30 - 35 %. Lumason used There is moderate aortic valve sclerosis. There is mild aortic stenosis present. Peak/mean gradie nt across the Aortic Valve is 32.40mmHg / 19.00mmHg. Moderate mitral annular calcification present. Moderate mitral regurgitation is present. [id number] tricuspid regurgitation present. There is severe pulmonary hypertension. The rig ht ventricular systolic pressure, as measured by Doppler, is 58.88mmHg. The pulmonic valve was not well visualized. There is a small pericardial effusion located near the left ventricle. CONCLUSIONS -------- 1. Atrial fibrillation. 2. Pacerwire seen in RV and RA. 3. Limited Study 4. Overall left ventricular systolic function is moderate-severely impaired with, an EF between 30 - 35 %. 5. Lumason used 6. There is moderate aortic valve sclerosis. 7. There is mild aortic stenosis present. 8. Peak/mean gradient across the Aortic Valve is 32.40mmHg / 19.00mmHg. 9. Moderate mitral annular calcification present. 10. Moderate mitral regurgitation is present. 11. Wkiw-we-dzbfnybv tricuspid regurgitation present. 12. There is severe pulmonary hypertension. 13. There is a small pericardial effusion located near the left ventricle. CARD RUNNER: Penny Obrien RDCS
[2021-04-25 20:28] LABS: Glucose,Whole Blood 173 mg/dL (75-99)
[2021-04-25] MEDS: APIXABAN 2.5 MG TABLET PO SCH (20:41)
[2021-04-25] MEDS: ATORVASTATIN 20 MG TAB PO SCH (20:41)
[2021-04-26] MEDS: HYDROcodone/APAP 7.5-325MG 1 EACH TAB PO PRN ×2 (03:25→22:57)
[2021-04-26] MEDS: FUROSEMIDE 100 MG in SODIUM CHLORIDE 0.9% 90 ML IV SCH ×2 (05:59→16:41)
[2021-04-26] MEDS: DOBUTamine DRIP 500 MG in DEXTROSE/WATER 1 250ML.BAG IV SCH (06:00)
[2021-04-26 06:10] LABS: Glucose,Whole Blood 140 mg/dL (75-99)
[2021-04-26] MEDS: INSULIN ASPART (NovoLOG) 100 UNIT/ML VIAL SQ SCH ×4 (06:14→20:20)
[2021-04-26] MEDS: CYANOCOBALAMIN 500 MCG TAB PO SCH (09:01)
[2021-04-26] MEDS: glipiZIDE 5 MG TAB PO SCH ×2 (09:01→20:20)
[2021-04-26] MEDS: APIXABAN 2.5 MG TABLET PO SCH ×2 (09:01→20:20)
[2021-04-26] MEDS: diphenhydrAMINE 25 MG CAP PO SCH ×2 (09:01→20:20)
[2021-04-26] MEDS: DOXAZOSIN 4 MG TAB PO SCH (09:01)
[2021-04-26] MEDS: DOCUSATE 100 MG CAP PO SCH ×2 (09:01→20:20)
[2021-04-26] MEDS: bisacodyL 5 MG TABLET.DR PO SCH ×2 (09:01→20:20)
[2021-04-26] MEDS: CHOLECALCIFEROL 25 MCG (1000 IU) TABLET PO SCH ×2 (09:01→20:20)
[2021-04-26] MEDS: SILDENAFIL 20 MG TAB PO SCH ×2 (09:02→21:15)
[2021-04-26] MEDS: MAGNESIUM OXIDE 400 MG TAB PO SCH ×2 (09:02→20:20)
[2021-04-26] MEDS: hydrALAZINE HCL 25 MG TAB PO SCH ×4 (09:02→21:16)
[2021-04-26] MEDS: PANTOPRAZOLE 40 MG TABLET PO SCH (09:02)
[2021-04-26] MEDS: metOLazone 2.5 MG TAB PO SCH (09:02)
[2021-04-26] MEDS: LOSARTAN 25 MG TAB PO SCH (09:03)
[2021-04-26 09:46] LABS: Basophils % (A) 0 %; Eosinophils # (A) 0.2 k/uL (0-0.7); Eosinophils % (A) 4 %; HCT 37.7 % (39.0-53.0); HGB 11.8 gm/dL (13.0-17.5); Hypochromasia Slight; Lymphocytes # (A) 0.5 k/uL (1.0-4.8); Lymphocytes % (A) 12 %; MCH 30.6 pg (25.0-35.0); MCHC 31.3 g/dL (31.0-37.0); MCV 97.7 fL (80.0-100.0); Mean Platelet Volume 9.4; Monocytes # (A) 0.5 k/uL (0-1.0); Monocytes % (A) 11 %; Neutrophils # (A) 3.1 k/uL (1.3-7.7); Neutrophils % (A) 71 %; Platelet Count 112 k/uL (150-450); RBC 3.86 m/uL (4.30-5.90); RDW 14.3 % (11.5-15.5); WBC 4.4 k/uL (3.8-10.6)
[2021-04-26 09:57] LABS: Albumin 3.1 g/dL (3.5-5.0); Calcium 8.9 mg/dL (8.4-10.2); Magnesium 2.1 mg/dL (1.6-2.3); Potassium 4.6 mmol/L (3.5-5.1); Total Bilirubin 0.9 mg/dL (0.2-1.3); Total Protein 5.4 g/dL (6.3-8.2)
[2021-04-26 11:53] LABS: Glucose,Whole Blood 149 mg/dL (75-99)
--- NOTE | 2021-04-26 12:11 | PN ---
PROGRESS NOTE Patient is seen for followup for hyponatremia and acute kidney injury. The patient is significantly hypervolemic and he is currently being diuresed. Maintained on Lasix drip at 10 mg an hour along with dobutamine. Renal function has been worse over the last couple of days. The patient remains with significant edema, however, he denies severe shortness of breath. PHYSICAL EXAMINATION: On examination today, blood pressure 134/98, heart rate 63 per minute, he is afebrile. Examination of the heart S1, S2. Examination of the lungs, bilateral breath sounds are heard. Abdomen is soft, nontender. Morbidly obese. Examination of lower extremities shows edema 2 to 3+ bilaterally. REDYE HAND exam grossly intact. LAB: Show sodium 127, potassium 4.6, chloride 87, BUN 98, creatinine 3.3, hemoglobin 11.8 g/dL. ASSESSMENT: 1. Acute kidney injury, cardiorenal, currently being diuresed. Serum creatinine continues to increase. We will continue with the Lasix drip for now as patient has significant edema. He is not hypotensive. His weight has actually gone up by 3 kg if this is accurate. 2. Hypervolemic hyponatremia status post one dose of tolvaptan yesterday. 3. Chronic kidney disease stage 3B. Baseline creatinine around 2. 4. Bradycardia status post biventricular ICD placement on 04/24/2021. 5. Cardiomyopathy, ejection fraction 30-35%. 6. Acute on chronic systolic congestive heart failure with mild to moderate mitral regurgitation and severe pulmonary hypertension. PLAN: Continue with Lasix drip. Continue to minimize fluids. Repeat labs in a.m. and continue to check daily weights. I will repeat another dose of Samsca today. MMODL / IJN: [id number] /
--- NOTE | 2021-04-26 12:42 | P.PN ---
Subjective Progress Note Date: 04/24/21 Berny Linares, is an 80 year old male who presented to [facility] emergency room with a chief complaint of worsening shortness of breath and upper chest pain, patient stated that his symptoms started 1 day prior to presentation and has been worsening, he was having difficulty breathing when he was trying to lie down, he was also having worsening lower extremity edema, on the day of presentation patient started having upper chest pain radiating to the back of his neck and to both shoulders, at that point he decided to come to emergency room. He was evaluated in the emergency room vital examination on presentation revealed a temperature of 98.1 pulse 49 respiration 20 blood pressure 118/62 pulse ox 92% on room air Laboratory data reveals a white blood count of 4.4 hemoglobin 12.4 platelet count 108 sodium 134 potassium 4.2 chloride 95 CO2 31 BUN 61 creatinine 2.33 troponin level was elevated at 0.183. Review of the chart revealed creatinine 2.2 on 10/16/2020 and 1.8 on 06/20/2020. BNP was 16,400 Testing in the emergency room revealed, chest x-ray done in the emergency room revealed evidence of congestive heart failure blunting of the bilateral costophrenic angles suggestive of mild bilateral pleural effusion Patient was admitted to medical floor for further evaluation and treatment, he was started on IV Lasix, cardiology consultation was requested. Past medical history is significant for history of chronic systolic congestive heart failure echocardiogram done in December 2018 revealed ejection fraction of 35-40%, patient also has a known history of atrial fibrillation maintained on coagulation with Eliquis, history of diffuse coronary artery disease patient had cardiac catheterization in 2016 at that time medication treatment was advised. History of AAA for which patient underwent stent grafting, patient also has a known history of hypertension, [id number] diabetes mellitus, benign prostatic hypertrophy, chronic kidney disease stage III, diverticulosis was previous history of lower gastrointestinal bleeding, degenerative disc disease with history of back surgery. Patient stated that he used to smoke he quit many years ago. On 04/21/2021 Patient was seen and examined on the medical floor, he is alert and oriented x 3 in no distress, patient is complaining of shortness of breath with activity otherwise he denies any complaints there is no fever or chills no headache or dizziness no chest pain no cough no nausea or vomiting no abdominal pain no diarrhea no blood in the stools no burning with urination no frequency or urgency and no hematuria, there is no weakness or numbness in any of the extremities no change in vision speech or gait. On 04/22/2021 Patient was seen and examined on the medical floor, he is alert and oriented x 3 in no distress, he denies any complaints there is no fever or chills no headache or dizziness no chest pain no shortness of breath no palpitation no cough no nausea or vomiting no abdominal pain no diarrhea no blood in the stools no burning with urination no frequency or urgency and no hematuria, there is no weakness or numbness in any of the extremities no change in vision speech or gait. Patient is comfortable while lying in bed he has significant shortness of breath with any activity On 04/23/2021 patient is alert and oriented 3 resting comfortably in bed. Tentative plans for AICD placement tomorrow per Dr. Jara. Patient maintained on dobutamine drip. Patient remains on IV Lasix. At this time patient denies chest pain or shortness of breath. Patient denies nausea vomiting or diarrhea. Patient denies any urinary burning or frequency. On 04/24/2021 patient is alert and oriented 3 in no distress, he denies any chest pain or palpitation no shortness of breath at rest he has shortness of breath with any activity. Tentative plans for AICD placement tomorrow per Dr. Jara. Patient maintained on dobutamine drip. Patient remains on IV Lasix. At this time patient denies chest pain or shortness of breath. Patient denies nausea vomiting or diarrhea. Patient denies any urinary burning or frequency. Objective - Vital Signs Vital signs: Vital Signs Temp 98.2 F 04/24/21 12:00 Pulse 52 L 04/24/21 12:00 Resp 16 04/24/21 12:00 BP 115/71 04/24/21 12:00 Pulse Ox 91 L 04/24/21 12:00 Intake & Output 04/24/21 04/24/21 04/25/21 06:59 18:59 06:59 Intake Total 56 Output Total 400 400 Balance -400 -344 Weight 102.2 kg Intake: IV 56 Oral 0 Output: Urine 400 400 Other: Voiding Method Indwelling Catheter Indwelling Catheter - Exam In general patient is alert and oriented x 3 in no distress HEENT head normocephalic and atraumatic Neck is supple no JVD no goiter no lymphadenopathy no carotid bruit Chest examination few scattered rhonchi no wheezing Cardiac exam reveals irregular heart sounds S1 and S2 no gallops no murmurs Abdomen is soft nontender no organomegaly with normal bowel sounds Extremity exam reveals no edema no cyanosis or clubbing Neurological examination reveals no gross focal deficits - Labs CBC & Chem 7: 04/24/21 05:50 04/24/21 05:50 Labs: Abnormal Lab Results - Last 24 Hours (Table) 04/23/21 04/24/21 04/24/21 Range/Units 20:10 05:50 05:50 RBC 3.73 L (4.30-5.90) m/uL Hgb 11.9 L (13.0-17.5) gm/dL Hct 37.0 L (39.0-53.0) % Plt Count 109 L (150-450) k/uL Lymphocytes # 0.3 L (1.0-4.8) k/uL Sodium 130 L (137-145) mmol/L Chloride 89 L (98-107) mmol/L Carbon Dioxide 34 H (22-30) mmol/L BUN 80 H (9-20) mg/dL Creatinine 2.42 H (0.66-1.25) mg/dL Glucose 225 H (74-99) mg/dL POC Glucose (mg/dL) 284 H (75-99) mg/dL Total Protein 5.3 L (6.3-8.2) g/dL Albumin 2.9 L (3.5-5.0) g/dL 04/24/21 04/24/21 04/24/21 Range/Units 06:09 11:40 16:20 RBC (4.30-5.90) m/uL Hgb (13.0-17.5) gm/dL Hct (39.0-53.0) % Plt Count (150-450) k/uL Lymphocytes # (1.0-4.8) k/uL Sodium (137-145) mmol/L Chloride (98-107) mmol/L Carbon Dioxide (22-30) mmol/L BUN (9-20) mg/dL Creatinine (0.66-1.25) mg/dL Glucose (74-99) mg/dL POC Glucose (mg/dL) 208 H 179 H 135 H (75-99) mg/dL Total Protein (6.3-8.2) g/dL Albumin (3.5-5.0) g/dL Assessment and Plan Plan: Acute on chronic systolic congestive heart failure exacerbation Underlying history of coronary artery disease Underlying history of atrial fibrillation Bradycardia on presentation Underlying history of hypertension Underlying history of chronic kidney disease stage III Underlying history of xah-dnuhysc-ajskyrkoc diabetes mellitus type 2 Underlying history of hyperlipidemia Underlying history of diverticulosis with previous history of gastrointestinal bleeding Underlying history of degenerative disc disease with chronic back pain Underlying history of benign prostatic hypertrophy At this time patient is admitted to telemetry floor Maintained on IV Lasix IV dopamine drip was added by cardiology And for AICD placement on 04/24/[address] Esparza Home medications reviewed and reordered Metoprolol is held due to bradycardia on presentation Cardiology consultation was requested Nephrology consultation was also requested in the emergency room We will follow closely
--- NOTE | 2021-04-26 13:09 | P.PN ---
Subjective Progress Note Date: 04/26/21 HISTORY OF PRESENT ILLNESS: Patient is a pleasant 80-year-old male with history of chronic systolic heart failure, chronic atrial fibrillation, diabetes mellitus type 2, hypertension, abdominal aortic aneurysm status post graft placement, COPD on home O2, severe pulmonary hypertension, non-ischemic cardiomyopathy and mild non-obstructive coronary artery disease. He is seen and examined sitting up in bed in mild respiratory distress. He continues to feel short of breath and fatigued. He denies chest pain, dizziness or palpitations. Blood pressure 136/64 heart rate 80 afebrile and maintaining oxygen saturation on nasal cannula. Laboratory data reviewed, sodium 137, potassium 4, creatinine 2.35 and magnesium 2.0. 24-hr urine output 2.1 liters. Heart rates are improved with beta blockers discontinued. No plans for PPM at this time. 04/25/2021 Pt is seen and examined sitting up in bed in no acute distress. He is eating breakfast comfortably. Dr. Esparza attempted BiV ICD placement yesterday, however was only successful at single lead placement due to anatomy. He keaton nues to be maintained on lasix infusion, dobutamine infusion, hydralazine, losartan, zaroxolyn, cardura, atorvastatin and eliquis. Blood pressure 129/79 heart rate 57 afebrile and maintaining oxygen saturation on nasal cannula. 24- hour urine output 400 ml. Laboratory data reviewed, sodium 129, potassium 4.3, creatinine 2.95. Repeat chest xray last night revealed interval improvement in bibasilar atelectasis, mild pulmonary congestion and small right greater than left bilateral effusions that are improving. 04/26/2021 Patient examined this morning. Patient is sitting up on the side of the bed. He denies chest pain or pressure. He reports shortness of breath. He remains on IV Lasix and IV dobutamine. He has been evaluated by [facility] thoracic surgery who have deemed the patient high risk for surgery and recommend outpatient follow-up for further evaluation. Patient's creatinine increased today to 3.3, up from 2.95. PHYSICAL EXAM: VITAL SIGNS: Reviewed. GENERAL: Well-developed in no acute distress. NECK: Supple. No JVD or thyromegaly LUNGS: Respirations even and unlabored. Lungs diminished bilaterally. HEART: Irregular rate and rhythm. S1 and S2 heard. Systolic murmur noted. EXTREMITIES: Normal range of motion. No clubbing or cyanosis. Peripheral pulses intact. 2-3 plus bilateral lower extremity edema ASSESSMENT: Acute on chronic systolic heart failure Chronic persistent atrial fibrillation Bradycardia with heart rates in the 40s. Beta wil on hold. Rule out sick sinus syndrome History of heavily calcified however non-obstructive coronary artery disease by heart catheterization 2015 Non-STEMI, rule out type I mechanism with chest pain occurring on presentation Hypertension Diabetes mellitus Acute kidney injury Pulmonary hypertension PLAN: Continue IV Lasix and IV dobutamine Continue additional cardiac medications Nephrology following Continue to monitor kidney function Patient to follow up outpatient with Dr. Aleman for possible LV epicardial lead placement Nurse practitioner note has been reviewed by physician. Signing provider agrees with the documented findings, assessment, and plan of care. Objective - Vital Signs Vital signs: Vital Signs Temp 98.2 F 04/26/21 11:06 Pulse 55 L 04/26/21 11:06 Resp 22 04/26/21 11:06 BP 154/62 04/26/21 11:06 Pulse Ox 97 04/26/21 11:06 Intake & Output 04/25/21 04/26/21 04/26/21 18:59 06:59 18:59 Intake Total 900 840.76 240 Output Total 1050 600 Balance -150 240.76 240 Weight 105 kg Intake: Intake, IV Titration 300.76 Amount DOBUTamine DRIP 500 mg In 123.76 Dextrose/Water 1 250ml. bag @ 2.5 MCG/KG/MIN 7.8 mls/hr IV .Q24H [facility] Rx#: [id number] Furosemide 100 mg In 177 Sodium Chloride 0.9% 90 ml @ 10 MG/HR 10 mls/hr IV .Q10H [facility] Rx#: [id number] Oral 900 540 240 Output: Urine 1050 600 Other: Voiding Method Indwelling Catheter Indwelling Catheter Indwelling Catheter - Labs CBC & Chem 7: 04/26/21 09:23 04/26/21 09:23 Labs: Abnormal Lab Results - Last 24 Hours (Table) 04/25/21 04/25/21 04/25/21 Range/Units 16:20 16:40 20:26 RBC (4.30-5.90) m/uL Hgb (13.0-17.5) gm/dL Hct (39.0-53.0) % Plt Count (150-450) k/uL Lymphocytes # (1.0-4.8) k/uL Sodium 128 L (137-145) mmol/L Chloride (98-107) mmol/L BUN (9-20) mg/dL Creatinine (0.66-1.25) mg/dL Glucose (74-99) mg/dL POC Glucose (mg/dL) 132 H 173 H (75-99) mg/dL Total Protein (6.3-8.2) g/dL Albumin (3.5-5.0) g/dL 04/26/21 04/26/21 04/26/21 Range/Units 06:08 09:23 09:23 RBC 3.86 L (4.30-5.90) m/uL Hgb 11.8 L (13.0-17.5) gm/dL Hct 37.7 L (39.0-53.0) % Plt Count 112 L (150-450) k/uL Lymphocytes # 0.5 L (1.0-4.8) k/uL Sodium 127 L (137-145) mmol/L Chloride 87 L (98-107) mmol/L BUN 98 H (9-20) mg/dL Creatinine 3.30 H (0.66-1.25) mg/dL Glucose 156 H (74-99) mg/dL POC Glucose (mg/dL) 140 H (75-99) mg/dL Total Protein 5.4 L (6.3-8.2) g/dL Albumin 3.1 L (3.5-5.0) g/dL 04/26/21 Range/Units 11:49 RBC (4.30-5.90) m/uL Hgb (13.0-17.5) gm/dL Hct (39.0-53.0) % Plt Count (150-450) k/uL Lymphocytes # (1.0-4.8) k/uL Sodium (137-145) mmol/L Chloride (98-107) mmol/L BUN (9-20) mg/dL Creatinine (0.66-1.25) mg/dL Glucose (74-99) mg/dL POC Glucose (mg/dL) 149 H (75-99) mg/dL Total Protein (6.3-8.2) g/dL Albumin (3.5-5.0) g/dL
[2021-04-26] MEDS ORDERED: TOLVAPTAN 15 MG 1/2 TABLET PO ONE (14:00)
--- NOTE | 2021-04-26 14:19 | P.PN ---
Subjective Progress Note Date: 04/26/21 Berny Linares, is an 80 year old male who presented to [facility] emergency room with a chief complaint of worsening shortness of breath and upper chest pain, patient stated that his symptoms started 1 day prior to presentation and has been worsening, he was having difficulty breathing when he was trying to lie down, he was also having worsening lower extremity edema, on the day of presentation patient started having upper chest pain radiating to the back of his neck and to both shoulders, at that point he decided to come to emergency room. He was evaluated in the emergency room vital examination on presentation revealed a temperature of 98.1 pulse 49 respiration 20 blood pressure 118/62 pulse ox 92% on room air Laboratory data reveals a white blood count of 4.4 hemoglobin 12.4 platelet count 108 sodium 134 potassium 4.2 chloride 95 CO2 31 BUN 61 creatinine 2.33 troponin level was elevated at 0.183. Review of the chart revealed creatinine 2.2 on 10/16/2020 and 1.8 on 06/20/2020. BNP was 16,400 Testing in the emergency room revealed, chest x-ray done in the emergency room revealed evidence of congestive heart failure blunting of the bilateral costophrenic angles suggestive of mild bilateral pleural effusion Patient was admitted to medical floor for further evaluation and treatment, he was started on IV Lasix, cardiology consultation was requested. Past medical history is significant for history of chronic systolic congestive heart failure echocardiogram done in December 2018 revealed ejection fraction of 35-40%, patient also has a known history of atrial fibrillation maintained on coagulation with Eliquis, history of diffuse coronary artery disease patient had cardiac catheterization in 2016 at that time medication treatment was advised. History of AAA for which patient underwent stent grafting, patient also has a known history of hypertension, [id number]-kahzukxoy diabetes mellitus, benign prostatic hypertrophy, chronic kidney disease stage III, diverticulosis was previous history of lower gastrointestinal bleeding, degenerative disc disease with history of back surgery. Patient stated that he used to smoke he quit many years ago. On 04/21/2021 Patient was seen and examined on the medical floor, he is alert and oriented x 3 in no distress, patient is complaining of shortness of breath with activity otherwise he denies any complaints there is no fever or chills no headache or dizziness no chest pain no cough no nausea or vomiting no abdominal pain no diarrhea no blood in the stools no burning with urination no frequency or urgency and no hematuria, there is no weakness or numbness in any of the extremities no change in vision speech or gait. On 04/22/2021 Patient was seen and examined on the medical floor, he is alert and oriented x 3 in no distress, he denies any complaints there is no fever or chills no headache or dizziness no chest pain no shortness of breath no palpitation no cough no nausea or vomiting no abdominal pain no diarrhea no blood in the stools no burning with urination no frequency or urgency and no hematuria, there is no weakness or numbness in any of the extremities no change in vision speech or gait. Patient is comfortable while lying in bed he has significant shortness of breath with any activity On 04/23/2021 patient is alert and oriented 3 resting comfortably in bed. Tentative plans for AICD placement tomorrow per Dr. Jara. Patient maintained on dobutamine drip. Patient remains on IV Lasix. At this time patient denies chest pain or shortness of breath. Patient denies nausea vomiting or diarrhea. Patient denies any urinary burning or frequency. On 04/24/2021 patient is alert and oriented 3 in no distress, he denies any chest pain or palpitation no shortness of breath at rest he has shortness of breath with any activity. Tentative plans for AICD placement tomorrow per Dr. Jara. Patient maintained on dobutamine drip. Patient remains on IV Lasix. At this time patient denies chest pain or shortness of breath. Patient denies nausea vomiting or diarrhea. Patient denies any urinary burning or frequency. On 04/25/2021 patient is alert and oriented 3. Status post BIV ICD placement Dr. Esparza. Postop day 1. Patient remains on Lasix and dobutamine drip. Patient still having +2 pitting edema. Cardiology and nephrology services are following. Cardiothoracic surgery consulted for requirement of epicardial lead placement per Dr. Jara. At this time patient denies any chest pain or shortness of breath. Patient denies nausea vomiting or diarrhea. Patient den ies any urinary burning or frequency On 04/26/2021 Patient was seen and examined on the telemetry floor, he is alert and oriented x 3 in no distress, he is complaining of shortness of breath with any activity otherwise he denies any complaints there is no fever or chills no headache or dizziness no chest pain no palpitation no cough no nausea or vomiting no abdominal pain no diarrhea no blood in the stools no burning with urination no frequency or urgency and no hematuria, there is no weakness or numbness in any of the extremities no change in vision speech or gait. Objective - Vital Signs Vital signs: Vital Signs Temp 98.2 F 04/26/21 11:06 Pulse 55 L 04/26/21 11:06 Resp 22 04/26/21 11:06 BP 154/62 04/26/21 11:06 Pulse Ox 97 04/26/21 11:06 Intake & Output 04/25/21 04/26/21 04/26/21 18:59 06:59 18:59 Intake Total 900 840.76 240 Output Total 1050 600 Balance -150 240.76 240 Weight 105 kg Intake: Intake, IV Titration 300.76 Amount DOBUTamine DRIP 500 mg In 123.76 Dextrose/Water 1 250ml. bag @ 2.5 MCG/KG/MIN 7.8 mls/hr IV .Q24H [place] Rx#: [id number] Furosemide 100 mg In 177 Sodium Chloride 0.9% 90 ml @ 10 MG/HR 10 mls/hr IV .Q10H [place] Rx#: [id number] Oral 900 540 240 Output: Urine 1050 600 Other: Voiding Method Indwelling Catheter Indwelling Catheter Indwelling Catheter - Exam In general patient is alert and oriented x 3 in no distress HEENT head normocephalic and atraumatic Neck is supple no JVD no goiter no lymphadenopathy no carotid bruit Chest examination few scattered rhonchi no wheezing Cardiac exam reveals irregular heart sounds S1 and S2 no gallops no murmurs Abdomen is soft nontender no organomegaly with normal bowel sounds Extremity exam reveals no edema no cyanosis or clubbing Neurological examination reveals no gross focal deficits - Labs CBC & Chem 7: 04/26/21 09:23 04/26/21 09:23 Labs: Abnormal Lab Results - Last 24 Hours (Table) 04/25/21 04/25/21 04/25/21 Range/Units 16:20 16:40 20:26 RBC (4.30-5.90) m/uL Hgb (13.0-17.5) gm/dL Hct (39.0-53.0) % Plt Count (150-450) k/uL Lymphocytes # (1.0-4.8) k/uL Sodium 128 L (137-145) mmol/L Chloride (98-107) mmol/L BUN (9-20) mg/dL Creatinine (0.66-1.25) mg/dL Glucose (74-99) mg/dL POC Glucose (mg/dL) 132 H 173 H (75-99) mg/dL Total Protein (6.3-8.2) g/dL Albumin (3.5-5.0) g/dL 04/26/21 04/26/21 04/26/21 Range/Units 06:08 09:23 09:23 RBC 3.86 L (4.30-5.90) m/uL Hgb 11.8 L (13.0-17.5) gm/dL Hct 37.7 L (39.0-53.0) % Plt Count 112 L (150-450) k/uL Lymphocytes # 0.5 L (1.0-4.8) k/uL Sodium 127 L (137-145) mmol/L Chloride 87 L (98-107) mmol/L BUN 98 H (9-20) mg/dL Creatinine 3.30 H (0.66-1.25) mg/dL Glucose 156 H (74-99) mg/dL POC Glucose (mg/dL) 140 H (75-99) mg/dL Total Protein 5.4 L (6.3-8.2) g/dL Albumin 3.1 L (3.5-5.0) g/dL 04/26/21 Range/Units 11:49 RBC (4.30-5.90) m/uL Hgb (13.0-17.5) gm/dL Hct (39.0-53.0) % Plt Count (150-450) k/uL Lymphocytes # (1.0-4.8) k/uL Sodium (137-145) mmol/L Chloride (98-107) mmol/L BUN (9-20) mg/dL Creatinine (0.66-1.25) mg/dL Glucose (74-99) mg/dL POC Glucose (mg/dL) 149 H (75-99) mg/dL Total Protein (6.3-8.2) g/dL Albumin (3.5-5.0) g/dL Assessment and Plan Plan: Acute on chronic systolic congestive heart failure exacerbation Underlying history of coronary artery disease Underlying history of atrial fibrillation Bradycardia on presentation Underlying history of hypertension Underlying history of chronic kidney disease stage III Underlying history of cam-cwjudwh-zzablakyp diabetes mellitus type 2 Underlying history of hyperlipidemia Underlying history of diverticulosis with previous history of gastrointestinal bleeding Underlying history of degenerative disc disease with chronic back pain Underlying history of benign prostatic hypertrophy At this time patient is admitted to telemetry floor Maintained on IV Lasix IV dopamine drip was added by cardiology And for AICD placement on 04/24/[address] Esparza Home medications reviewed and reordered Metoprolol is held due to bradycardia on presentation Cardiology consultation was requested Nephrology consultation was also requested in the emergency room Input from cardiovascular surgery reviewed today We will follow closely
[2021-04-26] MEDS: LACTATED RINGERS 1,000 ML IV SCH (15:22)
[2021-04-26] MEDS: ACETAMINOPHEN TAB 325 MG TAB PO PRN ×2 (16:45→22:23)
[2021-04-26 16:56] LABS: Glucose,Whole Blood 180 mg/dL (75-99)
[2021-04-26 20:17] LABS: Glucose,Whole Blood 216 mg/dL (75-99)
[2021-04-26] MEDS: ATORVASTATIN 20 MG TAB PO SCH (20:20)
[2021-04-27] MEDS: FUROSEMIDE 100 MG in SODIUM CHLORIDE 0.9% 90 ML IV SCH ×3 (00:07→18:07)
[2021-04-27] MEDS: INSULIN ASPART (NovoLOG) 100 UNIT/ML VIAL SQ SCH ×4 (06:11→21:36)
[2021-04-27] MEDS: metOLazone 2.5 MG TAB PO SCH ×2 (08:16→21:36)
[2021-04-27] MEDS: glipiZIDE 5 MG TAB PO SCH ×2 (08:16→21:35)
[2021-04-27] MEDS: hydrALAZINE HCL 25 MG TAB PO SCH ×4 (08:16→21:33)
[2021-04-27] MEDS: MAGNESIUM OXIDE 400 MG TAB PO SCH ×2 (08:16→21:36)
[2021-04-27] MEDS: SILDENAFIL 20 MG TAB PO SCH ×2 (08:16→21:36)
[2021-04-27] MEDS: CYANOCOBALAMIN 500 MCG TAB PO SCH (08:16)
[2021-04-27] MEDS: DOCUSATE 100 MG CAP PO SCH ×2 (08:17→21:36)
[2021-04-27] MEDS: APIXABAN 2.5 MG TABLET PO SCH ×2 (08:17→21:36)
[2021-04-27] MEDS: LOSARTAN 25 MG TAB PO SCH (08:17)
[2021-04-27] MEDS: PANTOPRAZOLE 40 MG TABLET PO SCH (08:17)
[2021-04-27] MEDS: DOXAZOSIN 4 MG TAB PO SCH (08:18)
[2021-04-27] MEDS: CHOLECALCIFEROL 25 MCG (1000 IU) TABLET PO SCH ×2 (08:18→21:36)
[2021-04-27] MEDS: bisacodyL 5 MG TABLET.DR PO SCH ×2 (08:18→21:36)
[2021-04-27] MEDS: diphenhydrAMINE 25 MG CAP PO SCH ×2 (08:18→21:36)
[2021-04-27 09:01] LABS: Albumin 3.1 g/dL (3.5-5.0); Calcium 8.9 mg/dL (8.4-10.2); Potassium 4.6 mmol/L (3.5-5.1); Total Bilirubin 0.9 mg/dL (0.2-1.3); Total Protein 5.5 g/dL (6.3-8.2)
[2021-04-27 09:50] LABS: Basophils % (A) 0 %; Eosinophils # (A) 0.2 k/uL (0-0.7); Eosinophils % (A) 3 %; HCT 36.7 % (39.0-53.0); HGB 12.1 gm/dL (13.0-17.5); Lymphocytes # (A) 0.7 k/uL (1.0-4.8); Lymphocytes % (A) 15 %; MCH 31.7 pg (25.0-35.0); MCHC 32.9 g/dL (31.0-37.0); MCV 96.3 fL (80.0-100.0); Monocytes # (A) 0.5 k/uL (0-1.0); Monocytes % (A) 11 %; Neutrophils # (A) 3.2 k/uL (1.3-7.7); Neutrophils % (A) 68 %; Platelet Count 113 k/uL (150-450); RBC 3.82 m/uL (4.30-5.90); RDW 15.1 % (11.5-15.5); WBC 4.7 k/uL (3.8-10.6)
--- NOTE | 2021-04-27 09:59 | P.PN ---
Subjective Progress Note Date: 04/27/21 Berny Linares, is an 80 year old male who presented to [facility] emergency room with a chief complaint of worsening shortness of breath and upper chest pain, patient stated that his symptoms started 1 day prior to presentation and has been worsening, he was having difficulty breathing when he was trying to lie down, he was also having worsening lower extremity edema, on the day of presentation patient started having upper chest pain radiating to the back of his neck and to both shoulders, at that point he decided to come to emergency room. He was evaluated in the emergency room vital examination on presentation revealed a temperature of 98.1 pulse 49 respiration 20 blood pressure 118/62 pulse ox 92% on room air Laboratory data reveals a white blood count of 4.4 hemoglobin 12.4 platelet count 108 sodium 134 potassium 4.2 chloride 95 CO2 31 BUN 61 creatinine 2.33 troponin level was elevated at 0.183. Review of the chart revealed creatinine 2.2 on 10/16/2020 and 1.8 on 06/20/2020. BNP was 16,400 Testing in the emergency room revealed, chest x-ray done in the emergency room revealed evidence of congestive heart failure blunting of the bilateral costophrenic angles suggestive of mild bilateral pleural effusion Patient was admitted to medical floor for further evaluation and treatment, he was started on IV Lasix, cardiology consultation was requested. Past medical history is significant for history of chronic systolic congestive heart failure echocardiogram done in December 2018 revealed ejection fraction of 35-40%, patient also has a known history of atrial fibrillation maintained on coagulation with Eliquis, history of diffuse coronary artery disease patient had cardiac catheterization in 2016 at that time medication treatment was advised. History of AAA for which patient underwent stent grafting, patient also has a known history of hypertension, [id number]-fadrssyug diabetes mellitus, benign prostatic hypertrophy, chronic kidney disease stage III, diverticulosis was previous history of lower gastrointestinal bleeding, degenerative disc disease with history of back surgery. Patient stated that he used to smoke he quit many years ago. On 04/21/2021 Patient was seen and examined on the medical floor, he is alert and oriented x 3 in no distress, patient is complaining of shortness of breath with activity otherwise he denies any complaints there is no fever or chills no headache or dizziness no chest pain no cough no nausea or vomiting no abdominal pain no diarrhea no blood in the stools no burning with urination no frequency or urgency and no hematuria, there is no weakness or numbness in any of the extremities no change in vision speech or gait. On 04/22/2021 Patient was seen and examined on the medical floor, he is alert and oriented x 3 in no distress, he denies any complaints there is no fever or chills no headache or dizziness no chest pain no shortness of breath no palpitation no cough no nausea or vomiting no abdominal pain no diarrhea no blood in the stools no burning with urination no frequency or urgency and no hematuria, there is no weakness or numbness in any of the extremities no change in vision speech or gait. Patient is comfortable while lying in bed he has significant shortness of breath with any activity On 04/23/2021 patient is alert and oriented 3 resting comfortably in bed. Tentative plans for AICD placement tomorrow per Dr. Jara. Patient maintained on dobutamine drip. Patient remains on IV Lasix. At this time patient denies chest pain or shortness of breath. Patient denies nausea vomiting or diarrhea. Patient denies any urinary burning or frequency. On 04/24/2021 patient is alert and oriented 3 in no distress, he denies any chest pain or palpitation no shortness of breath at rest he has shortness of breath with any activity. Tentative plans for AICD placement tomorrow per Dr. Jara. Patient maintained on dobutamine drip. Patient remains on IV Lasix. At this time patient denies chest pain or shortness of breath. Patient denies nausea vomiting or diarrhea. Patient denies any urinary burning or frequency. On 04/25/2021 patient is alert and oriented 3. Status post BIV ICD placement Dr. Esparza. Postop day 1. Patient remains on Lasix and dobutamine drip. Patient still having +2 pitting edema. Cardiology and nephrology services are following. Cardiothoracic surgery consulted for requirement of epicardial lead placement per Dr. Jara. At this time patient denies any chest pain or shortness of breath. Patient denies nausea vomiting or diarrhea. Patient den ies any urinary burning or frequency On 04/26/2021 Patient was seen and examined on the telemetry floor, he is alert and oriented x 3 in no distress, he is complaining of shortness of breath with any activity otherwise he denies any complaints there is no fever or chills no headache or dizziness no chest pain no palpitation no cough no nausea or vomiting no abdominal pain no diarrhea no blood in the stools no burning with urination no frequency or urgency and no hematuria, there is no weakness or numbness in any of the extremities no change in vision speech or gait. On 04/27/2021 patient alert and oriented 3. Patient remains on dobutamine and Lasix drips. Nephrology and cardiology services are following. Per cardiothoracic epicardial lead placement will be followed up outpatient. At this time patient is complaining of bilateral lower extremity pain. Edematous noted to bilateral legs. Patient denies any chest pain. Patient denies nausea vomiting or diarrhea. Patient denies any urinary burning or frequency Objective - Vital Signs Vital signs: Vital Signs Temp 97.7 F 04/27/21 08:13 Pulse 70 04/27/21 08:13 Resp 20 04/27/21 08:13 BP 145/96 04/27/21 08:13 Pulse Ox 96 04/27/21 08:13 Intake & Output 04/26/21 04/27/21 04/27/21 18:59 06:59 18:59 Intake Total 580 814.333 333.333 Output Total 800 1225 Balance -220 -410.667 333.333 Weight 105.8 kg Intake: Intake, IV Titration 100 74.333 93.333 Amount Furosemide 100 mg In 100 74.333 93.333 Sodium Chloride 0.9% 90 ml @ 10 MG/HR 10 mls/hr IV .Q10H [facility] Rx#: [id number] Oral 480 740 240 Output: Urine 800 1225 Other: Voiding Method Indwelling Catheter Indwelling Catheter Indwelling Catheter # Bowel Movements 1 - Exam In general patient is alert and oriented x 3 in no distress HEENT head normocephalic and atraumatic Neck is supple no JVD no goiter no lymphadenopathy no carotid bruit Chest examination few scattered rhonchi no wheezing Cardiac exam reveals irregular heart sounds S1 and S2 no gallops no murmurs Abdomen is soft nontender no organomegaly with normal bowel sounds Extremity exam reveals no edema no cyanosis or clubbing Neurological examination reveals no gross focal deficits - Labs CBC & Chem 7: 04/27/21 07:30 04/27/21 07:30 Labs: Abnormal Lab Results - Last 24 Hours (Table) 04/26/21 04/26/21 04/26/21 Range/Units 09:23 11:49 16:52 RBC (4.30-5.90) m/uL Hgb (13.0-17.5) gm/dL Hct (39.0-53.0) % Plt Count (150-450) k/uL Lymphocytes # (1.0-4.8) k/uL Sodium 127 L (137-145) mmol/L Chloride 87 L (98-107) mmol/L BUN 98 H (9-20) mg/dL Creatinine 3.30 H (0.66-1.25) mg/dL Glucose 156 H (74-99) mg/dL POC Glucose (mg/dL) 149 H 180 H (75-99) mg/dL Total Protein 5.4 L (6.3-8.2) g/dL Albumin 3.1 L (3.5-5.0) g/dL 04/26/21 04/27/21 04/27/21 Range/Units 20:16 07:30 07:30 RBC 3.82 L (4.30-5.90) m/uL Hgb 12.1 L (13.0-17.5) gm/dL Hct 36.7 L (39.0-53.0) % Plt Count 113 L (150-450) k/uL Lymphocytes # 0.7 L (1.0-4.8) k/uL Sodium 126 L (137-145) mmol/L Chloride 87 L (98-107) mmol/L BUN 108 H* (9-20) mg/dL Creatinine 3.22 H (0.66-1.25) mg/dL Glucose (74-99) mg/dL POC Glucose (mg/dL) 216 H (75-99) mg/dL Total Protein 5.5 L (6.3-8.2) g/dL Albumin 3.1 L (3.5-5.0) g/dL Assessment and Plan Plan: Acute on chronic systolic congestive heart failure exacerbation Underlying history of coronary artery disease Underlying history of atrial fibrillation Bradycardia on presentation Underlying history of hypertension Underlying history of chronic kidney disease stage III Underlying history of ojo-wxbbvkv-skeuowysx diabetes mellitus type 2 Underlying history of hyperlipidemia Underlying history of diverticulosis with previous history of gastrointestinal bleeding Underlying history of degenerative disc disease with chronic back pain Underlying history of benign prostatic hypertrophy At this time patient is admitted to telemetry floor Maintained on Lasix drip and dobutamine drip Cardiology and nephrology services are following AICD placement on 04/24/[address] Esparza Outpatient follow-up with cardiothoracic for epicardial lead placement We will follow closely
[2021-04-27] MEDS ORDERED: TOLVAPTAN 30 MG TABLET PO ONE (11:00)
[2021-04-27 11:53] LABS: Glucose,Whole Blood 102 mg/dL (75-99)
--- NOTE | 2021-04-27 12:05 | PN ---
PROGRESS NOTE Patient is seen for followup for acute kidney injury and chronic kidney disease. The patient is currently being diuresed. He is also hyponatremic, maintained on tolvaptan which he has been getting almost on a daily basis. Patient is maintained on Lasix drip at 10 mg an hour along with dobutamine. He remains with significant edema. A 24 hour output at 2 L. PHYSICAL EXAMINATION: On examination today, blood pressure 145/96, heart rate 70 per minute. He is afebrile. Examination of the heart S1, S2. Examination of lungs, decreased breath sounds at bases. Abdomen is soft, obese. Exam of lower extremities edema 3+ bilaterally. BIRD KEEPER exam grossly intact. LAB: Show sodium 126, potassium 4.6, chloride 87, BUN 108, creatinine 3.2, hemoglobin 12.1 g/dL. ASSESSMENT: 1. Acute kidney injury, cardiorenal. Serum creatinine about the same as yesterday. Continue to diurese patient. 2. Hypervolemic hyponatremia. Sodium has dropped again slightly today. We will maintain on tolvaptan, increase to 30 mg today and repeat labs in a.m. 3. Congestive heart failure exacerbation, acute on top of chronic, mostly systolic. The patient remains volume overloaded. I will add Zaroxolyn. 4. Cardiomyopathy, ejection fraction 30-35% with [id number] mitral regurgitation and severe pulmonary hypertension. 5. Chronic kidney disease stage 3B, baseline creatinine around 2. 6. Bradycardia, status post biventricular AICD placement on 04/24/2021. PLAN: Add Zaroxolyn. Continue Lasix drip and dobutamine. I will increase his Zaroxolyn as patient is already maintained on 2.5 mg daily and tolvaptan will be given as well 30 mg p.o. today. Repeat labs in a.m. MMODL / IJN: [id number] /
[2021-04-27 12:17] LABS: Glucose,Whole Blood 144 mg/dL (75-99)
[2021-04-27] MEDS: DICLOFENAC SODIUM GEL 100 GM TUBE TOPICAL SCH ×2 (12:31→12:44)
[2021-04-27] MEDS ORDERED: DICLOFENAC SODIUM GEL 100 GM TUBE TOPICAL PRN (14:06)
[2021-04-27] MEDS: HYDROcodone/APAP 7.5-325MG 1 EACH TAB PO PRN ×2 (14:09→21:34)
[2021-04-27] MEDS: LACTATED RINGERS 1,000 ML IV SCH (14:14)
--- NOTE | 2021-04-27 14:22 | P.PN ---
Subjective Progress Note Date: 04/27/21 HISTORY OF PRESENT ILLNESS: Patient is a pleasant 80-year-old male with history of chronic systolic heart failure, chronic atrial fibrillation, diabetes mellitus type 2, hypertension, abdominal aortic aneurysm status post graft placement, COPD on home O2, severe pulmonary hypertension, non-ischemic cardiomyopathy and mild non-obstructive coronary artery disease. He is seen and examined sitting up in bed in mild respiratory distress. He continues to feel short of breath and fatigued. He denies chest pain, dizziness or palpitations. Blood pressure 136/64 heart rate 80 afebrile and maintaining oxygen saturation on nasal cannula. Laboratory data reviewed, sodium 137, potassium 4, creatinine 2.35 and magnesium 2.0. 24-hr urine output 2.1 liters. Heart rates are improved with beta blockers discontinued. No plans for PPM at this time. 04/25/2021 Pt is seen and examined sitting up in bed in no acute distress. He is eating breakfast comfortably. Dr. Esparza attempted BiV ICD placement yesterday, however was only successful at single lead placement due to anatomy. He keaton nues to be maintained on lasix infusion, dobutamine infusion, hydralazine, losartan, zaroxolyn, cardura, atorvastatin and eliquis. Blood pressure 129/79 heart rate 57 afebrile and maintaining oxygen saturation on nasal cannula. 24- hour urine output 400 ml. Laboratory data reviewed, sodium 129, potassium 4.3, creatinine 2.95. Repeat chest xray last night revealed interval improvement in bibasilar atelectasis, mild pulmonary congestion and small right greater than left bilateral effusions that are improving. 04/26/2021 Patient examined this morning. Patient is sitting up on the side of the bed. He denies chest pain or pressure. He reports shortness of breath. He remains on IV Lasix and IV dobutamine. He has been evaluated by [facility] thoracic surgery who have deemed the patient high risk for surgery and recommend outpatient follow-up for further evaluation. Patient's creatinine increased today to 3.3, up from 2.95. 04/27/2021 Patient examined this morning at the bedside. Patient denies chest pain or pressure. He states his shortness of breath feels about the same as yesterday. He remains on IV Lasix and IV dobutamine. Creatinine today 3.2. Fluid balance over the last 24 hours is -630 mL. PHYSICAL EXAM: VITAL SIGNS: Reviewed. GENERAL: Well-developed in no acute distress. NECK: Supple. No JVD or thyromegaly LUNGS: Respirations even and unlabored. Lungs diminished bilaterally. HEART: Irregular rate and rhythm. S1 and S2 heard. Systolic murmur noted. EXTREMITIES: Normal range of motion. No clubbing or cyanosis. Peripheral pulses intact. 2+ bilateral lower extremity edema ASSESSMENT: Acute on chronic systolic heart failure Chronic persistent atrial fibrillation Bradycardia with heart rates in the 40s. Beta wil on hold. Rule out sick sinus syndrome History of heavily calcified however non-obstructive coronary artery disease by heart catheterization 2016 Non-STEMI, rule out type I mechanism with chest pain occurring on presentation Hypertension Diabetes mellitus Acute kidney injury Pulmonary hypertension PLAN: Continue IV Lasix and IV dobutamine Continue additional cardiac medications Nephrology following Continue to monitor kidney function Patient to follow up outpatient with Dr. Aleman for possible LV epicardial lead placement Nurse practitioner note has been reviewed by physician. Signing provider agrees with the documented findings, assessment, and plan of care. Objective - Vital Signs Vital signs: Vital Signs Temp 97.6 F 04/27/21 12:20 Pulse 62 04/27/21 12:20 Resp 20 04/27/21 12:20 BP 143/65 04/27/21 12:20 Pulse Ox 92 L 04/27/21 12:20 Intake & Output 04/26/21 04/27/21 04/27/21 18:59 06:59 18:59 Intake Total 580 814.333 333.333 Output Total 800 1225 Balance -220 -410.667 333.333 Weight 105.8 kg Intake: Intake, IV Titration 100 74.333 93.333 Amount Furosemide 100 mg In 100 74.333 93.333 Sodium Chloride 0.9% 90 ml @ 10 MG/HR 10 mls/hr IV .Q10H [place] Rx#: [id number] Oral 480 740 240 Output: Urine 800 1225 Other: Voiding Method Indwelling Catheter Indwelling Catheter Indwelling Catheter # Bowel Movements 1 - Labs CBC & Chem 7: 04/27/21 07:30 04/27/21 07:30 Labs: Abnormal Lab Results - Last 24 Hours (Table) 04/26/21 04/26/21 04/27/21 Range/Units 16:52 20:16 06:03 RBC (4.30-5.90) m/uL Hgb (13.0-17.5) gm/dL Hct (39.0-53.0) % Plt Count (150-450) k/uL Lymphocytes # (1.0-4.8) k/uL Sodium (137-145) mmol/L Chloride (98-107) mmol/L BUN (9-20) mg/dL Creatinine (0.66-1.25) mg/dL POC Glucose (mg/dL) 180 H 216 H 102 H (75-99) mg/dL Total Protein (6.3-8.2) g/dL Albumin (3.5-5.0) g/dL 04/27/21 04/27/21 04/27/21 Range/Units 07:30 07:30 12:08 RBC 3.82 L (4.30-5.90) m/uL Hgb 12.1 L (13.0-17.5) gm/dL Hct 36.7 L (39.0-53.0) % Plt Count 113 L (150-450) k/uL Lymphocytes # 0.7 L (1.0-4.8) k/uL Sodium 126 L (137-145) mmol/L Chloride 87 L (98-107) mmol/L BUN 108 H* (9-20) mg/dL Creatinine 3.22 H (0.66-1.25) mg/dL POC Glucose (mg/dL) 144 H (75-99) mg/dL Total Protein 5.5 L (6.3-8.2) g/dL Albumin 3.1 L (3.5-5.0) g/dL
[2021-04-27] MEDS: DOBUTamine DRIP 500 MG in DEXTROSE/WATER 1 250ML.BAG IV SCH (14:40)
[2021-04-27 16:58] LABS: Glucose,Whole Blood 223 mg/dL (75-99)
[2021-04-27 19:59] LABS: Glucose,Whole Blood 246 mg/dL (75-99)
[2021-04-27] MEDS: ATORVASTATIN 20 MG TAB PO SCH (21:36)
[2021-04-28] MEDS: HYDROcodone/APAP 7.5-325MG 1 EACH TAB PO PRN ×3 (03:12→22:01)
[2021-04-28] MEDS: FUROSEMIDE 100 MG in SODIUM CHLORIDE 0.9% 90 ML IV SCH ×2 (03:13→16:40)
[2021-04-28 05:49] LABS: Glucose,Whole Blood 125 mg/dL (75-99)
[2021-04-28] MEDS: INSULIN ASPART (NovoLOG) 100 UNIT/ML VIAL SQ SCH ×4 (06:19→22:03)
[2021-04-28] MEDS: diphenhydrAMINE 25 MG CAP PO SCH ×2 (08:18→22:00)
[2021-04-28] MEDS: bisacodyL 5 MG TABLET.DR PO SCH ×2 (08:18→22:00)
[2021-04-28] MEDS: CYANOCOBALAMIN 500 MCG TAB PO SCH (08:18)
[2021-04-28] MEDS: CHOLECALCIFEROL 25 MCG (1000 IU) TABLET PO SCH ×2 (08:18→22:02)
[2021-04-28] MEDS: APIXABAN 2.5 MG TABLET PO SCH ×2 (08:18→22:00)
[2021-04-28] MEDS: MAGNESIUM OXIDE 400 MG TAB PO SCH ×2 (08:19→22:00)
[2021-04-28] MEDS: LOSARTAN 25 MG TAB PO SCH (08:19)
[2021-04-28] MEDS: metOLazone 2.5 MG TAB PO SCH ×2 (08:19→22:02)
[2021-04-28] MEDS: glipiZIDE 5 MG TAB PO SCH ×2 (08:19→22:01)
[2021-04-28] MEDS: PANTOPRAZOLE 40 MG TABLET PO SCH (08:19)
[2021-04-28] MEDS: hydrALAZINE HCL 25 MG TAB PO SCH ×4 (08:19→22:00)
[2021-04-28] MEDS: DOXAZOSIN 4 MG TAB PO SCH (08:19)
[2021-04-28] MEDS: DOCUSATE 100 MG CAP PO SCH ×2 (08:19→22:00)
[2021-04-28] MEDS: SILDENAFIL 20 MG TAB PO SCH ×2 (08:20→22:03)
[2021-04-28 10:05] LABS: Albumin 3.2 g/dL (3.5-5.0); Magnesium 2.1 mg/dL (1.6-2.3); Potassium 4.5 mmol/L (3.5-5.1); Total Bilirubin 0.9 mg/dL (0.2-1.3); Total Protein 5.6 g/dL (6.3-8.2)
[2021-04-28 10:12] LABS: Basophils # (A) 0.1 k/uL (0-0.2); Basophils % (A) 1 %; Eosinophils # (A) 0.1 k/uL (0-0.7); Eosinophils % (A) 3 %; HCT 38.7 % (39.0-53.0); HGB 12.5 gm/dL (13.0-17.5); Lymphocytes # (A) 0.7 k/uL (1.0-4.8); Lymphocytes % (A) 14 %; MCH 31.2 pg (25.0-35.0); MCHC 32.4 g/dL (31.0-37.0); MCV 96.1 fL (80.0-100.0); Mean Platelet Volume 8.9; Monocytes # (A) 0.4 k/uL (0-1.0); Monocytes % (A) 8 %; Neutrophils # (A) 3.7 k/uL (1.3-7.7); Neutrophils % (A) 72 %; Platelet Count 141 k/uL (150-450); RBC 4.02 m/uL (4.30-5.90); RDW 15.1 % (11.5-15.5); WBC 5.1 k/uL (3.8-10.6)
[2021-04-28] MEDS: DOBUTamine DRIP 500 MG in DEXTROSE/WATER 1 250ML.BAG IV SCH (10:50)
--- NOTE | 2021-04-28 11:12 | P.PN ---
Progress Note - Text I spoke to Dr. Aleman / CT surgery on Wednesday last week Ash expressed concern about the aortic valve There was a question about severe aortic stenosis I had the 2-D echo Doppler study repeated The 2-D echo and Doppler study shows severe LV dysfunction and while the aortic valve is calcified And there is fusion between the noncoronary cusp and the left cusp, the valve does open fairly well This patient does NOT have significant aortic stenosis Mean gradient is around 19 mmHg, peak gradient around 30 mmHg He has severe bradycardia and currently has been RV lead in situ Patient has extremely diminutive LV veins which cannot accommodate an LV lead He has severe heart failure and RV pacing will cause further worsening of heart failure status He has been treated with IV dobutamine and IV Lasix drip He is medically optimized at this time as best as he can be and should be considered for an inpatient epicardial LV upgrade Occupation therapy with oral medications with simply put him back in severe heart failure without LV pacing
--- NOTE | 2021-04-28 11:21 | P.PN ---
Subjective Progress Note Date: 04/28/21 HISTORY OF PRESENT ILLNESS: Patient is a pleasant 80-year-old male with history of chronic systolic heart failure, chronic atrial fibrillation, diabetes mellitus type 2, hypertension, abdominal aortic aneurysm status post graft placement, COPD on home O2, severe pulmonary hypertension, non-ischemic cardiomyopathy and mild non-obstructive coronary artery disease. He is seen and examined sitting up in bed in mild respiratory distress. He continues to feel short of breath and fatigued. He denies chest pain, dizziness or palpitations. Blood pressure 136/64 heart rate 80 afebrile and maintaining oxygen saturation on nasal cannula. Laboratory data reviewed, sodium 137, potassium 4, creatinine 2.35 and magnesium 2.0. 24-hr urine output 2.1 liters. Heart rates are improved with beta blockers discontinued. No plans for PPM at this time. 04/25/2021 Pt is seen and examined sitting up in bed in no acute distress. He is eating breakfast comfortably. Dr. Esparza attempted BiV ICD placement yesterday, however was only successful at single lead placement due to anatomy. He keaton nues to be maintained on lasix infusion, dobutamine infusion, hydralazine, losartan, zaroxolyn, cardura, atorvastatin and eliquis. Blood pressure 129/79 heart rate 57 afebrile and maintaining oxygen saturation on nasal cannula. 24- hour urine output 400 ml. Laboratory data reviewed, sodium 129, potassium 4.3, creatinine 2.95. Repeat chest xray last night revealed interval improvement in bibasilar atelectasis, mild pulmonary congestion and small right greater than left bilateral effusions that are improving. 04/26/2021 Patient examined this morning. Patient is sitting up on the side of the bed. He denies chest pain or pressure. He reports shortness of breath. He remains on IV Lasix and IV dobutamine. He has been evaluated by [facility] thoracic surgery who have deemed the patient high risk for surgery and recommend outpatient follow-up for further evaluation. Patient's creatinine increased today to 3.3, up from 2.95. 04/27/2021 Patient examined this morning at the bedside. Patient denies chest pain or pressure. He states his shortness of breath feels about the same as yesterday. He remains on IV Lasix and IV dobutamine. Creatinine today 3.2. Fluid balance over the last 24 hours is -630 mL. 04/28/2021 Patient examined this morning at the bedside. Family member present. Patient denies chest pain or pressure. He states his shortness of breath is stable. Patient remains on IV Lasix and IV dobutamine. Fluid balance over the last 24 hours is -554 mL. Creatinine today 3.40. PHYSICAL EXAM: VITAL SIGNS: Reviewed. GENERAL: Well-developed in no acute distress. NECK: Supple. No JVD or thyromegaly LUNGS: Respirations even and unlabored. Lungs diminished bilaterally. HEART: Irregular rate and rhythm. S1 and S2 heard. Systolic murmur noted. EXTREMITIES: Normal range of motion. No clubbing or cyanosis. Peripheral pulses intact. 3+ bilateral lower extremity edema ASSESSMENT: Acute on chronic systolic heart failure Chronic persistent atrial fibrillation Bradycardia with heart rates in the 40s. Beta wil on hold. Rule out sick sinus syndrome History of heavily calcified however non-obstructive coronary artery disease by heart catheterization 2016 Non-STEMI, rule out type I mechanism with chest pain occurring on presentation Hypertension Diabetes mellitus Acute kidney injury Pulmonary hypertension PLAN: Continue Lasix drip per nephrology. Case discussed with Dr. Waldrop today who states she will increase the Lasix drip to 15 mg an hour. Patient may require hemodialysis in the near future. Continue IV dobutamine. Increase drip to 5mcg/kg/min Continue additional cardiac medications Continue to monitor kidney function Cardiothoracic surgery following for need for LV epicardial lead placement. Plan for outpatient follow up per CTS Further recommendations pending patient's course Nurse practitioner note has been reviewed by physician. Signing provider agrees with the documented findings, assessment, and plan of care. Objective - Vital Signs Vital signs: Vital Signs Temp 97.7 F 04/28/21 08:00 Pulse 61 04/28/21 08:00 Resp 19 04/28/21 08:00 BP 135/90 04/28/21 08:00 Pulse Ox 96 04/28/21 08:00 Intake & Output 04/27/21 04/28/21 04/28/21 18:59 06:59 18:59 Intake Total 1090.000 631 157.3 Output Total 725 1550 700 Balance 365.000 -919 -542.7 Weight 95 kg Intake: Intake, IV Titration 430.000 91 157.3 Amount DOBUTamine DRIP 500 mg In 250 157.3 Dextrose/Water 1 250ml. bag @ 5 MCG/KG/MIN 15.6 mls/hr IV .Q16H2M [facility] Rx# :[id number] Furosemide 100 mg In 180.000 91 Sodium Chloride 0.9% 90 ml @ 10 MG/HR 10 mls/hr IV .Q10H [facility] Rx#: [id number] Oral 660 540 Output: Urine 725 1550 700 Other: Voiding Method Indwelling Catheter Indwelling Catheter Indwelling Catheter # Bowel Movements 1 - Labs CBC & Chem 7: 04/28/21 08:20 04/28/21 08:20 Labs: Abnormal Lab Results - Last 24 Hours (Table) 04/27/21 04/27/21 04/27/21 Range/Units 06:03 12:08 16:56 RBC (4.30-5.90) m/uL Hgb (13.0-17.5) gm/dL Hct (39.0-53.0) % Plt Count (150-450) k/uL Lymphocytes # (1.0-4.8) k/uL Sodium (137-145) mmol/L Chloride (98-107) mmol/L Carbon Dioxide (22-30) mmol/L BUN (9-20) mg/dL Creatinine (0.66-1.25) mg/dL Glucose (74-99) mg/dL POC Glucose (mg/dL) 102 H 144 H 223 H (75-99) mg/dL Total Protein (6.3-8.2) g/dL Albumin (3.5-5.0) g/dL 04/27/21 04/28/21 04/28/21 Range/Units 19:57 05:47 08:20 RBC 4.02 L (4.30-5.90) m/uL Hgb 12.5 L (13.0-17.5) gm/dL Hct 38.7 L (39.0-53.0) % Plt Count 141 L (150-450) k/uL Lymphocytes # 0.7 L (1.0-4.8) k/uL Sodium (137-145) mmol/L Chloride (98-107) mmol/L Carbon Dioxide (22-30) mmol/L BUN (9-20) mg/dL Creatinine (0.66-1.25) mg/dL Glucose (74-99) mg/dL POC Glucose (mg/dL) 246 H 125 H (75-99) mg/dL Total Protein (6.3-8.2) g/dL Albumin (3.5-5.0) g/dL 04/28/21 Range/Units 08:20 RBC (4.30-5.90) m/uL Hgb (13.0-17.5) gm/dL Hct (39.0-53.0) % Plt Count (150-450) k/uL Lymphocytes # (1.0-4.8) k/uL Sodium 128 L (137-145) mmol/L Chloride 87 L (98-107) mmol/L Carbon Dioxide 31 H (22-30) mmol/L BUN 107 H* (9-20) mg/dL Creatinine 3.40 H (0.66-1.25) mg/dL Glucose 151 H (74-99) mg/dL POC Glucose (mg/dL) (75-99) mg/dL Total Protein 5.6 L (6.3-8.2) g/dL Albumin 3.2 L (3.5-5.0) g/dL
--- NOTE | 2021-04-28 12:27 | P.PN ---
Subjective Progress Note Date: 04/28/21 Berny Linares, is an 80 year old male who presented to [facility] emergency room with a chief complaint of worsening shortness of breath and upper chest pain, patient stated that his symptoms started 1 day prior to presentation and has been worsening, he was having difficulty breathing when he was trying to lie down, he was also having worsening lower extremity edema, on the day of presentation patient started having upper chest pain radiating to the back of his neck and to both shoulders, at that point he decided to come to emergency room. He was evaluated in the emergency room vital examination on presentation revealed a temperature of 98.1 pulse 49 respiration 20 blood pressure 118/62 pulse ox 92% on room air Laboratory data reveals a white blood count of 4.4 hemoglobin 12.4 platelet count 108 sodium 134 potassium 4.2 chloride 95 CO2 31 BUN 61 creatinine 2.33 troponin level was elevated at 0.183. Review of the chart revealed creatinine 2.2 on 10/16/2020 and 1.8 on 06/20/2020. BNP was 16,400 Testing in the emergency room revealed, chest x-ray done in the emergency room revealed evidence of congestive heart failure blunting of the bilateral costophrenic angles suggestive of mild bilateral pleural effusion Patient was admitted to medical floor for further evaluation and treatment, he was started on IV Lasix, cardiology consultation was requested. Past medical history is significant for history of chronic systolic congestive heart failure echocardiogram done in December 2018 revealed ejection fraction of 35-40%, patient also has a known history of atrial fibrillation maintained on coagulation with Eliquis, history of diffuse coronary artery disease patient had cardiac catheterization in 2016 at that time medication treatment was advised. History of AAA for which patient underwent stent grafting, patient also has a known history of hypertension, [id number] diabetes mellitus, benign prostatic hypertrophy, chronic kidney disease stage III, diverticulosis was previous history of lower gastrointestinal bleeding, degenerative disc disease with history of back surgery. Patient stated that he used to smoke he quit many years ago. On 04/21/2021 Patient was seen and examined on the medical floor, he is alert and oriented x 3 in no distress, patient is complaining of shortness of breath with activity otherwise he denies any complaints there is no fever or chills no headache or dizziness no chest pain no cough no nausea or vomiting no abdominal pain no diarrhea no blood in the stools no burning with urination no frequency or urgency and no hematuria, there is no weakness or numbness in any of the extremities no change in vision speech or gait. On 04/22/2021 Patient was seen and examined on the medical floor, he is alert and oriented x 3 in no distress, he denies any complaints there is no fever or chills no headache or dizziness no chest pain no shortness of breath no palpitation no cough no nausea or vomiting no abdominal pain no diarrhea no blood in the stools no burning with urination no frequency or urgency and no hematuria, there is no weakness or numbness in any of the extremities no change in vision speech or gait. Patient is comfortable while lying in bed he has significant shortness of breath with any activity On 04/23/2021 patient is alert and oriented 3 resting comfortably in bed. Tentative plans for AICD placement tomorrow per Dr. Jara. Patient maintained on dobutamine drip. Patient remains on IV Lasix. At this time patient denies chest pain or shortness of breath. Patient denies nausea vomiting or diarrhea. Patient denies any urinary burning or frequency. On 04/24/2021 patient is alert and oriented 3 in no distress, he denies any chest pain or palpitation no shortness of breath at rest he has shortness of breath with any activity. Tentative plans for AICD placement tomorrow per Dr. Jara. Patient maintained on dobutamine drip. Patient remains on IV Lasix. At this time patient denies chest pain or shortness of breath. Patient denies nausea vomiting or diarrhea. Patient denies any urinary burning or frequency. On 04/25/2021 patient is alert and oriented 3. Status post BIV ICD placement Dr. Esparza. Postop day 1. Patient remains on Lasix and dobutamine drip. Patient still having +2 pitting edema. Cardiology and nephrology services are following. Cardiothoracic surgery consulted for requirement of epicardial lead placement per Dr. Jara. At this time patient denies any chest pain or shortness of breath. Patient denies nausea vomiting or diarrhea. Patient den ies any urinary burning or frequency On 04/26/2021 Patient was seen and examined on the telemetry floor, he is alert and oriented x 3 in no distress, he is complaining of shortness of breath with any activity otherwise he denies any complaints there is no fever or chills no headache or dizziness no chest pain no palpitation no cough no nausea or vomiting no abdominal pain no diarrhea no blood in the stools no burning with urination no frequency or urgency and no hematuria, there is no weakness or numbness in any of the extremities no change in vision speech or gait. On 04/27/2021 patient alert and oriented 3. Patient remains on dobutamine and Lasix drips. Nephrology and cardiology services are following. Per cardiothoracic epicardial lead placement will be followed up outpatient. At this time patient is complaining of bilateral lower extremity pain. Edematous noted to bilateral legs. Patient denies any chest pain. Patient denies nausea vomiting or diarrhea. Patient denies any urinary burning or frequency. On 04/28/2021 Patient was seen and examined on the medical floor, he is alert and oriented x 3 in no distress, he is maintained on IV Lasix drip and dobutamine drip , patient is complaining of left foot pain otherwise he denies any complaints there is no fever or chills no headache or dizziness no chest pain no shortness of breath no palpitation no cough no nausea or vomiting no abdominal pain no diarrhea no blood in the stools no burning with urination no frequency or urgency and no hematuria, there is no weakness or numbness in any of the extremities no change in vision speech or gait. Objective - Vital Signs Vital signs: Vital Signs Temp 97.7 F 04/28/21 08:00 Pulse 61 04/28/21 08:00 Resp 19 04/28/21 08:00 BP 135/90 04/28/21 08:00 Pulse Ox 96 04/28/21 08:00 Intake & Output 04/27/21 04/28/21 04/28/21 18:59 06:59 18:59 Intake Total 1090.000 631 157.3 Output Total 725 1550 700 Balance 365.000 -919 -542.7 Weight 95 kg Intake: Intake, IV Titration 430.000 91 157.3 Amount DOBUTamine DRIP 500 mg In 250 157.3 Dextrose/Water 1 250ml. bag @ 5 MCG/KG/MIN 15.6 mls/hr IV .Q16H2M [facility] Rx# :[id number] Furosemide 100 mg In 180.000 91 Sodium Chloride 0.9% 90 ml @ 10 MG/HR 10 mls/hr IV .Q10H [facility] Rx#: [id number] Oral 660 540 Output: Urine 725 1550 700 Other: Voiding Method Indwelling Catheter Indwelling Catheter Indwelling Catheter # Bowel Movements 1 - Exam In general patient is alert and oriented x 3 in no distress HEENT head normocephalic and atraumatic Neck is supple no JVD no goiter no lymphadenopathy no carotid bruit Chest examination few scattered rhonchi no wheezing Cardiac exam reveals irregular heart sounds S1 and S2 no gallops no murmurs Abdomen is soft nontender no organomegaly with normal bowel sounds Extremity exam reveals no edema no cyanosis or clubbing Neurological examination reveals no gross focal deficits - Labs CBC & Chem 7: 04/28/21 08:20 04/28/21 08:20 Labs: Abnormal Lab Results - Last 24 Hours (Table) 04/27/21 04/27/21 04/27/21 Range/Units 06:03 12:08 16:56 RBC (4.30-5.90) m/uL Hgb (13.0-17.5) gm/dL Hct (39.0-53.0) % Plt Count (150-450) k/uL Lymphocytes # (1.0-4.8) k/uL Sodium (137-145) mmol/L Chloride (98-107) mmol/L Carbon Dioxide (22-30) mmol/L BUN (9-20) mg/dL Creatinine (0.66-1.25) mg/dL Glucose (74-99) mg/dL POC Glucose (mg/dL) 102 H 144 H 223 H (75-99) mg/dL Total Protein (6.3-8.2) g/dL Albumin (3.5-5.0) g/dL 04/27/21 04/28/21 04/28/21 Range/Units 19:57 05:47 08:20 RBC 4.02 L (4.30-5.90) m/uL Hgb 12.5 L (13.0-17.5) gm/dL Hct 38.7 L (39.0-53.0) % Plt Count 141 L (150-450) k/uL Lymphocytes # 0.7 L (1.0-4.8) k/uL Sodium (137-145) mmol/L Chloride (98-107) mmol/L Carbon Dioxide (22-30) mmol/L BUN (9-20) mg/dL Creatinine (0.66-1.25) mg/dL Glucose (74-99) mg/dL POC Glucose (mg/dL) 246 H 125 H (75-99) mg/dL Total Protein (6.3-8.2) g/dL Albumin (3.5-5.0) g/dL 04/28/21 Range/Units 08:20 RBC (4.30-5.90) m/uL Hgb (13.0-17.5) gm/dL Hct (39.0-53.0) % Plt Count (150-450) k/uL Lymphocytes # (1.0-4.8) k/uL Sodium 128 L (137-145) mmol/L Chloride 87 L (98-107) mmol/L Carbon Dioxide 31 H (22-30) mmol/L BUN 107 H* (9-20) mg/dL Creatinine 3.40 H (0.66-1.25) mg/dL Glucose 151 H (74-99) mg/dL POC Glucose (mg/dL) (75-99) mg/dL Total Protein 5.6 L (6.3-8.2) g/dL Albumin 3.2 L (3.5-5.0) g/dL Assessment and Plan Plan: Acute on chronic systolic congestive heart failure exacerbation Underlying history of coronary artery disease Underlying history of atrial fibrillation Bradycardia on presentation Underlying history of hypertension Underlying history of chronic kidney disease stage III Underlying history of [id number] diabetes mellitus type 2 Underlying history of hyperlipidemia Underlying history of diverticulosis with previous history of gastrointestinal bleeding Underlying history of degenerative disc disease with chronic back pain Underlying history of benign prostatic hypertrophy At this time patient is admitted to telemetry floor Maintained on Lasix drip and dobutamine drip Cardiology and nephrology services are following AICD placement on 04/24/[address] Esparza Outpatient follow-up with cardiothoracic for epicardial lead placement We will follow closely
[2021-04-28 12:30] LABS: Glucose,Whole Blood 193 mg/dL (75-99)
--- NOTE | 2021-04-28 14:26 | PN ---
PROGRESS NOTE Patient is seen for followup for acute kidney injury cardiorenal syndrome and volume overload. The patient is maintained on dobutamine and Lasix drip. Over the weekend, he has had about 2-2.2 L of urine output over 24 hours. He remains short of breath. He remains with significant edema. The patient's daughter is present at bedside this morning and I discussed with the patient and his daughter regarding possible need for renal replacement therapy if there is no further improvement in his volume status. BUN is up to 107 and 108 mg/dL. Creatinine noted to be 3.4. Sodium is 128. The patient has been receiving tolvaptan daily for hypervolemic hyponatremia. PHYSICAL EXAMINATION: On examination today, blood pressure was 135/90, heart rate 61 per minute. He is afebrile. Examination of the heart S1, S2. Examination of the lungs, bilateral breath sounds are heard. Abdomen is soft, nontender, morbidly obese with significant scrotal edema noted. Examination of lower extremities shows edema 4+ bilaterally. Again, severe scrotal edema is noted. DENSITOMETER READER exam grossly intact. LAB: Show sodium 128, potassium 4.5, chloride 87, CO2 is 31, BUN 107, serum creatinine 3.4, hemoglobin 12.5 g/dL. ASSESSMENT: 1. Acute kidney injury cardiorenal, renal function slightly worse secondary to ongoing diuresis. Blood pressure is not significantly low. I will increase the Lasix drip to 15 mg/hour and repeat labs in a.m. Patient and his family are agreeable to starting dialysis if there is no significant improvement in volume status and increase urine output over 24 hours time. 2. Acute on top of chronic systolic congestive heart failure. 3. Cardiomyopathy, EF of about 35-30 percent with [id number]-tj-onwcxahy mitral regurgitation and severe pulmonary hypertension. 4. Hypervolemic hyponatremia maintained on daily dose of tolvaptan. 5. Chronic kidney disease stage IIIB. Baseline creatinine around 2. 6. Status post AICD placement on 04/24/2021 for bradycardia. PLAN: Increase Lasix drip to 15 mg an hour. Dobutamine was also increased today by Cardiology. I will repeat labs in a.m. and I will repeat another dose of tolvaptan today. We will plan for starting renal replacement therapy if there is no further improvement in volume status and negative balance so far. Patient is only about 554 mL of negative balance for 24 hours. MMODL / IJN: [id number] /
[2021-04-28] MEDS: LACTATED RINGERS 1,000 ML IV SCH (14:55)
[2021-04-28 16:38] LABS: Glucose,Whole Blood 217 mg/dL (75-99)
[2021-04-28 20:44] LABS: Glucose,Whole Blood 224 mg/dL (75-99)
[2021-04-28] MEDS: ATORVASTATIN 20 MG TAB PO SCH (22:00)
[2021-04-29] MEDS: FUROSEMIDE 100 MG in SODIUM CHLORIDE 0.9% 90 ML IV SCH ×4 (01:10→21:13)
[2021-04-29] MEDS: DOBUTamine DRIP 500 MG in DEXTROSE/WATER 1 250ML.BAG IV SCH ×2 (03:31→20:58)
[2021-04-29] MEDS: HYDROcodone/APAP 7.5-325MG 1 EACH TAB PO PRN ×3 (04:29→20:35)
[2021-04-29 06:15] LABS: Glucose,Whole Blood 113 mg/dL (75-99)
[2021-04-29] MEDS: INSULIN ASPART (NovoLOG) 100 UNIT/ML VIAL SQ SCH ×4 (06:30→20:37)
--- NOTE | 2021-04-29 08:57 | P.PN ---
<Nona Cage - Last Filed: 04/29/21 08:27> Subjective Progress Note Date: 04/29/21 Principal diagnosis: Bradycardia, acute on chronic congestive heart failure NYHA class III, NSTEMI this admission with elevated troponins, acute kidney injury with hypervolemic hyponatremia, cardiomyopathy with pulmonary hypertension. Previous medical history of chronic atrial fibrillation on Eliquis for anticoagulation, coronary artery disease, chronic kidney disease stage III, hypertension, hyperlipidemia, diabetes mellitus, BPH, CVA, COPD with home oxygen use 2 L nasal cannula, GERD POS #5 insertion of BiV ICD with successful placement of RV lead by Dr. Esparza The patient is currently laying in bed on the cardiac stepdown unit in no acute distress. He denies any chest pain. States he does not feel significantly more short of breath, however he appears to have shortness of breath with commun ication. Generalized edema remains. Currently on 3 L nasal cannula. Remains on IV dobutamine at 5 mcg/kg/m as well as continuous IV Lasix at 15 mg/hr which was increased by nephrology yesterday, as well as Zaroxolyn. According to the notes, Dr. Waldrop did discuss possibility of hemodialysis with patient and daughter if the patient doesn't have significant improvement in his volume status. He has received 3 doses of tolvapatan for hyponatremia. Remains in atrial fibrillation with occasional pacer spikes, heart rate in the low 60s, beta wil continues to be on hold, remains on low-dose Eliquis. Per note from Dr. Esparza he feels patient is as medically optimized as possible and is recommending LV lead placement as an inpatient. Discussed with Dr. Aleman who will see the patient and review current studies. Objective - Vital Signs Vital signs: Vital Signs Temp 98.0 F 04/28/21 20:00 Pulse 51 L 04/29/21 04:00 Resp 18 04/29/21 04:00 BP 127/60 04/29/21 04:00 Pulse Ox 94 L 04/29/21 04:00 Intake & Output 04/28/21 04/29/21 04/29/21 18:59 06:59 18:59 Intake Total 737.3 282.260 Output Total 1200 1425 Balance -462.7 -1142.740 Weight 104 kg Intake: Intake, IV Titration 257.3 282.260 Amount DOBUTamine DRIP 500 mg In 157.3 182.26 Dextrose/Water 1 250ml. bag @ 5 MCG/KG/MIN 15.6 mls/hr IV .Q16H2M [facility] Rx# :[id number] Furosemide 100 mg In 100 100.000 Sodium Chloride 0.9% 90 ml @ 15 MG/HR 15 mls/hr IV .Q6H40M [facility] Rx#: [id number] Oral 480 Output: Urine 1200 1425 Other: Voiding Method Indwelling Catheter Indwelling Catheter # Bowel Movements 1 - Exam CONSTITUTIONAL: Appears comfortable, cooperative, no acute distress but does appear short of breath with conversation RESPIRATORY: Lungs sounds diminished bilaterally. Respirations even, nonlabored. Currently on 3 L nasal cannula with oxygen saturation in the 90s. CARDIOVASCULAR: S1, S2 present. Irregular rate and rhythm, controlled atrial fibrillation on telemetry. Palpable peripheral pulses bilaterally. Generalized edema present. No calf pain or tenderness noted. GASTROINTESTINAL: Abdomen soft, round, nontender, nondistended. Active bowel sounds present 4 quadrants. Tolerating diet. Positive bowel movement. GENITOURINARY: Lai present draining clear, yellow urine. Output 2625 mL in the last 24 hours INTEGUMENTARY: Skin is warm and dry NEUROLOGIC: Cranial nerves II through XII intact MUSKULOSKELETAL: Able to move all extremities, strength equal bilaterally, gait normal-ambulate short distances with walker PSYCHIATRIC: Alert and oriented to person place and time, appropriate affect, intact judgment and insight - Labs CBC & Chem 7: 04/28/21 08:20 04/28/21 08:20 Labs: Abnormal Lab Results - Last 24 Hours (Table) 04/28/21 04/28/21 04/28/21 Range/Units 08:20 08:20 12:06 RBC 4.02 L (4.30-5.90) m/uL Hgb 12.5 L (13.0-17.5) gm/dL Hct 38.7 L (39.0-53.0) % Plt Count 141 L (150-450) k/uL Lymphocytes # 0.7 L (1.0-4.8) k/uL Sodium 128 L (137-145) mmol/L Chloride 87 L (98-107) mmol/L Carbon Dioxide 31 H (22-30) mmol/L BUN 107 H* (9-20) mg/dL Creatinine 3.40 H (0.66-1.25) mg/dL Glucose 151 H (74-99) mg/dL POC Glucose (mg/dL) 193 H (75-99) mg/dL Total Protein 5.6 L (6.3-8.2) g/dL Albumin 3.2 L (3.5-5.0) g/dL 04/28/21 04/28/21 04/29/21 Range/Units 16:32 20:42 06:13 RBC (4.30-5.90) m/uL Hgb (13.0-17.5) gm/dL Hct (39.0-53.0) % Plt Count (150-450) k/uL Lymphocytes # (1.0-4.8) k/uL Sodium (137-145) mmol/L Chloride (98-107) mmol/L Carbon Dioxide (22-30) mmol/L BUN (9-20) mg/dL Creatinine (0.66-1.25) mg/dL Glucose (74-99) mg/dL POC Glucose (mg/dL) 217 H 224 H 113 H (75-99) mg/dL Total Protein (6.3-8.2) g/dL Albumin (3.5-5.0) g/dL Assessment and Plan Assessment: 1. Bradycardia, present on admission 2. Acute on chronic congestive heart failure NYHA class III, EF 30-35%, status post insertion of BiV ICD with successful placement of RV lead by Dr. Esparza 3. NSTEMI this admission with elevated troponins 4. Acute kidney injury with hypervolemic hyponatremia 5. Cardiomyopathy with pulmonary hypertension 6. Chronic atrial fibrillation on Eliquis for anticoagulation 7. Coronary artery disease 8. Chronic kidney disease stage III 9. Hypertension 10. Hyperlipidemia 11. Diabetes mellitus 12. BPH 13. History of CVA 14. COPD with home oxygen use 2 L nasal cannula 15. GERD Plan: 1. Continue current medical therapy, continue to maximize heart failure management per cardiology/Dr. Esparza 2. Case was discussed with Dr. Aleman, he will reevaluate the patient and make further recommendations 3. Increase activity as tolerated 4. JEY management per Dr. Waldrop 5. Medical management of other comorbidities per primary care service 6. More recommendations to follow Time with Patient: Greater than 30 <Reymundo Aleman - Last Filed: 04/30/21 10:04> Objective - Vital Signs Vital signs: Vital Signs Temp 97.4 F L 04/30/21 04:00 Pulse 58 L 04/30/21 04:00 Resp 18 04/30/21 04:00 BP 137/63 04/30/21 04:00 Pulse Ox 100 04/30/21 08:11 Intake & Output 04/29/21 04/30/21 04/30/21 18:59 06:59 18:59 Intake Total 680 539.25 200 Output Total 825 2300 900 Balance -145 -1760.75 -700 Weight 106.5 kg Intake: Intake, IV Titration 200 339.25 100 Amount DOBUTamine DRIP 500 mg In 250 Dextrose/Water 1 250ml. bag @ 5 MCG/KG/MIN 15.6 mls/hr IV .Q16H2M [facility] Rx# :[id number] Furosemide 100 mg In 200 89.25 100 Sodium Chloride 0.9% 90 ml @ 15 MG/HR 15 mls/hr IV .Q6H40M [facility] Rx#: [id number] Oral 480 200 100 Output: Urine 825 2300 900 Uretheral (Lai) 900 Other: Voiding Method Indwelling Catheter Indwelling Catheter - Labs CBC & Chem 7: 04/30/21 07:07 04/30/21 07:07 Labs: Abnormal Lab Results - Last 24 Hours (Table) 04/29/21 04/29/21 04/29/21 Range/Units 11:58 16:53 20:14 RBC (4.30-5.90) m/uL Hgb (13.0-17.5) gm/dL Hct (39.0-53.0) % Lymphocytes # (1.0-4.8) k/uL Sodium (137-145) mmol/L Chloride (98-107) mmol/L Carbon Dioxide (22-30) mmol/L BUN (9-20) mg/dL Creatinine (0.66-1.25) mg/dL Glucose (74-99) mg/dL POC Glucose (mg/dL) 164 H 206 H 179 H (75-99) mg/dL Total Protein (6.3-8.2) g/dL Albumin (3.5-5.0) g/dL 04/30/21 04/30/21 04/30/21 Range/Units 06:12 07:07 07:07 RBC 3.67 L (4.30-5.90) m/uL Hgb 11.4 L (13.0-17.5) gm/dL Hct 35.3 L (39.0-53.0) % Lymphocytes # 0.8 L (1.0-4.8) k/uL Sodium 128 L (137-145) mmol/L Chloride 85 L (98-107) mmol/L Carbon Dioxide 36 H (22-30) mmol/L BUN 114 H* (9-20) mg/dL Creatinine 3.47 H (0.66-1.25) mg/dL Glucose 106 H (74-99) mg/dL POC Glucose (mg/dL) 116 H (75-99) mg/dL Total Protein 5.3 L (6.3-8.2) g/dL Albumin 3.0 L (3.5-5.0) g/dL Assessment and Plan Assessment: Case discussed with Drs. Fontenot and Isaias. Patient will benefit from LV lead placement but is not currently in the medical condition to tolerate thoracic surgical placement of such a lead. Plan is to begin dialysis and hopefully improve the patient's overall heart failure symptomatology to the point where a lead can be placed safely.
[2021-04-29 09:10] LABS: Albumin 2.9 g/dL (3.5-5.0); Calcium 8.9 mg/dL (8.4-10.2); Potassium 4.2 mmol/L (3.5-5.1); Total Bilirubin 0.7 mg/dL (0.2-1.3); Total Protein 5.1 g/dL (6.3-8.2)
[2021-04-29 09:11] LABS: Basophils % (A) 0 %; Eosinophils # (A) 0.1 k/uL (0-0.7); Eosinophils % (A) 3 %; HCT 34.9 % (39.0-53.0); HGB 11.7 gm/dL (13.0-17.5); Lymphocytes # (A) 0.7 k/uL (1.0-4.8); Lymphocytes % (A) 13 %; MCHC 33.5 g/dL (31.0-37.0); MCV 95.4 fL (80.0-100.0); Mean Platelet Volume 8.6; Monocytes # (A) 0.4 k/uL (0-1.0); Monocytes % (A) 8 %; Neutrophils # (A) 3.9 k/uL (1.3-7.7); Neutrophils % (A) 74 %; Platelet Count 165 k/uL (150-450); RBC 3.66 m/uL (4.30-5.90); RDW 15.1 % (11.5-15.5); WBC 5.3 k/uL (3.8-10.6)
[2021-04-29] MEDS: bisacodyL 5 MG TABLET.DR PO SCH ×2 (09:29→20:35)
[2021-04-29] MEDS: DOCUSATE 100 MG CAP PO SCH ×2 (09:29→20:37)
[2021-04-29] MEDS: APIXABAN 2.5 MG TABLET PO SCH ×2 (09:29→20:37)
[2021-04-29] MEDS: diphenhydrAMINE 25 MG CAP PO SCH ×2 (09:29→20:37)
[2021-04-29] MEDS: CHOLECALCIFEROL 25 MCG (1000 IU) TABLET PO SCH ×2 (09:30→20:37)
[2021-04-29] MEDS: MAGNESIUM OXIDE 400 MG TAB PO SCH ×2 (09:30→20:36)
[2021-04-29] MEDS: hydrALAZINE HCL 25 MG TAB PO SCH ×4 (09:30→20:37)
[2021-04-29] MEDS: DOXAZOSIN 4 MG TAB PO SCH (09:30)
[2021-04-29] MEDS: glipiZIDE 5 MG TAB PO SCH ×2 (09:30→20:37)
[2021-04-29] MEDS: LOSARTAN 25 MG TAB PO SCH (09:30)
[2021-04-29] MEDS: CYANOCOBALAMIN 500 MCG TAB PO SCH (09:30)
[2021-04-29] MEDS: metOLazone 2.5 MG TAB PO SCH ×2 (09:31→20:35)
[2021-04-29] MEDS: SILDENAFIL 20 MG TAB PO SCH ×2 (09:31→20:35)
[2021-04-29] MEDS: PANTOPRAZOLE 40 MG TABLET PO SCH (09:35)
[2021-04-29 12:03] LABS: Glucose,Whole Blood 164 mg/dL (75-99)
--- NOTE | 2021-04-29 12:12 | PN ---
PROGRESS NOTE Berny Linares is an 80-year-old gentleman who has been admitted with exacerbation of CHF. He has chronic atrial fibrillation and his LV lead could not be placed because of technical reasons. The patient also has had worsening renal function and yesterday I increased the dobutamine to 5 mcg/kg per minute and also increased his Lasix drip. He has put out 2.5 L. He feels better. His breathing is easier. Edema has improved. I will speak to Dr. Aleman to see if he can consider placing an epicardial left ventricular lead during this hospitalization. Dr. Esparza has noted aortic stenosis is mild and certainly not moderate or severe. His LV dysfunction is quite significant. I will speak to Dr. Aleman also. We will continue the dose of dobutamine at 5 and continue Lasix drip for now and continue diuresis and check his electrolytes closely. Creatinine has shown modest improvement of 3.8. Blood pressure is about 128/70, pulse rate is 62, irregular 62, irregular. There is evidence of JVD. S1-S2 heard normally with irregular rhythm, short systolic murmur. Lungs reveal diminished air entry both bases. Abdomen is soft. Lower extremity edema shows modest improvement. IMPRESSION: 1. Exacerbation of congestive heart failure with renal dysfunction, modest improvement noted. 2. Mild aortic stenosis. 3. Patient is being considered for a left ventricular epicardial pacemaker, will speak to Dr. Aleman. Prognosis remains guarded. MMFARZADL / AGATHAN: [id number] /
[2021-04-29] MEDS: LACTATED RINGERS 1,000 ML IV SCH (14:12)
--- NOTE | 2021-04-29 14:52 | P.PN ---
Subjective Progress Note Date: 04/29/21 Berny Linares, is an 80 year old male who presented to [facility] emergency room with a chief complaint of worsening shortness of breath and upper chest pain, patient stated that his symptoms started 1 day prior to presentation and has been worsening, he was having difficulty breathing when he was trying to lie down, he was also having worsening lower extremity edema, on the day of presentation patient started having upper chest pain radiating to the back of his neck and to both shoulders, at that point he decided to come to emergency room. He was evaluated in the emergency room vital examination on presentation revealed a temperature of 98.1 pulse 49 respiration 20 blood pressure 118/62 pulse ox 92% on room air Laboratory data reveals a white blood count of 4.4 hemoglobin 12.4 platelet count 108 sodium 134 potassium 4.2 chloride 95 CO2 31 BUN 61 creatinine 2.33 troponin level was elevated at 0.183. Review of the chart revealed creatinine 2.2 on 10/16/2020 and 1.8 on 06/20/2020. BNP was 16,400 Testing in the emergency room revealed, chest x-ray done in the emergency room revealed evidence of congestive heart failure blunting of the bilateral costophrenic angles suggestive of mild bilateral pleural effusion Patient was admitted to medical floor for further evaluation and treatment, he was started on IV Lasix, cardiology consultation was requested. Past medical history is significant for history of chronic systolic congestive heart failure echocardiogram done in December 2018 revealed ejection fraction of 35-40%, patient also has a known history of atrial fibrillation maintained on coagulation with Eliquis, history of diffuse coronary artery disease patient had cardiac catheterization in 2016 at that time medication treatment was advised. History of AAA for which patient underwent stent grafting, patient also has a known history of hypertension, aay-hxpsjfs-llvggcjus diabetes mellitus, benign prostatic hypertrophy, chronic kidney disease stage III, diverticulosis was previous history of lower gastrointestinal bleeding, degenerative disc disease with history of back surgery. Patient stated that he used to smoke he quit many years ago. On 04/21/2021 Patient was seen and examined on the medical floor, he is alert and oriented x 3 in no distress, patient is complaining of shortness of breath with activity otherwise he denies any complaints there is no fever or chills no headache or dizziness no chest pain no cough no nausea or vomiting no abdominal pain no diarrhea no blood in the stools no burning with urination no frequency or urgency and no hematuria, there is no weakness or numbness in any of the extremities no change in vision speech or gait. On 04/22/2021 Patient was seen and examined on the medical floor, he is alert and oriented x 3 in no distress, he denies any complaints there is no fever or chills no headache or dizziness no chest pain no shortness of breath no palpitation no cough no nausea or vomiting no abdominal pain no diarrhea no blood in the stools no burning with urination no frequency or urgency and no hematuria, there is no weakness or numbness in any of the extremities no change in vision speech or gait. Patient is comfortable while lying in bed he has significant shortness of breath with any activity On 04/23/2021 patient is alert and oriented 3 resting comfortably in bed. Tentative plans for AICD placement tomorrow per Dr. Jara. Patient maintained on dobutamine drip. Patient remains on IV Lasix. At this time patient denies chest pain or shortness of breath. Patient denies nausea vomiting or diarrhea. Patient denies any urinary burning or frequency. On 04/24/2021 patient is alert and oriented 3 in no distress, he denies any chest pain or palpitation no shortness of breath at rest he has shortness of breath with any activity. Tentative plans for AICD placement tomorrow per Dr. Jara. Patient maintained on dobutamine drip. Patient remains on IV Lasix. At this time patient denies chest pain or shortness of breath. Patient denies nausea vomiting or diarrhea. Patient denies any urinary burning or frequency. On 04/25/2021 patient is alert and oriented 3. Status post BIV ICD placement Dr. Esparza. Postop day 1. Patient remains on Lasix and dobutamine drip. Patient still having +2 pitting edema. Cardiology and nephrology services are following. Cardiothoracic surgery consulted for requirement of epicardial lead placement per Dr. Jara. At this time patient denies any chest pain or shortness of breath. Patient denies nausea vomiting or diarrhea. Patient den ies any urinary burning or frequency On 04/26/2021 Patient was seen and examined on the telemetry floor, he is alert and oriented x 3 in no distress, he is complaining of shortness of breath with any activity otherwise he denies any complaints there is no fever or chills no headache or dizziness no chest pain no palpitation no cough no nausea or vomiting no abdominal pain no diarrhea no blood in the stools no burning with urination no frequency or urgency and no hematuria, there is no weakness or numbness in any of the extremities no change in vision speech or gait. On 04/27/2021 patient alert and oriented 3. Patient remains on dobutamine and Lasix drips. Nephrology and cardiology services are following. Per cardiothoracic epicardial lead placement will be followed up outpatient. At this time patient is complaining of bilateral lower extremity pain. Edematous noted to bilateral legs. Patient denies any chest pain. Patient denies nausea vomiting or diarrhea. Patient denies any urinary burning or frequency. On 04/28/2021 Patient was seen and examined on the medical floor, he is alert and oriented x 3 in no distress, he is maintained on IV Lasix drip and dobutamine drip , patient is complaining of left foot pain otherwise he denies any complaints there is no fever or chills no headache or dizziness no chest pain no shortness of breath no palpitation no cough no nausea or vomiting no abdominal pain no diarrhea no blood in the stools no burning with urination no frequency or urgency and no hematuria, there is no weakness or numbness in any of the extremities no change in vision speech or gait. On 04/29/2021 Patient was seen and examined on the medical floor, he is alert and oriented x 3 in no distress, he is complaining of back and lower extremity pain otherwise he denies any complaints there is no fever or chills no headache or dizziness no chest pain no shortness of breath no palpitation no cough no nausea or vomiting no abdominal pain no diarrhea no blood in the stools no burning with urination no frequency or urgency and no hematuria, there is no weakness or numbness in any of the extremities no change in vision speech or gait. Objective - Vital Signs Vital signs: Vital Signs Temp 97.8 F 04/29/21 08:00 Pulse 62 04/29/21 08:00 Resp 18 04/29/21 08:00 BP 146/66 04/29/21 08:00 Pulse Ox 96 04/29/21 08:00 Intake & Output 04/28/21 04/29/21 04/29/21 18:59 06:59 18:59 Intake Total 737.3 282.260 100 Output Total 1200 1425 Balance -462.7 -1142.740 100 Weight 104 kg Intake: Intake, IV Titration 257.3 282.260 100 Amount DOBUTamine DRIP 500 mg In 157.3 182.26 Dextrose/Water 1 250ml. bag @ 5 MCG/KG/MIN 15.6 mls/hr IV .Q16H2M [place] Rx# :[id number] Furosemide 100 mg In 100 100.000 100 Sodium Chloride 0.9% 90 ml @ 15 MG/HR 15 mls/hr IV .Q6H40M [place] Rx#: [id number] Oral 480 Output: Urine 1200 1425 Other: Voiding Method Indwelling Catheter Indwelling Catheter Indwelling Catheter # Bowel Movements 1 - Exam In general patient is alert and oriented x 3 in no distress HEENT head normocephalic and atraumatic Neck is supple no JVD no goiter no lymphadenopathy no carotid bruit Chest examination few scattered rhonchi no wheezing Cardiac exam reveals irregular heart sounds S1 and S2 no gallops no murmurs Abdomen is soft nontender no organomegaly with normal bowel sounds Extremity exam reveals no edema no cyanosis or clubbing Neurological examination reveals no gross focal deficits - Labs CBC & Chem 7: 04/29/21 08:25 04/29/21 08:25 Labs: Abnormal Lab Results - Last 24 Hours (Table) 04/28/21 04/28/21 04/28/21 Range/Units 12:06 16:32 20:42 RBC (4.30-5.90) m/uL Hgb (13.0-17.5) gm/dL Hct (39.0-53.0) % Lymphocytes # (1.0-4.8) k/uL Sodium (137-145) mmol/L Chloride (98-107) mmol/L Carbon Dioxide (22-30) mmol/L BUN (9-20) mg/dL Creatinine (0.66-1.25) mg/dL Glucose (74-99) mg/dL POC Glucose (mg/dL) 193 H 217 H 224 H (75-99) mg/dL Total Protein (6.3-8.2) g/dL Albumin (3.5-5.0) g/dL 04/29/21 04/29/21 04/29/21 Range/Units 06:13 08:25 08:25 RBC 3.66 L (4.30-5.90) m/uL Hgb 11.7 L (13.0-17.5) gm/dL Hct 34.9 L (39.0-53.0) % Lymphocytes # 0.7 L (1.0-4.8) k/uL Sodium 127 L (137-145) mmol/L Chloride 86 L (98-107) mmol/L Carbon Dioxide 33 H (22-30) mmol/L BUN 110 H* (9-20) mg/dL Creatinine 3.28 H (0.66-1.25) mg/dL Glucose 179 H (74-99) mg/dL POC Glucose (mg/dL) 113 H (75-99) mg/dL Total Protein 5.1 L (6.3-8.2) g/dL Albumin 2.9 L (3.5-5.0) g/dL 04/29/21 Range/Units 11:58 RBC (4.30-5.90) m/uL Hgb (13.0-17.5) gm/dL Hct (39.0-53.0) % Lymphocytes # (1.0-4.8) k/uL Sodium (137-145) mmol/L Chloride (98-107) mmol/L Carbon Dioxide (22-30) mmol/L BUN (9-20) mg/dL Creatinine (0.66-1.25) mg/dL Glucose (74-99) mg/dL POC Glucose (mg/dL) 164 H (75-99) mg/dL Total Protein (6.3-8.2) g/dL Albumin (3.5-5.0) g/dL Assessment and Plan Plan: Acute on chronic systolic congestive heart failure exacerbation Underlying history of coronary artery disease Underlying history of atrial fibrillation Bradycardia on presentation Underlying history of hypertension Underlying history of chronic kidney disease stage III Underlying history of tmo-peqpgvo-lvaekmtyo diabetes mellitus type 2 Underlying history of hyperlipidemia Underlying history of diverticulosis with previous history of gastrointestinal bleeding Underlying history of degenerative disc disease with chronic back pain Underlying history of benign prostatic hypertrophy At this time patient is admitted to telemetry floor Maintained on Lasix drip and dobutamine drip Cardiology and nephrology services are following AICD placement on 04/24/[address] Esparza Outpatient follow-up with cardiothoracic for epicardial lead placement We will follow closely
[2021-04-29] MEDS ORDERED: TOLVAPTAN 30 MG TABLET PO ONE (16:00)
[2021-04-29 17:05] LABS: Glucose,Whole Blood 206 mg/dL (75-99)
--- NOTE | 2021-04-29 18:52 | PN ---
PROGRESS NOTE Patient is seen for followup for acute kidney injury and cardiorenal syndrome. The patient's dobutamine and Lasix drip were increased yesterday. He is currently on 5 mics of dobutamine and 50 mg of Lasix drip. He has had increased urine output for 24 hours and he has been -1 L. His creatinine is also slightly lower than yesterday. Overall, patient states he feels about the same or perhaps slightly better. PHYSICAL EXAMINATION: On examination today, blood pressure 130/60, heart rate 64 per minute. He is afebrile. Examination of the heart S1, S2. Examination of the lungs, bilateral breath sounds are heard. Abdomen is soft, nontender. Examination lower extremities shows chronic skin changes, edema about 2 to 3+ with gross scrotal edema noted. 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 LAB: Show hemoglobin 11.7, sodium 127, potassium 4.2, BUN 110, serum creatinine 3.28. ASSESSMENT: 1. Acute kidney injury, cardiorenal syndrome. Renal function slightly improved from yesterday. Continue to aggressively diurese patient. I will hold off on plans for renal replacement therapy as renal function is slightly better and urine output has also picked up. 2. Hypervolemic hyponatremia. Will repeat tolvaptan today, the patient did not get a dose yesterday. 3. Cardiomyopathy, ejection fraction about 30-35% with mild to moderate mitral regurgitation and severe pulmonary hypertension. 4. Chronic kidney disease stage 3B. Baseline creatinine around 2 secondary to nephrosclerosis cardiorenal syndrome. 5. Bradycardia status post AICD placement on 04/24/2021. PLAN: Maintain current dose of Lasix drip and dobutamine drip along with Zaroxolyn, tolvaptan 30 mg p.o. x1 and repeat labs in a.m. Hold off on dialysis for now. MMODL / IJN: [id number] /
[2021-04-29 20:16] LABS: Glucose,Whole Blood 179 mg/dL (75-99)
[2021-04-29] MEDS: ATORVASTATIN 20 MG TAB PO SCH (20:36)
[2021-04-29] MEDS: HYDROmorphone 0.5 MG/0.5 ML SYRINGE IVP PRN (23:24)
[2021-04-30] MEDS: FUROSEMIDE 100 MG in SODIUM CHLORIDE 0.9% 90 ML IV SCH ×3 (03:10→18:36)
[2021-04-30 06:13] LABS: Glucose,Whole Blood 116 mg/dL (75-99)
[2021-04-30] MEDS: INSULIN ASPART (NovoLOG) 100 UNIT/ML VIAL SQ SCH ×4 (07:03→21:32)
[2021-04-30 08:24] LABS: Basophils % (A) 1 %; Eosinophils # (A) 0.1 k/uL (0-0.7); Eosinophils % (A) 3 %; HCT 35.3 % (39.0-53.0); HGB 11.4 gm/dL (13.0-17.5); Lymphocytes # (A) 0.8 k/uL (1.0-4.8); Lymphocytes % (A) 16 %; MCH 31.2 pg (25.0-35.0); MCHC 32.4 g/dL (31.0-37.0); MCV 96.2 fL (80.0-100.0); Mean Platelet Volume 8.8; Monocytes # (A) 0.5 k/uL (0-1.0); Monocytes % (A) 10 %; Neutrophils # (A) 3.5 k/uL (1.3-7.7); Neutrophils % (A) 69 %; Platelet Count 168 k/uL (150-450); RBC 3.67 m/uL (4.30-5.90); RDW 14.6 % (11.5-15.5); WBC 5.1 k/uL (3.8-10.6)
[2021-04-30 08:32] LABS: Magnesium 2.1 mg/dL (1.6-2.3); Potassium 4.1 mmol/L (3.5-5.1); Total Bilirubin 0.7 mg/dL (0.2-1.3); Total Protein 5.3 g/dL (6.3-8.2)
--- NOTE | 2021-04-30 08:46 | XR ---
EXAMINATION TYPE: XR chest 2V DATE OF EXAM: 04/30/2021 COMPARISON: Chest x-ray 04/24/2021 HISTORY: Heart failure TECHNIQUE: Frontal and lateral views of the chest are obtained. FINDINGS: The heart remains enlarged. Defibrillator is stable. No evident pneumothorax. Bibasilar de nsity is present, the right hemidiaphragm is obscured. Patient is rotated. There is blunting of the p osterior costophrenic angles. Central vascularity is mildly prominent. Interval improved visualizatio n of the left hemidiaphragm. IMPRESSION: Cardiomegaly, bibasilar effusions and probable associated atelectasis versus edema. Pneu monia felt to be less likely. There may be some improvement in aeration.
[2021-04-30] MEDS: CYANOCOBALAMIN 500 MCG TAB PO SCH (09:14)
[2021-04-30] MEDS: SILDENAFIL 20 MG TAB PO SCH ×2 (09:14→21:31)
[2021-04-30] MEDS: MAGNESIUM OXIDE 400 MG TAB PO SCH ×2 (09:14→21:31)
[2021-04-30] MEDS: diphenhydrAMINE 25 MG CAP PO SCH ×2 (09:14→21:31)
[2021-04-30] MEDS: PANTOPRAZOLE 40 MG TABLET PO SCH (09:14)
[2021-04-30] MEDS: metOLazone 2.5 MG TAB PO SCH ×2 (09:14→21:31)
[2021-04-30] MEDS: DOCUSATE 100 MG CAP PO SCH ×2 (09:14→21:31)
[2021-04-30] MEDS: CHOLECALCIFEROL 25 MCG (1000 IU) TABLET PO SCH ×2 (09:15→21:31)
[2021-04-30] MEDS: hydrALAZINE HCL 25 MG TAB PO SCH ×3 (09:15→21:31)
[2021-04-30] MEDS: APIXABAN 2.5 MG TABLET PO SCH (09:15)
[2021-04-30] MEDS: LOSARTAN 25 MG TAB PO SCH (09:15)
[2021-04-30] MEDS: glipiZIDE 5 MG TAB PO SCH ×2 (09:15→21:32)
[2021-04-30] MEDS: DOXAZOSIN 4 MG TAB PO SCH (09:15)
[2021-04-30] MEDS: bisacodyL 5 MG TABLET.DR PO SCH ×2 (09:15→21:32)
[2021-04-30] MEDS: HYDROcodone/APAP 7.5-325MG 1 EACH TAB PO PRN ×3 (09:43→21:30)
[2021-04-30] MEDS: HYDROmorphone 0.5 MG/0.5 ML SYRINGE IVP PRN ×3 (09:48→18:45)
--- NOTE | 2021-04-30 10:27 | P.PN ---
Subjective Progress Note Date: 04/30/21 Berny Linares, is an 80 year old male who presented to [facility] emergency room with a chief complaint of worsening shortness of breath and upper chest pain, patient stated that his symptoms started 1 day prior to presentation and has been worsening, he was having difficulty breathing when he was trying to lie down, he was also having worsening lower extremity edema, on the day of presentation patient started having upper chest pain radiating to the back of his neck and to both shoulders, at that point he decided to come to emergency room. He was evaluated in the emergency room vital examination on presentation revealed a temperature of 98.1 pulse 49 respiration 20 blood pressure 118/62 pulse ox 92% on room air Laboratory data reveals a white blood count of 4.4 hemoglobin 12.4 platelet count 108 sodium 134 potassium 4.2 chloride 95 CO2 31 BUN 61 creatinine 2.33 troponin level was elevated at 0.183. Review of the chart revealed creatinine 2.2 on 10/16/2020 and 1.8 on 06/20/2020. BNP was 16,400 Testing in the emergency room revealed, chest x-ray done in the emergency room revealed evidence of congestive heart failure blunting of the bilateral costophrenic angles suggestive of mild bilateral pleural effusion Patient was admitted to medical floor for further evaluation and treatment, he was started on IV Lasix, cardiology consultation was requested. Past medical history is significant for history of chronic systolic congestive heart failure echocardiogram done in December 2018 revealed ejection fraction of 35-40%, patient also has a known history of atrial fibrillation maintained on coagulation with Eliquis, history of diffuse coronary artery disease patient had cardiac catheterization in 2016 at that time medication treatment was advised. History of AAA for which patient underwent stent grafting, patient also has a known history of hypertension, [id number] diabetes mellitus, benign prostatic hypertrophy, chronic kidney disease stage III, diverticulosis was previous history of lower gastrointestinal bleeding, degenerative disc disease with history of back surgery. Patient stated that he used to smoke he quit many years ago. On 04/21/2021 Patient was seen and examined on the medical floor, he is alert and oriented x 3 in no distress, patient is complaining of shortness of breath with activity otherwise he denies any complaints there is no fever or chills no headache or dizziness no chest pain no cough no nausea or vomiting no abdominal pain no diarrhea no blood in the stools no burning with urination no frequency or urgency and no hematuria, there is no weakness or numbness in any of the extremities no change in vision speech or gait. On 04/22/2021 Patient was seen and examined on the medical floor, he is alert and oriented x 3 in no distress, he denies any complaints there is no fever or chills no headache or dizziness no chest pain no shortness of breath no palpitation no cough no nausea or vomiting no abdominal pain no diarrhea no blood in the stools no burning with urination no frequency or urgency and no hematuria, there is no weakness or numbness in any of the extremities no change in vision speech or gait. Patient is comfortable while lying in bed he has significant shortness of breath with any activity On 04/23/2021 patient is alert and oriented 3 resting comfortably in bed. Tentative plans for AICD placement tomorrow per Dr. Jara. Patient maintained on dobutamine drip. Patient remains on IV Lasix. At this time patient denies chest pain or shortness of breath. Patient denies nausea vomiting or diarrhea. Patient denies any urinary burning or frequency. On 04/24/2021 patient is alert and oriented 3 in no distress, he denies any chest pain or palpitation no shortness of breath at rest he has shortness of breath with any activity. Tentative plans for AICD placement tomorrow per Dr. Jara. Patient maintained on dobutamine drip. Patient remains on IV Lasix. At this time patient denies chest pain or shortness of breath. Patient denies nausea vomiting or diarrhea. Patient denies any urinary burning or frequency. On 04/25/2021 patient is alert and oriented 3. Status post BIV ICD placement Dr. Esparza. Postop day 1. Patient remains on Lasix and dobutamine drip. Patient still having +2 pitting edema. Cardiology and nephrology services are following. Cardiothoracic surgery consulted for requirement of epicardial lead placement per Dr. Jara. At this time patient denies any chest pain or shortness of breath. Patient denies nausea vomiting or diarrhea. Patient den ies any urinary burning or frequency On 04/26/2021 Patient was seen and examined on the telemetry floor, he is alert and oriented x 3 in no distress, he is complaining of shortness of breath with any activity otherwise he denies any complaints there is no fever or chills no headache or dizziness no chest pain no palpitation no cough no nausea or vomiting no abdominal pain no diarrhea no blood in the stools no burning with urination no frequency or urgency and no hematuria, there is no weakness or numbness in any of the extremities no change in vision speech or gait. On 04/27/2021 patient alert and oriented 3. Patient remains on dobutamine and Lasix drips. Nephrology and cardiology services are following. Per cardiothoracic epicardial lead placement will be followed up outpatient. At this time patient is complaining of bilateral lower extremity pain. Edematous noted to bilateral legs. Patient denies any chest pain. Patient denies nausea vomiting or diarrhea. Patient denies any urinary burning or frequency. On 04/28/2021 Patient was seen and examined on the medical floor, he is alert and oriented x 3 in no distress, he is maintained on IV Lasix drip and dobutamine drip , patient is complaining of left foot pain otherwise he denies any complaints there is no fever or chills no headache or dizziness no chest pain no shortness of breath no palpitation no cough no nausea or vomiting no abdominal pain no diarrhea no blood in the stools no burning with urination no frequency or urgency and no hematuria, there is no weakness or numbness in any of the extremities no change in vision speech or gait. On 04/29/2021 Patient was seen and examined on the medical floor, he is alert and oriented x 3 in no distress, he is complaining of back and lower extremity pain otherwise he denies any complaints there is no fever or chills no headache or dizziness no chest pain no shortness of breath no palpitation no cough no nausea or vomiting no abdominal pain no diarrhea no blood in the stools no burning with urination no frequency or urgency and no hematuria, there is no weakness or numbness in any of the extremities no change in vision speech or gait. On 04/30/2021 patient is alert and oriented 3. Patient appears to be having increased shortness of breath today. Patient remains on Lasix and dobutamine drip. Creatinine 3.47 and bun 114. Discussed case with cardiology team. Cardiology team spoke to cardiothoracic team and nephrology team tentative plan for patient to receive hemodialysis followed by possible surgical intervention for epicardial lead placement with Dr. Aleman. Objective - Vital Signs Vital signs: Vital Signs Temp 97.4 F L 04/30/21 04:00 Pulse 58 L 04/30/21 04:00 Resp 18 04/30/21 04:00 BP 137/63 04/30/21 04:00 Pulse Ox 100 04/30/21 08:11 Intake & Output 04/29/21 04/30/21 04/30/21 18:59 06:59 18:59 Intake Total 680 539.25 200 Output Total 825 2300 900 Balance -145 -1760.75 -700 Weight 106.5 kg Intake: Intake, IV Titration 200 339.25 100 Amount DOBUTamine DRIP 500 mg In 250 Dextrose/Water 1 250ml. bag @ 5 MCG/KG/MIN 15.6 mls/hr IV .Q16H2M [place] Rx# :[id number] Furosemide 100 mg In 200 89.25 100 Sodium Chloride 0.9% 90 ml @ 15 MG/HR 15 mls/hr IV .Q6H40M [place] Rx#: [id number] Oral 480 200 100 Output: Urine 825 2300 900 Uretheral (Lai) 900 Other: Voiding Method Indwelling Catheter Indwelling Catheter - Exam In general patient is alert and oriented x 3 in no distress HEENT head normocephalic and atraumatic Neck is supple no JVD no goiter no lymphadenopathy no carotid bruit Chest examination few scattered rhonchi no wheezing Cardiac exam reveals irregular heart sounds S1 and S2 no gallops no murmurs Abdomen is soft nontender no organomegaly with normal bowel sounds Extremity exam reveals no edema no cyanosis or clubbing Neurological examination reveals no gross focal deficits - Labs CBC & Chem 7: 04/30/21 07:07 04/30/21 07:07 Labs: Abnormal Lab Results - Last 24 Hours (Table) 04/29/21 04/29/21 04/29/21 Range/Units 11:58 16:53 20:14 RBC (4.30-5.90) m/uL Hgb (13.0-17.5) gm/dL Hct (39.0-53.0) % Lymphocytes # (1.0-4.8) k/uL Sodium (137-145) mmol/L Chloride (98-107) mmol/L Carbon Dioxide (22-30) mmol/L BUN (9-20) mg/dL Creatinine (0.66-1.25) mg/dL Glucose (74-99) mg/dL POC Glucose (mg/dL) 164 H 206 H 179 H (75-99) mg/dL Total Protein (6.3-8.2) g/dL Albumin (3.5-5.0) g/dL 04/30/21 04/30/21 04/30/21 Range/Units 06:12 07:07 07:07 RBC 3.67 L (4.30-5.90) m/uL Hgb 11.4 L (13.0-17.5) gm/dL Hct 35.3 L (39.0-53.0) % Lymphocytes # 0.8 L (1.0-4.8) k/uL Sodium 128 L (137-145) mmol/L Chloride 85 L (98-107) mmol/L Carbon Dioxide 36 H (22-30) mmol/L BUN 114 H* (9-20) mg/dL Creatinine 3.47 H (0.66-1.25) mg/dL Glucose 106 H (74-99) mg/dL POC Glucose (mg/dL) 116 H (75-99) mg/dL Total Protein 5.3 L (6.3-8.2) g/dL Albumin 3.0 L (3.5-5.0) g/dL Assessment and Plan Plan: Acute on chronic systolic congestive heart failure exacerbation Underlying history of coronary artery disease Underlying history of atrial fibrillation Bradycardia on presentation Underlying history of hypertension Underlying history of chronic kidney disease stage III Underlying history of [id number] diabetes mellitus type 2 Underlying history of hyperlipidemia Underlying history of diverticulosis with previous history of gastrointestinal bleeding Underlying history of degenerative disc disease with chronic back pain Underlying history of benign prostatic hypertrophy At this time patient is admitted to telemetry floor Maintained on Lasix drip and dobutamine drip Cardiology and nephrology services are following AICD placement on 04/24/[address] Esparza We will follow closely
[2021-04-30 11:47] LABS: Glucose,Whole Blood 167 mg/dL (75-99)
--- NOTE | 2021-04-30 13:26 | PN ---
PROGRESS NOTE Patient is seen for followup for acute kidney injury, mostly cardiorenal. This morning patient appears to be slightly more short of breath. He has put out more urine. However, his BUN, creatinine are further elevated. He is complaining of swelling in his scrotum as well. PHYSICAL EXAMINATION: On examination today, blood pressure is 137/63, heart rate 58 per minute. He is afebrile. Examination of the heart S1, S2. Examination of the lungs, decreased breath sounds at the bases. Abdomen is soft, obese. Scrotal edema is noted. There is no tenderness in the abdomen. Exam of lower extremities shows edema 2+ bilaterally. NEONATAL NURSE PRACTITIONER exam shows patient is awake, alert, oriented x3. He is moving all 4 extremities. LAB: Show sodium 128, potassium 4.1, BUN 114, chloride 85, CO2 36, serum creatinine 3.47, hemoglobin 11.4 g/dL. ASSESSMENT: 1. Acute kidney injury cardiorenal with worsening renal function although patient's urine output has improved. His creatinine and BUN are further elevated. He continues to have significant edema. I will go ahead and arrange for dialysis and hopefully even with 1 or 2 treatments, the patient should start to feel better and he may have recovery of his renal function. 2. Hypervolemic hyponatremia maintained on tolvaptan almost on a daily basis. Continue to diurese patient. 3. Severe volume overload. 4. Cardiomyopathy, ejection fraction 30-35%. PLAN: Proceed with dialysis. Consult vascular surgery. We will plan for a treatment tomorrow. I will discuss with daughter as well. MMODL / IJN: [id number] /
--- NOTE | 2021-04-30 13:47 | PN ---
PROGRESS NOTE Mr. Linares is an elderly 80-year-old gentleman with biventricular heart failure and also underlying acute kidney injury. On a 5 mcg of dobutamine and 15 mg/hour of Lasix drip, he showed some modest improvement in diuresis both yesterday and today, but he looks more short of breath. Creatinine has not come down. BUN is 114. I do not believe patient is ready to have any left ventricular lead placement from an epicardial approach. I discussed this matter with the patient, Dr. Aleman and Dr. Esparza. I am recommending that we will first diurese him and he will need dialysis to tide over this acute kidney injury. Dr. Waldrop will orchestrated this and will seek dialysis catheter placement from Dr. Grayson and hopefully patient will be dialyzed. Once his volume status is better after dialysis, we can then consider left ventricular lead placement. I discussed this with the patient and also spoke to Dr. Waldrop. Blood pressure today is 108/70, pulse rate is 80, irregular. JVD 2 cm. No carotid bruit. S1-S2 heard normally but distantly. Short systolic murmur. Lungs reveal diminished breath sounds. Abdomen is distended. Lower extremity has moderate edema, but there is modest improvement compared to yesterday. Plan is to proceed with dialysis. Continue current medications and defer left ventricular lead placement and once his volume status improves, we can revisit the issue of left ventricular lead. STEPHANIE / CARLOZ: [id number] /
[2021-04-30 17:04] LABS: Glucose,Whole Blood 144 mg/dL (75-99)
[2021-04-30] MEDS: DOBUTamine DRIP 500 MG in DEXTROSE/WATER 1 250ML.BAG IV SCH (17:13)
[2021-04-30] MEDS: LACTATED RINGERS 1,000 ML IV SCH (18:36)
[2021-04-30 20:23] LABS: Glucose,Whole Blood 154 mg/dL (75-99)
[2021-04-30] MEDS: ATORVASTATIN 20 MG TAB PO SCH (21:31)
[2021-05-01] MEDS: FUROSEMIDE 100 MG in SODIUM CHLORIDE 0.9% 90 ML IV SCH ×4 (00:42→20:23)
[2021-05-01] MEDS: HYDROmorphone 0.5 MG/0.5 ML SYRINGE IVP PRN ×2 (00:43→16:48)
[2021-05-01] MEDS: INSULIN ASPART (NovoLOG) 100 UNIT/ML VIAL SQ SCH ×4 (06:07→20:42)
[2021-05-01 06:15] LABS: Glucose,Whole Blood 155 mg/dL (75-99)
[2021-05-01] MEDS ORDERED: LIDOCAINE 1% INJ 10MG/ML (20 ML MDV) ONE (07:26)
[2021-05-01 07:51] LABS: Basophils % (A) 1 %; Eosinophils # (A) 0.1 k/uL (0-0.7); Eosinophils % (A) 2 %; HCT 35.3 % (39.0-53.0); HGB 11.6 gm/dL (13.0-17.5); Lymphocytes # (A) 0.6 k/uL (1.0-4.8); Lymphocytes % (A) 14 %; MCH 31.6 pg (25.0-35.0); MCHC 32.8 g/dL (31.0-37.0); MCV 96.4 fL (80.0-100.0); Monocytes # (A) 0.4 k/uL (0-1.0); Monocytes % (A) 9 %; Neutrophils # (A) 3.2 k/uL (1.3-7.7); Neutrophils % (A) 72 %; Platelet Count 160 k/uL (150-450); RBC 3.66 m/uL (4.30-5.90); RDW 14.4 % (11.5-15.5); WBC 4.5 k/uL (3.8-10.6)
[2021-05-01] MEDS ORDERED: LIDOCAINE 1% INJ 10MG/ML (20 ML MDV) SQ ONE (07:56)
[2021-05-01] MEDS ORDERED: HYDROmorphone 0.5 MG/0.5 ML SYRINGE IVP ONE (07:58)
[2021-05-01 08:05] LABS: Albumin 3.1 g/dL (3.5-5.0); Calcium 9.3 mg/dL (8.4-10.2); Total Bilirubin 0.7 mg/dL (0.2-1.3); Total Protein 5.3 g/dL (6.3-8.2)
[2021-05-01] MEDS ORDERED: HEPARIN SODIUM 1,000 UN/ML (10ML VL) ONE (08:06)
--- NOTE | 2021-05-01 08:49 | IR ---
EXAMINATION TYPE: IR cvc insert central tunneled DATE OF EXAM: 05/01/2021 COMPARISON: NONE HISTORY: Fluoroscopy time. Fluoroscopy was provided to the referring clinician.
[2021-05-01 11:31] LABS: Glucose,Whole Blood 171 mg/dL (75-99)
[2021-05-01] MEDS: HYDROcodone/APAP 7.5-325MG 1 EACH TAB PO PRN ×2 (11:31→20:24)
[2021-05-01] MEDS: DOBUTamine DRIP 500 MG in DEXTROSE/WATER 1 250ML.BAG IV SCH (11:31)
--- NOTE | 2021-05-01 12:39 | P.PN ---
Subjective Progress Note Date: 05/01/21 This is a pleasant 80-year-old gentleman with a history of chronic systolic heart failure, chronic atrial fibrillation, diabetes mellitus type 2, hypertension, AAA, status post graft placement, COPD on home oxygen, severe pulmonary hypertension, nonischemic cardiomyopathy and mild nonobstructive CAD. Initially presented to the hospital with progressively worsening shortness of breath and lower extremity edema. He was initiated on IV diuretics. He underwent attempted placement of a ventricular ICD but due to the anatomy only a single lead was placed with plans for epicardial lead placement. He remains on IV dobutamine and IV Lasix drip. Due to progressively worsening renal function dialysis catheter was placed today. Being followed by nephrology with plans for dialysis. On examination he is resting comfortably in bed. Overall he feels his breathing is stable. He's had no complaints of chest discomfort. Continues to have lower extremity edema. Objective - Vital Signs Vital signs: Vital Signs Temp 98.1 F 05/01/21 08:30 Pulse 54 L 05/01/21 04:00 Resp 18 05/01/21 08:30 BP 135/75 05/01/21 08:30 Pulse Ox 96 05/01/21 09:28 Intake & Output 04/30/21 05/01/21 05/01/21 18:59 06:59 18:59 Intake Total 930 292.5 370 Output Total 2650 1700 Balance -1720 -1407.5 370 Weight 103.5 kg Intake: Intake, IV Titration 450 172.5 250 Amount DOBUTamine DRIP 500 mg In 250 250 Dextrose/Water 1 250ml. bag @ 5 MCG/KG/MIN 15.6 mls/hr IV .Q16H2M [facility] Rx# :[id number] Furosemide 100 mg In 200 172.5 Sodium Chloride 0.9% 90 ml @ 15 MG/HR 15 mls/hr IV .Q6H40M [facility] Rx#: [id number] Oral 480 120 120 Output: Urine 2650 1700 Uretheral (Lai) 1650 Other: Voiding Method Indwelling Catheter Indwelling Catheter Indwelling Catheter - Exam PHYSICAL EXAMINATION: HEENT: Head is atraumatic, normocephalic. Pupils equal, round. Neck is supple. There is elevated jugular venous pressure. HEART EXAMINATION: Heart sounds regular rate and rhythm, S1 and S2 normal. No murmur or gallop heard. CHEST EXAMINATION: Lungs reveal diminished air entry bilaterally. No chest wall tenderness is noted on palpation or with deep breathing. ABDOMEN: Distended. Bowel sounds are heard. No organomegaly noted. EXTREMITIES: Evidence of moderate peripheral edema and no calf tenderness noted. NEUROLOGIC patient is awake, alert and oriented x3. . - Labs CBC & Chem 7: 05/01/21 06:59 05/01/21 06:59 Labs: Abnormal Lab Results - Last 24 Hours (Table) 04/30/21 04/30/21 05/01/21 Range/Units 17:02 20:22 06:14 RBC (4.30-5.90) m/uL Hgb (13.0-17.5) gm/dL Hct (39.0-53.0) % Lymphocytes # (1.0-4.8) k/uL Sodium (137-145) mmol/L Chloride (98-107) mmol/L Carbon Dioxide (22-30) mmol/L BUN (9-20) mg/dL Creatinine (0.66-1.25) mg/dL Glucose (74-99) mg/dL POC Glucose (mg/dL) 144 H 154 H 155 H (75-99) mg/dL Total Protein (6.3-8.2) g/dL Albumin (3.5-5.0) g/dL 05/01/21 05/01/21 05/01/21 Range/Units 06:59 06:59 11:30 RBC 3.66 L (4.30-5.90) m/uL Hgb 11.6 L (13.0-17.5) gm/dL Hct 35.3 L (39.0-53.0) % Lymphocytes # 0.6 L (1.0-4.8) k/uL Sodium 130 L (137-145) mmol/L Chloride 85 L (98-107) mmol/L Carbon Dioxide 37 H (22-30) mmol/L BUN 112 H* (9-20) mg/dL Creatinine 3.31 H (0.66-1.25) mg/dL Glucose 141 H (74-99) mg/dL POC Glucose (mg/dL) 171 H (75-99) mg/dL Total Protein 5.3 L (6.3-8.2) g/dL Albumin 3.1 L (3.5-5.0) g/dL Assessment and Plan Assessment: 1 acute on chronic systolic congestive heart failure #2 chronic persistent atrial fibrillation #3 bradycardia, status post pacemaker/ICD, awaiting epicardial LV lead placement #4 history of heavily calcified however nonobstructive CAD by heart catheterization 2016 #5 non-STEMI #6 hypertension #7 diabetes mellitus #8 acute kidney injury #9 pulmonary hypertension Plan: From cardiology's perspective continue Lasix and dobutamine per nephrology. Continue additional cardiac medications at this time. Continue to monitor kidney function. Patient will benefit from hemodialysis. Cardiothoracic surgery is following for epicardial LV lead placement in the future. We will c gildardo to follow the patient provide further recommendations accordingly. ENGINEERING SYSTEMS ANALYST note has been reviewed, I agree with a documented findings and plan of care. Patient was seen and examined.
--- NOTE | 2021-05-01 13:51 | P.PN ---
Subjective Progress Note Date: 05/01/21 Berny Linares, is an 80 year old male who presented to [facility] emergency room with a chief complaint of worsening shortness of breath and upper chest pain, patient stated that his symptoms started 1 day prior to presentation and has been worsening, he was having difficulty breathing when he was trying to lie down, he was also having worsening lower extremity edema, on the day of presentation patient started having upper chest pain radiating to the back of his neck and to both shoulders, at that point he decided to come to emergency room. He was evaluated in the emergency room vital examination on presentation revealed a temperature of 98.1 pulse 49 respiration 20 blood pressure 118/62 pulse ox 92% on room air Laboratory data reveals a white blood count of 4.4 hemoglobin 12.4 platelet count 108 sodium 134 potassium 4.2 chloride 95 CO2 31 BUN 61 creatinine 2.33 troponin level was elevated at 0.183. Review of the chart revealed creatinine 2.2 on 10/16/2020 and 1.8 on 06/20/2020. BNP was 16,400 Testing in the emergency room revealed, chest x-ray done in the emergency room revealed evidence of congestive heart failure blunting of the bilateral costophrenic angles suggestive of mild bilateral pleural effusion Patient was admitted to medical floor for further evaluation and treatment, he was started on IV Lasix, cardiology consultation was requested. Past medical history is significant for history of chronic systolic congestive heart failure echocardiogram done in December 2018 revealed ejection fraction of 35-40%, patient also has a known history of atrial fibrillation maintained on coagulation with Eliquis, history of diffuse coronary artery disease patient had cardiac catheterization in 2016 at that time medication treatment was advised. History of AAA for which patient underwent stent grafting, patient also has a known history of hypertension, [id number] diabetes mellitus, benign prostatic hypertrophy, chronic kidney disease stage III, diverticulosis was previous history of lower gastrointestinal bleeding, degenerative disc disease with history of back surgery. Patient stated that he used to smoke he quit many years ago. On 04/21/2021 Patient was seen and examined on the medical floor, he is alert and oriented x 3 in no distress, patient is complaining of shortness of breath with activity otherwise he denies any complaints there is no fever or chills no headache or dizziness no chest pain no cough no nausea or vomiting no abdominal pain no diarrhea no blood in the stools no burning with urination no frequency or urgency and no hematuria, there is no weakness or numbness in any of the extremities no change in vision speech or gait. On 04/22/2021 Patient was seen and examined on the medical floor, he is alert and oriented x 3 in no distress, he denies any complaints there is no fever or chills no headache or dizziness no chest pain no shortness of breath no palpitation no cough no nausea or vomiting no abdominal pain no diarrhea no blood in the stools no burning with urination no frequency or urgency and no hematuria, there is no weakness or numbness in any of the extremities no change in vision speech or gait. Patient is comfortable while lying in bed he has significant shortness of breath with any activity On 04/23/2021 patient is alert and oriented 3 resting comfortably in bed. Tentative plans for AICD placement tomorrow per Dr. Jara. Patient maintained on dobutamine drip. Patient remains on IV Lasix. At this time patient denies chest pain or shortness of breath. Patient denies nausea vomiting or diarrhea. Patient denies any urinary burning or frequency. On 04/24/2021 patient is alert and oriented 3 in no distress, he denies any chest pain or palpitation no shortness of breath at rest he has shortness of breath with any activity. Tentative plans for AICD placement tomorrow per Dr. Jara. Patient maintained on dobutamine drip. Patient remains on IV Lasix. At this time patient denies chest pain or shortness of breath. Patient denies nausea vomiting or diarrhea. Patient denies any urinary burning or frequency. On 04/25/2021 patient is alert and oriented 3. Status post BIV ICD placement Dr. Esparza. Postop day 1. Patient remains on Lasix and dobutamine drip. Patient still having +2 pitting edema. Cardiology and nephrology services are following. Cardiothoracic surgery consulted for requirement of epicardial lead placement per Dr. Jara. At this time patient denies any chest pain or shortness of breath. Patient denies nausea vomiting or diarrhea. Patient den ies any urinary burning or frequency On 04/26/2021 Patient was seen and examined on the telemetry floor, he is alert and oriented x 3 in no distress, he is complaining of shortness of breath with any activity otherwise he denies any complaints there is no fever or chills no headache or dizziness no chest pain no palpitation no cough no nausea or vomiting no abdominal pain no diarrhea no blood in the stools no burning with urination no frequency or urgency and no hematuria, there is no weakness or numbness in any of the extremities no change in vision speech or gait. On 04/27/2021 patient alert and oriented 3. Patient remains on dobutamine and Lasix drips. Nephrology and cardiology services are following. Per cardiothoracic epicardial lead placement will be followed up outpatient. At this time patient is complaining of bilateral lower extremity pain. Edematous noted to bilateral legs. Patient denies any chest pain. Patient denies nausea vomiting or diarrhea. Patient denies any urinary burning or frequency. On 04/28/2021 Patient was seen and examined on the medical floor, he is alert and oriented x 3 in no distress, he is maintained on IV Lasix drip and dobutamine drip , patient is complaining of left foot pain otherwise he denies any complaints there is no fever or chills no headache or dizziness no chest pain no shortness of breath no palpitation no cough no nausea or vomiting no abdominal pain no diarrhea no blood in the stools no burning with urination no frequency or urgency and no hematuria, there is no weakness or numbness in any of the extremities no change in vision speech or gait. On 04/29/2021 Patient was seen and examined on the medical floor, he is alert and oriented x 3 in no distress, he is complaining of back and lower extremity pain otherwise he denies any complaints there is no fever or chills no headache or dizziness no chest pain no shortness of breath no palpitation no cough no nausea or vomiting no abdominal pain no diarrhea no blood in the stools no burning with urination no frequency or urgency and no hematuria, there is no weakness or numbness in any of the extremities no change in vision speech or gait. On 04/30/2021 patient is alert and oriented 3. Patient appears to be having increased shortness of breath today. Patient remains on Lasix and dobutamine drip. Creatinine 3.47 and bun 114. Discussed case with cardiology team. Cardiology team spoke to cardiothoracic team and nephrology team tentative plan for patient to receive hemodialysis followed by possible surgical intervention for epicardial lead placement with Dr. Aleman. On 05/01/2021 patient was seen and examined on the telemetry floor, he is alert and oriented 3 in no apparent distress, he just had a dialysis catheter placed, he is complaining of back pain and complaining of shortness of breath, otherwise he denies any complaints there is no fever or chills no headache or dizziness no chest pain no cough no nausea or vomiting no abdominal pain no diarrhea no blood in the stools no burning with urination no frequency or urgency and no hematuria Objective - Vital Signs Vital signs: Vital Signs Temp 98.2 F 05/01/21 04:00 Pulse 54 L 05/01/21 04:00 Resp 18 05/01/21 04:00 BP 130/64 05/01/21 04:00 Pulse Ox 96 05/01/21 09:28 Intake & Output 04/30/21 05/01/21 05/01/21 18:59 06:59 18:59 Intake Total 930 292.5 120 Output Total 2650 1700 Balance -1720 -1407.5 120 Weight 103.5 kg Intake: Intake, IV Titration 450 172.5 Amount DOBUTamine DRIP 500 mg In 250 Dextrose/Water 1 250ml. bag @ 5 MCG/KG/MIN 15.6 mls/hr IV .Q16H2M [place] Rx# :[id number] Furosemide 100 mg In 200 172.5 Sodium Chloride 0.9% 90 ml @ 15 MG/HR 15 mls/hr IV .Q6H40M [facility] Rx#: [id number] Oral 480 120 120 Output: Urine 2650 1700 Uretheral (Lai) 1650 Other: Voiding Method Indwelling Catheter Indwelling Catheter - Exam In general patient is alert and oriented x 3 in no distress HEENT head normocephalic and atraumatic Neck is supple no JVD no goiter no lymphadenopathy no carotid bruit Chest examination few scattered rhonchi no wheezing Cardiac exam reveals irregular heart sounds S1 and S2 no gallops no murmurs Abdomen is soft nontender no organomegaly with normal bowel sounds Extremity exam reveals no edema no cyanosis or clubbing Neurological examination reveals no gross focal deficits - Labs CBC & Chem 7: 05/01/21 06:59 05/01/21 06:59 Labs: Abnormal Lab Results - Last 24 Hours (Table) 04/30/21 04/30/21 04/30/21 Range/Units 11:46 17:02 20:22 RBC (4.30-5.90) m/uL Hgb (13.0-17.5) gm/dL Hct (39.0-53.0) % Lymphocytes # (1.0-4.8) k/uL Sodium (137-145) mmol/L Chloride (98-107) mmol/L Carbon Dioxide (22-30) mmol/L BUN (9-20) mg/dL Creatinine (0.66-1.25) mg/dL Glucose (74-99) mg/dL POC Glucose (mg/dL) 167 H 144 H 154 H (75-99) mg/dL Total Protein (6.3-8.2) g/dL Albumin (3.5-5.0) g/dL 05/01/21 05/01/21 05/01/21 Range/Units 06:14 06:59 06:59 RBC 3.66 L (4.30-5.90) m/uL Hgb 11.6 L (13.0-17.5) gm/dL Hct 35.3 L (39.0-53.0) % Lymphocytes # 0.6 L (1.0-4.8) k/uL Sodium 130 L (137-145) mmol/L Chloride 85 L (98-107) mmol/L Carbon Dioxide 37 H (22-30) mmol/L BUN 112 H* (9-20) mg/dL Creatinine 3.31 H (0.66-1.25) mg/dL Glucose 141 H (74-99) mg/dL POC Glucose (mg/dL) 155 H (75-99) mg/dL Total Protein 5.3 L (6.3-8.2) g/dL Albumin 3.1 L (3.5-5.0) g/dL Assessment and Plan Plan: Acute on chronic systolic congestive heart failure exacerbation Underlying history of coronary artery disease Underlying history of atrial fibrillation Bradycardia on presentation Underlying history of hypertension Underlying history of chronic kidney disease stage III Underlying history of [id number] diabetes mellitus type 2 Underlying history of hyperlipidemia Underlying history of diverticulosis with previous history of gastrointestinal bleeding Underlying history of degenerative disc disease with chronic back pain Underlying history of benign prostatic hypertrophy At this time patient is admitted to telemetry floor Maintained on Lasix drip and dobutamine drip Cardiology and nephrology services are following AICD placement on 04/24/[address] Esparza We will follow closely
--- NOTE | 2021-05-01 14:05 | PN ---
PROGRESS NOTE Patient is seen for followup for acute kidney injury, mostly cardiorenal. He has been maintained on dobutamine and Lasix drip. The serum creatinine had increased yesterday with an increase in the BUN as well and patient remained significantly volume overloaded, therefore, we decided to proceed with dialysis. The patient had his temporary dialysis catheter placed in the right femoral vein and we will plan for first treatment today. The patient continues to have good urine output with 24-hour output at about 4.3 L. His weight is down. This morning he states he is feeling slightly better. PHYSICAL EXAMINATION: On examination today, blood pressure 130/64, heart rate 54 per minute, he is afebrile. Examination of the heart S1, S2. Examination of the lungs, bilateral breath sounds are heard. Decreased breath sounds at bases. Abdomen is soft, nontender. Examination of the lower extremities shows edema 2+ bilaterally with significant scrotal edema as well. RN ONCOLOGY RESEARCH exam grossly intact. LAB: Show sodium 130, potassium 4.0, BUN 112 and serum creatinine 3.3 mg/dL. ASSESSMENT: 1. Acute kidney injury, mostly cardiorenal with serum creatinine staying at about 3.3- 3.4 mg/dL. Today it is slightly lower than yesterday, but given the significant volume overload and BUN of above 100, we will proceed with his first treatment today. The patient's urine output has improved and I will continue to monitor for recovery of renal function after a couple of treatments. Hopefully this will also help him increase his appetite. 2. Hypervolemic hyponatremia, currently improving with improving volume status and diuresis. 3. Cardiomyopathy, ejection fraction 30-35%, maintained on dobutamine drip and Lasix drip. 4. Acute on chronic systolic congestive heart failure. PLAN: Hemodialysis today. Continue with the Lasix and dobutamine drip and hopefully patient will not need long-term dialysis as his urine output has already picked up with perhaps some improvement in his creatinine noted today. MMODL / IJN: [id number] /
[2021-05-01] MEDS: PANTOPRAZOLE 40 MG TABLET PO SCH (16:40)
[2021-05-01] MEDS: CHOLECALCIFEROL 25 MCG (1000 IU) TABLET PO SCH ×2 (16:40→20:24)
[2021-05-01 16:41] LABS: Glucose,Whole Blood 145 mg/dL (75-99)
[2021-05-01] MEDS: metOLazone 2.5 MG TAB PO SCH ×2 (16:41→20:23)
[2021-05-01] MEDS: SILDENAFIL 20 MG TAB PO SCH ×2 (16:41→20:23)
[2021-05-01] MEDS: CYANOCOBALAMIN 500 MCG TAB PO SCH (16:41)
[2021-05-01] MEDS: bisacodyL 5 MG TABLET.DR PO SCH ×2 (16:41→20:24)
[2021-05-01] MEDS: MAGNESIUM OXIDE 400 MG TAB PO SCH ×2 (16:42→20:24)
[2021-05-01] MEDS: diphenhydrAMINE 25 MG CAP PO SCH ×2 (16:42→20:24)
[2021-05-01] MEDS: DOXAZOSIN 4 MG TAB PO SCH (16:42)
[2021-05-01] MEDS: glipiZIDE 5 MG TAB PO SCH ×2 (16:43→20:23)
[2021-05-01] MEDS: DOCUSATE 100 MG CAP PO SCH ×2 (16:43→20:23)
[2021-05-01] MEDS: LACTATED RINGERS 1,000 ML IV SCH (16:46)
[2021-05-01] MEDS: hydrALAZINE HCL 25 MG TAB PO SCH ×2 (16:46→20:24)
--- NOTE | 2021-05-01 18:12 | CONS ---
CONSULTATION This is an 80-year-old gentleman who has acute chronic renal failure. I was consulted for placement of urgent dialysis catheter. The patient has a history of the atrial fibrillation on Eliquis. Also patient has a history of hypertension, diabetes mellitus, and chronic kidney disease. PAST MEDICAL HISTORY: Patient has history of atrial fibrillation, heart failure, diabetes mellitus, hypertension, prostate disorder. SURGICAL HISTORY: Patient had an aortic stent graft placed in the past. The patient had a back surgery done in the past. PHYSICAL EXAMINATION: NECK: Supple. CHEST has crackles bilateral. Irregular HEART rate. ABDOMEN: Nontender. Femoral pulses are present. Some swelling of the lower extremity. PLAN: Placement of the dialysis catheter. Risks and complications discussed. MMODL / IJN: [id number] /
[2021-05-01 19:40] LABS: Hepatitis B Surface AB- Quant <3.5 mIU/mL; Hepatitis B Surface Antibody Non-Reactive (Non-Reactive); Hepatitis B Surface Antigen Non-Reactive (Non-Reactive)
[2021-05-01 20:19] LABS: Glucose,Whole Blood 155 mg/dL (75-99)
[2021-05-01] MEDS: APIXABAN 2.5 MG TABLET PO SCH (20:24)
[2021-05-01] MEDS: ATORVASTATIN 20 MG TAB PO SCH (20:24)
--- NOTE | 2021-05-01 22:01 | PCN ---
PROCEDURE NOTE PREOP DIAGNOSIS: Acute on chronic renal failure. PROCEDURE PERFORMED: Ultrasound-guided 30 cm dialysis catheter placed right femoral approach. Sedation time is 10 minutes. DESCRIPTION OF PROCEDURE: This patient was brought to the earth science laboratory technician with local IV sedation. The groin was prepped and drapes applied in the usual sterile manner. Ultrasound-guided micropuncture into the right femoral vein. Micropuncture guidewire was passed and 4-Cypriot dilator advanced on top of the guidewire. After that, we passed a regular guidewire. Then we advanced the dilator and then we placed a 30 cm dialysis catheter on the top of the guidewire. The guidewire was removed, flushed with heparin saline and hep-locked and secured with 3-0 nylon. Patient tolerated the procedure well. MMODL / IJN: [id number] /
[2021-05-02] MEDS: HYDROmorphone 0.5 MG/0.5 ML SYRINGE IVP PRN ×2 (00:36→12:37)
[2021-05-02] MEDS: FUROSEMIDE 100 MG in SODIUM CHLORIDE 0.9% 90 ML IV SCH ×3 (04:41→20:34)
[2021-05-02] MEDS: DOBUTamine DRIP 500 MG in DEXTROSE/WATER 1 250ML.BAG IV SCH ×2 (04:42→20:35)
[2021-05-02 06:02] LABS: Glucose,Whole Blood 113 mg/dL (75-99)
[2021-05-02] MEDS: INSULIN ASPART (NovoLOG) 100 UNIT/ML VIAL SQ SCH ×4 (06:14→20:37)
[2021-05-02 08:01] LABS: Basophils % (A) 1 %; Eosinophils # (A) 0.1 k/uL (0-0.7); Eosinophils % (A) 2 %; HCT 36.1 % (39.0-53.0); HGB 11.5 gm/dL (13.0-17.5); Lymphocytes # (A) 0.7 k/uL (1.0-4.8); Lymphocytes % (A) 13 %; MCH 30.9 pg (25.0-35.0); MCV 96.8 fL (80.0-100.0); Mean Platelet Volume 8.5; Monocytes # (A) 0.4 k/uL (0-1.0); Monocytes % (A) 8 %; Neutrophils # (A) 3.7 k/uL (1.3-7.7); Neutrophils % (A) 73 %; Platelet Count 172 k/uL (150-450); RBC 3.73 m/uL (4.30-5.90); RDW 14.5 % (11.5-15.5); WBC 5.1 k/uL (3.8-10.6)
[2021-05-02 08:14] LABS: Albumin 3.2 g/dL (3.5-5.0); Potassium 3.8 mmol/L (3.5-5.1); Total Bilirubin 0.8 mg/dL (0.2-1.3); Total Protein 5.4 g/dL (6.3-8.2)
[2021-05-02] MEDS: CYANOCOBALAMIN 500 MCG TAB PO SCH (09:24)
[2021-05-02] MEDS: bisacodyL 5 MG TABLET.DR PO SCH ×2 (09:24→20:08)
[2021-05-02] MEDS: DOXAZOSIN 4 MG TAB PO SCH (09:25)
[2021-05-02] MEDS: PANTOPRAZOLE 40 MG TABLET PO SCH (09:25)
[2021-05-02] MEDS: APIXABAN 2.5 MG TABLET PO SCH ×2 (09:25→20:08)
[2021-05-02] MEDS: hydrALAZINE HCL 25 MG TAB PO SCH ×4 (09:25→20:08)
[2021-05-02] MEDS: glipiZIDE 5 MG TAB PO SCH ×2 (09:25→20:11)
[2021-05-02] MEDS: MAGNESIUM OXIDE 400 MG TAB PO SCH ×2 (09:25→20:08)
[2021-05-02] MEDS: diphenhydrAMINE 25 MG CAP PO SCH ×2 (09:25→20:07)
[2021-05-02] MEDS: DOCUSATE 100 MG CAP PO SCH ×2 (09:25→20:08)
[2021-05-02] MEDS: SILDENAFIL 20 MG TAB PO SCH ×2 (09:26→20:08)
[2021-05-02] MEDS: metOLazone 2.5 MG TAB PO SCH ×2 (09:26→20:11)
[2021-05-02] MEDS: CHOLECALCIFEROL 25 MCG (1000 IU) TABLET PO SCH ×2 (09:27→20:08)
[2021-05-02] MEDS ORDERED: FUROSEMIDE 100 MG in SODIUM CHLORIDE 0.9% 90 ML IV SCH (09:45)
--- NOTE | 2021-05-02 09:55 | P.PN ---
Subjective Progress Note Date: 05/02/21 This is a pleasant 80-year-old gentleman with a history of chronic systolic heart failure, chronic atrial fibrillation, diabetes mellitus type 2, hypertension, AAA, status post graft placement, COPD on home oxygen, severe pulmonary hypertension, nonischemic cardiomyopathy and mild nonobstructive CAD. Initially presented to the hospital with progressively worsening shortness of breath and lower extremity edema. He was initiated on IV diuretics. He underwent attempted placement of a ventricular ICD but due to the anatomy only a single lead was placed with plans for epicardial lead placement. He remains on IV dobutamine and IV Lasix drip. Due to progressively worsening renal function dialysis catheter was placed today. Being followed by nephrology with plans for dialysis. On examination he is resting comfortably in bed. Overall he feels his breathing is stable. He's had no complaints of chest discomfort. Continues to have lower extremity edema. 05/02/2021 This was seen and examined this morning. He did undergo hemodialysis yesterday. He is overall feeling better and his edema has improved. He feels his breathing is better. He continues to be on IV Lasix and dobutamine. Renal f unction is improving with a BUN of 89 creatinine of 2.74. He has a Lai catheter with good urine output. Objective - Vital Signs Vital signs: Vital Signs Temp 98.4 F 05/02/21 04:00 Pulse 55 L 05/02/21 04:00 Resp 20 05/02/21 04:00 BP 113/60 05/02/21 04:00 Pulse Ox 95 05/02/21 04:00 Intake & Output 05/01/21 05/02/21 05/02/21 18:59 06:59 18:59 Intake Total 828 450 240 Output Total 3101 1400 Balance -2273 -950 240 Weight 102 kg Intake: Intake, IV Titration 350 450 Amount DOBUTamine DRIP 500 mg In 250 250 Dextrose/Water 1 250ml. bag @ 5 MCG/KG/MIN 15.6 mls/hr IV .Q16H2M [place] Rx# :[id number] Furosemide 100 mg In 100 200 Sodium Chloride 0.9% 90 ml @ 15 MG/HR 15 mls/hr IV .Q6H40M [place] Rx#: [id number] Oral 478 240 Output: Urine 1100 1400 Stool 1 Hemodialysis 1999 Other: Voiding Method Indwelling Catheter Indwelling Catheter # Voids 0 # Bowel Movements 0 - Exam PHYSICAL EXAMINATION: HEENT: Head is atraumatic, normocephalic. Pupils equal, round. Neck is supple. There is elevated jugular venous pressure. HEART EXAMINATION: Heart sounds regular rate and rhythm, S1 and S2 normal. No murmur or gallop heard. CHEST EXAMINATION: Lungs reveal diminished air entry bilaterally. No chest wall tenderness is noted on palpation or with deep breathing. ABDOMEN: Distended. Bowel sounds are heard. No organomegaly noted. EXTREMITIES: Evidence of moderate but improving peripheral edema and no calf tenderness noted. NEUROLOGIC patient is awake, alert and oriented x3. . - Labs CBC & Chem 7: 05/02/21 07:38 05/02/21 07:38 Labs: Abnormal Lab Results - Last 24 Hours (Table) 05/01/21 05/01/21 05/01/21 Range/Units 11:30 16:40 20:04 RBC (4.30-5.90) m/uL Hgb (13.0-17.5) gm/dL Hct (39.0-53.0) % Lymphocytes # (1.0-4.8) k/uL Sodium (137-145) mmol/L Chloride (98-107) mmol/L Carbon Dioxide (22-30) mmol/L BUN (9-20) mg/dL Creatinine (0.66-1.25) mg/dL Glucose (74-99) mg/dL POC Glucose (mg/dL) 171 H 145 H 155 H (75-99) mg/dL Total Protein (6.3-8.2) g/dL Albumin (3.5-5.0) g/dL 05/02/21 05/02/21 05/02/21 Range/Units 05:54 07:38 07:38 RBC 3.73 L (4.30-5.90) m/uL Hgb 11.5 L (13.0-17.5) gm/dL Hct 36.1 L (39.0-53.0) % Lymphocytes # 0.7 L (1.0-4.8) k/uL Sodium 132 L (137-145) mmol/L Chloride 90 L (98-107) mmol/L Carbon Dioxide 35 H (22-30) mmol/L BUN 89 H (9-20) mg/dL Creatinine 2.74 H (0.66-1.25) mg/dL Glucose 121 H (74-99) mg/dL POC Glucose (mg/dL) 113 H (75-99) mg/dL Total Protein 5.4 L (6.3-8.2) g/dL Albumin 3.2 L (3.5-5.0) g/dL Assessment and Plan Assessment: 1 acute on chronic systolic congestive heart failure #2 chronic persistent atrial fibrillation #3 bradycardia, status post pacemaker/ICD, awaiting epicardial LV lead placement #4 history of heavily calcified however nonobstructive CAD by heart catheterization 2015 #5 non-STEMI #6 hypertension #7 diabetes mellitus #8 acute kidney injury #9 pulmonary hypertension Plan: From cardiology's perspective we would recommend discontinuing the dobutamine but will defer this to nephrology. Continue additional cardiac medications at this time. Continue to monitor kidney function. Patient will benefit from hemodialysis. Cardiothoracic surgery is following for epicardial LV lead placement in the future. We will continue to follow the patient provide further recommendations accordingly. UPKEEP WORKER note has been reviewed, I agree with a documented findings and plan of care. Patient was seen and examined.
--- NOTE | 2021-05-02 10:21 | P.PN ---
Subjective Progress Note Date: 05/02/21 Berny Linares, is an 80 year old male who presented to [facility] emergency room with a chief complaint of worsening shortness of breath and upper chest pain, patient stated that his symptoms started 1 day prior to presentation and has been worsening, he was having difficulty breathing when he was trying to lie down, he was also having worsening lower extremity edema, on the day of presentation patient started having upper chest pain radiating to the back of his neck and to both shoulders, at that point he decided to come to emergency room. He was evaluated in the emergency room vital examination on presentation revealed a temperature of 98.1 pulse 49 respiration 20 blood pressure 118/62 pulse ox 92% on room air Laboratory data reveals a white blood count of 4.4 hemoglobin 12.4 platelet count 108 sodium 134 potassium 4.2 chloride 95 CO2 31 BUN 61 creatinine 2.33 troponin level was elevated at 0.183. Review of the chart revealed creatinine 2.2 on 10/16/2020 and 1.8 on 06/20/2020. BNP was 16,400 Testing in the emergency room revealed, chest x-ray done in the emergency room revealed evidence of congestive heart failure blunting of the bilateral costophrenic angles suggestive of mild bilateral pleural effusion Patient was admitted to medical floor for further evaluation and treatment, he was started on IV Lasix, cardiology consultation was requested. Past medical history is significant for history of chronic systolic congestive heart failure echocardiogram done in December 2018 revealed ejection fraction of 35-40%, patient also has a known history of atrial fibrillation maintained on coagulation with Eliquis, history of diffuse coronary artery disease patient had cardiac catheterization in 2016 at that time medication treatment was advised. History of AAA for which patient underwent stent grafting, patient also has a known history of hypertension, [id number] diabetes mellitus, benign prostatic hypertrophy, chronic kidney disease stage III, diverticulosis was previous history of lower gastrointestinal bleeding, degenerative disc disease with history of back surgery. Patient stated that he used to smoke he quit many years ago. On 04/21/2021 Patient was seen and examined on the medical floor, he is alert and oriented x 3 in no distress, patient is complaining of shortness of breath with activity otherwise he denies any complaints there is no fever or chills no headache or dizziness no chest pain no cough no nausea or vomiting no abdominal pain no diarrhea no blood in the stools no burning with urination no frequency or urgency and no hematuria, there is no weakness or numbness in any of the extremities no change in vision speech or gait. On 04/22/2021 Patient was seen and examined on the medical floor, he is alert and oriented x 3 in no distress, he denies any complaints there is no fever or chills no headache or dizziness no chest pain no shortness of breath no palpitation no cough no nausea or vomiting no abdominal pain no diarrhea no blood in the stools no burning with urination no frequency or urgency and no hematuria, there is no weakness or numbness in any of the extremities no change in vision speech or gait. Patient is comfortable while lying in bed he has significant shortness of breath with any activity On 04/23/2021 patient is alert and oriented 3 resting comfortably in bed. Tentative plans for AICD placement tomorrow per Dr. Jara. Patient maintained on dobutamine drip. Patient remains on IV Lasix. At this time patient denies chest pain or shortness of breath. Patient denies nausea vomiting or diarrhea. Patient denies any urinary burning or frequency. On 04/24/2021 patient is alert and oriented 3 in no distress, he denies any chest pain or palpitation no shortness of breath at rest he has shortness of breath with any activity. Tentative plans for AICD placement tomorrow per Dr. Jara. Patient maintained on dobutamine drip. Patient remains on IV Lasix. At this time patient denies chest pain or shortness of breath. Patient denies nausea vomiting or diarrhea. Patient denies any urinary burning or frequency. On 04/25/2021 patient is alert and oriented 3. Status post BIV ICD placement Dr. Esparza. Postop day 1. Patient remains on Lasix and dobutamine drip. Patient still having +2 pitting edema. Cardiology and nephrology services are following. Cardiothoracic surgery consulted for requirement of epicardial lead placement per Dr. Jara. At this time patient denies any chest pain or shortness of breath. Patient denies nausea vomiting or diarrhea. Patient den ies any urinary burning or frequency On 04/26/2021 Patient was seen and examined on the telemetry floor, he is alert and oriented x 3 in no distress, he is complaining of shortness of breath with any activity otherwise he denies any complaints there is no fever or chills no headache or dizziness no chest pain no palpitation no cough no nausea or vomiting no abdominal pain no diarrhea no blood in the stools no burning with urination no frequency or urgency and no hematuria, there is no weakness or numbness in any of the extremities no change in vision speech or gait. On 04/27/2021 patient alert and oriented 3. Patient remains on dobutamine and Lasix drips. Nephrology and cardiology services are following. Per cardiothoracic epicardial lead placement will be followed up outpatient. At this time patient is complaining of bilateral lower extremity pain. Edematous noted to bilateral legs. Patient denies any chest pain. Patient denies nausea vomiting or diarrhea. Patient denies any urinary burning or frequency. On 04/28/2021 Patient was seen and examined on the medical floor, he is alert and oriented x 3 in no distress, he is maintained on IV Lasix drip and dobutamine drip , patient is complaining of left foot pain otherwise he denies any complaints there is no fever or chills no headache or dizziness no chest pain no shortness of breath no palpitation no cough no nausea or vomiting no abdominal pain no diarrhea no blood in the stools no burning with urination no frequency or urgency and no hematuria, there is no weakness or numbness in any of the extremities no change in vision speech or gait. On 04/29/2021 Patient was seen and examined on the medical floor, he is alert and oriented x 3 in no distress, he is complaining of back and lower extremity pain otherwise he denies any complaints there is no fever or chills no headache or dizziness no chest pain no shortness of breath no palpitation no cough no nausea or vomiting no abdominal pain no diarrhea no blood in the stools no burning with urination no frequency or urgency and no hematuria, there is no weakness or numbness in any of the extremities no change in vision speech or gait. On 04/30/2021 patient is alert and oriented 3. Patient appears to be having increased shortness of breath today. Patient remains on Lasix and dobutamine drip. Creatinine 3.47 and bun 114. Discussed case with cardiology team. Cardiology team spoke to cardiothoracic team and nephrology team tentative plan for patient to receive hemodialysis followed by possible surgical intervention for epicardial lead placement with Dr. Aleman. On 05/01/2021 patient was seen and examined on the telemetry floor, he is alert and oriented 3 in no apparent distress, he just had a dialysis catheter placed, he is complaining of back pain and complaining of shortness of breath, otherwise he denies any complaints there is no fever or chills no headache or dizziness no chest pain no cough no nausea or vomiting no abdominal pain no diarrhea no blood in the stools no burning with urination no frequency or urgency and no hematuria On 05/02/2021 patient alert and oriented 3. Status post hemodialysis yesterday 05/01/2021. Patient appears short of breath today. Patient does have good urine output. Creatinine 2.74 and bun 89. Patient denies chest pain. Patient denies nausea vomiting or diarrhea. Patient denies any urinary burning or frequency Objective - Vital Signs Vital signs: Vital Signs Temp 98.4 F 05/02/21 04:00 Pulse 55 L 05/02/21 04:00 Resp 20 05/02/21 04:00 BP 113/60 05/02/21 04:00 Pulse Ox 95 05/02/21 04:00 Intake & Output 05/01/21 05/02/21 05/02/21 18:59 06:59 18:59 Intake Total 828 450 240 Output Total 3101 1400 Balance -2273 -950 240 Weight 102 kg Intake: Intake, IV Titration 350 450 Amount DOBUTamine DRIP 500 mg In 250 250 Dextrose/Water 1 250ml. bag @ 5 MCG/KG/MIN 15.6 mls/hr IV .Q16H2M [place] Rx# :[id number] Furosemide 100 mg In 100 200 Sodium Chloride 0.9% 90 ml @ 15 MG/HR 15 mls/hr IV .Q6H40M [place] Rx#: [id number] Oral 478 240 Output: Urine 1100 1400 Stool 1 Hemodialysis 1999 Other: Voiding Method Indwelling Catheter Indwelling Catheter # Voids 0 # Bowel Movements 0 - Exam In general patient is alert and oriented x 3 in no distress HEENT head normocephalic and atraumatic Neck is supple no JVD no goiter no lymphadenopathy no carotid bruit Chest examination few scattered rhonchi no wheezing Cardiac exam reveals irregular heart sounds S1 and S2 no gallops no murmurs Abdomen is soft nontender no organomegaly with normal bowel sounds Extremity exam reveals no edema no cyanosis or clubbing Neurological examination reveals no gross focal deficits - Labs CBC & Chem 7: 05/02/21 07:38 05/02/21 07:38 Labs: Abnormal Lab Results - Last 24 Hours (Table) 05/01/21 05/01/21 05/01/21 Range/Units 11:30 16:40 20:04 RBC (4.30-5.90) m/uL Hgb (13.0-17.5) gm/dL Hct (39.0-53.0) % Lymphocytes # (1.0-4.8) k/uL Sodium (137-145) mmol/L Chloride (98-107) mmol/L Carbon Dioxide (22-30) mmol/L BUN (9-20) mg/dL Creatinine (0.66-1.25) mg/dL Glucose (74-99) mg/dL POC Glucose (mg/dL) 171 H 145 H 155 H (75-99) mg/dL Total Protein (6.3-8.2) g/dL Albumin (3.5-5.0) g/dL 05/02/21 05/02/21 05/02/21 Range/Units 05:54 07:38 07:38 RBC 3.73 L (4.30-5.90) m/uL Hgb 11.5 L (13.0-17.5) gm/dL Hct 36.1 L (39.0-53.0) % Lymphocytes # 0.7 L (1.0-4.8) k/uL Sodium 132 L (137-145) mmol/L Chloride 90 L (98-107) mmol/L Carbon Dioxide 35 H (22-30) mmol/L BUN 89 H (9-20) mg/dL Creatinine 2.74 H (0.66-1.25) mg/dL Glucose 121 H (74-99) mg/dL POC Glucose (mg/dL) 113 H (75-99) mg/dL Total Protein 5.4 L (6.3-8.2) g/dL Albumin 3.2 L (3.5-5.0) g/dL Assessment and Plan Plan: Acute on chronic systolic congestive heart failure exacerbation Underlying history of coronary artery disease Acute kidney injury. Status post hemodialysis on 05/01/2021 Underlying history of atrial fibrillation Bradycardia on presentation Underlying history of hypertension Underlying history of chronic kidney disease stage III Underlying history of [id number] diabetes mellitus type 2 Underlying history of hyperlipidemia Underlying history of diverticulosis with previous history of gastrointestinal bleeding Underlying history of degenerative disc disease with chronic back pain Underlying history of benign prostatic hypertrophy At this time patient is admitted to telemetry floor Maintained on Lasix drip and dobutamine drip Cardiology and nephrology services are following AICD placement on 04/24/[address] Esparza Status post hemodialysis on 05/01/2021 Cardiothoracic service is following for possible epicardial LV lead placement in the future We will follow closely
[2021-05-02 11:43] LABS: Glucose,Whole Blood 174 mg/dL (75-99)
--- NOTE | 2021-05-02 13:58 | PN ---
PROGRESS NOTE Patient is seen for followup for acute kidney injury, mostly cardiorenal and an element of ATN as well, nonoliguric. The patient is maintained on dobutamine drip at 5 mcg/minute and also on Lasix drip at 15 mg/hour. The patient's BUN and creatinine had increased significantly and he had continued to have significant edema with quite a bit of scrotal edema as well. The patient was started on dialysis yesterday. He continues to have fairly good urine output. His creatinine is at 2.7 mg/dL today with BUN at 89. I will continue with the dobutamine and Lasix drip. We will dialyze him today and hold dialysis over the weekend to assess for ongoing recovery of renal function. Hopefully the volume overload can be corrected with diuretics. PHYSICAL EXAMINATION: On examination today, blood pressure is 113/60, heart rate 55 per minute. He is afebrile. EXAMINATION OF THE HEART: S1 and S2. EXAMINATION OF THE LUNGS: Bilateral breath sounds are heard. ABDOMEN: Soft, nontender, obese. LOWER EXTREMITIES: Examination of lower extremities shows edema 2+ bilaterally and significant scrotal edema. SENIOR PARTNER EXAM: Grossly intact. LABS: Labs show sodium 132, potassium 3.8, chloride 90. CO2 is 35, BUN 89, creatinine 2.74, hemoglobin 11.5 g/dL. ASSESSMENT: 1. Acute kidney injury, mostly cardiorenal, nonoliguric, maintained on dobutamine and Lasix drip. Started on dialysis yesterday; 05/01/2021 was first treatment. Patient tolerated it well. We will plan for another treatment today and hold dialysis over the weekend. Hopefully patient can continue to diurese on his own with a Lasix drip. I will continue with the dobutamine for now. 2. Congestive heart failure, systolic, acute on top of chronic. 3. Cardiomyopathy; ejection fraction 30% to 35% with mild to moderate mitral regurgitation and severe pulmonary hypertension. 4. Chronic kidney disease, stage IIIB. Baseline creatinine around 2. 5. Hypervolemic hyponatremia, currently improved with dialysis and diuresis. 6. Bradycardia, status post AICD placement. PLAN: Hemodialysis today. Hold dialysis over the weekend. Continue with dobutamine and Lasix drip. Decrease Lasix drip to 10 mg/hour. Maintain daily weights and accurate I's and O's. MMODL / IJN: [id number] /
[2021-05-02] MEDS: LACTATED RINGERS 1,000 ML IV SCH (15:29)
[2021-05-02 16:22] LABS: Glucose,Whole Blood 123 mg/dL (75-99)
[2021-05-02] MEDS: HYDROcodone/APAP 7.5-325MG 1 EACH TAB PO PRN (17:22)
[2021-05-02 20:01] LABS: Glucose,Whole Blood 184 mg/dL (75-99)
[2021-05-02] MEDS: ATORVASTATIN 20 MG TAB PO SCH (20:08)
[2021-05-03] MEDS: HYDROmorphone 0.5 MG/0.5 ML SYRINGE IVP PRN ×2 (00:07→13:38)
[2021-05-03] MEDS: FUROSEMIDE 100 MG in SODIUM CHLORIDE 0.9% 90 ML IV SCH ×3 (05:32→23:01)
[2021-05-03 06:08] LABS: Glucose,Whole Blood 114 mg/dL (75-99)
[2021-05-03] MEDS: INSULIN ASPART (NovoLOG) 100 UNIT/ML VIAL SQ SCH ×4 (06:16→21:40)
[2021-05-03 07:14] LABS: Basophils % (A) 1 %; Eosinophils # (A) 0.1 k/uL (0-0.7); Eosinophils % (A) 1 %; HCT 35.4 % (39.0-53.0); HGB 11.6 gm/dL (13.0-17.5); Lymphocytes # (A) 0.7 k/uL (1.0-4.8); Lymphocytes % (A) 12 %; MCH 31.7 pg (25.0-35.0); MCHC 32.8 g/dL (31.0-37.0); MCV 96.6 fL (80.0-100.0); Mean Platelet Volume 8.6; Monocytes # (A) 0.4 k/uL (0-1.0); Monocytes % (A) 7 %; Neutrophils # (A) 4.6 k/uL (1.3-7.7); Neutrophils % (A) 76 %; Platelet Count 197 k/uL (150-450); RBC 3.66 m/uL (4.30-5.90); RDW 15.1 % (11.5-15.5); WBC 6.1 k/uL (3.8-10.6)
[2021-05-03 07:36] LABS: Albumin 3.4 g/dL (3.5-5.0); Calcium 9.1 mg/dL (8.4-10.2); Potassium 3.7 mmol/L (3.5-5.1); Total Bilirubin 0.9 mg/dL (0.2-1.3); Total Protein 5.7 g/dL (6.3-8.2)
[2021-05-03] MEDS: HYDROcodone/APAP 7.5-325MG 1 EACH TAB PO PRN ×4 (08:59→20:40)
[2021-05-03] MEDS: hydrALAZINE HCL 25 MG TAB PO SCH ×4 (09:00→20:39)
[2021-05-03] MEDS: diphenhydrAMINE 25 MG CAP PO SCH ×2 (09:00→20:40)
[2021-05-03] MEDS: DOCUSATE 100 MG CAP PO SCH ×2 (09:00→20:39)
[2021-05-03] MEDS: SILDENAFIL 20 MG TAB PO SCH ×2 (09:00→20:39)
[2021-05-03] MEDS: DOXAZOSIN 4 MG TAB PO SCH (09:00)
[2021-05-03] MEDS: metOLazone 2.5 MG TAB PO SCH ×2 (09:01→20:39)
[2021-05-03] MEDS: MAGNESIUM OXIDE 400 MG TAB PO SCH ×2 (09:01→20:39)
[2021-05-03] MEDS: bisacodyL 5 MG TABLET.DR PO SCH ×2 (09:01→20:39)
[2021-05-03] MEDS: CYANOCOBALAMIN 500 MCG TAB PO SCH (09:02)
[2021-05-03] MEDS: APIXABAN 2.5 MG TABLET PO SCH ×2 (09:02→20:39)
[2021-05-03] MEDS: CHOLECALCIFEROL 25 MCG (1000 IU) TABLET PO SCH ×2 (09:02→20:40)
[2021-05-03] MEDS: glipiZIDE 5 MG TAB PO SCH ×2 (09:02→20:39)
[2021-05-03] MEDS: PANTOPRAZOLE 40 MG TABLET PO SCH (09:02)
--- NOTE | 2021-05-03 09:06 | P.PN ---
Subjective Patient is seen in follow-up for acute kidney injury on chronic kidney disease. Maintain on Lasix drip and dobutamine. Nonoliguric. Status post 2 treatments of hemodialysis this admission for ultrafiltration. No active complaints at this time. Vital signs are stable. General: The patient appeared well nourished and normally developed. HEENT: Head exam is unremarkable. Neck is without jugular venous distension. LUNGS: Breath sounds decreased. HEART: Rate and Rhythm are regular. ABDOMEN: Soft, no distention. EXTREMITITES: 1+ edema. Objective - Vital Signs Vital signs: Vital Signs Temp 97.9 F 05/03/21 08:49 Pulse 58 L 05/03/21 08:49 Resp 18 05/03/21 08:49 BP 128/56 05/03/21 08:49 Pulse Ox 95 05/03/21 08:49 Intake & Output 05/02/21 05/03/21 05/03/21 18:59 06:59 18:59 Intake Total 2651.5 365.947 240 Output Total 1401 1250 Balance 1250.5 -884.053 240 Weight 97 kg Intake: Intake, IV Titration 171.5 365.947 Amount DOBUTamine DRIP 500 mg In 247.78 Dextrose/Water 1 250ml. bag @ 5 MCG/KG/MIN 15.6 mls/hr IV .Q16H2M [place] Rx# :[id number] Furosemide 100 mg In 171.5 118.167 Sodium Chloride 0.9% 90 ml @ 10 MG/HR 10 mls/hr IV .Q10H [place] Rx#: [id number] Oral 480 240 Hemodialysis 2000 Output: Urine 1400 1250 Stool 1 Other: Voiding Method Indwelling Catheter Indwelling Catheter # Bowel Movements 1 1 - Labs CBC & Chem 7: 05/03/21 06:59 05/03/21 06:59 Labs: Abnormal Lab Results - Last 24 Hours (Table) 05/02/21 05/02/21 05/02/21 Range/Units 11:41 16:20 20:00 RBC (4.30-5.90) m/uL Hgb (13.0-17.5) gm/dL Hct (39.0-53.0) % Lymphocytes # (1.0-4.8) k/uL Sodium (137-145) mmol/L Chloride (98-107) mmol/L Carbon Dioxide (22-30) mmol/L BUN (9-20) mg/dL Creatinine (0.66-1.25) mg/dL Glucose (74-99) mg/dL POC Glucose (mg/dL) 174 H 123 H 184 H (75-99) mg/dL Total Protein (6.3-8.2) g/dL Albumin (3.5-5.0) g/dL 05/03/21 05/03/21 05/03/21 Range/Units 06:06 06:59 06:59 RBC 3.66 L (4.30-5.90) m/uL Hgb 11.6 L (13.0-17.5) gm/dL Hct 35.4 L (39.0-53.0) % Lymphocytes # 0.7 L (1.0-4.8) k/uL Sodium 133 L (137-145) mmol/L Chloride 91 L (98-107) mmol/L Carbon Dioxide 34 H (22-30) mmol/L BUN 70 H (9-20) mg/dL Creatinine 2.22 H (0.66-1.25) mg/dL Glucose 113 H (74-99) mg/dL POC Glucose (mg/dL) 114 H (75-99) mg/dL Total Protein 5.7 L (6.3-8.2) g/dL Albumin 3.4 L (3.5-5.0) g/dL Assessment and Plan Plan: Assessment: 1. Acute kidney injury secondary to ATN secondary to cardiorenal syndrome. St atus post 2 treatments of hemodialysis this admission. 2. Acute on chronic systolic CHF with ejection fraction of 30-35% with mild to moderate mitral regurgitation and severe pulmonary hypertension. 3. Volume overload. Improving with diuresis and ultrafiltration. 4. Diabetes mellitus. 5. Chronic kidney disease stage IIIb with baseline creatinine near 2. 6. Bradycardia. Status post biventricular ICD placement on 04/24/2021. CTS following as well. 7. Hypervolemic hyponatremia. Plan: Maintain Lasix drip. Maintain metolazone. Maintain dobutamine for another 24 hours. Low-salt diet. 1200 mL fluid restriction. Continue to monitor renal function and urine output. Hold off on hemodialysis over the weekend and reassess on Wednesday if further treatments needed.
[2021-05-03 11:39] LABS: Glucose,Whole Blood 243 mg/dL (75-99)
--- NOTE | 2021-05-03 15:09 | P.PN ---
Subjective his is a pleasant 80-year-old gentleman with a history of chronic systolic heart failure, chronic atrial fibrillation, diabetes mellitus type 2, hypertension, AAA, status post graft placement, COPD on home oxygen, severe pulmonary hypertension, nonischemic cardiomyopathy and mild nonobstructive CAD. Initially presented to the hospital with progressively worsening shortness of breath and lower extremity edema. He was initiated on IV diuretics. He underwent attempted placement of a ventricular ICD but due to the anatomy only a single lead was placed with plans for epicardial lead placement. He remains on IV dobutamine and IV Lasix drip. Due to progressively worsening renal function dialysis catheter was placed today. Being followed by nephrology with plans for dialysis. On examination he is resting comfortably in bed. Overall he feels his breathing is stable. He's had no complaints of chest discomfort. Continues to have lower extremity edema. 05/02/2021 This was seen and examined this morning. He did undergo hemodialysis yesterday. He is overall feeling better and his edema has improved. He feels his breathing is better. He continues to be on IV Lasix and dobutamine. Renal function is improving with a BUN of 89 creatinine of 2.74. He has a Lai catheter with good urine output. 05/03 Patient is continued on dobutamine drip as well as IV Lasix drip. He has been undergoing intermittent hemodialysis. Sodium 133 today, BUN 70, creatinine 2.2 however has been undergoing hemodialysis, hemoglobin 11.6. He denies any chest pain or pressure. He admits his breathing is somewhat improved. PHYSICAL EXAMINATION Vital signs reviewed. CONSTITUTIONAL: No apparent distress. HEENT: Head is normocephalic. Pupils are equal, round. Sclerae anicteric. Mucous membranes of the mouth are moist. No JVD. No carotid bruit. CHEST EXAMINATION: Lungs are clear to auscultation. No chest wall tenderness is noted on palpation or with deep breathing. HEART EXAMINATION: Regular rate and rhythm. S1, S2 heard. No murmurs, gallops or rub. ABDOMEN: Soft, nontender. Positive bowel sounds. EXTREMITIES: 2+ peripheral pulses, no lower extremity edema and no calf tenderness. NEUROLOGIC EXAMINATION: Patient is awake, alert and oriented x3. ASSESSMENT 1 acute on chronic systolic congestive heart failure #2 chronic persistent atrial fibrillation #3 bradycardia, status post pacemaker/ICD, awaiting epicardial LV lead placement #4 history of heavily calcified however nonobstructive CAD by heart catheterization 2016 #5 non-STEMI #6 hypertension #7 diabetes mellitus #8 acute kidney injury #9 pulmonary hypertension Plan: Patient is maintained on dobutamine drip at 5 as well as Lasix drip. Continue to monitor response and optimize heart failure regimen as able. Hold beta wil given concern of cardiorenal syndrome causing acute kidney injury. Nephrology recommendations. She did. Cardiothoracic surgery following for possible epicardial lead placement. Continue supportive care and monitor kidney function. Objective - Vital Signs Vital signs: Vital Signs Temp 97.9 F 05/03/21 08:49 Pulse 70 05/03/21 11:53 Resp 16 05/03/21 11:53 BP 124/72 05/03/21 11:53 Pulse Ox 99 05/03/21 11:53 Intake & Output 05/02/21 05/03/21 05/03/21 18:59 06:59 18:59 Intake Total 2651.5 365.947 480 Output Total 1401 1250 400 Balance 1250.5 -884.053 80 Weight 97 kg Intake: Intake, IV Titration 171.5 365.947 Amount DOBUTamine DRIP 500 mg In 247.78 Dextrose/Water 1 250ml. bag @ 5 MCG/KG/MIN 15.6 mls/hr IV .Q16H2M [place] Rx# :[id number] Furosemide 100 mg In 171.5 118.167 Sodium Chloride 0.9% 90 ml @ 10 MG/HR 10 mls/hr IV .Q10H [place] Rx#: [id number] Oral 480 480 Hemodialysis 2000 Output: Urine 1400 1250 400 Stool 1 Other: Voiding Method Indwelling Catheter Indwelling Catheter Indwelling Catheter # Bowel Movements 1 1 - Labs CBC & Chem 7: 05/03/21 06:59 05/03/21 06:59 Labs: Abnormal Lab Results - Last 24 Hours (Table) 05/02/21 05/02/21 05/03/21 Range/Units 16:20 20:00 06:06 RBC (4.30-5.90) m/uL Hgb (13.0-17.5) gm/dL Hct (39.0-53.0) % Lymphocytes # (1.0-4.8) k/uL Sodium (137-145) mmol/L Chloride (98-107) mmol/L Carbon Dioxide (22-30) mmol/L BUN (9-20) mg/dL Creatinine (0.66-1.25) mg/dL Glucose (74-99) mg/dL POC Glucose (mg/dL) 123 H 184 H 114 H (75-99) mg/dL Total Protein (6.3-8.2) g/dL Albumin (3.5-5.0) g/dL 05/03/21 05/03/21 05/03/21 Range/Units 06:59 06:59 11:37 RBC 3.66 L (4.30-5.90) m/uL Hgb 11.6 L (13.0-17.5) gm/dL Hct 35.4 L (39.0-53.0) % Lymphocytes # 0.7 L (1.0-4.8) k/uL Sodium 133 L (137-145) mmol/L Chloride 91 L (98-107) mmol/L Carbon Dioxide 34 H (22-30) mmol/L BUN 70 H (9-20) mg/dL Creatinine 2.22 H (0.66-1.25) mg/dL Glucose 113 H (74-99) mg/dL POC Glucose (mg/dL) 243 H (75-99) mg/dL Total Protein 5.7 L (6.3-8.2) g/dL Albumin 3.4 L (3.5-5.0) g/dL
[2021-05-03] MEDS: LACTATED RINGERS 1,000 ML IV SCH (15:27)
[2021-05-03 16:40] LABS: Glucose,Whole Blood 146 mg/dL (75-99)
[2021-05-03] MEDS: DOBUTamine DRIP 500 MG in DEXTROSE/WATER 1 250ML.BAG IV SCH (18:02)
--- NOTE | 2021-05-03 18:46 | P.PN ---
Subjective Progress Note Date: 05/03/21 Berny Linares, is an 80 year old male who presented to [facility] emergency room with a chief complaint of worsening shortness of breath and upper chest pain, patient stated that his symptoms started 1 day prior to presentation and has been worsening, he was having difficulty breathing when he was trying to lie down, he was also having worsening lower extremity edema, on the day of presentation patient started having upper chest pain radiating to the back of his neck and to both shoulders, at that point he decided to come to emergency room. He was evaluated in the emergency room vital examination on presentation revealed a temperature of 98.1 pulse 49 respiration 20 blood pressure 118/62 pulse ox 92% on room air Laboratory data reveals a white blood count of 4.4 hemoglobin 12.4 platelet count 108 sodium 134 potassium 4.2 chloride 95 CO2 31 BUN 61 creatinine 2.33 troponin level was elevated at 0.183. Review of the chart revealed creatinine 2.2 on 10/16/2020 and 1.8 on 06/20/2020. BNP was 16,400 Testing in the emergency room revealed, chest x-ray done in the emergency room revealed evidence of congestive heart failure blunting of the bilateral costophrenic angles suggestive of mild bilateral pleural effusion Patient was admitted to medical floor for further evaluation and treatment, he was started on IV Lasix, cardiology consultation was requested. Past medical history is significant for history of chronic systolic congestive heart failure echocardiogram done in December 2018 revealed ejection fraction of 35-40%, patient also has a known history of atrial fibrillation maintained on coagulation with Eliquis, history of diffuse coronary artery disease patient had cardiac catheterization in 2016 at that time medication treatment was advised. History of AAA for which patient underwent stent grafting, patient also has a known history of hypertension, [id number] diabetes mellitus, benign prostatic hypertrophy, chronic kidney disease stage III, diverticulosis was previous history of lower gastrointestinal bleeding, degenerative disc disease with history of back surgery. Patient stated that he used to smoke he quit many years ago. On 04/21/2021 Patient was seen and examined on the medical floor, he is alert and oriented x 3 in no distress, patient is complaining of shortness of breath with activity otherwise he denies any complaints there is no fever or chills no headache or dizziness no chest pain no cough no nausea or vomiting no abdominal pain no diarrhea no blood in the stools no burning with urination no frequency or urgency and no hematuria, there is no weakness or numbness in any of the extremities no change in vision speech or gait. On 04/22/2021 Patient was seen and examined on the medical floor, he is alert and oriented x 3 in no distress, he denies any complaints there is no fever or chills no headache or dizziness no chest pain no shortness of breath no palpitation no cough no nausea or vomiting no abdominal pain no diarrhea no blood in the stools no burning with urination no frequency or urgency and no hematuria, there is no weakness or numbness in any of the extremities no change in vision speech or gait. Patient is comfortable while lying in bed he has significant shortness of breath with any activity On 04/23/2021 patient is alert and oriented 3 resting comfortably in bed. Tentative plans for AICD placement tomorrow per Dr. Jara. Patient maintained on dobutamine drip. Patient remains on IV Lasix. At this time patient denies chest pain or shortness of breath. Patient denies nausea vomiting or diarrhea. Patient denies any urinary burning or frequency. On 04/24/2021 patient is alert and oriented 3 in no distress, he denies any chest pain or palpitation no shortness of breath at rest he has shortness of breath with any activity. Tentative plans for AICD placement tomorrow per Dr. Jara. Patient maintained on dobutamine drip. Patient remains on IV Lasix. At this time patient denies chest pain or shortness of breath. Patient denies nausea vomiting or diarrhea. Patient denies any urinary burning or frequency. On 04/25/2021 patient is alert and oriented 3. Status post BIV ICD placement Dr. Esparza. Postop day 1. Patient remains on Lasix and dobutamine drip. Patient still having +2 pitting edema. Cardiology and nephrology services are following. Cardiothoracic surgery consulted for requirement of epicardial lead placement per Dr. Jara. At this time patient denies any chest pain or shortness of breath. Patient denies nausea vomiting or diarrhea. Patient den ies any urinary burning or frequency On 04/26/2021 Patient was seen and examined on the telemetry floor, he is alert and oriented x 3 in no distress, he is complaining of shortness of breath with any activity otherwise he denies any complaints there is no fever or chills no headache or dizziness no chest pain no palpitation no cough no nausea or vomiting no abdominal pain no diarrhea no blood in the stools no burning with urination no frequency or urgency and no hematuria, there is no weakness or numbness in any of the extremities no change in vision speech or gait. On 04/27/2021 patient alert and oriented 3. Patient remains on dobutamine and Lasix drips. Nephrology and cardiology services are following. Per cardiothoracic epicardial lead placement will be followed up outpatient. At this time patient is complaining of bilateral lower extremity pain. Edematous noted to bilateral legs. Patient denies any chest pain. Patient denies nausea vomiting or diarrhea. Patient denies any urinary burning or frequency. On 04/28/2021 Patient was seen and examined on the medical floor, he is alert and oriented x 3 in no distress, he is maintained on IV Lasix drip and dobutamine drip , patient is complaining of left foot pain otherwise he denies any complaints there is no fever or chills no headache or dizziness no chest pain no shortness of breath no palpitation no cough no nausea or vomiting no abdominal pain no diarrhea no blood in the stools no burning with urination no frequency or urgency and no hematuria, there is no weakness or numbness in any of the extremities no change in vision speech or gait. On 04/29/2021 Patient was seen and examined on the medical floor, he is alert and oriented x 3 in no distress, he is complaining of back and lower extremity pain otherwise he denies any complaints there is no fever or chills no headache or dizziness no chest pain no shortness of breath no palpitation no cough no nausea or vomiting no abdominal pain no diarrhea no blood in the stools no burning with urination no frequency or urgency and no hematuria, there is no weakness or numbness in any of the extremities no change in vision speech or gait. On 04/30/2021 patient is alert and oriented 3. Patient appears to be having increased shortness of breath today. Patient remains on Lasix and dobutamine drip. Creatinine 3.47 and bun 114. Discussed case with cardiology team. Cardiology team spoke to cardiothoracic team and nephrology team tentative plan for patient to receive hemodialysis followed by possible surgical intervention for epicardial lead placement with Dr. Aleman. On 05/01/2021 patient was seen and examined on the telemetry floor, he is alert and oriented 3 in no apparent distress, he just had a dialysis catheter placed, he is complaining of back pain and complaining of shortness of breath, otherwise he denies any complaints there is no fever or chills no headache or dizziness no chest pain no cough no nausea or vomiting no abdominal pain no diarrhea no blood in the stools no burning with urination no frequency or urgency and no hematuria On 05/02/2021 patient alert and oriented 3. Status post hemodialysis yesterday 05/01/2021. Patient appears short of breath today. Patient does have good urine output. Creatinine 2.74 and bun 89. Patient denies chest pain. Patient denies nausea vomiting or diarrhea. Patient denies any urinary burning or frequency On 05/03/2021 Patient was seen and examined on the medical floor, he is alert and oriented x 3 in no distress, shortness of breath is improving gradually otherwise he denies any complaints there is no fever or chills no headache or dizziness no chest pain no palpitation no cough no nausea or vomiting no abdominal pain no diarrhea no blood in the stools no burning with urination no frequency or urgency and no hematuria, there is no weakness or numbness in any of the extremities no change in vision speech or gait. Objective - Vital Signs Vital signs: Vital Signs Temp 97.9 F 05/03/21 08:49 Pulse 58 L 05/03/21 08:49 Resp 18 05/03/21 08:49 BP 128/56 05/03/21 08:49 Pulse Ox 95 05/03/21 08:49 Intake & Output 05/02/21 05/03/21 05/03/21 18:59 06:59 18:59 Intake Total 2651.5 365.947 240 Output Total 1401 1250 Balance 1250.5 -884.053 240 Weight 97 kg Intake: Intake, IV Titration 171.5 365.947 Amount DOBUTamine DRIP 500 mg In 247.78 Dextrose/Water 1 250ml. bag @ 5 MCG/KG/MIN 15.6 mls/hr IV .Q16H2M [place] Rx# :[id number] Furosemide 100 mg In 171.5 118.167 Sodium Chloride 0.9% 90 ml @ 10 MG/HR 10 mls/hr IV .Q10H [place] Rx#: [id number] Oral 480 240 Hemodialysis 1999 Output: Urine 1400 1250 Stool 1 Other: Voiding Method Indwelling Catheter Indwelling Catheter # Bowel Movements 1 1 - Exam In general patient is alert and oriented x 3 in no distress HEENT head normocephalic and atraumatic Neck is supple no JVD no goiter no lymphadenopathy no carotid bruit Chest examination few scattered rhonchi no wheezing Cardiac exam reveals irregular heart sounds S1 and S2 no gallops no murmurs Abdomen is soft nontender no organomegaly with normal bowel sounds Extremity exam reveals no edema no cyanosis or clubbing Neurological examination reveals no gross focal deficits - Labs CBC & Chem 7: 05/03/21 06:59 05/03/21 06:59 Labs: Abnormal Lab Results - Last 24 Hours (Table) 05/02/21 05/02/21 05/02/21 Range/Units 11:41 16:20 20:00 RBC (4.30-5.90) m/uL Hgb (13.0-17.5) gm/dL Hct (39.0-53.0) % Lymphocytes # (1.0-4.8) k/uL Sodium (137-145) mmol/L Chloride (98-107) mmol/L Carbon Dioxide (22-30) mmol/L BUN (9-20) mg/dL Creatinine (0.66-1.25) mg/dL Glucose (74-99) mg/dL POC Glucose (mg/dL) 174 H 123 H 184 H (75-99) mg/dL Total Protein (6.3-8.2) g/dL Albumin (3.5-5.0) g/dL 05/03/21 05/03/21 05/03/21 Range/Units 06:06 06:59 06:59 RBC 3.66 L (4.30-5.90) m/uL Hgb 11.6 L (13.0-17.5) gm/dL Hct 35.4 L (39.0-53.0) % Lymphocytes # 0.7 L (1.0-4.8) k/uL Sodium 133 L (137-145) mmol/L Chloride 91 L (98-107) mmol/L Carbon Dioxide 34 H (22-30) mmol/L BUN 70 H (9-20) mg/dL Creatinine 2.22 H (0.66-1.25) mg/dL Glucose 113 H (74-99) mg/dL POC Glucose (mg/dL) 114 H (75-99) mg/dL Total Protein 5.7 L (6.3-8.2) g/dL Albumin 3.4 L (3.5-5.0) g/dL Assessment and Plan Plan: Acute on chronic systolic congestive heart failure exacerbation Underlying history of coronary artery disease Acute kidney injury. Status post hemodialysis on 05/01/2021 Underlying history of atrial fibrillation Bradycardia on presentation Underlying history of hypertension Underlying history of chronic kidney disease stage III Underlying history of [id number] diabetes mellitus type 2 Underlying history of hyperlipidemia Underlying history of diverticulosis with previous history of gastrointestinal b leeding Underlying history of degenerative disc disease with chronic back pain Underlying history of benign prostatic hypertrophy At this time patient is admitted to telemetry floor Maintained on Lasix drip and dobutamine drip Cardiology and nephrology services are following AICD placement on 04/24/[address] Esparza Status post hemodialysis on 05/01/2021 Cardiothoracic service is following for possible epicardial LV lead placement in the future We will follow closely
[2021-05-03 20:30] LABS: Glucose,Whole Blood 134 mg/dL (75-99)
[2021-05-03] MEDS: ATORVASTATIN 20 MG TAB PO SCH (20:39)
[2021-05-04] MEDS: HYDROcodone/APAP 7.5-325MG 1 EACH TAB PO PRN ×5 (04:30→20:41)
[2021-05-04] MEDS: FUROSEMIDE 100 MG in SODIUM CHLORIDE 0.9% 90 ML IV SCH ×2 (05:54→14:41)
[2021-05-04 06:14] LABS: Glucose,Whole Blood 151 mg/dL (75-99)
[2021-05-04] MEDS: INSULIN ASPART (NovoLOG) 100 UNIT/ML VIAL SQ SCH ×4 (06:24→21:04)
[2021-05-04] MEDS: DOBUTamine DRIP 500 MG in DEXTROSE/WATER 1 250ML.BAG IV SCH (06:30)
[2021-05-04 07:44] LABS: Magnesium 1.9 mg/dL (1.6-2.3); Potassium 3.5 mmol/L (3.5-5.1)
[2021-05-04] MEDS: metOLazone 2.5 MG TAB PO SCH ×2 (08:16→08:17)
[2021-05-04] MEDS: PANTOPRAZOLE 40 MG TABLET PO SCH (08:17)
[2021-05-04] MEDS: APIXABAN 2.5 MG TABLET PO SCH ×2 (08:17→20:40)
[2021-05-04] MEDS: diphenhydrAMINE 25 MG CAP PO SCH ×2 (08:17→20:41)
[2021-05-04] MEDS: bisacodyL 5 MG TABLET.DR PO SCH ×2 (08:17→20:41)
[2021-05-04] MEDS: CYANOCOBALAMIN 500 MCG TAB PO SCH (08:17)
[2021-05-04] MEDS: hydrALAZINE HCL 25 MG TAB PO SCH (08:18)
[2021-05-04] MEDS: DOXAZOSIN 4 MG TAB PO SCH (08:18)
[2021-05-04] MEDS: DOCUSATE 100 MG CAP PO SCH ×2 (08:18→20:41)
[2021-05-04] MEDS: MAGNESIUM OXIDE 400 MG TAB PO SCH ×2 (08:18→20:41)
[2021-05-04] MEDS: glipiZIDE 5 MG TAB PO SCH ×2 (08:18→20:40)
[2021-05-04] MEDS: SILDENAFIL 20 MG TAB PO SCH ×2 (08:18→20:40)
[2021-05-04] MEDS: CHOLECALCIFEROL 25 MCG (1000 IU) TABLET PO SCH ×2 (08:20→20:41)
[2021-05-04] MEDS ORDERED: POTASSIUM CHLORIDE ER 20 MEQ TAB.ER PO STA (08:48)
--- NOTE | 2021-05-04 08:49 | P.PN ---
Subjective Patient is seen in follow-up for acute kidney injury on chronic kidney disease. Maintain on Lasix drip and dobutamine. Nonoliguric. Status post 2 treatments of hemodialysis this admission for ultrafiltration. No active complaints at this time. Edema improving. Creatinine 2.56 today. Vital signs are stable. General: The patient appeared well nourished and normally developed. HEENT: Head exam is unremarkable. Neck is without jugular venous distension. LUNGS: Breath sounds decreased. HEART: Rate and Rhythm are regular. ABDOMEN: Soft, no distention. EXTREMITITES: 1+ edema. Objective - Vital Signs Vital signs: Vital Signs Temp 98.6 F 05/04/21 08:06 Pulse 51 L 05/04/21 08:06 Resp 18 05/04/21 08:06 BP 135/92 05/04/21 08:06 Pulse Ox 94 L 05/04/21 08:06 Intake & Output 05/03/21 05/04/21 05/04/21 18:59 06:59 18:59 Intake Total 1068.833 339.313 Output Total 825 1375 Balance 243.833 -1035.687 Weight 98 kg Intake: Intake, IV Titration 348.833 339.313 Amount DOBUTamine DRIP 500 mg In 250 194.48 Dextrose/Water 1 250ml. bag @ 5 MCG/KG/MIN 15.6 mls/hr IV .Q16H2M [place] Rx# :[id number] Furosemide 100 mg In 98.833 144.833 Sodium Chloride 0.9% 90 ml @ 10 MG/HR 10 mls/hr IV .Q10H [place] Rx#: [id number] Oral 720 Output: Urine 825 1375 Other: Voiding Method Indwelling Catheter Indwelling Catheter Indwelling Catheter # Bowel Movements 1 - Labs CBC & Chem 7: 05/03/21 06:59 05/04/21 07:02 Labs: Abnormal Lab Results - Last 24 Hours (Table) 05/03/21 05/03/21 05/03/21 Range/Units 11:37 16:38 20:28 Sodium (137-145) mmol/L Chloride (98-107) mmol/L Carbon Dioxide (22-30) mmol/L BUN (9-20) mg/dL Creatinine (0.66-1.25) mg/dL Glucose (74-99) mg/dL POC Glucose (mg/dL) 243 H 146 H 134 H (75-99) mg/dL 05/04/21 05/04/21 Range/Units 06:12 07:02 Sodium 133 L (137-145) mmol/L Chloride 90 L (98-107) mmol/L Carbon Dioxide 37 H (22-30) mmol/L BUN 76 H (9-20) mg/dL Creatinine 2.56 H (0.66-1.25) mg/dL Glucose 140 H (74-99) mg/dL POC Glucose (mg/dL) 151 H (75-99) mg/dL Assessment and Plan Plan: Assessment: 1. Acute kidney injury secondary to ATN secondary to cardiorenal syndrome. Status post 2 treatments of hemodialysis this admission. Creatinine 2.56 today. 2. Acute on chronic systolic CHF with ejection fraction of 30-35% with mild to moderate mitral regurgitation and severe pulmonary hypertension. 3. Volume overload. Improving with diuresis and ultrafiltration. 4. Diabetes mellitus. 5. Chronic kidney disease stage IIIb with baseline creatinine near 2. 6. Bradycardia. Status post biventricular ICD placement on 04/24/2021. CTS following as well. 7. Hypervolemic hyponatremia. 8. Hypokalemia from diuresis. Plan: Maintain Lasix drip. Maintain metolazone. Stop dobutamine. Replace potassium. Low-salt diet. 1200 mL fluid restriction. Continue to monitor renal function and urine output. Hold off on hemodialysis over the weekend and reassess on Wednesday if further treatments needed.
--- NOTE | 2021-05-04 10:47 | P.PN ---
Subjective Progress Note Date: 05/04/21 Berny Linares, is an 80 year old male who presented to [facility] emergency room with a chief complaint of worsening shortness of breath and upper chest pain, patient stated that his symptoms started 1 day prior to presentation and has been worsening, he was having difficulty breathing when he was trying to lie down, he was also having worsening lower extremity edema, on the day of presentation patient started having upper chest pain radiating to the back of his neck and to both shoulders, at that point he decided to come to emergency room. He was evaluated in the emergency room vital examination on presentation revealed a temperature of 98.1 pulse 49 respiration 20 blood pressure 118/62 pulse ox 92% on room air Laboratory data reveals a white blood count of 4.4 hemoglobin 12.4 platelet count 108 sodium 134 potassium 4.2 chloride 95 CO2 31 BUN 61 creatinine 2.33 troponin level was elevated at 0.183. Review of the chart revealed creatinine 2.2 on 10/16/2020 and 1.8 on 06/20/2020. BNP was 16,400 Testing in the emergency room revealed, chest x-ray done in the emergency room revealed evidence of congestive heart failure blunting of the bilateral costophrenic angles suggestive of mild bilateral pleural effusion Patient was admitted to medical floor for further evaluation and treatment, he was started on IV Lasix, cardiology consultation was requested. Past medical history is significant for history of chronic systolic congestive heart failure echocardiogram done in December 2018 revealed ejection fraction of 35-40%, patient also has a known history of atrial fibrillation maintained on coagulation with Eliquis, history of diffuse coronary artery disease patient had cardiac catheterization in 2016 at that time medication treatment was advised. History of AAA for which patient underwent stent grafting, patient also has a known history of hypertension, [id number] diabetes mellitus, benign prostatic hypertrophy, chronic kidney disease stage III, diverticulosis was previous history of lower gastrointestinal bleeding, degenerative disc disease with history of back surgery. Patient stated that he used to smoke he quit many years ago. On 04/21/2021 Patient was seen and examined on the medical floor, he is alert and oriented x 3 in no distress, patient is complaining of shortness of breath with activity otherwise he denies any complaints there is no fever or chills no headache or dizziness no chest pain no cough no nausea or vomiting no abdominal pain no diarrhea no blood in the stools no burning with urination no frequency or urgency and no hematuria, there is no weakness or numbness in any of the extremities no change in vision speech or gait. On 04/22/2021 Patient was seen and examined on the medical floor, he is alert and oriented x 3 in no distress, he denies any complaints there is no fever or chills no headache or dizziness no chest pain no shortness of breath no palpitation no cough no nausea or vomiting no abdominal pain no diarrhea no blood in the stools no burning with urination no frequency or urgency and no hematuria, there is no weakness or numbness in any of the extremities no change in vision speech or gait. Patient is comfortable while lying in bed he has significant shortness of breath with any activity On 04/23/2021 patient is alert and oriented 3 resting comfortably in bed. Tentative plans for AICD placement tomorrow per Dr. Jara. Patient maintained on dobutamine drip. Patient remains on IV Lasix. At this time patient denies chest pain or shortness of breath. Patient denies nausea vomiting or diarrhea. Patient denies any urinary burning or frequency. On 04/24/2021 patient is alert and oriented 3 in no distress, he denies any chest pain or palpitation no shortness of breath at rest he has shortness of breath with any activity. Tentative plans for AICD placement tomorrow per Dr. Jara. Patient maintained on dobutamine drip. Patient remains on IV Lasix. At this time patient denies chest pain or shortness of breath. Patient denies nausea vomiting or diarrhea. Patient denies any urinary burning or frequency. On 04/25/2021 patient is alert and oriented 3. Status post BIV ICD placement Dr. Esparza. Postop day 1. Patient remains on Lasix and dobutamine drip. Patient still having +2 pitting edema. Cardiology and nephrology services are following. Cardiothoracic surgery consulted for requirement of epicardial lead placement per Dr. Jara. At this time patient denies any chest pain or shortness of breath. Patient denies nausea vomiting or diarrhea. Patient den ies any urinary burning or frequency On 04/26/2021 Patient was seen and examined on the telemetry floor, he is alert and oriented x 3 in no distress, he is complaining of shortness of breath with any activity otherwise he denies any complaints there is no fever or chills no headache or dizziness no chest pain no palpitation no cough no nausea or vomiting no abdominal pain no diarrhea no blood in the stools no burning with urination no frequency or urgency and no hematuria, there is no weakness or numbness in any of the extremities no change in vision speech or gait. On 04/27/2021 patient alert and oriented 3. Patient remains on dobutamine and Lasix drips. Nephrology and cardiology services are following. Per cardiothoracic epicardial lead placement will be followed up outpatient. At this time patient is complaining of bilateral lower extremity pain. Edematous noted to bilateral legs. Patient denies any chest pain. Patient denies nausea vomiting or diarrhea. Patient denies any urinary burning or frequency. On 04/28/2021 Patient was seen and examined on the medical floor, he is alert and oriented x 3 in no distress, he is maintained on IV Lasix drip and dobutamine drip , patient is complaining of left foot pain otherwise he denies any complaints there is no fever or chills no headache or dizziness no chest pain no shortness of breath no palpitation no cough no nausea or vomiting no abdominal pain no diarrhea no blood in the stools no burning with urination no frequency or urgency and no hematuria, there is no weakness or numbness in any of the extremities no change in vision speech or gait. On 04/29/2021 Patient was seen and examined on the medical floor, he is alert and oriented x 3 in no distress, he is complaining of back and lower extremity pain otherwise he denies any complaints there is no fever or chills no headache or dizziness no chest pain no shortness of breath no palpitation no cough no nausea or vomiting no abdominal pain no diarrhea no blood in the stools no burning with urination no frequency or urgency and no hematuria, there is no weakness or numbness in any of the extremities no change in vision speech or gait. On 04/30/2021 patient is alert and oriented 3. Patient appears to be having increased shortness of breath today. Patient remains on Lasix and dobutamine drip. Creatinine 3.47 and bun 114. Discussed case with cardiology team. Cardiology team spoke to cardiothoracic team and nephrology team tentative plan for patient to receive hemodialysis followed by possible surgical intervention for epicardial lead placement with Dr. Aleman. On 05/01/2021 patient was seen and examined on the telemetry floor, he is alert and oriented 3 in no apparent distress, he just had a dialysis catheter placed, he is complaining of back pain and complaining of shortness of breath, otherwise he denies any complaints there is no fever or chills no headache or dizziness no chest pain no cough no nausea or vomiting no abdominal pain no diarrhea no blood in the stools no burning with urination no frequency or urgency and no hematuria On 05/02/2021 patient alert and oriented 3. Status post hemodialysis yesterday 05/01/2021. Patient appears short of breath today. Patient does have good urine output. Creatinine 2.74 and bun 89. Patient denies chest pain. Patient denies nausea vomiting or diarrhea. Patient denies any urinary burning or frequency On 05/03/2021 Patient was seen and examined on the medical floor, he is alert and oriented x 3 in no distress, shortness of breath is improving gradually otherwise he denies any complaints there is no fever or chills no headache or dizziness no chest pain no palpitation no cough no nausea or vomiting no abdominal pain no diarrhea no blood in the stools no burning with urination no frequency or urgency and no hematuria, there is no weakness or numbness in any of the extremities no change in vision speech or gait. On 05/04/2021 patient is alert and oriented 3. Patient maintained on dobutamine and Lasix drip. Creatinine 2.56 today edema is improving. Status post 2 treatments of hemodialysis at this time patient denies chest pain or shortness of breath. Patient denies nausea vomiting or diarrhea. Patient denies any urinary burning or frequency Objective - Vital Signs Vital signs: Vital Signs Temp 98.6 F 05/04/21 08:06 Pulse 51 L 05/04/21 08:06 Resp 18 05/04/21 08:06 BP 135/92 05/04/21 08:06 Pulse Ox 94 L 05/04/21 08:06 Intake & Output 05/03/21 05/04/21 05/04/21 18:59 06:59 18:59 Intake Total 1068.833 339.313 Output Total 825 1375 Balance 243.833 -1035.687 Weight 98 kg Intake: Intake, IV Titration 348.833 339.313 Amount DOBUTamine DRIP 500 mg In 250 194.48 Dextrose/Water 1 250ml. bag @ 5 MCG/KG/MIN 15.6 mls/hr IV .Q16H2M [place] Rx# :[id number] Furosemide 100 mg In 98.833 144.833 Sodium Chloride 0.9% 90 ml @ 10 MG/HR 10 mls/hr IV .Q10H [facility] Rx#: [id number] Oral 720 Output: Urine 825 1375 Other: Voiding Method Indwelling Catheter Indwelling Catheter Indwelling Catheter # Bowel Movements 1 - Exam In general patient is alert and oriented x 3 in no distress HEENT head normocephalic and atraumatic Neck is supple no JVD no goiter no lymphadenopathy no carotid bruit Chest examination few scattered rhonchi no wheezing Cardiac exam reveals irregular heart sounds S1 and S2 no gallops no murmurs Abdomen is soft nontender no organomegaly with normal bowel sounds Extremity exam reveals no edema no cyanosis or clubbing Neurological examination reveals no gross focal deficits - Labs CBC & Chem 7: 05/03/21 06:59 05/04/21 07:02 Labs: Abnormal Lab Results - Last 24 Hours (Table) 05/03/21 05/03/21 05/03/21 Range/Units 11:37 16:38 20:28 Sodium (137-145) mmol/L Chloride (98-107) mmol/L Carbon Dioxide (22-30) mmol/L BUN (9-20) mg/dL Creatinine (0.66-1.25) mg/dL Glucose (74-99) mg/dL POC Glucose (mg/dL) 243 H 146 H 134 H (75-99) mg/dL 05/04/21 05/04/21 Range/Units 06:12 07:02 Sodium 133 L (137-145) mmol/L Chloride 90 L (98-107) mmol/L Carbon Dioxide 37 H (22-30) mmol/L BUN 76 H (9-20) mg/dL Creatinine 2.56 H (0.66-1.25) mg/dL Glucose 140 H (74-99) mg/dL POC Glucose (mg/dL) 151 H (75-99) mg/dL Assessment and Plan Plan: Acute on chronic systolic congestive heart failure exacerbation Underlying history of coronary artery disease Acute kidney injury. Status post hemodialysis on 05/01/2021 Underlying history of atrial fibrillation Bradycardia on presentation Underlying history of hypertension Underlying history of chronic kidney disease stage III Underlying history of [id number]-zldjftree diabetes mellitus type 2 Underlying history of hyperlipidemia Underlying history of diverticulosis with previous history of gastrointestinal bleeding Underlying history of degenerative disc disease with chronic back pain Underlying history of benign prostatic hypertrophy At this time patient is admitted to telemetry floor Maintained on Lasix drip and dobutamine drip Cardiology and nephrology services are following AICD placement on 04/24/[address] Esparza Status post hemodialysis on 05/01/2021 and 05/02/2021 Cardiothoracic service is following for possible epicardial LV lead placement in the future We will follow closely
--- NOTE | 2021-05-04 10:57 | P.PN ---
Subjective This is a pleasant 80-year-old gentleman with a history of chronic systolic heart failure, chronic atrial fibrillation, diabetes mellitus type 2, hy pertension, AAA, status post graft placement, COPD on home oxygen, severe pulmonary hypertension, nonischemic cardiomyopathy and mild nonobstructive CAD. Initially presented to the hospital with progressively worsening shortness of breath and lower extremity edema. He was initiated on IV diuretics. He underwent attempted placement of a ventricular ICD but due to the anatomy only a single lead was placed with plans for epicardial lead placement. He remains on IV dobutamine and IV Lasix drip. Due to progressively worsening renal function dialysis catheter was placed today. Being followed by nephrology with plans for dialysis. On examination he is resting comfortably in bed. Overall he feels his breathing is stable. He's had no complaints of chest discomfort. Continues to have lower extremity edema. 05/02/2021 This was seen and examined this morning. He did undergo hemodialysis yesterday. He is overall feeling better and his edema has improved. He feels his breathing is better. He continues to be on IV Lasix and dobutamine. Renal function is improving with a BUN of 89 creatinine of 2.74. He has a Lai catheter with good urine output. 05/03 Patient is continued on dobutamine drip as well as IV Lasix drip. He has been undergoing intermittent hemodialysis. Sodium 133 today, BUN 70, creatinine 2.2 however has been undergoing hemodialysis, hemoglobin 11.6. He denies any chest pain or pressure. He admits his breathing is somewhat improved. 05/04 Patient seen and examined. Sodium today 133, carbon dioxide 37, BUN 76, creatinine 2.56. He is maintained on a dobutamine drip as well as Lasix drip. Hydralazine 25 mg 4 times a day, metoprolol has been held, Zaroxolyn on 5 mg twice a day, Revatio 40 mg twice a day, Cardura 4 mg daily. Blood pressure somewhat elevated with blood pressure 135/92, 134/71. PHYSICAL EXAMINATION Vital signs reviewed. CONSTITUTIONAL: No apparent distress. HEENT: Head is normocephalic. Pupils are equal, round. Sclerae anicteric. Mucous membranes of the mouth are moist. No JVD. No carotid bruit. CHEST EXAMINATION: Lungs are clear to auscultation. No chest wall tenderness is noted on palpation or with deep breathing. HEART EXAMINATION: Regular rate and rhythm. S1, S2 heard. No murmurs, gallops or rub. ABDOMEN: Soft, nontender. Positive bowel sounds. EXTREMITIES: 2+ peripheral pulses, no lower extremity edema and no calf tenderness. NEUROLOGIC EXAMINATION: Patient is awake, alert and oriented x3. ASSESSMENT 1 acute on chronic systolic congestive heart failure #2 chronic persistent atrial fibrillation #3 bradycardia, status post pacemaker/ICD, awaiting epicardial LV lead placement #4 history of heavily calcified however nonobstructive CAD by heart catheterization 2016 #5 non-STEMI #6 hypertension #7 diabetes mellitus #8 acute kidney injury #9 pulmonary hypertension Plan: Patient is maintained on dobutamine drip at 5 as well as Lasix drip. Continue to monitor response and optimize heart failure regimen as able. Hold beta wil given concern of cardiorenal syndrome causing acute kidney injury. Nephrology recommendations. Cardiothoracic surgery following for possible epicardial lead placement. MAPs are somewhat elevated for systolic heart failure and we will attempt to optimize heart failure regimen by stopping Cardura and increasing hydralazine for increased afterload reduction. Objective - Vital Signs Vital signs: Vital Signs Temp 98.6 F 05/04/21 08:06 Pulse 51 L 05/04/21 08:06 Resp 18 05/04/21 08:06 BP 135/92 05/04/21 08:06 Pulse Ox 94 L 05/04/21 08:06 Intake & Output 05/03/21 05/04/21 05/04/21 18:59 06:59 18:59 Intake Total 1068.833 339.313 Output Total 825 1375 Balance 243.833 -1035.687 Weight 98 kg Intake: Intake, IV Titration 348.833 339.313 Amount DOBUTamine DRIP 500 mg In 250 194.48 Dextrose/Water 1 250ml. bag @ 5 MCG/KG/MIN 15.6 mls/hr IV .Q16H2M [place] Rx# :[id number] Furosemide 100 mg In 98.833 144.833 Sodium Chloride 0.9% 90 ml @ 10 MG/HR 10 mls/hr IV .Q10H [place] Rx#: [id number] Oral 720 Output: Urine 825 1375 Other: Voiding Method Indwelling Catheter Indwelling Catheter Indwelling Catheter # Bowel Movements 1 - Labs CBC & Chem 7: 05/03/21 06:59 05/04/21 07:02 Labs: Abnormal Lab Results - Last 24 Hours (Table) 05/03/21 05/03/21 05/03/21 Range/Units 11:37 16:38 20:28 Sodium (137-145) mmol/L Chloride (98-107) mmol/L Carbon Dioxide (22-30) mmol/L BUN (9-20) mg/dL Creatinine (0.66-1.25) mg/dL Glucose (74-99) mg/dL POC Glucose (mg/dL) 243 H 146 H 134 H (75-99) mg/dL 05/04/21 05/04/21 Range/Units 06:12 07:02 Sodium 133 L (137-145) mmol/L Chloride 90 L (98-107) mmol/L Carbon Dioxide 37 H (22-30) mmol/L BUN 76 H (9-20) mg/dL Creatinine 2.56 H (0.66-1.25) mg/dL Glucose 140 H (74-99) mg/dL POC Glucose (mg/dL) 151 H (75-99) mg/dL
[2021-05-04 11:41] LABS: Glucose,Whole Blood 191 mg/dL (75-99)
[2021-05-04] MEDS: hydrALAZINE HCL 50 MG TAB PO SCH ×3 (12:45→20:40)
[2021-05-04] MEDS: LACTATED RINGERS 1,000 ML IV SCH (12:45)
[2021-05-04 16:32] LABS: Glucose,Whole Blood 173 mg/dL (75-99)
[2021-05-04 20:23] LABS: Glucose,Whole Blood 143 mg/dL (75-99)
[2021-05-04] MEDS: ATORVASTATIN 20 MG TAB PO SCH (20:41)
[2021-05-05] MEDS: FUROSEMIDE 100 MG in SODIUM CHLORIDE 0.9% 90 ML IV SCH ×2 (00:48→15:11)
[2021-05-05] MEDS: HYDROcodone/APAP 7.5-325MG 1 EACH TAB PO PRN ×7 (00:49→23:52)
[2021-05-05] MEDS: HYDROmorphone 0.5 MG/0.5 ML SYRINGE IVP PRN (05:04)
[2021-05-05] MEDS: INSULIN ASPART (NovoLOG) 100 UNIT/ML VIAL SQ SCH ×4 (06:02→20:48)
[2021-05-05 06:04] LABS: Glucose,Whole Blood 115 mg/dL (75-99)
[2021-05-05 06:06] LABS: Basophils % (A) 1 %; Eosinophils # (A) 0.1 k/uL (0-0.7); Eosinophils % (A) 2 %; HCT 31.3 % (39.0-53.0); HGB 10.6 gm/dL (13.0-17.5); Lymphocytes # (A) 0.7 k/uL (1.0-4.8); Lymphocytes % (A) 10 %; MCH 32.3 pg (25.0-35.0); MCHC 33.8 g/dL (31.0-37.0); MCV 95.7 fL (80.0-100.0); Mean Platelet Volume 7.9; Monocytes # (A) 0.5 k/uL (0-1.0); Monocytes % (A) 7 %; Neutrophils # (A) 5.2 k/uL (1.3-7.7); Neutrophils % (A) 77 %; Platelet Count 208 k/uL (150-450); RBC 3.27 m/uL (4.30-5.90); WBC 6.8 k/uL (3.8-10.6)
[2021-05-05 06:35] LABS: Magnesium 1.8 mg/dL (1.6-2.3); Potassium 3.8 mmol/L (3.5-5.1)
[2021-05-05] MEDS: hydrALAZINE HCL 50 MG TAB PO SCH ×4 (07:49→20:49)
[2021-05-05] MEDS: bisacodyL 5 MG TABLET.DR PO SCH ×2 (07:50→20:47)
[2021-05-05] MEDS: diphenhydrAMINE 25 MG CAP PO SCH ×2 (07:50→20:47)
[2021-05-05] MEDS: DOCUSATE 100 MG CAP PO SCH ×2 (07:50→20:51)
[2021-05-05] MEDS: MAGNESIUM OXIDE 400 MG TAB PO SCH ×2 (07:50→20:48)
[2021-05-05] MEDS: SILDENAFIL 20 MG TAB PO SCH ×2 (07:50→20:49)
[2021-05-05] MEDS: CHOLECALCIFEROL 25 MCG (1000 IU) TABLET PO SCH ×2 (07:50→20:47)
[2021-05-05] MEDS: CYANOCOBALAMIN 500 MCG TAB PO SCH (07:51)
[2021-05-05] MEDS: glipiZIDE 5 MG TAB PO SCH ×2 (07:51→20:48)
[2021-05-05] MEDS: APIXABAN 2.5 MG TABLET PO SCH ×2 (07:51→20:47)
[2021-05-05] MEDS: metOLazone 2.5 MG TAB PO SCH ×2 (07:51→20:48)
[2021-05-05] MEDS: PANTOPRAZOLE 40 MG TABLET PO SCH (07:51)
--- NOTE | 2021-05-05 08:24 | P.PN ---
Subjective Patient is seen in follow-up for acute kidney injury on chronic kidney disease. Maintain on Lasix drip. Dobutamine stopped May 04. Nonoliguric. Status post 2 treatments of hemodialysis this admission for ultrafiltration. Last hemodialysis was on May 02. No active complaints at this time. Edema improving. Creatinine 2.64 today. Vital signs are stable. General: The patient appeared well nourished and normally developed. HEENT: Head exam is unremarkable. Neck is without jugular venous distension. LUNGS: Breath sounds decreased. HEART: Rate and Rhythm are regular. ABDOMEN: Soft, no distention. EXTREMITITES: 1+ edema. Objective - Vital Signs Vital signs: Vital Signs Temp 98.1 F 05/05/21 07:45 Pulse 58 L 05/05/21 07:45 Resp 16 05/05/21 07:45 BP 109/59 05/05/21 07:45 Pulse Ox 96 05/05/21 07:45 Intake & Output 05/04/21 05/05/21 05/05/21 18:59 06:59 18:59 Intake Total 87.833 100 Output Total 1150 1202 Balance -1062.167 -1102 Weight 96.5 kg Intake: Intake, IV Titration 87.833 100 Amount Furosemide 100 mg In 87.833 100 Sodium Chloride 0.9% 90 ml @ 10 MG/HR 10 mls/hr IV .Q10H [facility] Rx#: [id number] Output: Urine 1150 1200 Stool 2 Other: Voiding Method Indwelling Catheter Indwelling Catheter # Bowel Movements 1 - Labs CBC & Chem 7: 05/05/21 05:45 05/05/21 05:45 Labs: Abnormal Lab Results - Last 24 Hours (Table) 05/04/21 05/04/21 05/04/21 Range/Units 11:40 16:30 20:22 RBC (4.30-5.90) m/uL Hgb (13.0-17.5) gm/dL Hct (39.0-53.0) % Lymphocytes # (1.0-4.8) k/uL Sodium (137-145) mmol/L Chloride (98-107) mmol/L Carbon Dioxide (22-30) mmol/L BUN (9-20) mg/dL Creatinine (0.66-1.25) mg/dL Glucose (74-99) mg/dL POC Glucose (mg/dL) 191 H 173 H 143 H (75-99) mg/dL 05/05/21 05/05/21 05/05/21 Range/Units 05:45 05:45 06:02 RBC 3.27 L (4.30-5.90) m/uL Hgb 10.6 L (13.0-17.5) gm/dL Hct 31.3 L (39.0-53.0) % Lymphocytes # 0.7 L (1.0-4.8) k/uL Sodium 133 L (137-145) mmol/L Chloride 88 L (98-107) mmol/L Carbon Dioxide 38 H (22-30) mmol/L BUN 82 H (9-20) mg/dL Creatinine 2.64 H (0.66-1.25) mg/dL Glucose 115 H (74-99) mg/dL POC Glucose (mg/dL) 115 H (75-99) mg/dL Assessment and Plan Plan: Assessment: 1. Acute kidney injury secondary to ATN secondary to cardiorenal syndrome. Status post 2 treatments of hemodialysis this admission. Creatinine 2.643 today. 2. Acute on chronic systolic CHF with ejection fraction of 30-35% with mild to moderate mitral regurgitation and severe pulmonary hypertension. 3. Volume overload. Improving with diuresis and ultrafiltration. 4. Diabetes mellitus. 5. Chronic kidney disease stage IIIb with baseline creatinine near 2. 6. Bradycardia. Status post biventricular ICD placement on 04/24/2021. CTS f ollowing as well. 7. Hypervolemic hyponatremia. Stable. 8. Hypokalemia from diuresis. Replace. Better. Plan: Maintain Lasix drip. Maintain metolazone. Replace potassium. Low-salt diet. 1200 mL fluid restriction. Continue to monitor renal function and urine output. Ultrafiltration only treatment today. Continue to assess on daily basis.
--- NOTE | 2021-05-05 09:19 | XR ---
EXAMINATION TYPE: XR chest 1V DATE OF EXAM: 05/05/2021 HISTORY: Shortness of breath. COMPARISON: 1121 TECHNIQUE: Single view of the chest is submitted. FINDINGS: Demonstrated are scattered senescent parenchymal change. There is no evidence for focal infiltrate. There is continued cardiomegaly with basilar atelectasis or small effusions. Hilar and mediastinal structures are within normal limits. Degenerative changes are seen of the dorsal spine. IMPRESSION: 1. Chronic changes without evidence for acute pulmonary disease.
[2021-05-05 09:42] VITALS: BMI 33.3
--- NOTE | 2021-05-05 11:06 | P.PN ---
Subjective HISTORY OF PRESENTING ILLNESS Patient is a pleasant 80-year-old male with history of chronic systolic heart failure, chronic atrial fibrillation, diabetes mellitus type 2, hypertension, abdominal aortic aneurysm status post graft placement, COPD on home O2, severe pulmonary hypertension, non-ischemic cardiomyopathy and mild non-obstructive coronary artery disease. He is seen and examined sitting up in bed in mild respiratory distress. He continues to feel short of breath and fatigued. He denies chest pain, dizziness or palpitations. Blood pressure 136/64 heart rate 80 afebrile and maintaining oxygen saturation on nasal cannula. Laboratory data reviewed, sodium 137, potassium 4, creatinine 2.35 and magnesium 2.0. 24-hr urine output 2.1 liters. Heart rates are improved with beta blockers discontinued. No plans for PPM at this time. 05/05/2021 Pt seen and examined sitting up eating breakfast. He denies worsening shortness of breath. He has no chest pain. He is scheduled to undergo dialysis today. Blood pressure 109/59 heart rate 58 afebrile and maintaining oxygen saturation on room air. Laboratory data reviewed, WBC 6.8, hemoglobin 10.6, platelets 208, sodium 133, potassium 3.8, creatinine 2.64 and magnesium 1.8. 24-hour urine output 2.3 L, maintaining a negative fluid balance. PHYSICAL EXAMINATION CONSTITUTIONAL: No apparent distress, somewhat somnolent, mildly tachypnic HEENT: Head is normocephalic. Pupils are equal, round. Sclerae anicteric. Mucous membranes of the mouth are moist. No JVD. No carotid bruit. CHEST EXAMINATION: Diminished bilaterally, no wheezes, rales or rhonchi. HEART EXAMINATION: Irregular rate and rhythm, +3/6 systolic murmur at the base, no gallops or rub. EXTREMITIES: 2+ peripheral pulses, trace lower extremity edema and no calf tenderness. ASSESSMENT Acute on chronic systolic heart failure Chronic persistent atrial fibrillation Bradycardia status post pacemaker/ICD History of heavily calcified however non-obstructive coronary artery disease by heart catheterization 2016 Non-STEMI, rule out type I mechanism with chest pain occurring on presentation Hypertension Diabetes mellitus Acute kidney injury Pulmonary hypertension PLAN CT surgery feels the patient is too high risk with no significant improvement if epicardial lead is placed, therefore he will not be a surgical candidate. Continue current medical regimen. Further recommendations to follow based on clinical course. Nurse Practitioner note has been reviewed, I agree with a documented findings and plan of care. Patient was seen and examined. Objective - Vital Signs Vital signs: Vital Signs Temp 98.1 F 05/05/21 07:45 Pulse 58 L 05/05/21 07:45 Resp 16 05/05/21 08:30 BP 109/59 05/05/21 07:45 Pulse Ox 96 05/05/21 07:45 Intake & Output 05/04/21 05/05/21 05/05/21 18:59 06:59 18:59 Intake Total 87.833 100 240 Output Total 1150 1202 Balance -1062.167 -1102 240 Weight 96.5 kg 96.5 kg Intake: Intake, IV Titration 87.833 100 Amount Furosemide 100 mg In 87.833 100 Sodium Chloride 0.9% 90 ml @ 10 MG/HR 10 mls/hr IV .Q10H [place] Rx#: [id number] Oral 240 Output: Urine 1150 1200 Stool 2 Other: Voiding Method Indwelling Catheter Indwelling Catheter Indwelling Catheter # Bowel Movements 1 3 - Labs CBC & Chem 7: 05/05/21 05:45 05/05/21 05:45 Labs: Abnormal Lab Results - Last 24 Hours (Table) 05/04/21 05/04/21 05/04/21 Range/Units 11:40 16:30 20:22 RBC (4.30-5.90) m/uL Hgb (13.0-17.5) gm/dL Hct (39.0-53.0) % Lymphocytes # (1.0-4.8) k/uL Sodium (137-145) mmol/L Chloride (98-107) mmol/L Carbon Dioxide (22-30) mmol/L BUN (9-20) mg/dL Creatinine (0.66-1.25) mg/dL Glucose (74-99) mg/dL POC Glucose (mg/dL) 191 H 173 H 143 H (75-99) mg/dL 05/05/21 05/05/21 05/05/21 Range/Units 05:45 05:45 06:02 RBC 3.27 L (4.30-5.90) m/uL Hgb 10.6 L (13.0-17.5) gm/dL Hct 31.3 L (39.0-53.0) % Lymphocytes # 0.7 L (1.0-4.8) k/uL Sodium 133 L (137-145) mmol/L Chloride 88 L (98-107) mmol/L Carbon Dioxide 38 H (22-30) mmol/L BUN 82 H (9-20) mg/dL Creatinine 2.64 H (0.66-1.25) mg/dL Glucose 115 H (74-99) mg/dL POC Glucose (mg/dL) 115 H (75-99) mg/dL
[2021-05-05 11:51] LABS: Glucose,Whole Blood 390 mg/dL (75-99)
[2021-05-05] MEDS: LACTATED RINGERS 1,000 ML IV SCH (14:52)
[2021-05-05 17:08] LABS: Glucose,Whole Blood 93 mg/dL (75-99)
--- NOTE | 2021-05-05 19:41 | P.PN ---
Subjective Progress Note Date: 05/05/21 Berny Linares, is an 80 year old male who presented to [facility] emergency room with a chief complaint of worsening shortness of breath and upper chest pain, patient stated that his symptoms started 1 day prior to presentation and has been worsening, he was having difficulty breathing when he was trying to lie down, he was also having worsening lower extremity edema, on the day of presentation patient started having upper chest pain radiating to the back of his neck and to both shoulders, at that point he decided to come to emergency room. He was evaluated in the emergency room vital examination on presentation revealed a temperature of 98.1 pulse 49 respiration 20 blood pressure 118/62 pulse ox 92% on room air Laboratory data reveals a white blood count of 4.4 hemoglobin 12.4 platelet count 108 sodium 134 potassium 4.2 chloride 95 CO2 31 BUN 61 creatinine 2.33 troponin level was elevated at 0.183. Review of the chart revealed creatinine 2.2 on 10/16/2020 and 1.8 on 06/20/2020. BNP was 16,400 Testing in the emergency room revealed, chest x-ray done in the emergency room revealed evidence of congestive heart failure blunting of the bilateral costophrenic angles suggestive of mild bilateral pleural effusion Patient was admitted to medical floor for further evaluation and treatment, he was started on IV Lasix, cardiology consultation was requested. Past medical history is significant for history of chronic systolic congestive heart failure echocardiogram done in December 2018 revealed ejection fraction of 35-40%, patient also has a known history of atrial fibrillation maintained on coagulation with Eliquis, history of diffuse coronary artery disease patient had cardiac catheterization in 2016 at that time medication treatment was advised. History of AAA for which patient underwent stent grafting, patient also has a known history of hypertension, [id number] diabetes mellitus, benign prostatic hypertrophy, chronic kidney disease stage III, diverticulosis was previous history of lower gastrointestinal bleeding, degenerative disc disease with history of back surgery. Patient stated that he used to smoke he quit many years ago. On 04/21/2021 Patient was seen and examined on the medical floor, he is alert and oriented x 3 in no distress, patient is complaining of shortness of breath with activity otherwise he denies any complaints there is no fever or chills no headache or dizziness no chest pain no cough no nausea or vomiting no abdominal pain no diarrhea no blood in the stools no burning with urination no frequency or urgency and no hematuria, there is no weakness or numbness in any of the extremities no change in vision speech or gait. On 04/22/2021 Patient was seen and examined on the medical floor, he is alert and oriented x 3 in no distress, he denies any complaints there is no fever or chills no headache or dizziness no chest pain no shortness of breath no palpitation no cough no nausea or vomiting no abdominal pain no diarrhea no blood in the stools no burning with urination no frequency or urgency and no hematuria, there is no weakness or numbness in any of the extremities no change in vision speech or gait. Patient is comfortable while lying in bed he has significant shortness of breath with any activity On 04/23/2021 patient is alert and oriented 3 resting comfortably in bed. Tentative plans for AICD placement tomorrow per Dr. Jara. Patient maintained on dobutamine drip. Patient remains on IV Lasix. At this time patient denies chest pain or shortness of breath. Patient denies nausea vomiting or diarrhea. Patient denies any urinary burning or frequency. On 04/24/2021 patient is alert and oriented 3 in no distress, he denies any chest pain or palpitation no shortness of breath at rest he has shortness of breath with any activity. Tentative plans for AICD placement tomorrow per Dr. Jara. Patient maintained on dobutamine drip. Patient remains on IV Lasix. At this time patient denies chest pain or shortness of breath. Patient denies nausea vomiting or diarrhea. Patient denies any urinary burning or frequency. On 04/25/2021 patient is alert and oriented 3. Status post BIV ICD placement Dr. Esparza. Postop day 1. Patient remains on Lasix and dobutamine drip. Patient still having +2 pitting edema. Cardiology and nephrology services are following. Cardiothoracic surgery consulted for requirement of epicardial lead placement per Dr. Jara. At this time patient denies any chest pain or shortness of breath. Patient denies nausea vomiting or diarrhea. Patient den ies any urinary burning or frequency On 04/26/2021 Patient was seen and examined on the telemetry floor, he is alert and oriented x 3 in no distress, he is complaining of shortness of breath with any activity otherwise he denies any complaints there is no fever or chills no headache or dizziness no chest pain no palpitation no cough no nausea or vomiting no abdominal pain no diarrhea no blood in the stools no burning with urination no frequency or urgency and no hematuria, there is no weakness or numbness in any of the extremities no change in vision speech or gait. On 04/27/2021 patient alert and oriented 3. Patient remains on dobutamine and Lasix drips. Nephrology and cardiology services are following. Per cardiothoracic epicardial lead placement will be followed up outpatient. At this time patient is complaining of bilateral lower extremity pain. Edematous noted to bilateral legs. Patient denies any chest pain. Patient denies nausea vomiting or diarrhea. Patient denies any urinary burning or frequency. On 04/28/2021 Patient was seen and examined on the medical floor, he is alert and oriented x 3 in no distress, he is maintained on IV Lasix drip and dobutamine drip , patient is complaining of left foot pain otherwise he denies any complaints there is no fever or chills no headache or dizziness no chest pain no shortness of breath no palpitation no cough no nausea or vomiting no abdominal pain no diarrhea no blood in the stools no burning with urination no frequency or urgency and no hematuria, there is no weakness or numbness in any of the extremities no change in vision speech or gait. On 04/29/2021 Patient was seen and examined on the medical floor, he is alert and oriented x 3 in no distress, he is complaining of back and lower extremity pain otherwise he denies any complaints there is no fever or chills no headache or dizziness no chest pain no shortness of breath no palpitation no cough no nausea or vomiting no abdominal pain no diarrhea no blood in the stools no burning with urination no frequency or urgency and no hematuria, there is no weakness or numbness in any of the extremities no change in vision speech or gait. On 04/30/2021 patient is alert and oriented 3. Patient appears to be having increased shortness of breath today. Patient remains on Lasix and dobutamine drip. Creatinine 3.47 and bun 114. Discussed case with cardiology team. Cardiology team spoke to cardiothoracic team and nephrology team tentative plan for patient to receive hemodialysis followed by possible surgical intervention for epicardial lead placement with Dr. Aleman. On 05/01/2021 patient was seen and examined on the telemetry floor, he is alert and oriented 3 in no apparent distress, he just had a dialysis catheter placed, he is complaining of back pain and complaining of shortness of breath, otherwise he denies any complaints there is no fever or chills no headache or dizziness no chest pain no cough no nausea or vomiting no abdominal pain no diarrhea no blood in the stools no burning with urination no frequency or urgency and no hematuria On 05/02/2021 patient alert and oriented 3. Status post hemodialysis yesterday 05/01/2021. Patient appears short of breath today. Patient does have good urine output. Creatinine 2.74 and bun 89. Patient denies chest pain. Patient denies nausea vomiting or diarrhea. Patient denies any urinary burning or frequency On 05/03/2021 Patient was seen and examined on the medical floor, he is alert and oriented x 3 in no distress, shortness of breath is improving gradually otherwise he denies any complaints there is no fever or chills no headache or dizziness no chest pain no palpitation no cough no nausea or vomiting no abdominal pain no diarrhea no blood in the stools no burning with urination no frequency or urgency and no hematuria, there is no weakness or numbness in any of the extremities no change in vision speech or gait. On 05/04/2021 patient is alert and oriented 3. Patient maintained on dobutamine and Lasix drip. Creatinine 2.56 today edema is improving. Status post 2 treatments of hemodialysis at this time patient denies chest pain or shortness of breath. Patient denies nausea vomiting or diarrhea. Patient denies any urinary burning or frequency on 05/05/2021 Patient was seen and examined on the medical floor, he is alert and oriented x 3 in no distress, he denies any complaints there is no fever or chills no headache or dizziness no chest pain no shortness of breath no palpitation no cough no nausea or vomiting no abdominal pain no diarrhea no blood in the stools no burning with urination no frequency or urgency and no hematuria, there is no weakness or numbness in any of the extremities no change in vision speech or gait. Patient received hemodialysis over the weekend, today he had ultrafiltration treatment only, he is still maintained on Lasix drip, cardiology and nephrology are following, clinically improving gradually, will follow Objective - Vital Signs Vital signs: Vital Signs Temp 97.6 F 05/05/21 12:29 Pulse 67 05/05/21 12:29 Resp 19 05/05/21 12:29 BP 153/66 05/05/21 12:29 Pulse Ox 97 05/05/21 12:29 Intake & Output 05/04/21 05/05/21 05/05/21 18:59 06:59 18:59 Intake Total 87.833 100 240 Output Total 1150 1202 Balance -1062.167 -1102 240 Weight 96.5 kg 96.5 kg Intake: Intake, IV Titration 87.833 100 Amount Furosemide 100 mg In 87.833 100 Sodium Chloride 0.9% 90 ml @ 10 MG/HR 10 mls/hr IV .Q10H [place] Rx#: [id number] Oral 240 Output: Urine 1150 1200 Stool 2 Other: Voiding Method Indwelling Catheter Indwelling Catheter Indwelling Catheter # Bowel Movements 1 3 - Exam In general patient is alert and oriented x 3 in no distress HEENT head normocephalic and atraumatic Neck is supple no JVD no goiter no lymphadenopathy no carotid bruit Chest examination few scattered rhonchi no wheezing Cardiac exam reveals irregular heart sounds S1 and S2 no gallops no murmurs Abdomen is soft nontender no organomegaly with normal bowel sounds Extremity exam reveals no edema no cyanosis or clubbing Neurological examination reveals no gross focal deficits - Labs CBC & Chem 7: 05/05/21 05:45 05/05/21 05:45 Labs: Abnormal Lab Results - Last 24 Hours (Table) 05/04/21 05/04/21 05/05/21 Range/Units 16:30 20:22 05:45 RBC (4.30-5.90) m/uL Hgb (13.0-17.5) gm/dL Hct (39.0-53.0) % Lymphocytes # (1.0-4.8) k/uL Sodium 133 L (137-145) mmol/L Chloride 88 L (98-107) mmol/L Carbon Dioxide 38 H (22-30) mmol/L BUN 82 H (9-20) mg/dL Creatinine 2.64 H (0.66-1.25) mg/dL Glucose 115 H (74-99) mg/dL POC Glucose (mg/dL) 173 H 143 H (75-99) mg/dL 05/05/21 05/05/21 05/05/21 Range/Units 05:45 06:02 11:48 RBC 3.27 L (4.30-5.90) m/uL Hgb 10.6 L (13.0-17.5) gm/dL Hct 31.3 L (39.0-53.0) % Lymphocytes # 0.7 L (1.0-4.8) k/uL Sodium (137-145) mmol/L Chloride (98-107) mmol/L Carbon Dioxide (22-30) mmol/L BUN (9-20) mg/dL Creatinine (0.66-1.25) mg/dL Glucose (74-99) mg/dL POC Glucose (mg/dL) 115 H 390 H (75-99) mg/dL Assessment and Plan Plan: Acute on chronic systolic congestive heart failure exacerbation Underlying history of coronary artery disease Acute kidney injury. Status post hemodialysis on 05/01/2021 Underlying history of atrial fibrillation Bradycardia on presentation Underlying history of hypertension Underlying history of chronic kidney disease stage III Underlying history of [id number] diabetes mellitus type 2 Underlying history of hyperlipidemia Underlying history of diverticulosis with previous history of gastrointestinal bleeding Underlying history of degenerative disc disease with chronic back pain Underlying history of benign prostatic hypertrophy At this time patient is admitted to telemetry floor Maintained on Lasix drip and dobutamine drip Cardiology and nephrology services are following AICD placement on 04/24/[address] Esparza Status post hemodialysis on 05/01/2021 and 05/02/2021 Cardiothoracic service is following for possible epicardial LV lead placement in the future We will follow closely
[2021-05-05 20:16] LABS: Glucose,Whole Blood 197 mg/dL (75-99)
[2021-05-05] MEDS: ATORVASTATIN 20 MG TAB PO SCH (20:47)
[2021-05-06] MEDS: FUROSEMIDE 100 MG in SODIUM CHLORIDE 0.9% 90 ML IV SCH (01:03)
[2021-05-06] MEDS: HYDROcodone/APAP 7.5-325MG 1 EACH TAB PO PRN ×7 (02:56→22:53)
[2021-05-06 06:13] LABS: Glucose,Whole Blood 102 mg/dL (75-99)
[2021-05-06] MEDS: INSULIN ASPART (NovoLOG) 100 UNIT/ML VIAL SQ SCH ×4 (06:17→21:05)
--- NOTE | 2021-05-06 08:59 | P.PN ---
Subjective Patient is seen in follow-up for acute kidney injury on chronic kidney disease. Maintain on Lasix drip. Dobutamine stopped May 04. Nonoliguric. Status post 2 treatments of hemodialysis this admission for ultrafiltration. Last hemodialysis was on May 02. Underwent ultrafiltration only treatment on May 05. 2 L were removed. No active complaints at this time. Still edematous. Creatinine 2.64 yesterday. Vital signs are stable. General: The patient appeared well nourished and normally developed. HEENT: Head exam is unremarkable. Neck is without jugular venous distension. LUNGS: Breath sounds decreased. HEART: Rate and Rhythm are regular. ABDOMEN: Soft, no distention. EXTREMITITES: 1+ edema. Objective - Vital Signs Vital signs: Vital Signs Temp 97.5 F L 05/06/21 03:59 Pulse 55 L 05/06/21 03:59 Resp 18 05/06/21 03:59 BP 133/65 05/06/21 03:59 Pulse Ox 97 05/06/21 03:59 Intake & Output 05/05/21 05/06/21 05/06/21 18:59 06:59 18:59 Intake Total 1060 98.667 240 Output Total 3000 820 Balance -1940 -721.333 240 Weight 96.5 kg 97.5 kg Intake: Intake, IV Titration 100 98.667 Amount Furosemide 100 mg In 100 98.667 Sodium Chloride 0.9% 90 ml @ 10 MG/HR 10 mls/hr IV .Q10H [facility] Rx#: [id number] Oral 960 240 Output: Urine 1000 820 Hemodialysis 2000 Other: Voiding Method Indwelling Catheter Indwelling Catheter # Voids 1 # Bowel Movements 3 - Labs CBC & Chem 7: 05/05/21 05:45 05/05/21 05:45 Labs: Abnormal Lab Results - Last 24 Hours (Table) 05/05/21 05/05/21 05/06/21 Range/Units 11:48 20:14 06:12 POC Glucose (mg/dL) 390 H 197 H 102 H (75-99) mg/dL Assessment and Plan Plan: Assessment: 1. Acute kidney injury secondary to ATN secondary to cardiorenal syndrome. Status post 2 treatments of hemodialysis this admission. Underwent ultrafiltration only treatment yesterday. Creatinine 2.64 yesterday. Labs from today are pending. 2. Acute on chronic systolic CHF with ejection fraction of 30-35% with mild to moderate mitral regurgitation and severe pulmonary hypertension. 3. Volume overload. Improving with diuresis and ultrafiltration. 4. Diabetes mellitus. 5. Chronic kidney disease stage IIIb with baseline creatinine near 2. 6. Bradycardia. Status post biventricular ICD placement on 04/24/2021. CTS following as well. 7. Hypervolemic hyponatremia. Stable. 8. Hypokalemia from diuresis. Replaced. Better. Plan: Stop Lasix drip. Start Demadex 40 mg twice daily. Maintain metolazone. Low-salt diet. 1200 mL fluid restriction. Continue to monitor renal function and urine output. Repeat ultrafiltration only treatment today. Continue to assess on daily basis. Discussed with the patient that replacement therapy will likely need to be continued outpatient to improve his volume status and prevent recurrent hospitalizations.
[2021-05-06 09:29] LABS: Calcium 9.3 mg/dL (8.4-10.2); Magnesium 1.8 mg/dL (1.6-2.3); Potassium 3.9 mmol/L (3.5-5.1)
[2021-05-06] MEDS: bisacodyL 5 MG TABLET.DR PO SCH ×2 (09:29→21:04)
[2021-05-06] MEDS: APIXABAN 2.5 MG TABLET PO SCH ×2 (09:29→21:04)
[2021-05-06] MEDS: CHOLECALCIFEROL 25 MCG (1000 IU) TABLET PO SCH ×2 (09:30→21:05)
[2021-05-06] MEDS: CYANOCOBALAMIN 500 MCG TAB PO SCH (09:31)
[2021-05-06] MEDS: diphenhydrAMINE 25 MG CAP PO SCH ×2 (09:32→21:05)
[2021-05-06] MEDS: DOCUSATE 100 MG CAP PO SCH ×2 (09:32→21:05)
[2021-05-06] MEDS: glipiZIDE 5 MG TAB PO SCH ×2 (09:32→21:05)
[2021-05-06] MEDS: MAGNESIUM OXIDE 400 MG TAB PO SCH ×2 (09:32→21:06)
[2021-05-06] MEDS: hydrALAZINE HCL 50 MG TAB PO SCH ×4 (09:32→21:06)
[2021-05-06] MEDS: PANTOPRAZOLE 40 MG TABLET PO SCH (09:33)
[2021-05-06] MEDS: SILDENAFIL 20 MG TAB PO SCH ×2 (09:33→21:06)
[2021-05-06] MEDS: metOLazone 2.5 MG TAB PO SCH ×2 (09:33→21:06)
[2021-05-06] MEDS: TORSEMIDE 20 MG TAB PO SCH ×2 (09:48→21:38)
--- NOTE | 2021-05-06 09:49 | P.PN ---
Subjective Progress Note Date: 05/06/21 HISTORY OF PRESENT ILLNESS: Patient is a pleasant 80-year-old male with history of chronic systolic heart failure, chronic atrial fibrillation, diabetes mellitus type 2, hypertension, abdominal aortic aneurysm status post graft placement, COPD on home O2, severe pulmonary hypertension, non-ischemic cardiomyopathy and mild non-obstructive coronary artery disease. He is seen and examined sitting up in bed in mild respiratory distress. He continues to feel short of breath and fatigued. He denies chest pain, dizziness or palpitations. Blood pressure 136/64 heart rate 80 afebrile and maintaining oxygen saturation on nasal cannula. Laboratory data reviewed, sodium 137, potassium 4, creatinine 2.35 and magnesium 2.0. 24-hr urine output 2.1 liters. Heart rates are improved with beta blockers discontinued. No plans for PPM at this time. 04/25/2021 Pt is seen and examined sitting up in bed in no acute distress. He is eating breakfast comfortably. Dr. Esparza attempted BiV ICD placement yesterday, however was only successful at single lead placement due to anatomy. He keaton nues to be maintained on lasix infusion, dobutamine infusion, hydralazine, losartan, zaroxolyn, cardura, atorvastatin and eliquis. Blood pressure 129/79 heart rate 57 afebrile and maintaining oxygen saturation on nasal cannula. 24- hour urine output 400 ml. Laboratory data reviewed, sodium 129, potassium 4.3, creatinine 2.95. Repeat chest xray last night revealed interval improvement in bibasilar atelectasis, mild pulmonary congestion and small right greater than left bilateral effusions that are improving. 04/26/2021 Patient examined this morning. Patient is sitting up on the side of the bed. He denies chest pain or pressure. He reports shortness of breath. He remains on IV Lasix and IV dobutamine. He has been evaluated by [facility] thoracic surgery who have deemed the patient high risk for surgery and recommend outpatient follow-up for further evaluation. Patient's creatinine increased today to 3.3, up from 2.95. 04/27/2021 Patient examined this morning at the bedside. Patient denies chest pain or pressure. He states his shortness of breath feels about the same as yesterday. He remains on IV Lasix and IV dobutamine. Creatinine today 3.2. Fluid balance over the last 24 hours is -630 mL. 04/28/2021 Patient examined this morning at the bedside. Family member present. Patient denies chest pain or pressure. He states his shortness of breath is stable. Patient remains on IV Lasix and IV dobutamine. Fluid balance over the last 24 hours is -554 mL. Creatinine today 3.40. 05/06/2021 Patient examined this morning at the bedside. Patient has been receiving hemodialysis. He underwent ultrafiltration yesterday with removal of 2 L. He remains on a Lasix drip at 10 mg an hour. Patient denies chest pain or pressure. He denies shortness of breath. Blood pressure 133/65. BUN 72. Creatinine 2.52. Magnesium 1.8. PHYSICAL EXAM: VITAL SIGNS: Reviewed. GENERAL: Well-developed in no acute distress. NECK: Supple. No JVD or thyromegaly LUNGS: Respirations even and unlabored. Lungs diminished bilaterally. HEART: Irregular rate and rhythm. S1 and S2 heard. Systolic murmur noted. EXTREMITIES: Normal range of motion. No clubbing or cyanosis. Peripheral pulses intact. Trace bilateral lower extremity edema ASSESSMENT: Acute on chronic systolic heart failure Chronic persistent atrial fibrillation Bradycardia w/p PPM/ICD History of heavily calcified however non-obstructive coronary artery disease by heart catheterization 2016 Non-STEMI, rule out type I mechanism with chest pain occurring on presentation Hypertension Diabetes mellitus Acute kidney injury Pulmonary hypertension PLAN: CT surgery feels the patient is too high risk with no significant improvement if epicardial lead is placed, therefore he will not be a surgical candidate. Nephrology following. Patient transitioned to Demadex today per nephrology HD per nephrology Continue to monitor I/O Continue current cardiac medications Further recommendations pending patient's course Nurse practitioner note has been reviewed by physician. Signing provider agrees with the documented findings, assessment, and plan of care. Objective - Vital Signs Vital signs: Vital Signs Temp 97.5 F L 05/06/21 03:59 Pulse 55 L 05/06/21 03:59 Resp 18 05/06/21 03:59 BP 133/65 05/06/21 03:59 Pulse Ox 97 05/06/21 03:59 Intake & Output 05/05/21 05/06/21 05/06/21 18:59 06:59 18:59 Intake Total 1060 98.667 240 Output Total 3000 820 Balance -1940 -721.333 240 Weight 96.5 kg 97.5 kg Intake: Intake, IV Titration 100 98.667 Amount Furosemide 100 mg In 100 98.667 Sodium Chloride 0.9% 90 ml @ 10 MG/HR 10 mls/hr IV .Q10H [facility] Rx#: [id number] Oral 960 240 Output: Urine 1000 820 Hemodialysis 2000 Other: Voiding Method Indwelling Catheter Indwelling Catheter # Voids 1 # Bowel Movements 3 - Labs CBC & Chem 7: 05/05/21 05:45 05/06/21 08:27 Labs: Abnormal Lab Results - Last 24 Hours (Table) 05/05/21 05/05/21 05/06/21 Range/Units 11:48 20:14 06:12 Sodium (137-145) mmol/L Chloride (98-107) mmol/L Carbon Dioxide (22-30) mmol/L BUN (9-20) mg/dL Creatinine (0.66-1.25) mg/dL Glucose (74-99) mg/dL POC Glucose (mg/dL) 390 H 197 H 102 H (75-99) mg/dL 05/06/21 Range/Units 08:27 Sodium 135 L (137-145) mmol/L Chloride 94 L (98-107) mmol/L Carbon Dioxide 32 H (22-30) mmol/L BUN 72 H (9-20) mg/dL Creatinine 2.52 H (0.66-1.25) mg/dL Glucose 147 H (74-99) mg/dL POC Glucose (mg/dL) (75-99) mg/dL
[2021-05-06 12:18] LABS: Glucose,Whole Blood 179 mg/dL (75-99)
[2021-05-06] MEDS: LACTATED RINGERS 1,000 ML IV SCH (13:56)
[2021-05-06 17:10] LABS: Glucose,Whole Blood 252 mg/dL (75-99)
--- NOTE | 2021-05-06 17:18 | P.PN ---
Subjective Progress Note Date: 05/06/21 Berny Linares, is an 80 year old male who presented to [facility] emergency room with a chief complaint of worsening shortness of breath and upper chest pain, patient stated that his symptoms started 1 day prior to presentation and has been worsening, he was having difficulty breathing when he was trying to lie down, he was also having worsening lower extremity edema, on the day of presentation patient started having upper chest pain radiating to the back of his neck and to both shoulders, at that point he decided to come to emergency room. He was evaluated in the emergency room vital examination on presentation revealed a temperature of 98.1 pulse 49 respiration 20 blood pressure 118/62 pulse ox 92% on room air Laboratory data reveals a white blood count of 4.4 hemoglobin 12.4 platelet count 108 sodium 134 potassium 4.2 chloride 95 CO2 31 BUN 61 creatinine 2.33 troponin level was elevated at 0.183. Review of the chart revealed creatinine 2.2 on 10/16/2020 and 1.8 on 06/20/2020. BNP was 16,400 Testing in the emergency room revealed, chest x-ray done in the emergency room revealed evidence of congestive heart failure blunting of the bilateral costophrenic angles suggestive of mild bilateral pleural effusion Patient was admitted to medical floor for further evaluation and treatment, he was started on IV Lasix, cardiology consultation was requested. Past medical history is significant for history of chronic systolic congestive heart failure echocardiogram done in December 2018 revealed ejection fraction of 35-40%, patient also has a known history of atrial fibrillation maintained on coagulation with Eliquis, history of diffuse coronary artery disease patient had cardiac catheterization in 2016 at that time medication treatment was advised. History of AAA for which patient underwent stent grafting, patient also has a known history of hypertension, [id number] diabetes mellitus, benign prostatic hypertrophy, chronic kidney disease stage III, diverticulosis was previous history of lower gastrointestinal bleeding, degenerative disc disease with history of back surgery. Patient stated that he used to smoke he quit many years ago. On 04/21/2021 Patient was seen and examined on the medical floor, he is alert and oriented x 3 in no distress, patient is complaining of shortness of breath with activity otherwise he denies any complaints there is no fever or chills no headache or dizziness no chest pain no cough no nausea or vomiting no abdominal pain no diarrhea no blood in the stools no burning with urination no frequency or urgency and no hematuria, there is no weakness or numbness in any of the extremities no change in vision speech or gait. On 04/22/2021 Patient was seen and examined on the medical floor, he is alert and oriented x 3 in no distress, he denies any complaints there is no fever or chills no headache or dizziness no chest pain no shortness of breath no palpitation no cough no nausea or vomiting no abdominal pain no diarrhea no blood in the stools no burning with urination no frequency or urgency and no hematuria, there is no weakness or numbness in any of the extremities no change in vision speech or gait. Patient is comfortable while lying in bed he has significant shortness of breath with any activity On 04/23/2021 patient is alert and oriented 3 resting comfortably in bed. Tentative plans for AICD placement tomorrow per Dr. Jara. Patient maintained on dobutamine drip. Patient remains on IV Lasix. At this time patient denies chest pain or shortness of breath. Patient denies nausea vomiting or diarrhea. Patient denies any urinary burning or frequency. On 04/24/2021 patient is alert and oriented 3 in no distress, he denies any chest pain or palpitation no shortness of breath at rest he has shortness of breath with any activity. Tentative plans for AICD placement tomorrow per Dr. Jara. Patient maintained on dobutamine drip. Patient remains on IV Lasix. At this time patient denies chest pain or shortness of breath. Patient denies nausea vomiting or diarrhea. Patient denies any urinary burning or frequency. On 04/25/2021 patient is alert and oriented 3. Status post BIV ICD placement Dr. Esparza. Postop day 1. Patient remains on Lasix and dobutamine drip. Patient still having +2 pitting edema. Cardiology and nephrology services are following. Cardiothoracic surgery consulted for requirement of epicardial lead placement per Dr. Jara. At this time patient denies any chest pain or shortness of breath. Patient denies nausea vomiting or diarrhea. Patient den ies any urinary burning or frequency On 04/26/2021 Patient was seen and examined on the telemetry floor, he is alert and oriented x 3 in no distress, he is complaining of shortness of breath with any activity otherwise he denies any complaints there is no fever or chills no headache or dizziness no chest pain no palpitation no cough no nausea or vomiting no abdominal pain no diarrhea no blood in the stools no burning with urination no frequency or urgency and no hematuria, there is no weakness or numbness in any of the extremities no change in vision speech or gait. On 04/27/2021 patient alert and oriented 3. Patient remains on dobutamine and Lasix drips. Nephrology and cardiology services are following. Per cardiothoracic epicardial lead placement will be followed up outpatient. At this time patient is complaining of bilateral lower extremity pain. Edematous noted to bilateral legs. Patient denies any chest pain. Patient denies nausea vomiting or diarrhea. Patient denies any urinary burning or frequency. On 04/28/2021 Patient was seen and examined on the medical floor, he is alert and oriented x 3 in no distress, he is maintained on IV Lasix drip and dobutamine drip , patient is complaining of left foot pain otherwise he denies any complaints there is no fever or chills no headache or dizziness no chest pain no shortness of breath no palpitation no cough no nausea or vomiting no abdominal pain no diarrhea no blood in the stools no burning with urination no frequency or urgency and no hematuria, there is no weakness or numbness in any of the extremities no change in vision speech or gait. On 04/29/2021 Patient was seen and examined on the medical floor, he is alert and oriented x 3 in no distress, he is complaining of back and lower extremity pain otherwise he denies any complaints there is no fever or chills no headache or dizziness no chest pain no shortness of breath no palpitation no cough no nausea or vomiting no abdominal pain no diarrhea no blood in the stools no burning with urination no frequency or urgency and no hematuria, there is no weakness or numbness in any of the extremities no change in vision speech or gait. On 04/30/2021 patient is alert and oriented 3. Patient appears to be having increased shortness of breath today. Patient remains on Lasix and dobutamine drip. Creatinine 3.47 and bun 114. Discussed case with cardiology team. Cardiology team spoke to cardiothoracic team and nephrology team tentative plan for patient to receive hemodialysis followed by possible surgical intervention for epicardial lead placement with Dr. Aleman. On 05/01/2021 patient was seen and examined on the telemetry floor, he is alert and oriented 3 in no apparent distress, he just had a dialysis catheter placed, he is complaining of back pain and complaining of shortness of breath, otherwise he denies any complaints there is no fever or chills no headache or dizziness no chest pain no cough no nausea or vomiting no abdominal pain no diarrhea no blood in the stools no burning with urination no frequency or urgency and no hematuria On 05/02/2021 patient alert and oriented 3. Status post hemodialysis yesterday 05/01/2021. Patient appears short of breath today. Patient does have good urine output. Creatinine 2.74 and bun 89. Patient denies chest pain. Patient denies nausea vomiting or diarrhea. Patient denies any urinary burning or frequency On 05/03/2021 Patient was seen and examined on the medical floor, he is alert and oriented x 3 in no distress, shortness of breath is improving gradually otherwise he denies any complaints there is no fever or chills no headache or dizziness no chest pain no palpitation no cough no nausea or vomiting no abdominal pain no diarrhea no blood in the stools no burning with urination no frequency or urgency and no hematuria, there is no weakness or numbness in any of the extremities no change in vision speech or gait. On 05/04/2021 patient is alert and oriented 3. Patient maintained on dobutamine and Lasix drip. Creatinine 2.56 today edema is improving. Status post 2 treatments of hemodialysis at this time patient denies chest pain or shortness of breath. Patient denies nausea vomiting or diarrhea. Patient denies any urinary burning or frequency on 05/05/2021 Patient was seen and examined on the medical floor, he is alert and oriented x 3 in no distress, he denies any complaints there is no fever or chills no headache or dizziness no chest pain no shortness of breath no palpitation no cough no nausea or vomiting no abdominal pain no diarrhea no blood in the stools no burning with urination no frequency or urgency and no hematuria, there is no weakness or numbness in any of the extremities no change in vision speech or gait. Patient received hemodialysis over the weekend, today he had ultrafiltration treatment only, he is still maintained on Lasix drip, cardiology and nephrology are following, clinically improving gradually, will follow. On 05/06/2021 Patient was seen and examined on the medical floor, he is alert and oriented x 3 in no distress, he denies any complaints there is no fever or chills no headache or dizziness no chest pain no shortness of breath no palpitation no cough no nausea or vomiting no abdominal pain no diarrhea no blood in the stools no burning with urination no frequency or urgency and no hematuria, there is no weakness or numbness in any of the extremities no change in vision speech or gait. Patient is receiving ultrafiltration again today, will follow in a.m. Objective - Vital Signs Vital signs: Vital Signs Temp 98.0 F 05/06/21 08:00 Pulse 58 L 05/06/21 12:00 Resp 18 05/06/21 12:00 BP 105/64 05/06/21 12:00 Pulse Ox 96 05/06/21 12:00 Intake & Output 05/05/21 05/06/21 05/06/21 18:59 06:59 18:59 Intake Total 1060 98.667 240 Output Total 3000 820 1 Balance -1940 -721.333 239 Weight 96.5 kg 97.5 kg Intake: Intake, IV Titration 100 98.667 Amount Furosemide 100 mg In 100 98.667 Sodium Chloride 0.9% 90 ml @ 10 MG/HR 10 mls/hr IV .Q10H [facility] Rx#: [id number] Oral 960 240 Output: Urine 1000 820 Stool 1 Hemodialysis 1999 Other: Voiding Method Indwelling Catheter Indwelling Catheter Indwelling Catheter # Voids 1 # Bowel Movements 3 - Exam In general patient is alert and oriented x 3 in no distress HEENT head normocephalic and atraumatic Neck is supple no JVD no goiter no lymphadenopathy no carotid bruit Chest examination few scattered rhonchi no wheezing Cardiac exam reveals irregular heart sounds S1 and S2 no gallops no murmurs Abdomen is soft nontender no organomegaly with normal bowel sounds Extremity exam reveals no edema no cyanosis or clubbing Neurological examination reveals no gross focal deficits - Labs CBC & Chem 7: 05/05/21 05:45 05/06/21 08:27 Labs: Abnormal Lab Results - Last 24 Hours (Table) 05/05/21 05/06/21 05/06/21 Range/Units 20:14 06:12 08:27 Sodium 135 L (137-145) mmol/L Chloride 94 L (98-107) mmol/L Carbon Dioxide 32 H (22-30) mmol/L BUN 72 H (9-20) mg/dL Creatinine 2.52 H (0.66-1.25) mg/dL Glucose 147 H (74-99) mg/dL POC Glucose (mg/dL) 197 H 102 H (75-99) mg/dL 05/06/21 Range/Units 12:17 Sodium (137-145) mmol/L Chloride (98-107) mmol/L Carbon Dioxide (22-30) mmol/L BUN (9-20) mg/dL Creatinine (0.66-1.25) mg/dL Glucose (74-99) mg/dL POC Glucose (mg/dL) 179 H (75-99) mg/dL Assessment and Plan Plan: Acute on chronic systolic congestive heart failure exacerbation Underlying history of coronary artery disease Acute kidney injury. Status post hemodialysis on 05/01/2021 Underlying history of atrial fibrillation Bradycardia on presentation Underlying history of hypertension Underlying history of chronic kidney disease stage III Underlying history of [id number] diabetes mellitus type 2 Underlying history of hyperlipidemia Underlying history of diverticulosis with previous history of gastrointestinal bleeding Underlying history of degenerative disc disease with chronic back pain Underlying history of benign prostatic hypertrophy At this time patient is admitted to telemetry floor Maintained on Lasix drip and dobutamine drip Cardiology and nephrology services are following AICD placement on 04/24/[address] Esparza Status post hemodialysis on 05/01/2021 and 05/02/2021 Cardiothoracic service is following for possible epicardial LV lead placement in the future We will follow closely
[2021-05-06 20:23] LABS: Glucose,Whole Blood 178 mg/dL (75-99)
[2021-05-06] MEDS: ATORVASTATIN 20 MG TAB PO SCH (21:04)
[2021-05-07] MEDS: HYDROcodone/APAP 7.5-325MG 1 EACH TAB PO PRN ×6 (01:53→20:39)
[2021-05-07 06:22] LABS: Glucose,Whole Blood 138 mg/dL (75-99)
[2021-05-07] MEDS: INSULIN ASPART (NovoLOG) 100 UNIT/ML VIAL SQ SCH ×4 (06:48→20:34)
[2021-05-07] MEDS: TORSEMIDE 20 MG TAB PO SCH ×3 (09:16→20:53)
[2021-05-07] MEDS: metOLazone 2.5 MG TAB PO SCH ×3 (09:16→20:35)
[2021-05-07] MEDS: hydrALAZINE HCL 50 MG TAB PO SCH ×4 (09:16→20:35)
[2021-05-07] MEDS: SILDENAFIL 20 MG TAB PO SCH ×3 (09:17→20:35)
[2021-05-07] MEDS: CHOLECALCIFEROL 25 MCG (1000 IU) TABLET PO SCH ×2 (09:18→20:33)
[2021-05-07] MEDS: PANTOPRAZOLE 40 MG TABLET PO SCH ×2 (09:18→09:27)
[2021-05-07] MEDS: MAGNESIUM OXIDE 400 MG TAB PO SCH ×2 (09:19→20:34)
[2021-05-07] MEDS: diphenhydrAMINE 25 MG CAP PO SCH ×2 (09:19→20:33)
[2021-05-07] MEDS: bisacodyL 5 MG TABLET.DR PO SCH ×2 (09:19→20:33)
[2021-05-07] MEDS: glipiZIDE 5 MG TAB PO SCH ×2 (09:19→20:34)
[2021-05-07] MEDS: CYANOCOBALAMIN 500 MCG TAB PO SCH (09:19)
[2021-05-07] MEDS: APIXABAN 2.5 MG TABLET PO SCH ×2 (09:19→20:33)
[2021-05-07] MEDS: DOCUSATE 100 MG CAP PO SCH ×2 (09:19→20:34)
--- NOTE | 2021-05-07 09:42 | P.PN ---
Subjective Progress Note Date: 05/07/21 Berny Linares, is an 80 year old male who presented to [facility] emergency room with a chief complaint of worsening shortness of breath and upper chest pain, patient stated that his symptoms started 1 day prior to presentation and has been worsening, he was having difficulty breathing when he was trying to lie down, he was also having worsening lower extremity edema, on the day of presentation patient started having upper chest pain radiating to the back of his neck and to both shoulders, at that point he decided to come to emergency room. He was evaluated in the emergency room vital examination on presentation revealed a temperature of 98.1 pulse 49 respiration 20 blood pressure 118/62 pulse ox 92% on room air Laboratory data reveals a white blood count of 4.4 hemoglobin 12.4 platelet count 108 sodium 134 potassium 4.2 chloride 95 CO2 31 BUN 61 creatinine 2.33 troponin level was elevated at 0.183. Review of the chart revealed creatinine 2.2 on 10/16/2020 and 1.8 on 06/20/2020. BNP was 16,400 Testing in the emergency room revealed, chest x-ray done in the emergency room revealed evidence of congestive heart failure blunting of the bilateral costophrenic angles suggestive of mild bilateral pleural effusion Patient was admitted to medical floor for further evaluation and treatment, he was started on IV Lasix, cardiology consultation was requested. Past medical history is significant for history of chronic systolic congestive heart failure echocardiogram done in December 2018 revealed ejection fraction of 35-40%, patient also has a known history of atrial fibrillation maintained on coagulation with Eliquis, history of diffuse coronary artery disease patient had cardiac catheterization in 2016 at that time medication treatment was advised. History of AAA for which patient underwent stent grafting, patient also has a known history of hypertension, [id number] diabetes mellitus, benign prostatic hypertrophy, chronic kidney disease stage III, diverticulosis was previous history of lower gastrointestinal bleeding, degenerative disc disease with history of back surgery. Patient stated that he used to smoke he quit many years ago. On 04/21/2021 Patient was seen and examined on the medical floor, he is alert and oriented x 3 in no distress, patient is complaining of shortness of breath with activity otherwise he denies any complaints there is no fever or chills no headache or dizziness no chest pain no cough no nausea or vomiting no abdominal pain no diarrhea no blood in the stools no burning with urination no frequency or urgency and no hematuria, there is no weakness or numbness in any of the extremities no change in vision speech or gait. On 04/22/2021 Patient was seen and examined on the medical floor, he is alert and oriented x 3 in no distress, he denies any complaints there is no fever or chills no headache or dizziness no chest pain no shortness of breath no palpitation no cough no nausea or vomiting no abdominal pain no diarrhea no blood in the stools no burning with urination no frequency or urgency and no hematuria, there is no weakness or numbness in any of the extremities no change in vision speech or gait. Patient is comfortable while lying in bed he has significant shortness of breath with any activity On 04/23/2021 patient is alert and oriented 3 resting comfortably in bed. Tentative plans for AICD placement tomorrow per Dr. Jara. Patient maintained on dobutamine drip. Patient remains on IV Lasix. At this time patient denies chest pain or shortness of breath. Patient denies nausea vomiting or diarrhea. Patient denies any urinary burning or frequency. On 04/24/2021 patient is alert and oriented 3 in no distress, he denies any chest pain or palpitation no shortness of breath at rest he has shortness of breath with any activity. Tentative plans for AICD placement tomorrow per Dr. Jara. Patient maintained on dobutamine drip. Patient remains on IV Lasix. At this time patient denies chest pain or shortness of breath. Patient denies nausea vomiting or diarrhea. Patient denies any urinary burning or frequency. On 04/25/2021 patient is alert and oriented 3. Status post BIV ICD placement Dr. Esparza. Postop day 1. Patient remains on Lasix and dobutamine drip. Patient still having +2 pitting edema. Cardiology and nephrology services are following. Cardiothoracic surgery consulted for requirement of epicardial lead placement per Dr. Jara. At this time patient denies any chest pain or shortness of breath. Patient denies nausea vomiting or diarrhea. Patient den ies any urinary burning or frequency On 04/26/2021 Patient was seen and examined on the telemetry floor, he is alert and oriented x 3 in no distress, he is complaining of shortness of breath with any activity otherwise he denies any complaints there is no fever or chills no headache or dizziness no chest pain no palpitation no cough no nausea or vomiting no abdominal pain no diarrhea no blood in the stools no burning with urination no frequency or urgency and no hematuria, there is no weakness or numbness in any of the extremities no change in vision speech or gait. On 04/27/2021 patient alert and oriented 3. Patient remains on dobutamine and Lasix drips. Nephrology and cardiology services are following. Per cardiothoracic epicardial lead placement will be followed up outpatient. At this time patient is complaining of bilateral lower extremity pain. Edematous noted to bilateral legs. Patient denies any chest pain. Patient denies nausea vomiting or diarrhea. Patient denies any urinary burning or frequency. On 04/28/2021 Patient was seen and examined on the medical floor, he is alert and oriented x 3 in no distress, he is maintained on IV Lasix drip and dobutamine drip , patient is complaining of left foot pain otherwise he denies any complaints there is no fever or chills no headache or dizziness no chest pain no shortness of breath no palpitation no cough no nausea or vomiting no abdominal pain no diarrhea no blood in the stools no burning with urination no frequency or urgency and no hematuria, there is no weakness or numbness in any of the extremities no change in vision speech or gait. On 04/29/2021 Patient was seen and examined on the medical floor, he is alert and oriented x 3 in no distress, he is complaining of back and lower extremity pain otherwise he denies any complaints there is no fever or chills no headache or dizziness no chest pain no shortness of breath no palpitation no cough no nausea or vomiting no abdominal pain no diarrhea no blood in the stools no burning with urination no frequency or urgency and no hematuria, there is no weakness or numbness in any of the extremities no change in vision speech or gait. On 04/30/2021 patient is alert and oriented 3. Patient appears to be having increased shortness of breath today. Patient remains on Lasix and dobutamine drip. Creatinine 3.47 and bun 114. Discussed case with cardiology team. Cardiology team spoke to cardiothoracic team and nephrology team tentative plan for patient to receive hemodialysis followed by possible surgical intervention for epicardial lead placement with Dr. Aleman. On 05/01/2021 patient was seen and examined on the telemetry floor, he is alert and oriented 3 in no apparent distress, he just had a dialysis catheter placed, he is complaining of back pain and complaining of shortness of breath, otherwise he denies any complaints there is no fever or chills no headache or dizziness no chest pain no cough no nausea or vomiting no abdominal pain no diarrhea no blood in the stools no burning with urination no frequency or urgency and no hematuria On 05/02/2021 patient alert and oriented 3. Status post hemodialysis yesterday 05/01/2021. Patient appears short of breath today. Patient does have good urine output. Creatinine 2.74 and bun 89. Patient denies chest pain. Patient denies nausea vomiting or diarrhea. Patient denies any urinary burning or frequency On 05/03/2021 Patient was seen and examined on the medical floor, he is alert and oriented x 3 in no distress, shortness of breath is improving gradually otherwise he denies any complaints there is no fever or chills no headache or dizziness no chest pain no palpitation no cough no nausea or vomiting no abdominal pain no diarrhea no blood in the stools no burning with urination no frequency or urgency and no hematuria, there is no weakness or numbness in any of the extremities no change in vision speech or gait. On 05/04/2021 patient is alert and oriented 3. Patient maintained on dobutamine and Lasix drip. Creatinine 2.56 today edema is improving. Status post 2 treatments of hemodialysis at this time patient denies chest pain or shortness of breath. Patient denies nausea vomiting or diarrhea. Patient denies any urinary burning or frequency on 05/05/2021 Patient was seen and examined on the medical floor, he is alert and oriented x 3 in no distress, he denies any complaints there is no fever or chills no headache or dizziness no chest pain no shortness of breath no palpitation no cough no nausea or vomiting no abdominal pain no diarrhea no blood in the stools no burning with urination no frequency or urgency and no hematuria, there is no weakness or numbness in any of the extremities no change in vision speech or gait. Patient received hemodialysis over the weekend, today he had ultrafiltration treatment only, he is still maintained on Lasix drip, cardiology and nephrology are following, clinically improving gradually, will follow. On 05/06/2021 Patient was seen and examined on the medical floor, he is alert and oriented x 3 in no distress, he denies any complaints there is no fever or chills no headache or dizziness no chest pain no shortness of breath no palpitation no cough no nausea or vomiting no abdominal pain no diarrhea no blood in the stools no burning with urination no frequency or urgency and no hematuria, there is no weakness or numbness in any of the extremities no change in vision speech or gait. Patient is receiving ultrafiltration again today, will follow in a.m. 05/07/2021 patient alert and oriented 3 currently sitting up in chair. Patient has been started on diuretics per nephrology services. Patient denies chest pain or shortness breath. Patient denies nausea vomiting or diarrhea. Patient denies any urinary burning or frequency. Patient did receive ultrafiltration yesterday. Possible plans for today. Objective - Vital Signs Vital signs: Vital Signs Temp 97.6 F 05/07/21 09:09 Pulse 60 05/07/21 09:09 Resp 19 05/07/21 09:09 BP 122/62 05/07/21 09:09 Pulse Ox 95 05/07/21 09:09 Intake & Output 05/06/21 05/07/21 05/07/21 18:59 06:59 18:59 Intake Total 1256 Output Total 3002 700 Balance -1746 -700 Weight 92.1 kg Intake: Oral 956 Hemodialysis 300 Output: Urine 800 700 Stool 2 Hemodialysis 2200 Other: Voiding Method Indwelling Catheter Indwelling Catheter # Bowel Movements 1 - Exam In general patient is alert and oriented x 3 in no distress HEENT head normocephalic and atraumatic Neck is supple no JVD no goiter no lymphadenopathy no carotid bruit Chest examination few scattered rhonchi no wheezing Cardiac exam reveals irregular heart sounds S1 and S2 no gallops no murmurs Abdomen is soft nontender no organomegaly with normal bowel sounds Extremity exam reveals no edema no cyanosis or clubbing Neurological examination reveals no gross focal deficits - Labs CBC & Chem 7: 05/05/21 05:45 05/06/21 08:27 Labs: Abnormal Lab Results - Last 24 Hours (Table) 05/06/21 05/06/21 05/06/21 Range/Units 12:17 17:00 20:22 POC Glucose (mg/dL) 179 H 252 H 178 H (75-99) mg/dL 05/07/21 Range/Units 06:21 POC Glucose (mg/dL) 138 H (75-99) mg/dL Assessment and Plan Plan: Acute on chronic systolic congestive heart failure exacerbation Underlying history of coronary artery disease Acute kidney injury. Status post hemodialysis on 05/01/2021 Underlying history of atrial fibrillation Bradycardia on presentation Underlying history of hypertension Underlying history of chronic kidney disease stage III Underlying history of iso-[id number] diabetes mellitus type 2 Underlying history of hyperlipidemia Underlying history of diverticulosis with previous history of gastrointestinal bleeding Underlying history of degenerative disc disease with chronic back pain Underlying history of benign prostatic hypertrophy At this time patient is admitted to telemetry floor Maintained on Lasix drip and dobutamine drip Cardiology and nephrology services are following AICD placement on 04/24/[address] Esparza Status post hemodialysis on 05/01/2021 and 05/02/2021 Per cardiology cardiothoracic surgery feels the patient is too high-risk with no significant improvement with epicardial lead is placed therefore will not be a surgical candidate We will follow closely
[2021-05-07 10:15] LABS: Basophils # (A) 0.1 k/uL (0-0.2); Basophils % (A) 1 %; Eosinophils # (A) 0.1 k/uL (0-0.7); Eosinophils % (A) 1 %; HCT 34.5 % (39.0-53.0); HGB 10.7 gm/dL (13.0-17.5); Hypochromasia Slight; Lymphocytes # (A) 0.7 k/uL (1.0-4.8); Lymphocytes % (A) 9 %; MCH 30.9 pg (25.0-35.0); MCHC 31.1 g/dL (31.0-37.0); MCV 99.3 fL (80.0-100.0); Monocytes # (A) 0.6 k/uL (0-1.0); Monocytes % (A) 7 %; Neutrophils # (A) 6.3 k/uL (1.3-7.7); Neutrophils % (A) 80 %; Platelet Count 184 k/uL (150-450); RBC 3.47 m/uL (4.30-5.90); RDW 14.5 % (11.5-15.5); WBC 7.8 k/uL (3.8-10.6)
[2021-05-07 10:37] LABS: Albumin 3.5 g/dL (3.5-5.0); Calcium 9.1 mg/dL (8.4-10.2); Magnesium 1.8 mg/dL (1.6-2.3); Potassium 3.8 mmol/L (3.5-5.1); Total Bilirubin 0.9 mg/dL (0.2-1.3); Total Protein 5.7 g/dL (6.3-8.2)
[2021-05-07 11:43] LABS: Glucose,Whole Blood 186 mg/dL (75-99)
--- NOTE | 2021-05-07 11:45 | P.PN ---
Subjective Progress Note Date: 05/07/21 HISTORY OF PRESENT ILLNESS: Patient is a pleasant 80-year-old male with history of chronic systolic heart failure, chronic atrial fibrillation, diabetes mellitus type 2, hypertension, abdominal aortic aneurysm status post graft placement, COPD on home O2, severe pulmonary hypertension, non-ischemic cardiomyopathy and mild non-obstructive coronary artery disease. He is seen and examined sitting up in bed in mild respiratory distress. He continues to feel short of breath and fatigued. He denies chest pain, dizziness or palpitations. Blood pressure 136/64 heart rate 80 afebrile and maintaining oxygen saturation on nasal cannula. Laboratory data reviewed, sodium 137, potassium 4, creatinine 2.35 and magnesium 2.0. 24-hr urine output 2.1 liters. Heart rates are improved with beta blockers discontinued. No plans for PPM at this time. 04/25/2021 Pt is seen and examined sitting up in bed in no acute distress. He is eating breakfast comfortably. Dr. Esparza attempted BiV ICD placement yesterday, however was only successful at single lead placement due to anatomy. He keaton nues to be maintained on lasix infusion, dobutamine infusion, hydralazine, losartan, zaroxolyn, cardura, atorvastatin and eliquis. Blood pressure 129/79 heart rate 57 afebrile and maintaining oxygen saturation on nasal cannula. 24- hour urine output 400 ml. Laboratory data reviewed, sodium 129, potassium 4.3, creatinine 2.95. Repeat chest xray last night revealed interval improvement in bibasilar atelectasis, mild pulmonary congestion and small right greater than left bilateral effusions that are improving. 04/26/2021 Patient examined this morning. Patient is sitting up on the side of the bed. He denies chest pain or pressure. He reports shortness of breath. He remains on IV Lasix and IV dobutamine. He has been evaluated by [facility] thoracic surgery who have deemed the patient high risk for surgery and recommend outpatient follow-up for further evaluation. Patient's creatinine increased today to 3.3, up from 2.95. 04/27/2021 Patient examined this morning at the bedside. Patient denies chest pain or pressure. He states his shortness of breath feels about the same as yesterday. He remains on IV Lasix and IV dobutamine. Creatinine today 3.2. Fluid balance over the last 24 hours is -630 mL. 04/28/2021 Patient examined this morning at the bedside. Family member present. Patient denies chest pain or pressure. He states his shortness of breath is stable. Patient remains on IV Lasix and IV dobutamine. Fluid balance over the last 24 hours is -554 mL. Creatinine today 3.40. 05/06/2021 Patient examined this morning at the bedside. Patient has been receiving hemodialysis. He underwent ultrafiltration yesterday with removal of 2 L. He remains on a Lasix drip at 10 mg an hour. Patient denies chest pain or pressure. He denies shortness of breath. Blood pressure 133/65. BUN 72. Creatinine 2.52. Magnesium 1.8. 05/07/2021 Patient examined this morning at the bedside. Patient denies chest pain or pressure. He denies shortness of breath. He states he has ambulated to the doorway of his room and back without dyspnea. Vital signs stable. He is currently receiving hemodialysis. Patient underwent ultrafiltration yesterday as well. Creatinine stable today at 3.03. PHYSICAL EXAM: VITAL SIGNS: Reviewed. GENERAL: Well-developed in no acute distress. NECK: Supple. No JVD or thyromegaly LUNGS: Respirations even and unlabored. Lungs diminished bilaterally. HEART: Irregular rate and rhythm. S1 and S2 heard. Systolic murmur noted. EXTREMITIES: Normal range of motion. No clubbing or cyanosis. Peripheral pulses intact. 2+ bilateral lower extremity edema ASSESSMENT: Acute on chronic systolic heart failure Chronic persistent atrial fibrillation Bradycardia w/p PPM/ICD History of heavily calcified however non-obstructive coronary artery disease by heart catheterization 2016 Non-STEMI, rule out type I mechanism with chest pain occurring on presentation Hypertension Diabetes mellitus Acute kidney injury Pulmonary hypertension PLAN: CT surgery feels the patient is too high risk with no significant improvement if epicardial lead is placed, therefore he will not be a surgical candidate. Nephrology following. Patient transitioned to Demadex yesterday HD per nephrology Continue to monitor I/O Continue current cardiac medications Further recommendations pending patient's course Nurse practitioner note has been reviewed by physician. Signing provider agrees with the documented findings, assessment, and plan of care. Objective - Vital Signs Vital signs: Vital Signs Temp 97.6 F 05/07/21 09:09 Pulse 60 05/07/21 09:09 Resp 19 05/07/21 09:09 BP 122/62 05/07/21 09:09 Pulse Ox 95 05/07/21 09:09 Intake & Output 05/06/21 05/07/21 05/07/21 18:59 06:59 18:59 Intake Total 1256 Output Total 3002 700 Balance -1746 -700 Weight 92.1 kg Intake: Oral 956 Hemodialysis 300 Output: Urine 800 700 Stool 2 Hemodialysis 2200 Other: Voiding Method Indwelling Catheter Indwelling Catheter # Bowel Movements 1 - Labs CBC & Chem 7: 05/07/21 09:19 05/07/21 09:19 Labs: Abnormal Lab Results - Last 24 Hours (Table) 05/06/21 05/06/21 05/06/21 Range/Units 12:17 17:00 20:22 POC Glucose (mg/dL) 179 H 252 H 178 H (75-99) mg/dL 05/07/21 Range/Units 06:21 POC Glucose (mg/dL) 138 H (75-99) mg/dL
--- NOTE | 2021-05-07 16:27 | PN ---
PROGRESS NOTE The patient is seen for followup for acute kidney injury, mostly cardiorenal, currently maintained on dialysis. The patient had only ultrafiltration yesterday. However, today he is having dialysis as well. He continues to be volume overloaded but volume status has improved significantly. Patient is able to ambulate. He is sitting up in a bedside chair. His appetite has improved to some degree as well. Serum creatinine is higher at 3.0 today from 2.5 yesterday. Urine output for 24 hours noted to be about 1500 mL. Patient is maintained on oral diuretics. PHYSICAL EXAMINATION: On examination today, the patient is seen on dialysis. He is tolerating his treatment well. Blood pressure was 102/72, heart rate 56 per minute, he is afebrile. Examination shows 3+ edema lower extremities. ( ) seems to be decreasing. ANALYTICS DIRECTOR exam grossly intact. LAB: Show sodium 133, potassium 3.8, BUN 18, creatinine 3.0 hemoglobin 10.7 g/dL. ASSESSMENT: 1. Acute kidney injury, cardiorenal/ATN, nonoliguric with good urine output however patient remained significantly volume overloaded. We will arrange for dialysis again tomorrow. Serum creatinine is slightly higher, therefore, the patient will need to continue with renal replacement therapy for now. We will have Vascular place a PermCath. 2. Volume overload, currently improved. 3. Ischemic cardiomyopathy, ejection fraction 30-35%, status post dobutamine and Lasix drip, currently maintained on oral diuretics. 4. Mild to moderate mitral regurgitation and severe pulmonary hypertension. 5. Bradycardia status post biventricular AICD placement on 04/24/2021. PLAN: Repeat dialysis in a.m. Continue with oral Demadex and plan for PermCath placement. MMODL / IJN: [id number] /
[2021-05-07 16:56] LABS: Glucose,Whole Blood 218 mg/dL (75-99)
[2021-05-07] MEDS: LACTATED RINGERS 1,000 ML IV SCH (16:59)
[2021-05-07 19:55] LABS: Glucose,Whole Blood 215 mg/dL (75-99)
[2021-05-07] MEDS: ATORVASTATIN 20 MG TAB PO SCH (20:33)
[2021-05-08] MEDS: HYDROcodone/APAP 7.5-325MG 1 EACH TAB PO PRN ×7 (00:14→23:55)
[2021-05-08 06:27] LABS: Glucose,Whole Blood 137 mg/dL (75-99)
[2021-05-08] MEDS: INSULIN ASPART (NovoLOG) 100 UNIT/ML VIAL SQ SCH ×4 (06:30→20:41)
[2021-05-08] MEDS: metOLazone 2.5 MG TAB PO SCH ×2 (08:37→20:42)
[2021-05-08] MEDS: APIXABAN 2.5 MG TABLET PO SCH (08:37)
[2021-05-08] MEDS: CYANOCOBALAMIN 500 MCG TAB PO SCH (08:37)
[2021-05-08] MEDS: MAGNESIUM OXIDE 400 MG TAB PO SCH ×2 (08:37→20:42)
[2021-05-08] MEDS: CHOLECALCIFEROL 25 MCG (1000 IU) TABLET PO SCH ×2 (08:38→20:41)
[2021-05-08] MEDS: bisacodyL 5 MG TABLET.DR PO SCH ×2 (08:38→20:41)
[2021-05-08] MEDS: SILDENAFIL 20 MG TAB PO SCH ×2 (08:38→20:42)
[2021-05-08] MEDS: diphenhydrAMINE 25 MG CAP PO SCH ×2 (08:38→20:41)
[2021-05-08] MEDS: glipiZIDE 5 MG TAB PO SCH ×2 (08:38→20:41)
[2021-05-08] MEDS: TORSEMIDE 20 MG TAB PO SCH ×2 (08:38→20:42)
[2021-05-08] MEDS: DOCUSATE 100 MG CAP PO SCH ×2 (08:38→20:41)
[2021-05-08] MEDS: hydrALAZINE HCL 50 MG TAB PO SCH (08:38)
[2021-05-08 09:36] LABS: Basophils # (A) 0.1 k/uL (0-0.2); Basophils % (A) 1 %; Eosinophils # (A) 0.1 k/uL (0-0.7); Eosinophils % (A) 2 %; HGB 10.7 gm/dL (13.0-17.5); Lymphocytes % (A) 15 %; MCH 31.3 pg (25.0-35.0); MCHC 31.6 g/dL (31.0-37.0); MCV 99.1 fL (80.0-100.0); Macrocytosis Slight; Mean Platelet Volume 8.5; Monocytes # (A) 0.5 k/uL (0-1.0); Monocytes % (A) 7 %; Neutrophils # (A) 4.7 k/uL (1.3-7.7); Neutrophils % (A) 72 %; Platelet Count 228 k/uL (150-450); RBC 3.43 m/uL (4.30-5.90); RDW 15.7 % (11.5-15.5); WBC 6.6 k/uL (3.8-10.6)
[2021-05-08] MEDS: carvediloL 3.125 MG TAB PO SCH ×2 (09:42→16:06)
[2021-05-08 09:53] LABS: Albumin 3.5 g/dL (3.5-5.0); Calcium 9.5 mg/dL (8.4-10.2); Potassium 3.9 mmol/L (3.5-5.1); Total Bilirubin 0.8 mg/dL (0.2-1.3); Total Protein 5.9 g/dL (6.3-8.2)
--- NOTE | 2021-05-08 11:14 | P.PN ---
Subjective Progress Note Date: 05/08/21 HISTORY OF PRESENT ILLNESS: Patient is a pleasant 80-year-old male with history of chronic systolic heart failure, chronic atrial fibrillation, diabetes mellitus type 2, hypertension, abdominal aortic aneurysm status post graft placement, COPD on home O2, severe pulmonary hypertension, non-ischemic cardiomyopathy and mild non-obstructive coronary artery disease. He is seen and examined sitting up in bed in mild respiratory distress. He continues to feel short of breath and fatigued. He denies chest pain, dizziness or palpitations. Blood pressure 136/64 heart rate 80 afebrile and maintaining oxygen saturation on nasal cannula. Laboratory data reviewed, sodium 137, potassium 4, creatinine 2.35 and magnesium 2.0. 24-hr urine output 2.1 liters. Heart rates are improved with beta blockers discontinued. No plans for PPM at this time. 04/25/2021 Pt is seen and examined sitting up in bed in no acute distress. He is eating breakfast comfortably. Dr. Esparza attempted BiV ICD placement yesterday, however was only successful at single lead placement due to anatomy. He keaton nues to be maintained on lasix infusion, dobutamine infusion, hydralazine, losartan, zaroxolyn, cardura, atorvastatin and eliquis. Blood pressure 129/79 heart rate 57 afebrile and maintaining oxygen saturation on nasal cannula. 24- hour urine output 400 ml. Laboratory data reviewed, sodium 129, potassium 4.3, creatinine 2.95. Repeat chest xray last night revealed interval improvement in bibasilar atelectasis, mild pulmonary congestion and small right greater than left bilateral effusions that are improving. 04/26/2021 Patient examined this morning. Patient is sitting up on the side of the bed. He denies chest pain or pressure. He reports shortness of breath. He remains on IV Lasix and IV dobutamine. He has been evaluated by [facility] thoracic surgery who have deemed the patient high risk for surgery and recommend outpatient follow-up for further evaluation. Patient's creatinine increased today to 3.3, up from 2.95. 04/27/2021 Patient examined this morning at the bedside. Patient denies chest pain or pressure. He states his shortness of breath feels about the same as yesterday. He remains on IV Lasix and IV dobutamine. Creatinine today 3.2. Fluid balance over the last 24 hours is -630 mL. 04/28/2021 Patient examined this morning at the bedside. Family member present. Patient denies chest pain or pressure. He states his shortness of breath is stable. Patient remains on IV Lasix and IV dobutamine. Fluid balance over the last 24 hours is -554 mL. Creatinine today 3.40. 05/06/2021 Patient examined this morning at the bedside. Patient has been receiving hemodialysis. He underwent ultrafiltration yesterday with removal of 2 L. He remains on a Lasix drip at 10 mg an hour. Patient denies chest pain or pressure. He denies shortness of breath. Blood pressure 133/65. BUN 72. Creatinine 2.52. Magnesium 1.8. 05/07/2021 Patient examined this morning at the bedside. Patient denies chest pain or pressure. He denies shortness of breath. He states he has ambulated to the doorway of his room and back without dyspnea. Vital signs stable. He is currently receiving hemodialysis. Patient underwent ultrafiltration yesterday as well. Creatinine stable today at 3.03. 05/08/2021 Patient examined this morning. He is sitting up in the chair. He denies chest pain or pressure. He denies shortness of breath. Vital signs stable. He is receiving daily HD treatments. Creatinine 2.69 today. PHYSICAL EXAM: VITAL SIGNS: Reviewed. GENERAL: Well-developed in no acute distress. NECK: Supple. No JVD or thyromegaly LUNGS: Respirations even and unlabored. Lungs diminished bilaterally. HEART: Irregular rate and rhythm. S1 and S2 heard. Systolic murmur noted. EXTREMITIES: Normal range of motion. No clubbing or cyanosis. Peripheral pulses intact. 2+ bilateral lower extremity edema ASSESSMENT: Acute on chronic systolic heart failure Chronic persistent atrial fibrillation Bradycardia w/p PPM/ICD History of heavily calcified however non-obstructive coronary artery disease by heart catheterization 2016 Non-STEMI, rule out type I mechanism with chest pain occurring on presentation Hypertension Diabetes mellitus Acute kidney injury Pulmonary hypertension PLAN: CT surgery feels the patient is too high risk with no significant improvement if epicardial lead is placed, therefore he will not be a surgical candidate. Nephrology following. HD per nephrology Continue to monitor I/O Continue current cardiac medications Further recommendations pending patient's course Nurse practitioner note has been reviewed by physician. Signing provider agrees with the documented findings, assessment, and plan of care. Objective - Vital Signs Vital signs: Vital Signs Temp 97.8 F 05/08/21 08:33 Pulse 62 05/08/21 08:33 Resp 18 05/08/21 08:33 BP 116/55 05/08/21 08:33 Pulse Ox 93 L 05/08/21 08:33 Intake & Output 05/07/21 05/08/21 05/08/21 18:59 06:59 18:59 Intake Total 350 240 Output Total 1999 750 Balance -1650 -750 240 Intake: Oral 350 240 Output: Urine 750 Hemodialysis 1999 Other: Voiding Method Indwelling Catheter Indwelling Catheter Indwelling Catheter # Bowel Movements 1 2 - Labs CBC & Chem 7: 05/08/21 08:20 05/08/21 08:20 Labs: Abnormal Lab Results - Last 24 Hours (Table) 05/07/21 05/07/21 05/07/21 Range/Units 11:41 16:55 19:53 RBC (4.30-5.90) m/uL Hgb (13.0-17.5) gm/dL Hct (39.0-53.0) % RDW (11.5-15.5) % BUN (9-20) mg/dL Creatinine (0.66-1.25) mg/dL Glucose (74-99) mg/dL POC Glucose (mg/dL) 186 H 218 H 215 H (75-99) mg/dL Total Protein (6.3-8.2) g/dL 05/08/21 05/08/21 05/08/21 Range/Units 06:26 08:20 08:20 RBC 3.43 L (4.30-5.90) m/uL Hgb 10.7 L (13.0-17.5) gm/dL Hct 34.0 L (39.0-53.0) % RDW 15.7 H (11.5-15.5) % BUN 81 H (9-20) mg/dL Creatinine 2.69 H (0.66-1.25) mg/dL Glucose 134 H (74-99) mg/dL POC Glucose (mg/dL) 137 H (75-99) mg/dL Total Protein 5.9 L (6.3-8.2) g/dL
[2021-05-08 11:49] LABS: Glucose,Whole Blood 192 mg/dL (75-99)
[2021-05-08] MEDS: hydrALAZINE HCL 25 MG TAB PO SCH ×2 (16:06→20:43)
--- NOTE | 2021-05-08 16:35 | PN ---
PROGRESS NOTE Patient is seen for followup for acute kidney injury; currently maintained on dialysis for severe volume overload and worsening renal function. The patient has had daily treatments thus far over the last 3 days. He is scheduled for another treatment today. He has had about 2 L daily and so far we have removed about 10-12 L. The patient also has fair urine output. He was maintained on Lasix drip, currently maintained on oral diuretics. Overall volume status has improved significantly and serum creatinine is not significantly elevated. The patient may be able to come off of dialysis. However, given his cardiac status and volume status, he may need to continue with short- term outpatient renal replacement therapy. He currently has a femoral catheter. We will proceed with IJ PermCath insertion probably over the weekend. PHYSICAL EXAMINATION: On examination today, blood pressure was 117/59, heart rate 53 per minute. Patient is afebrile. He is awake, alert, oriented x3. EXAMINATION OF THE HEART: S1 and S2. EXAMINATION OF LUNGS: Bilateral breath sounds are heard. ABDOMEN: Soft, nontender. LOWER EXTREMITIES: Examination of lower extremities shows much improved edema, currently about 2+ to 3+ bilaterally. E[employer]ER EXAM: Grossly intact. LABS: Labs show sodium 137, potassium 3.9, chloride 98, BUN 81, creatinine 2.69, hemoglobin 10.7 g/dL. ASSESSMENT: 1. Acute kidney injury, cardiorenal, acute tubular necrosis, currently nonoliguric, maintained on dialysis and ultrafiltration; receiving daily treatments over the last 3 days for significant volume overload. The patient may be able to come off of dialysis. However, given his significant volume overload, he may continue to require short-term outpatient dialysis treatments. We will proceed with IJ PermCath placement. I will arrange for a treatment today and we will hold off on dialysis tomorrow and plan for possible treatment versus holding on Wednesday. 2. Cardiomyopathy with ejection fraction 30% to 35%, status post dobutamine and Lasix drips. 3. Acute on chronic systolic congestive heart failure, currently improved. 4. Hypervolemic hyponatremia, now improved with improvement in volume status and dialysis. PLAN: Ultrafiltration only today. We will hold dialysis/ultrafiltration tomorrow. Repeat labs tomorrow and again on Wednesday. Patient may need a few outpatient treatments to continue to improve his volume status. I will continue with the oral diuretics for now. MMODL / IJN: [id number] / MTDD
[2021-05-08 16:54] LABS: Glucose,Whole Blood 218 mg/dL (75-99)
[2021-05-08] MEDS: LACTATED RINGERS 1,000 ML IV SCH (17:20)
--- NOTE | 2021-05-08 18:33 | P.PN ---
Subjective Progress Note Date: 05/08/21 Berny Linares, is an 80 year old male who presented to [facility] emergency room with a chief complaint of worsening shortness of breath and upper chest pain, patient stated that his symptoms started 1 day prior to presentation and has been worsening, he was having difficulty breathing when he was trying to lie down, he was also having worsening lower extremity edema, on the day of presentation patient started having upper chest pain radiating to the back of his neck and to both shoulders, at that point he decided to come to emergency room. He was evaluated in the emergency room vital examination on presentation revealed a temperature of 98.1 pulse 49 respiration 20 blood pressure 118/62 pulse ox 92% on room air Laboratory data reveals a white blood count of 4.4 hemoglobin 12.4 platelet count 108 sodium 134 potassium 4.2 chloride 95 CO2 31 BUN 61 creatinine 2.33 troponin level was elevated at 0.183. Review of the chart revealed creatinine 2.2 on 10/16/2020 and 1.8 on 06/20/2020. BNP was 16,400 Testing in the emergency room revealed, chest x-ray done in the emergency room revealed evidence of congestive heart failure blunting of the bilateral costophrenic angles suggestive of mild bilateral pleural effusion Patient was admitted to medical floor for further evaluation and treatment, he was started on IV Lasix, cardiology consultation was requested. Past medical history is significant for history of chronic systolic congestive heart failure echocardiogram done in December 2018 revealed ejection fraction of 35-40%, patient also has a known history of atrial fibrillation maintained on coagulation with Eliquis, history of diffuse coronary artery disease patient had cardiac catheterization in 2016 at that time medication treatment was advised. History of AAA for which patient underwent stent grafting, patient also has a known history of hypertension, [id number] diabetes mellitus, benign prostatic hypertrophy, chronic kidney disease stage III, diverticulosis was previous history of lower gastrointestinal bleeding, degenerative disc disease with history of back surgery. Patient stated that he used to smoke he quit many years ago. On 04/21/2021 Patient was seen and examined on the medical floor, he is alert and oriented x 3 in no distress, patient is complaining of shortness of breath with activity otherwise he denies any complaints there is no fever or chills no headache or dizziness no chest pain no cough no nausea or vomiting no abdominal pain no diarrhea no blood in the stools no burning with urination no frequency or urgency and no hematuria, there is no weakness or numbness in any of the extremities no change in vision speech or gait. On 04/22/2021 Patient was seen and examined on the medical floor, he is alert and oriented x 3 in no distress, he denies any complaints there is no fever or chills no headache or dizziness no chest pain no shortness of breath no palpitation no cough no nausea or vomiting no abdominal pain no diarrhea no blood in the stools no burning with urination no frequency or urgency and no hematuria, there is no weakness or numbness in any of the extremities no change in vision speech or gait. Patient is comfortable while lying in bed he has significant shortness of breath with any activity On 04/23/2021 patient is alert and oriented 3 resting comfortably in bed. Tentative plans for AICD placement tomorrow per Dr. Jara. Patient maintained on dobutamine drip. Patient remains on IV Lasix. At this time patient denies chest pain or shortness of breath. Patient denies nausea vomiting or diarrhea. Patient denies any urinary burning or frequency. On 04/24/2021 patient is alert and oriented 3 in no distress, he denies any chest pain or palpitation no shortness of breath at rest he has shortness of breath with any activity. Tentative plans for AICD placement tomorrow per Dr. Jara. Patient maintained on dobutamine drip. Patient remains on IV Lasix. At this time patient denies chest pain or shortness of breath. Patient denies nausea vomiting or diarrhea. Patient denies any urinary burning or frequency. On 04/25/2021 patient is alert and oriented 3. Status post BIV ICD placement Dr. Esparza. Postop day 1. Patient remains on Lasix and dobutamine drip. Patient still having +2 pitting edema. Cardiology and nephrology services are following. Cardiothoracic surgery consulted for requirement of epicardial lead placement per Dr. Jara. At this time patient denies any chest pain or shortness of breath. Patient denies nausea vomiting or diarrhea. Patient den ies any urinary burning or frequency On 04/26/2021 Patient was seen and examined on the telemetry floor, he is alert and oriented x 3 in no distress, he is complaining of shortness of breath with any activity otherwise he denies any complaints there is no fever or chills no headache or dizziness no chest pain no palpitation no cough no nausea or vomiting no abdominal pain no diarrhea no blood in the stools no burning with urination no frequency or urgency and no hematuria, there is no weakness or numbness in any of the extremities no change in vision speech or gait. On 04/27/2021 patient alert and oriented 3. Patient remains on dobutamine and Lasix drips. Nephrology and cardiology services are following. Per cardiothoracic epicardial lead placement will be followed up outpatient. At this time patient is complaining of bilateral lower extremity pain. Edematous noted to bilateral legs. Patient denies any chest pain. Patient denies nausea vomiting or diarrhea. Patient denies any urinary burning or frequency. On 04/28/2021 Patient was seen and examined on the medical floor, he is alert and oriented x 3 in no distress, he is maintained on IV Lasix drip and dobutamine drip , patient is complaining of left foot pain otherwise he denies any complaints there is no fever or chills no headache or dizziness no chest pain no shortness of breath no palpitation no cough no nausea or vomiting no abdominal pain no diarrhea no blood in the stools no burning with urination no frequency or urgency and no hematuria, there is no weakness or numbness in any of the extremities no change in vision speech or gait. On 04/29/2021 Patient was seen and examined on the medical floor, he is alert and oriented x 3 in no distress, he is complaining of back and lower extremity pain otherwise he denies any complaints there is no fever or chills no headache or dizziness no chest pain no shortness of breath no palpitation no cough no nausea or vomiting no abdominal pain no diarrhea no blood in the stools no burning with urination no frequency or urgency and no hematuria, there is no weakness or numbness in any of the extremities no change in vision speech or gait. On 04/30/2021 patient is alert and oriented 3. Patient appears to be having increased shortness of breath today. Patient remains on Lasix and dobutamine drip. Creatinine 3.47 and bun 114. Discussed case with cardiology team. Cardiology team spoke to cardiothoracic team and nephrology team tentative plan for patient to receive hemodialysis followed by possible surgical intervention for epicardial lead placement with Dr. Aleman. On 05/01/2021 patient was seen and examined on the telemetry floor, he is alert and oriented 3 in no apparent distress, he just had a dialysis catheter placed, he is complaining of back pain and complaining of shortness of breath, otherwise he denies any complaints there is no fever or chills no headache or dizziness no chest pain no cough no nausea or vomiting no abdominal pain no diarrhea no blood in the stools no burning with urination no frequency or urgency and no hematuria On 05/02/2021 patient alert and oriented 3. Status post hemodialysis yesterday 05/01/2021. Patient appears short of breath today. Patient does have good urine output. Creatinine 2.74 and bun 89. Patient denies chest pain. Patient denies nausea vomiting or diarrhea. Patient denies any urinary burning or frequency On 05/03/2021 Patient was seen and examined on the medical floor, he is alert and oriented x 3 in no distress, shortness of breath is improving gradually otherwise he denies any complaints there is no fever or chills no headache or dizziness no chest pain no palpitation no cough no nausea or vomiting no abdominal pain no diarrhea no blood in the stools no burning with urination no frequency or urgency and no hematuria, there is no weakness or numbness in any of the extremities no change in vision speech or gait. On 05/04/2021 patient is alert and oriented 3. Patient maintained on dobutamine and Lasix drip. Creatinine 2.56 today edema is improving. Status post 2 treatments of hemodialysis at this time patient denies chest pain or shortness of breath. Patient denies nausea vomiting or diarrhea. Patient denies any urinary burning or frequency on 05/05/2021 Patient was seen and examined on the medical floor, he is alert and oriented x 3 in no distress, he denies any complaints there is no fever or chills no headache or dizziness no chest pain no shortness of breath no palpitation no cough no nausea or vomiting no abdominal pain no diarrhea no blood in the stools no burning with urination no frequency or urgency and no hematuria, there is no weakness or numbness in any of the extremities no change in vision speech or gait. Patient received hemodialysis over the weekend, today he had ultrafiltration treatment only, he is still maintained on Lasix drip, cardiology and nephrology are following, clinically improving gradually, will follow. On 05/06/2021 Patient was seen and examined on the medical floor, he is alert and oriented x 3 in no distress, he denies any complaints there is no fever or chills no headache or dizziness no chest pain no shortness of breath no palpitation no cough no nausea or vomiting no abdominal pain no diarrhea no blood in the stools no burning with urination no frequency or urgency and no hematuria, there is no weakness or numbness in any of the extremities no change in vision speech or gait. Patient is receiving ultrafiltration again today, will follow in a.m. 05/07/2021 patient alert and oriented 3 currently sitting up in chair. Patient has been started on diuretics per nephrology services. Patient denies chest pain or shortness breath. Patient denies nausea vomiting or diarrhea. Patient denies any urinary burning or frequency. Patient did receive ultrafiltration yesterday. Possible plans for today. On 05/08/2021 Patient was seen and examined on the medical floor, he is alert and oriented x 3 in no distress, he is still having shortness of breath otherwise he denies any complaints there is no fever or chills no headache or dizziness no chest pain no palpitation no cough no nausea or vomiting no abdominal pain no diarrhea no blood in the stools no burning with urination no frequency or urgency and no hematuria, there is no weakness or numbness in any of the extremities no change in vision speech or gait. He is still having significant lower extremity edema Objective - Vital Signs Vital signs: Vital Signs Temp 97.8 F 05/08/21 08:33 Pulse 62 05/08/21 08:33 Resp 18 05/08/21 08:33 BP 116/55 05/08/21 08:33 Pulse Ox 93 L 05/08/21 08:33 Intake & Output 05/07/21 05/08/21 05/08/21 18:59 06:59 18:59 Intake Total 350 240 Output Total 1999 750 Balance -1650 -750 240 Intake: Oral 350 240 Output: Urine 750 Hemodialysis 1999 Other: Voiding Method Indwelling Catheter Indwelling Catheter Indwelling Catheter # Bowel Movements 1 2 - Exam In general patient is alert and oriented x 3 in no distress HEENT head normocephalic and atraumatic Neck is supple no JVD no goiter no lymphadenopathy no carotid bruit Chest examination few scattered rhonchi no wheezing Cardiac exam reveals irregular heart sounds S1 and S2 no gallops no murmurs Abdomen is soft nontender no organomegaly with normal bowel sounds Extremity exam reveals no edema no cyanosis or clubbing Neurological examination reveals no gross focal deficits - Labs CBC & Chem 7: 05/08/21 08:20 05/08/21 08:20 Labs: Abnormal Lab Results - Last 24 Hours (Table) 05/07/21 05/07/21 05/07/21 Range/Units 09:19 11:41 16:55 RBC (4.30-5.90) m/uL Hgb (13.0-17.5) gm/dL Hct (39.0-53.0) % RDW (11.5-15.5) % Sodium 133 L (137-145) mmol/L Chloride 91 L (98-107) mmol/L Carbon Dioxide 32 H (22-30) mmol/L BUN 88 H (9-20) mg/dL Creatinine 3.03 H (0.66-1.25) mg/dL Glucose 276 H (74-99) mg/dL POC Glucose (mg/dL) 186 H 218 H (75-99) mg/dL Total Protein 5.7 L (6.3-8.2) g/dL 05/07/21 05/08/21 05/08/21 Range/Units 19:53 06:26 08:20 RBC 3.43 L (4.30-5.90) m/uL Hgb 10.7 L (13.0-17.5) gm/dL Hct 34.0 L (39.0-53.0) % RDW 15.7 H (11.5-15.5) % Sodium (137-145) mmol/L Chloride (98-107) mmol/L Carbon Dioxide (22-30) mmol/L BUN (9-20) mg/dL Creatinine (0.66-1.25) mg/dL Glucose (74-99) mg/dL POC Glucose (mg/dL) 215 H 137 H (75-99) mg/dL Total Protein (6.3-8.2) g/dL 05/08/21 Range/Units 08:20 RBC (4.30-5.90) m/uL Hgb (13.0-17.5) gm/dL Hct (39.0-53.0) % RDW (11.5-15.5) % Sodium (137-145) mmol/L Chloride (98-107) mmol/L Carbon Dioxide (22-30) mmol/L BUN 81 H (9-20) mg/dL Creatinine 2.69 H (0.66-1.25) mg/dL Glucose 134 H (74-99) mg/dL POC Glucose (mg/dL) (75-99) mg/dL Total Protein 5.9 L (6.3-8.2) g/dL Assessment and Plan Plan: Acute on chronic systolic congestive heart failure exacerbation Underlying history of coronary artery disease Acute kidney injury. Status post hemodialysis on 05/01/2021 Underlying history of atrial fibrillation Bradycardia on presentation Underlying history of hypertension Underlying history of chronic kidney disease stage III Underlying history of [id number] diabetes mellitus type 2 Underlying history of hyperlipidemia Underlying history of diverticulosis with previous history of gastrointestinal bleeding Underlying history of degenerative disc disease with chronic back pain Underlying history of benign prostatic hypertrophy At this time patient is admitted to telemetry floor Maintained on Lasix drip and dobutamine drip Cardiology and nephrology services are following AICD placement on 04/24/[address] Esparza Status post hemodialysis on 05/01/2021 and 05/02/2021 Per cardiology cardiothoracic surgery feels the patient is too high-risk with no significant improvement with epicardial lead is placed therefore will not be a surgical candidate We will follow closely
[2021-05-08 20:32] LABS: Glucose,Whole Blood 181 mg/dL (75-99)
[2021-05-08] MEDS: ATORVASTATIN 20 MG TAB PO SCH (20:41)
[2021-05-09] MEDS: HYDROcodone/APAP 7.5-325MG 1 EACH TAB PO PRN ×5 (04:12→18:22)
[2021-05-09 06:17] LABS: Glucose,Whole Blood 91 mg/dL (75-99)
[2021-05-09] MEDS: INSULIN ASPART (NovoLOG) 100 UNIT/ML VIAL SQ SCH ×4 (06:18→21:07)
[2021-05-09] MEDS: DOCUSATE 100 MG CAP PO SCH ×2 (06:21→21:06)
[2021-05-09] MEDS: CHOLECALCIFEROL 25 MCG (1000 IU) TABLET PO SCH ×2 (06:21→21:06)
[2021-05-09] MEDS: diphenhydrAMINE 25 MG CAP PO SCH ×2 (06:22→21:07)
[2021-05-09] MEDS: CYANOCOBALAMIN 500 MCG TAB PO SCH (06:22)
[2021-05-09] MEDS: bisacodyL 5 MG TABLET.DR PO SCH ×2 (06:22→21:06)
[2021-05-09] MEDS: MAGNESIUM OXIDE 400 MG TAB PO SCH ×2 (06:22→21:07)
[2021-05-09] MEDS: PANTOPRAZOLE 40 MG TABLET PO SCH (06:22)
[2021-05-09] MEDS: hydrALAZINE HCL 25 MG TAB PO SCH ×3 (06:22→21:06)
[2021-05-09] MEDS: carvediloL 3.125 MG TAB PO SCH ×2 (06:23→17:06)
[2021-05-09] MEDS: glipiZIDE 5 MG TAB PO SCH ×2 (08:22→21:06)
[2021-05-09] MEDS: TORSEMIDE 20 MG TAB PO SCH ×2 (08:23→21:07)
[2021-05-09] MEDS: SILDENAFIL 20 MG TAB PO SCH ×2 (08:23→21:07)
[2021-05-09] MEDS: metOLazone 2.5 MG TAB PO SCH ×2 (08:23→21:07)
[2021-05-09 08:55] LABS: Albumin 3.3 g/dL (3.5-5.0); Calcium 9.3 mg/dL (8.4-10.2); Potassium 3.7 mmol/L (3.5-5.1); Total Bilirubin 0.8 mg/dL (0.2-1.3); Total Protein 5.7 g/dL (6.3-8.2)
[2021-05-09 09:10] LABS: Basophils # (A) 0.1 k/uL (0-0.2); Basophils % (A) 1 %; Eosinophils # (A) 0.1 k/uL (0-0.7); Eosinophils % (A) 2 %; HCT 30.9 % (39.0-53.0); Lymphocytes % (A) 17 %; MCH 31.5 pg (25.0-35.0); MCHC 32.5 g/dL (31.0-37.0); Mean Platelet Volume 8.6; Monocytes # (A) 0.6 k/uL (0-1.0); Monocytes % (A) 10 %; Neutrophils % (A) 67 %; Platelet Count 200 k/uL (150-450); RBC 3.18 m/uL (4.30-5.90); RDW 15.3 % (11.5-15.5)
--- NOTE | 2021-05-09 09:47 | P.PN ---
Subjective Progress Note Date: 05/09/21 Berny Linares, is an 80 year old male who presented to [facility] emergency room with a chief complaint of worsening shortness of breath and upper chest pain, patient stated that his symptoms started 1 day prior to presentation and has been worsening, he was having difficulty breathing when he was trying to lie down, he was also having worsening lower extremity edema, on the day of presentation patient started having upper chest pain radiating to the back of his neck and to both shoulders, at that point he decided to come to emergency room. He was evaluated in the emergency room vital examination on presentation revealed a temperature of 98.1 pulse 49 respiration 20 blood pressure 118/62 pulse ox 92% on room air Laboratory data reveals a white blood count of 4.4 hemoglobin 12.4 platelet count 108 sodium 134 potassium 4.2 chloride 95 CO2 31 BUN 61 creatinine 2.33 troponin level was elevated at 0.183. Review of the chart revealed creatinine 2.2 on 10/16/2020 and 1.8 on 06/20/2020. BNP was 16,400 Testing in the emergency room revealed, chest x-ray done in the emergency room revealed evidence of congestive heart failure blunting of the bilateral costophrenic angles suggestive of mild bilateral pleural effusion Patient was admitted to medical floor for further evaluation and treatment, he was started on IV Lasix, cardiology consultation was requested. Past medical history is significant for history of chronic systolic congestive heart failure echocardiogram done in December 2018 revealed ejection fraction of 35-40%, patient also has a known history of atrial fibrillation maintained on coagulation with Eliquis, history of diffuse coronary artery disease patient had cardiac catheterization in 2016 at that time medication treatment was advised. History of AAA for which patient underwent stent grafting, patient also has a known history of hypertension, psa-[id number] diabetes mellitus, benign prostatic hypertrophy, chronic kidney disease stage III, diverticulosis was previous history of lower gastrointestinal bleeding, degenerative disc disease with history of back surgery. Patient stated that he used to smoke he quit many years ago. On 04/21/2021 Patient was seen and examined on the medical floor, he is alert and oriented x 3 in no distress, patient is complaining of shortness of breath with activity otherwise he denies any complaints there is no fever or chills no headache or dizziness no chest pain no cough no nausea or vomiting no abdominal pain no diarrhea no blood in the stools no burning with urination no frequency or urgency and no hematuria, there is no weakness or numbness in any of the extremities no change in vision speech or gait. On 04/22/2021 Patient was seen and examined on the medical floor, he is alert and oriented x 3 in no distress, he denies any complaints there is no fever or chills no headache or dizziness no chest pain no shortness of breath no palpitation no cough no nausea or vomiting no abdominal pain no diarrhea no blood in the stools no burning with urination no frequency or urgency and no hematuria, there is no weakness or numbness in any of the extremities no change in vision speech or gait. Patient is comfortable while lying in bed he has significant shortness of breath with any activity On 04/23/2021 patient is alert and oriented 3 resting comfortably in bed. Tentative plans for AICD placement tomorrow per Dr. Jara. Patient maintained on dobutamine drip. Patient remains on IV Lasix. At this time patient denies chest pain or shortness of breath. Patient denies nausea vomiting or diarrhea. Patient denies any urinary burning or frequency. On 04/24/2021 patient is alert and oriented 3 in no distress, he denies any chest pain or palpitation no shortness of breath at rest he has shortness of breath with any activity. Tentative plans for AICD placement tomorrow per Dr. Jraa. Patient maintained on dobutamine drip. Patient remains on IV Lasix. At this time patient denies chest pain or shortness of breath. Patient denies nausea vomiting or diarrhea. Patient denies any urinary burning or frequency. On 04/25/2021 patient is alert and oriented 3. Status post BIV ICD placement Dr. Esparza. Postop day 1. Patient remains on Lasix and dobutamine drip. Patient still having +2 pitting edema. Cardiology and nephrology services are following. Cardiothoracic surgery consulted for requirement of epicardial lead placement per Dr. Jara. At this time patient denies any chest pain or shortness of breath. Patient denies nausea vomiting or diarrhea. Patient den ies any urinary burning or frequency On 04/26/2021 Patient was seen and examined on the telemetry floor, he is alert and oriented x 3 in no distress, he is complaining of shortness of breath with any activity otherwise he denies any complaints there is no fever or chills no headache or dizziness no chest pain no palpitation no cough no nausea or vomiting no abdominal pain no diarrhea no blood in the stools no burning with urination no frequency or urgency and no hematuria, there is no weakness or numbness in any of the extremities no change in vision speech or gait. On 04/27/2021 patient alert and oriented 3. Patient remains on dobutamine and Lasix drips. Nephrology and cardiology services are following. Per cardiothoracic epicardial lead placement will be followed up outpatient. At this time patient is complaining of bilateral lower extremity pain. Edematous noted to bilateral legs. Patient denies any chest pain. Patient denies nausea vomiting or diarrhea. Patient denies any urinary burning or frequency. On 04/28/2021 Patient was seen and examined on the medical floor, he is alert and oriented x 3 in no distress, he is maintained on IV Lasix drip and dobutamine drip , patient is complaining of left foot pain otherwise he denies any complaints there is no fever or chills no headache or dizziness no chest pain no shortness of breath no palpitation no cough no nausea or vomiting no abdominal pain no diarrhea no blood in the stools no burning with urination no frequency or urgency and no hematuria, there is no weakness or numbness in any of the extremities no change in vision speech or gait. On 04/29/2021 Patient was seen and examined on the medical floor, he is alert and oriented x 3 in no distress, he is complaining of back and lower extremity pain otherwise he denies any complaints there is no fever or chills no headache or dizziness no chest pain no shortness of breath no palpitation no cough no nausea or vomiting no abdominal pain no diarrhea no blood in the stools no burning with urination no frequency or urgency and no hematuria, there is no weakness or numbness in any of the extremities no change in vision speech or gait. On 04/30/2021 patient is alert and oriented 3. Patient appears to be having increased shortness of breath today. Patient remains on Lasix and dobutamine drip. Creatinine 3.47 and bun 114. Discussed case with cardiology team. Cardiology team spoke to cardiothoracic team and nephrology team tentative plan for patient to receive hemodialysis followed by possible surgical intervention for epicardial lead placement with Dr. Aleman. On 05/01/2021 patient was seen and examined on the telemetry floor, he is alert and oriented 3 in no apparent distress, he just had a dialysis catheter placed, he is complaining of back pain and complaining of shortness of breath, otherwise he denies any complaints there is no fever or chills no headache or dizziness no chest pain no cough no nausea or vomiting no abdominal pain no diarrhea no blood in the stools no burning with urination no frequency or urgency and no hematuria On 05/02/2021 patient alert and oriented 3. Status post hemodialysis yesterday 05/01/2021. Patient appears short of breath today. Patient does have good urine output. Creatinine 2.74 and bun 89. Patient denies chest pain. Patient denies nausea vomiting or diarrhea. Patient denies any urinary burning or frequency On 05/03/2021 Patient was seen and examined on the medical floor, he is alert and oriented x 3 in no distress, shortness of breath is improving gradually otherwise he denies any complaints there is no fever or chills no headache or dizziness no chest pain no palpitation no cough no nausea or vomiting no abdominal pain no diarrhea no blood in the stools no burning with urination no frequency or urgency and no hematuria, there is no weakness or numbness in any of the extremities no change in vision speech or gait. On 05/04/2021 patient is alert and oriented 3. Patient maintained on dobutamine and Lasix drip. Creatinine 2.56 today edema is improving. Status post 2 treatments of hemodialysis at this time patient denies chest pain or shortness of breath. Patient denies nausea vomiting or diarrhea. Patient denies any urinary burning or frequency on 05/05/2021 Patient was seen and examined on the medical floor, he is alert and oriented x 3 in no distress, he denies any complaints there is no fever or chills no headache or dizziness no chest pain no shortness of breath no palpitation no cough no nausea or vomiting no abdominal pain no diarrhea no blood in the stools no burning with urination no frequency or urgency and no hematuria, there is no weakness or numbness in any of the extremities no change in vision speech or gait. Patient received hemodialysis over the weekend, today he had ultrafiltration treatment only, he is still maintained on Lasix drip, cardiology and nephrology are following, clinically improving gradually, will follow. On 05/06/2021 Patient was seen and examined on the medical floor, he is alert and oriented x 3 in no distress, he denies any complaints there is no fever or chills no headache or dizziness no chest pain no shortness of breath no palpitation no cough no nausea or vomiting no abdominal pain no diarrhea no blood in the stools no burning with urination no frequency or urgency and no hematuria, there is no weakness or numbness in any of the extremities no change in vision speech or gait. Patient is receiving ultrafiltration again today, will follow in a.m. 05/07/2021 patient alert and oriented 3 currently sitting up in chair. Patient has been started on diuretics per nephrology services. Patient denies chest pain or shortness breath. Patient denies nausea vomiting or diarrhea. Patient denies any urinary burning or frequency. Patient did receive ultrafiltration yesterday. Possible plans for today. On 05/08/2021 Patient was seen and examined on the medical floor, he is alert and oriented x 3 in no distress, he is still having shortness of breath otherwise he denies any complaints there is no fever or chills no headache or dizziness no chest pain no palpitation no cough no nausea or vomiting no abdominal pain no diarrhea no blood in the stools no burning with urination no frequency or urgency and no hematuria, there is no weakness or numbness in any of the extremities no change in vision speech or gait. He is still having significant lower extremity edema On 05/09/2021 patient alert and oriented 3. Patient currently sitting up at site of bed eating breakfast. Patient is having improvement with shortness of breath and edema. Did discuss case with nephrology services would like patient to stay over the weekend to assess if patient will need hemodialysis upon discharge. Discharge planning is in place for possible ECF placement. At this time patient denies chest pain or shortness breath. Patient denies nausea vomiting or diarrhea. Patient denies any urinary burning or frequency. Creatinine 2.70 bun 78. Patient does have adequate urine output and [address]. Objective - Vital Signs Vital signs: Vital Signs Temp 98.5 F 05/09/21 08:18 Pulse 71 05/09/21 08:18 Resp 18 05/09/21 08:18 BP 118/52 05/09/21 08:18 Pulse Ox 98 05/09/21 08:18 Intake & Output 05/08/21 05/09/21 05/09/21 18:59 06:59 18:59 Intake Total 600 Output Total 2500 302 Balance -1900 -302 Weight 98 kg Intake: Oral 600 Output: Urine 500 300 Stool 2 Hemodialysis 2000 Other: Voiding Method Indwelling Catheter Indwelling Catheter Indwelling Catheter # Bowel Movements 1 - Exam In general patient is alert and oriented x 3 in no distress HEENT head normocephalic and atraumatic Neck is supple no JVD no goiter no lymphadenopathy no carotid bruit Chest examination few scattered rhonchi no wheezing Cardiac exam reveals irregular heart sounds S1 and S2 no gallops no murmurs Abdomen is soft nontender no organomegaly with normal bowel sounds Extremity exam reveals no edema no cyanosis or clubbing Neurological examination reveals no gross focal deficits - Labs CBC & Chem 7: 05/09/21 07:48 05/09/21 07:48 Labs: Abnormal Lab Results - Last 24 Hours (Table) 05/08/21 05/08/21 05/08/21 Range/Units 08:20 11:47 16:52 RBC (4.30-5.90) m/uL Hgb (13.0-17.5) gm/dL Hct (39.0-53.0) % Sodium (137-145) mmol/L BUN 81 H (9-20) mg/dL Creatinine 2.69 H (0.66-1.25) mg/dL Glucose 134 H (74-99) mg/dL POC Glucose (mg/dL) 192 H 218 H (75-99) mg/dL Total Protein 5.9 L (6.3-8.2) g/dL Albumin (3.5-5.0) g/dL 05/08/21 05/09/21 05/09/21 Range/Units 20:30 07:48 07:48 RBC 3.18 L (4.30-5.90) m/uL Hgb 10.0 L (13.0-17.5) gm/dL Hct 30.9 L (39.0-53.0) % Sodium 135 L (137-145) mmol/L BUN 78 H (9-20) mg/dL Creatinine 2.78 H (0.66-1.25) mg/dL Glucose (74-99) mg/dL POC Glucose (mg/dL) 181 H (75-99) mg/dL Total Protein 5.7 L (6.3-8.2) g/dL Albumin 3.3 L (3.5-5.0) g/dL Assessment and Plan Plan: Acute on chronic systolic congestive heart failure exacerbation Underlying history of coronary artery disease Acute kidney injury. Status post hemodialysis on 05/01/2021 Underlying history of atrial fibrillation Bradycardia on presentation Underlying history of hypertension Underlying history of chronic kidney disease stage III Underlying history of ast-tniezhe-kinncntfa diabetes mellitus type 2 Underlying history of hyperlipidemia Underlying history of diverticulosis with previous history of gastrointestinal bleeding Underlying history of degenerative disc disease with chronic back pain Underlying history of benign prostatic hypertrophy At this time patient is admitted to telemetry floor Cardiology and nephrology services are following AICD placement on 04/24/[address] Esparza Status post hemodialysis on 05/01/2021 and 05/02/2021 Per cardiology cardiothoracic surgery feels the patient is too high-risk with no significant improvement with epicardial lead is placed therefore will not be a surgical candidate We will follow closely
--- NOTE | 2021-05-09 11:14 | P.PN ---
Subjective HISTORY OF PRESENTING ILLNESS Patient is a pleasant 80-year-old male with history of chronic systolic heart failure, chronic atrial fibrillation, diabetes mellitus type 2, hypertension, abdominal aortic aneurysm status post graft placement, COPD on home O2, severe pulmonary hypertension, non-ischemic cardiomyopathy and mild non-obstructive coronary artery disease. He is seen and examined sitting up in bed in mild respiratory distress. He continues to feel short of breath and fatigued. He denies chest pain, dizziness or palpitations. Blood pressure 136/64 heart rate 80 afebrile and maintaining oxygen saturation on nasal cannula. Laboratory data reviewed, sodium 137, potassium 4, creatinine 2.35 and magnesium 2.0. 24-hr urine output 2.1 liters. Heart rates are improved with beta blockers discontinued. No plans for PPM at this time. 05/09/2021 Patient seen and examined sitting up in recliner no acute distress. He denies symptoms of chest pain or shortness of breath. He continues to be maintained on hemodialysis. Blood pressure 118/52 heart rate of 71 afebrile maintaining oxygen saturation on nasal cannula. PHYSICAL EXAMINATION CONSTITUTIONAL: No apparent distress, somewhat somnolent, mildly tachypnic HEENT: Head is normocephalic. Pupils are equal, round. Sclerae anicteric. Mucous membranes of the mouth are moist. No JVD. No carotid bruit. CHEST EXAMINATION: Diminished bilaterally, no wheezes, rales or rhonchi. HEART EXAMINATION: Irregular rate and rhythm, +3/6 systolic murmur at the base, no gallops or rub. EXTREMITIES: 2+ peripheral pulses, 2+ bilateral lower extremity edema and no calf tenderness. ASSESSMENT Acute on chronic systolic heart failure Chronic persistent atrial fibrillation Bradycardia status post pacemaker/ICD History of heavily calcified however non-obstructive coronary artery disease by heart catheterization 2016 Non-STEMI, rule out type I mechanism with chest pain occurring on presentation Hypertension Diabetes mellitus Acute kidney injury Pulmonary hypertension PLAN Give pneumatic compression stockings to the patient with instructions on use. Continue beta blockers as initiated yesterday. Continue current medical regimen. Further recommendations to follow based on clinical course. Nurse Practitioner note has been reviewed, I agree with a documented findings and plan of care. Patient was seen and examined. Objective - Vital Signs Vital signs: Vital Signs Temp 98.5 F 05/09/21 08:18 Pulse 71 05/09/21 08:18 Resp 18 05/09/21 08:18 BP 118/52 05/09/21 08:18 Pulse Ox 98 05/09/21 08:18 Intake & Output 05/08/21 05/09/21 05/09/21 18:59 06:59 18:59 Intake Total 600 Output Total 2500 302 Balance -1900 -302 Weight 98 kg Intake: Oral 600 Output: Urine 500 300 Stool 2 Hemodialysis 2000 Other: Voiding Method Indwelling Catheter Indwelling Catheter Indwelling Catheter # Bowel Movements 1 - Labs CBC & Chem 7: 05/09/21 07:48 05/09/21 07:48 Labs: Abnormal Lab Results - Last 24 Hours (Table) 05/08/21 05/08/21 05/08/21 Range/Units 11:47 16:52 20:30 RBC (4.30-5.90) m/uL Hgb (13.0-17.5) gm/dL Hct (39.0-53.0) % Sodium (137-145) mmol/L BUN (9-20) mg/dL Creatinine (0.66-1.25) mg/dL POC Glucose (mg/dL) 192 H 218 H 181 H (75-99) mg/dL Total Protein (6.3-8.2) g/dL Albumin (3.5-5.0) g/dL 05/09/21 05/09/21 Range/Units 07:48 07:48 RBC 3.18 L (4.30-5.90) m/uL Hgb 10.0 L (13.0-17.5) gm/dL Hct 30.9 L (39.0-53.0) % Sodium 135 L (137-145) mmol/L BUN 78 H (9-20) mg/dL Creatinine 2.78 H (0.66-1.25) mg/dL POC Glucose (mg/dL) (75-99) mg/dL Total Protein 5.7 L (6.3-8.2) g/dL Albumin 3.3 L (3.5-5.0) g/dL
[2021-05-09 11:58] LABS: Glucose,Whole Blood 113 mg/dL (75-99)
--- NOTE | 2021-05-09 12:59 | PN ---
PROGRESS NOTE Patient is seen for followup for acute kidney injury, mostly cardiorenal. Patient has been started on dialysis. He has had 5 treatments thus far with a total UF of about 10.2 L. The patient's volume status has improved significantly. He continues to have urine output. Lasix drip has been discontinued. Currently maintained on oral Demadex. The patient had only ultrafiltration yesterday of about 2 L, and since he has good urine output I will hold off on the dialysis today and tomorrow and we will recheck labs. The patient may be able to come off of dialysis. If his volume status is worse or if the creatinine is higher, the patient will be dialyzed tomorrow and we will proceed with IJ PermCath insertion. The patient does already have an outpatient chair time if he needs to continue with outpatient dialysis. PHYSICAL EXAMINATION: On examination today, blood pressure 122/62, heart rate 54 per minute. Patient is afebrile. Examination shows 2+ edema in bilateral lower extremities. Abdomen is soft, obese, nontender. BUSINESS DEVELOPMENT DIRECTOR exam grossly intact. Volume status significantly improved. LABS: Sodium 135, potassium 3.7, chloride 99, BUN 78, creatinine 2.78, hemoglobin 10.0 g/dL. ASSESSMENT: 1. Acute kidney injury, acute tubular necrosis/cardiorenal, currently nonoliguric with improved urine output and off of Lasix drip, maintained on oral Demadex. Twenty- four-hour urine output was about 800 mL. Patient had ultrafiltration done for the last two dialysis treatments with no dialysis. His UF was 2 L yesterday. Plan is to hold off on ultrafiltration today, and we will repeat labs tomorrow. If his volume status is worse or if the creatinine is higher, patient will proceed with hemodialysis tomorrow and IJ PermCath placement for continuation of outpatient treatments. 2. Congestive heart failure, volume overload, systolic, acute on top of chronic, currently improving. 3. Cardiomyopathy, ejection fraction of about 30% to 35%, status post dobutamine and Lasix drips. 4. Hypervolemic hyponatremia, now improved. 5. Significant scrotal edema, currently improved. PLAN: Continue with Demadex and Zaroxolyn. Hold ultrafiltration today. Repeat labs in a.m., and if the patient needs dialysis over the weekend, we will proceed with IJ PermCath placement to continue outpatient dialysis. MMODL / IJN: [id number] /
[2021-05-09 16:58] LABS: Glucose,Whole Blood 183 mg/dL (75-99)
[2021-05-09] MEDS: LACTATED RINGERS 1,000 ML IV SCH (17:05)
[2021-05-09 20:14] LABS: Glucose,Whole Blood 158 mg/dL (75-99)
[2021-05-09] MEDS: ATORVASTATIN 20 MG TAB PO SCH (21:06)
[2021-05-10] MEDS: HYDROcodone/APAP 7.5-325MG 1 EACH TAB PO PRN ×2 (01:01→07:04)
[2021-05-10 06:08] LABS: Glucose,Whole Blood 161 mg/dL (75-99)
[2021-05-10] MEDS: carvediloL 3.125 MG TAB PO SCH ×2 (06:29→16:36)
[2021-05-10] MEDS: INSULIN ASPART (NovoLOG) 100 UNIT/ML VIAL SQ SCH ×4 (06:30→21:40)
[2021-05-10] MEDS ORDERED: fentaNYL (PF) 50 MCG/ML 2 ML AMP IVP ONE (08:55)
[2021-05-10] MEDS ORDERED: LIDOCAINE 1% INJ 10MG/ML (20 ML MDV) SQ ONE ×2 (08:57→09:14)
[2021-05-10] MEDS ORDERED: IV FLUID CONTINUATION 1,000 ML IV ONE (09:02)
[2021-05-10] MEDS: DOCUSATE 100 MG CAP PO SCH ×2 (10:04→20:33)
[2021-05-10] MEDS: diphenhydrAMINE 25 MG CAP PO SCH ×2 (10:05→20:33)
[2021-05-10] MEDS: hydrALAZINE HCL 25 MG TAB PO SCH ×3 (10:05→20:33)
[2021-05-10] MEDS: MAGNESIUM OXIDE 400 MG TAB PO SCH ×2 (10:05→20:33)
[2021-05-10] MEDS: bisacodyL 5 MG TABLET.DR PO SCH ×2 (10:05→20:33)
[2021-05-10] MEDS: glipiZIDE 5 MG TAB PO SCH ×2 (10:06→20:33)
[2021-05-10] MEDS: CHOLECALCIFEROL 25 MCG (1000 IU) TABLET PO SCH ×2 (10:06→20:32)
[2021-05-10] MEDS: CYANOCOBALAMIN 500 MCG TAB PO SCH (10:06)
[2021-05-10] MEDS: metOLazone 2.5 MG TAB PO SCH ×2 (10:07→22:00)
[2021-05-10] MEDS: SILDENAFIL 20 MG TAB PO SCH ×2 (10:07→22:00)
[2021-05-10] MEDS: PANTOPRAZOLE 40 MG TABLET PO SCH (10:08)
[2021-05-10] MEDS: TORSEMIDE 20 MG TAB PO SCH ×2 (10:08→22:00)
--- NOTE | 2021-05-10 10:47 | OP ---
OPERATIVE REPORT PREOPERATIVE DIAGNOSIS: Acute on chronic renal failure. POSTOPERATIVE DIAGNOSIS: Acute on chronic renal failure. PROCEDURE: 1. Ultrasound-guided 23 cm dialysis catheter with right jugular approach. 2. Removal of temporary dialysis catheter, right femoral approach. SEDATION TIME: 20 minute. DESCRIPTION OF PROCEDURE: The patient was brought to the crime lab technician. Right side of the neck and chest was prepped, draped in sterile manner. Lidocaine 1% was infiltrated with IV sedation. Ultrasound- guided micropuncture was introduced into right jugular vein. Micropuncture guidewire was passed and 4-[place] dilator on top of the guidewire. This patient has a pacemaker from the left side. After that, a tunnel was created. Through the tunnel we brought a 23 cm dialysis catheter. A regular guidewire was passed, which was parked in the inferior vena cava. The dilator was advanced. Then sheath was advanced. Through the sheath we introduced the dialysis catheter. Tip of the catheter was in superior vena cavoatrial junction, flushed with heparin saline, hep-locked, secured with 3-0 nylon. Then the right groin was prepped. The patient had a temporary dialysis catheter which was removed. Pressure was held. The patient tolerated the procedure well. MMODL / IJN: [id number] /
[2021-05-10 10:51] LABS: Basophils % (A) 1 %; Eosinophils # (A) 0.1 k/uL (0-0.7); Eosinophils % (A) 2 %; HCT 30.9 % (39.0-53.0); HGB 10.1 gm/dL (13.0-17.5); Hypochromasia Slight; Lymphocytes # (A) 0.8 k/uL (1.0-4.8); Lymphocytes % (A) 15 %; MCH 31.9 pg (25.0-35.0); MCHC 32.9 g/dL (31.0-37.0); MCV 97.2 fL (80.0-100.0); Mean Platelet Volume 9.4; Monocytes # (A) 0.4 k/uL (0-1.0); Monocytes % (A) 8 %; Neutrophils # (A) 3.9 k/uL (1.3-7.7); Neutrophils % (A) 71 %; Platelet Count 160 k/uL (150-450); RBC 3.18 m/uL (4.30-5.90); WBC 5.5 k/uL (3.8-10.6)
[2021-05-10 11:08] LABS: Albumin 3.3 g/dL (3.5-5.0); Calcium 9.2 mg/dL (8.4-10.2); Potassium 3.7 mmol/L (3.5-5.1); Total Bilirubin 0.6 mg/dL (0.2-1.3); Total Protein 5.7 g/dL (6.3-8.2)
--- NOTE | 2021-05-10 11:53 | P.PN ---
Subjective Progress Note Date: 05/10/21 Berny Linares, is an 80 year old male who presented to [facility] emergency room with a chief complaint of worsening shortness of breath and upper chest pain, patient stated that his symptoms started 1 day prior to presentation and has been worsening, he was having difficulty breathing when he was trying to lie down, he was also having worsening lower extremity edema, on the day of presentation patient started having upper chest pain radiating to the back of his neck and to both shoulders, at that point he decided to come to emergency room. He was evaluated in the emergency room vital examination on presentation revealed a temperature of 98.1 pulse 49 respiration 20 blood pressure 118/62 pulse ox 92% on room air Laboratory data reveals a white blood count of 4.4 hemoglobin 12.4 platelet count 108 sodium 134 potassium 4.2 chloride 95 CO2 31 BUN 61 creatinine 2.33 troponin level was elevated at 0.183. Review of the chart revealed creatinine 2.2 on 10/16/2020 and 1.8 on 06/20/2020. BNP was 16,400 Testing in the emergency room revealed, chest x-ray done in the emergency room revealed evidence of congestive heart failure blunting of the bilateral costophrenic angles suggestive of mild bilateral pleural effusion Patient was admitted to medical floor for further evaluation and treatment, he was started on IV Lasix, cardiology consultation was requested. Past medical history is significant for history of chronic systolic congestive heart failure echocardiogram done in December 2018 revealed ejection fraction of 35-40%, patient also has a known history of atrial fibrillation maintained on coagulation with Eliquis, history of diffuse coronary artery disease patient had cardiac catheterization in 2016 at that time medication treatment was advised. History of AAA for which patient underwent stent grafting, patient also has a known history of hypertension, [id number] diabetes mellitus, benign prostatic hypertrophy, chronic kidney disease stage III, diverticulosis was previous history of lower gastrointestinal bleeding, degenerative disc disease with history of back surgery. Patient stated that he used to smoke he quit many years ago. On 04/21/2021 Patient was seen and examined on the medical floor, he is alert and oriented x 3 in no distress, patient is complaining of shortness of breath with activity otherwise he denies any complaints there is no fever or chills no headache or dizziness no chest pain no cough no nausea or vomiting no abdominal pain no diarrhea no blood in the stools no burning with urination no frequency or urgency and no hematuria, there is no weakness or numbness in any of the extremities no change in vision speech or gait. On 04/22/2021 Patient was seen and examined on the medical floor, he is alert and oriented x 3 in no distress, he denies any complaints there is no fever or chills no headache or dizziness no chest pain no shortness of breath no palpitation no cough no nausea or vomiting no abdominal pain no diarrhea no blood in the stools no burning with urination no frequency or urgency and no hematuria, there is no weakness or numbness in any of the extremities no change in vision speech or gait. Patient is comfortable while lying in bed he has significant shortness of breath with any activity On 04/23/2021 patient is alert and oriented 3 resting comfortably in bed. Tentative plans for AICD placement tomorrow per Dr. Jara. Patient maintained on dobutamine drip. Patient remains on IV Lasix. At this time patient denies chest pain or shortness of breath. Patient denies nausea vomiting or diarrhea. Patient denies any urinary burning or frequency. On 04/24/2021 patient is alert and oriented 3 in no distress, he denies any chest pain or palpitation no shortness of breath at rest he has shortness of breath with any activity. Tentative plans for AICD placement tomorrow per Dr. Jara. Patient maintained on dobutamine drip. Patient remains on IV Lasix. At this time patient denies chest pain or shortness of breath. Patient denies nausea vomiting or diarrhea. Patient denies any urinary burning or frequency. On 04/25/2021 patient is alert and oriented 3. Status post BIV ICD placement Dr. Esparza. Postop day 1. Patient remains on Lasix and dobutamine drip. Patient still having +2 pitting edema. Cardiology and nephrology services are following. Cardiothoracic surgery consulted for requirement of epicardial lead placement per Dr. Jara. At this time patient denies any chest pain or shortness of breath. Patient denies nausea vomiting or diarrhea. Patient den ies any urinary burning or frequency On 04/26/2021 Patient was seen and examined on the telemetry floor, he is alert and oriented x 3 in no distress, he is complaining of shortness of breath with any activity otherwise he denies any complaints there is no fever or chills no headache or dizziness no chest pain no palpitation no cough no nausea or vomiting no abdominal pain no diarrhea no blood in the stools no burning with urination no frequency or urgency and no hematuria, there is no weakness or numbness in any of the extremities no change in vision speech or gait. On 04/27/2021 patient alert and oriented 3. Patient remains on dobutamine and Lasix drips. Nephrology and cardiology services are following. Per cardiothoracic epicardial lead placement will be followed up outpatient. At this time patient is complaining of bilateral lower extremity pain. Edematous noted to bilateral legs. Patient denies any chest pain. Patient denies nausea vomiting or diarrhea. Patient denies any urinary burning or frequency. On 04/28/2021 Patient was seen and examined on the medical floor, he is alert and oriented x 3 in no distress, he is maintained on IV Lasix drip and dobutamine drip , patient is complaining of left foot pain otherwise he denies any complaints there is no fever or chills no headache or dizziness no chest pain no shortness of breath no palpitation no cough no nausea or vomiting no abdominal pain no diarrhea no blood in the stools no burning with urination no frequency or urgency and no hematuria, there is no weakness or numbness in any of the extremities no change in vision speech or gait. On 04/29/2021 Patient was seen and examined on the medical floor, he is alert and oriented x 3 in no distress, he is complaining of back and lower extremity pain otherwise he denies any complaints there is no fever or chills no headache or dizziness no chest pain no shortness of breath no palpitation no cough no nausea or vomiting no abdominal pain no diarrhea no blood in the stools no burning with urination no frequency or urgency and no hematuria, there is no weakness or numbness in any of the extremities no change in vision speech or gait. On 04/30/2021 patient is alert and oriented 3. Patient appears to be having increased shortness of breath today. Patient remains on Lasix and dobutamine drip. Creatinine 3.47 and bun 114. Discussed case with cardiology team. Cardiology team spoke to cardiothoracic team and nephrology team tentative plan for patient to receive hemodialysis followed by possible surgical intervention for epicardial lead placement with Dr. Aleman. On 05/01/2021 patient was seen and examined on the telemetry floor, he is alert and oriented 3 in no apparent distress, he just had a dialysis catheter placed, he is complaining of back pain and complaining of shortness of breath, otherwise he denies any complaints there is no fever or chills no headache or dizziness no chest pain no cough no nausea or vomiting no abdominal pain no diarrhea no blood in the stools no burning with urination no frequency or urgency and no hematuria On 05/02/2021 patient alert and oriented 3. Status post hemodialysis yesterday 05/01/2021. Patient appears short of breath today. Patient does have good urine output. Creatinine 2.74 and bun 89. Patient denies chest pain. Patient denies nausea vomiting or diarrhea. Patient denies any urinary burning or frequency On 05/03/2021 Patient was seen and examined on the medical floor, he is alert and oriented x 3 in no distress, shortness of breath is improving gradually otherwise he denies any complaints there is no fever or chills no headache or dizziness no chest pain no palpitation no cough no nausea or vomiting no abdominal pain no diarrhea no blood in the stools no burning with urination no frequency or urgency and no hematuria, there is no weakness or numbness in any of the extremities no change in vision speech or gait. On 05/04/2021 patient is alert and oriented 3. Patient maintained on dobutamine and Lasix drip. Creatinine 2.56 today edema is improving. Status post 2 treatments of hemodialysis at this time patient denies chest pain or shortness of breath. Patient denies nausea vomiting or diarrhea. Patient denies any urinary burning or frequency on 05/05/2021 Patient was seen and examined on the medical floor, he is alert and oriented x 3 in no distress, he denies any complaints there is no fever or chills no headache or dizziness no chest pain no shortness of breath no palpitation no cough no nausea or vomiting no abdominal pain no diarrhea no blood in the stools no burning with urination no frequency or urgency and no hematuria, there is no weakness or numbness in any of the extremities no change in vision speech or gait. Patient received hemodialysis over the weekend, today he had ultrafiltration treatment only, he is still maintained on Lasix drip, cardiology and nephrology are following, clinically improving gradually, will follow. On 05/06/2021 Patient was seen and examined on the medical floor, he is alert and oriented x 3 in no distress, he denies any complaints there is no fever or chills no headache or dizziness no chest pain no shortness of breath no palpitation no cough no nausea or vomiting no abdominal pain no diarrhea no blood in the stools no burning with urination no frequency or urgency and no hematuria, there is no weakness or numbness in any of the extremities no change in vision speech or gait. Patient is receiving ultrafiltration again today, will follow in a.m. 05/07/2021 patient alert and oriented 3 currently sitting up in chair. Patient has been started on diuretics per nephrology services. Patient denies chest pain or shortness breath. Patient denies nausea vomiting or diarrhea. Patient denies any urinary burning or frequency. Patient did receive ultrafiltration yesterday. Possible plans for today. On 05/08/2021 Patient was seen and examined on the medical floor, he is alert and oriented x 3 in no distress, he is still having shortness of breath otherwise he denies any complaints there is no fever or chills no headache or dizziness no chest pain no palpitation no cough no nausea or vomiting no abdominal pain no diarrhea no blood in the stools no burning with urination no frequency or urgency and no hematuria, there is no weakness or numbness in any of the extremities no change in vision speech or gait. He is still having significant lower extremity edema On 05/09/2021 patient alert and oriented 3. Patient currently sitting up at site of bed eating breakfast. Patient is having improvement with shortness of breath and edema. Did discuss case with nephrology services would like patient to stay over the weekend to assess if patient will need hemodialysis upon discharge. Discharge planning is in place for possible ECF placement. At this time patient denies chest pain or shortness breath. Patient denies nausea vomiting or diarrhea. Patient denies any urinary burning or frequency. Creatinine 2.70 bun 78. Patient does have adequate urine output and [address]. On 05/10/2021 Patient was seen and examined on the medical floor, he is alert and oriented x 3 in no distress, he is complaining of shortness of breath with any activity otherwise he denies any complaints there is no fever or chills no headache or dizziness no chest pain no palpitation no cough no nausea or vomiting no abdominal pain no diarrhea no blood in the stools no burning with urination no frequency or urgency and no hematuria, there is no weakness or numbness in any of the extremities no change in vision speech or gait. He underwent dialysis catheter placement today. Objective - Vital Signs Vital signs: Vital Signs Temp 97.5 F L 05/10/21 08:30 Pulse 58 L 05/10/21 08:30 Resp 18 05/10/21 08:30 BP 123/62 05/10/21 08:30 Pulse Ox 95 05/10/21 08:44 Intake & Output 05/09/21 05/10/21 05/10/21 18:59 06:59 18:59 Intake Total 830 25 Output Total 800 1 Balance 830 -800 24 Weight 100.5 kg Intake: IV 25 Oral 830 Output: Urine 800 Stool 1 Other: Voiding Method Indwelling Catheter Indwelling Catheter Indwelling Catheter # Voids 1 - Exam In general patient is alert and oriented x 3 in no distress HEENT head normocephalic and atraumatic Neck is supple no JVD no goiter no lymphadenopathy no carotid bruit Chest examination few scattered rhonchi no wheezing Cardiac exam reveals irregular heart sounds S1 and S2 no gallops no murmurs Abdomen is soft nontender no organomegaly with normal bowel sounds Extremity exam reveals no edema no cyanosis or clubbing Neurological examination reveals no gross focal deficits - Labs CBC & Chem 7: 05/10/21 10:15 05/10/21 10:15 Labs: Abnormal Lab Results - Last 24 Hours (Table) 05/09/21 05/09/21 05/09/21 Range/Units 11:40 16:52 20:12 RBC (4.30-5.90) m/uL Hgb (13.0-17.5) gm/dL Hct (39.0-53.0) % Lymphocytes # (1.0-4.8) k/uL Sodium (137-145) mmol/L Chloride (98-107) mmol/L BUN (9-20) mg/dL Creatinine (0.66-1.25) mg/dL Glucose (74-99) mg/dL POC Glucose (mg/dL) 113 H 183 H 158 H (75-99) mg/dL Total Protein (6.3-8.2) g/dL Albumin (3.5-5.0) g/dL 05/10/21 05/10/2105/10/21 Range/Units 06:06 10:15 10:15 RBC 3.18 L (4.30-5.90) m/uL Hgb 10.1 L (13.0-17.5) gm/dL Hct 30.9 L (39.0-53.0) % Lymphocytes # 0.8 L (1.0-4.8) k/uL Sodium 132 L (137-145) mmol/L Chloride 96 L (98-107) mmol/L BUN 96 H (9-20) mg/dL Creatinine 3.12 H (0.66-1.25) mg/dL Glucose 133 H (74-99) mg/dL POC Glucose (mg/dL) 161 H (75-99) mg/dL Total Protein 5.7 L (6.3-8.2) g/dL Albumin 3.3 L (3.5-5.0) g/dL Assessment and Plan Plan: Acute on chronic systolic congestive heart failure exacerbation Underlying history of coronary artery disease Acute kidney injury. Status post hemodialysis on 05/01/2021 Underlying history of atrial fibrillation Bradycardia on presentation Underlying history of hypertension Underlying history of chronic kidney disease stage III Underlying history of [id number] diabetes mellitus type 2 Underlying history of hyperlipidemia Underlying history of diverticulosis with previous history of gastrointestinal bleeding Underlying history of degenerative disc disease with chronic back pain Underlying history of benign prostatic hypertrophy At this time patient is admitted to telemetry floor Cardiology and nephrology services are following AICD placement on 04/24/[address] Esparza Status post hemodialysis on 05/01/2021 and 05/02/2021 Per cardiology cardiothoracic surgery feels the patient is too high-risk with no significant improvement with epicardial lead is placed therefore will not be a surgical candidate We will follow closely
[2021-05-10 11:55] LABS: Glucose,Whole Blood 163 mg/dL (75-99)
--- NOTE | 2021-05-10 12:57 | OP ---
OPERATIVE REPORT PREOPERATIVE DIAGNOSIS: Acute on chronic renal failure. POSTOPERATIVE DIAGNOSIS: Acute on chronic renal failure. PROCEDURE: 1. Ultrasound-guided 23 cm dialysis catheter placed, right jugular approach. 2. Removal of the temporary femoral catheter from the groin. Sedation time was 20 minutes. PROCEDURE DESCRIPTION: This patient was brought to the greenhouse laborer. Right side of the neck and chest and groins were prepped and draped in usual sterile manner, and 1% lidocaine plain was infiltrated in the neck area. Ultrasound-guided micropuncture was introduced into the right jugular vein. After that, 4-[place] dilator and sheath was advanced on top of the guidewire. After that a tunnel was created. Through the tunnel we brought a 23 cm dialysis catheter. Dilator was advanced on the top of the guidewire. The guidewire was parked in the inferior vena cava under fluoroscopic control. This patient had a pacemaker placed recently. After that we advanced the sheath on the top of the guidewire. Through the sheath a 23 cm dialysis catheter was introduced. Sheath was removed. Tip of the catheter was in the superior vena cavoatrial junction. Incision was closed with Vicryl and nylon. Right groin catheter was removed. Pressure was held. The patient tolerated the procedure well and was transferred to the room in satisfactory condition. We did do the chest x-ray. MMODL / IJN: [id number] /
--- NOTE | 2021-05-10 13:31 | P.PN ---
Subjective Progress Note Date: 05/10/21 Principal diagnosis: This is a 80-year-old male, started on dialysis for cardiorenal syndrome. He was last dialyzed yesterday. He is placed on dialysis at [facility] unit on Wednesday at 9 AM. This morning he had a permacath placed. His urine output is 800 mL for the last 24 hours. Denies any shortness of breath. He is on 40 mg twice a day of torsemide and metolazone 5 mg twice a day This has chronic related stage III with baseline creatinine of what 2. Objective - Vital Signs Vital signs: Vital Signs Temp 97.6 F 05/10/21 12:00 Pulse 58 L 05/10/21 08:30 Resp 16 05/10/21 12:00 BP 130/76 05/10/21 12:00 Pulse Ox 99 05/10/21 12:00 Intake & Output 05/09/21 05/10/21 05/10/21 18:59 06:59 18:59 Intake Total 830 525 Output Total 800 1 Balance 830 -800 524 Weight 100.5 kg Intake: IV 25 Oral 830 500 Output: Urine 800 Stool 1 Other: Voiding Method Indwelling Catheter Indwelling Catheter Indwelling Catheter # Voids 1 Awake alert oriented. HEENT exam JVP is difficult to see because of the permacath on the right side. Neck is supple no facial asymmetry Lungs are clear to auscultation good air entry bilaterally Heart sounds unremarkable for any murmur rub gallop Abdomen soft nontender Extremity exam reveals 2+ edema Neurologically awake alert oriented no asterixis - Labs CBC & Chem 7: 05/10/21 10:15 05/10/21 10:15 Labs: Abnormal Lab Results - Last 24 Hours (Table) 05/09/21 05/09/21 05/10/21 Range/Units 16:52 20:12 06:06 RBC (4.30-5.90) m/uL Hgb (13.0-17.5) gm/dL Hct (39.0-53.0) % Lymphocytes # (1.0-4.8) k/uL Sodium (137-145) mmol/L Chloride (98-107) mmol/L BUN (9-20) mg/dL Creatinine (0.66-1.25) mg/dL Glucose (74-99) mg/dL POC Glucose (mg/dL) 183 H 158 H 161 H (75-99) mg/dL Total Protein (6.3-8.2) g/dL Albumin (3.5-5.0) g/dL 05/10/21 05/10/21 05/10/21 Range/Units 10:15 10:15 11:51 RBC 3.18 L (4.30-5.90) m/uL Hgb 10.1 L (13.0-17.5) gm/dL Hct 30.9 L (39.0-53.0) % Lymphocytes # 0.8 L (1.0-4.8) k/uL Sodium 132 L (137-145) mmol/L Chloride 96 L (98-107) mmol/L BUN 96 H (9-20) mg/dL Creatinine 3.12 H (0.66-1.25) mg/dL Glucose 133 H (74-99) mg/dL POC Glucose (mg/dL) 163 H (75-99) mg/dL Total Protein 5.7 L (6.3-8.2) g/dL Albumin 3.3 L (3.5-5.0) g/dL Assessment and Plan Assessment: Impression 1. Acute kidney injury with cardiorenal syndrome started on dialysis. Last dialysis was yesterday. Made 800 mL of urine. Possibility of recovery considered. 2. 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 Urinalysis showed trace proteinuria on 2016 seen but no recent urinalysis. Ultrasound of kidneys not available. A previous ultrasound on 12/31/2015 showed right kidney to be 10.9 and left kidney 11.5, there may be some stones 3. Cardiorenal syndrome, ejection fraction is 30-35% based on echocardiogram dated 05-10 4. Infrarenal abdominal aortic and is him 4.2 cm in transverse diameter based on CTA dated 04/27/2017. Recommendation 1. Patient to be discharged on current diuretics with strict fluid control of 1200 mL. 2. He should continue his dialysis at the [facility] [place] unit on Wednesday at 9:00 as per assigned time. 3. Watch for renal recovery 4. He needs to follow up his abdominal aortic aneurysm if he has not done so.
--- NOTE | 2021-05-10 14:11 | XR ---
EXAMINATION TYPE: XR chest 1V portable DATE OF EXAM: 05/10/2021 COMPARISON: Radiograph 05/05/2021 HISTORY: Dialysis catheter TECHNIQUE: Single frontal view of the chest is obtained. FINDINGS: Right subclavian double lumen catheter with the tip at the cavoatrial junction. Left chest defibrillator with the lead tip over the cardiac silhouette. The heart is enlarged, stable. The pulmonary vasculature is within normal limits. Strandy opacity at the bilateral bases and blunting of the costophrenic angles. No pneumothorax. There are advanced degenerative changes of the right greater than left shoulder. IMPRESSION: Cardiomegaly and tiny bilateral effusions with adjacent atelectasis/airspace disease. No pneumothorax.
[2021-05-10 16:12] LABS: Glucose,Whole Blood 139 mg/dL (75-99)
[2021-05-10 20:19] LABS: Glucose,Whole Blood 144 mg/dL (75-99)
[2021-05-10] MEDS: ATORVASTATIN 20 MG TAB PO SCH (20:33)
[2021-05-10] MEDS: APIXABAN 2.5 MG TABLET PO SCH (20:34)
[2021-05-11 06:20] LABS: Glucose,Whole Blood 122 mg/dL (75-99)
[2021-05-11] MEDS: carvediloL 3.125 MG TAB PO SCH ×2 (06:35→16:34)
[2021-05-11] MEDS: HYDROcodone/APAP 7.5-325MG 1 EACH TAB PO PRN ×3 (06:35→20:52)
[2021-05-11] MEDS: INSULIN ASPART (NovoLOG) 100 UNIT/ML VIAL SQ SCH ×4 (07:11→20:51)
[2021-05-11 07:59] LABS: Basophils % (A) 1 %; Eosinophils # (A) 0.1 k/uL (0-0.7); Eosinophils % (A) 1 %; HCT 33.2 % (39.0-53.0); HGB 10.7 gm/dL (13.0-17.5); Lymphocytes % (A) 16 %; MCH 30.9 pg (25.0-35.0); MCHC 32.1 g/dL (31.0-37.0); MCV 96.1 fL (80.0-100.0); Mean Platelet Volume 9.9; Monocytes # (A) 0.6 k/uL (0-1.0); Monocytes % (A) 10 %; Neutrophils # (A) 4.3 k/uL (1.3-7.7); Neutrophils % (A) 68 %; Platelet Count 178 k/uL (150-450); RBC 3.45 m/uL (4.30-5.90); RDW 14.9 % (11.5-15.5); WBC 6.3 k/uL (3.8-10.6)
[2021-05-11 08:17] LABS: Albumin 3.4 g/dL (3.5-5.0); Calcium 9.4 mg/dL (8.4-10.2); Potassium 3.6 mmol/L (3.5-5.1); Total Bilirubin 0.7 mg/dL (0.2-1.3); Total Protein 5.9 g/dL (6.3-8.2)
--- NOTE | 2021-05-11 08:48 | P.PN ---
Subjective Progress Note Date: 05/11/21 Principal diagnosis: This is a 80-year-old male, started on dialysis for cardiorenal syndrome. He was last dialyzed day before yesterday. He continues to have good urine output yesterday he made 2101 mL urine output. He has been assigned for his outpatient dialysis at at [facility] unit on Wednesday at 9 AM. Continues to feel fairly well good appetite. Denies any shortness of breath. Blood pressure and vital signs are stable. His last chest x-ray yesterday post placement of permacath was not suggestive of pulmonary edema He is on 40 mg twice a day of torsemide and metolazone 5 mg twice a day additionally he has chronic kidney disease stage III with baseline creatinine of what 2. He is also known with atrial fibrillation diabetes hypertension with an ejection fraction of 25-30% Objective - Vital Signs Vital signs: Vital Signs Temp 97.9 F 05/11/21 04:00 Pulse 50 L 05/11/21 04:00 Resp 16 05/11/21 04:00 BP 139/73 05/11/21 04:00 Pulse Ox 99 05/11/21 04:00 Intake & Output 05/10/21 05/11/21 05/11/21 18:59 06:59 18:59 Intake Total 765 Output Total 1201 900 Balance -436 -900 Weight 100 kg Intake: IV 25 Oral 740 Output: Urine 1200 900 Stool 1 Other: Voiding Method Indwelling Catheter Indwelling Catheter Examination awake alert oriented comfortable. HEENT exam no JVP is noted on the left on the right he has dressing for his permacath No facial asymmetry Lungs are clear to auscultation good air entry bilaterally Heart sounds unremarkable for any murmur rub gallop. He is in atrial fibrillation Abdomen soft nontender Extremity exam was 2+ edema. Neurologically awake alert oriented - Labs CBC & Chem 7: 05/11/21 07:39 05/11/21 07:39 Labs: Abnormal Lab Results - Last 24 Hours (Table) 05/10/21 05/10/21 05/10/21 Range/Units 10:15 10:15 11:51 RBC 3.18 L (4.30-5.90) m/uL Hgb 10.1 L (13.0-17.5) gm/dL Hct 30.9 L (39.0-53.0) % Lymphocytes # 0.8 L (1.0-4.8) k/uL Sodium 132 L (137-145) mmol/L Chloride 96 L (98-107) mmol/L BUN 96 H (9-20) mg/dL Creatinine 3.12 H (0.66-1.25) mg/dL Glucose 133 H (74-99) mg/dL POC Glucose (mg/dL) 163 H (75-99) mg/dL Alkaline Phosphatase (38-126) U/L Total Protein 5.7 L (6.3-8.2) g/dL Albumin 3.3 L (3.5-5.0) g/dL 05/10/21 05/10/21 05/11/21 Range/Units 16:09 20:17 06:19 RBC (4.30-5.90) m/uL Hgb (13.0-17.5) gm/dL Hct (39.0-53.0) % Lymphocytes # (1.0-4.8) k/uL Sodium (137-145) mmol/L Chloride (98-107) mmol/L BUN (9-20) mg/dL Creatinine (0.66-1.25) mg/dL Glucose (74-99) mg/dL POC Glucose (mg/dL) 139 H 144 H 122 H (75-99) mg/dL Alkaline Phosphatase (38-126) U/L Total Protein (6.3-8.2) g/dL Albumin (3.5-5.0) g/dL 05/11/21 05/11/21 Range/Units 07:39 07:39 RBC 3.45 L (4.30-5.90) m/uL Hgb 10.7 L (13.0-17.5) gm/dL Hct 33.2 L (39.0-53.0) % Lymphocytes # (1.0-4.8) k/uL Sodium 133 L (137-145) mmol/L Chloride 95 L (98-107) mmol/L BUN 108 H* (9-20) mg/dL Creatinine 3.53 H (0.66-1.25) mg/dL Glucose 122 H (74-99) mg/dL POC Glucose (mg/dL) (75-99) mg/dL Alkaline Phosphatase 137 H (38-126) U/L Total Protein 5.9 L (6.3-8.2) g/dL Albumin 3.4 L (3.5-5.0) g/dL Assessment and Plan Assessment: Impression 1. Acute kidney injury with cardiorenal syndrome started on dialysis. Last dialysis was the day before yesterday. Current urine output is 2102 mL. Possibility of recovery considered. But currently there is no evidence of recovery although his urine output is excellent his creatinine continues to go up slowly. 2. 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 Urinalysis showed trace proteinuria on 2016 seen but no recent urinalysis. Ultrasound of kidneys not available. A previous ultrasound on 12/31/2015 showed right kidney to be 10.9 and left kidney 11.5, there may be some stones 3. Cardiorenal syndrome, ejection fraction is 30-35% based on echocardiogram dated 05-10 4. Infrarenal abdominal aortic and is him 4.2 cm in transverse diameter based on CTA dated 04/27/2017. 5. Atrial fibrillation, controlled ventricular response Recommendation 1. If he is not discharged we'll dialyze him tomorrow 2. Entertained current diuretics with strict fluid control of 1200 mL. 2. If he is discharged, He should continue his dialysis at the [facility] unit on Wednesday at 9:00 as per assigned time. 3. Watch for renal recovery 4. He needs to follow up his abdominal aortic aneurysm if he has not done so.
[2021-05-11] MEDS: MAGNESIUM OXIDE 400 MG TAB PO SCH ×2 (09:17→20:48)
[2021-05-11] MEDS: CYANOCOBALAMIN 500 MCG TAB PO SCH (09:17)
[2021-05-11] MEDS: PANTOPRAZOLE 40 MG TABLET PO SCH (09:17)
[2021-05-11] MEDS: DOCUSATE 100 MG CAP PO SCH ×2 (09:17→20:48)
[2021-05-11] MEDS: CHOLECALCIFEROL 25 MCG (1000 IU) TABLET PO SCH ×2 (09:17→20:49)
[2021-05-11] MEDS: diphenhydrAMINE 25 MG CAP PO SCH ×2 (09:17→20:48)
[2021-05-11] MEDS: glipiZIDE 5 MG TAB PO SCH ×2 (09:17→20:48)
[2021-05-11] MEDS: hydrALAZINE HCL 25 MG TAB PO SCH ×3 (09:17→20:51)
[2021-05-11] MEDS: APIXABAN 2.5 MG TABLET PO SCH ×2 (09:17→20:48)
[2021-05-11] MEDS: SILDENAFIL 20 MG TAB PO SCH ×2 (09:18→20:53)
[2021-05-11] MEDS: bisacodyL 5 MG TABLET.DR PO SCH ×2 (09:18→20:48)
[2021-05-11] MEDS: metOLazone 2.5 MG TAB PO SCH ×2 (09:18→20:47)
[2021-05-11] MEDS: TORSEMIDE 20 MG TAB PO SCH ×2 (09:18→20:47)
--- NOTE | 2021-05-11 10:13 | P.PN ---
Subjective Progress Note Date: 05/11/21 Berny Linares, is an 80 year old male who presented to [facility] emergency room with a chief complaint of worsening shortness of breath and upper chest pain, patient stated that his symptoms started 1 day prior to presentation and has been worsening, he was having difficulty breathing when he was trying to lie down, he was also having worsening lower extremity edema, on the day of presentation patient started having upper chest pain radiating to the back of his neck and to both shoulders, at that point he decided to come to emergency room. He was evaluated in the emergency room vital examination on presentation revealed a temperature of 98.1 pulse 49 respiration 20 blood pressure 118/62 pulse ox 92% on room air Laboratory data reveals a white blood count of 4.4 hemoglobin 12.4 platelet count 108 sodium 134 potassium 4.2 chloride 95 CO2 31 BUN 61 creatinine 2.33 troponin level was elevated at 0.183. Review of the chart revealed creatinine 2.2 on 10/16/2020 and 1.8 on 06/20/2020. BNP was 16,400 Testing in the emergency room revealed, chest x-ray done in the emergency room revealed evidence of congestive heart failure blunting of the bilateral costophrenic angles suggestive of mild bilateral pleural effusion Patient was admitted to medical floor for further evaluation and treatment, he was started on IV Lasix, cardiology consultation was requested. Past medical history is significant for history of chronic systolic congestive heart failure echocardiogram done in December 2018 revealed ejection fraction of 35-40%, patient also has a known history of atrial fibrillation maintained on coagulation with Eliquis, history of diffuse coronary artery disease patient had cardiac catheterization in 2016 at that time medication treatment was advised. History of AAA for which patient underwent stent grafting, patient also has a known history of hypertension, [id number] diabetes mellitus, benign prostatic hypertrophy, chronic kidney disease stage III, diverticulosis was previous history of lower gastrointestinal bleeding, degenerative disc disease with history of back surgery. Patient stated that he used to smoke he quit many years ago. On 04/21/2021 Patient was seen and examined on the medical floor, he is alert and oriented x 3 in no distress, patient is complaining of shortness of breath with activity otherwise he denies any complaints there is no fever or chills no headache or dizziness no chest pain no cough no nausea or vomiting no abdominal pain no diarrhea no blood in the stools no burning with urination no frequency or urgency and no hematuria, there is no weakness or numbness in any of the extremities no change in vision speech or gait. On 04/22/2021 Patient was seen and examined on the medical floor, he is alert and oriented x 3 in no distress, he denies any complaints there is no fever or chills no headache or dizziness no chest pain no shortness of breath no palpitation no cough no nausea or vomiting no abdominal pain no diarrhea no blood in the stools no burning with urination no frequency or urgency and no hematuria, there is no weakness or numbness in any of the extremities no change in vision speech or gait. Patient is comfortable while lying in bed he has significant shortness of breath with any activity On 04/23/2021 patient is alert and oriented 3 resting comfortably in bed. Tentative plans for AICD placement tomorrow per Dr. Jara. Patient maintained on dobutamine drip. Patient remains on IV Lasix. At this time patient denies chest pain or shortness of breath. Patient denies nausea vomiting or diarrhea. Patient denies any urinary burning or frequency. On 04/24/2021 patient is alert and oriented 3 in no distress, he denies any chest pain or palpitation no shortness of breath at rest he has shortness of breath with any activity. Tentative plans for AICD placement tomorrow per Dr. Jara. Patient maintained on dobutamine drip. Patient remains on IV Lasix. At this time patient denies chest pain or shortness of breath. Patient denies nausea vomiting or diarrhea. Patient denies any urinary burning or frequency. On 04/25/2021 patient is alert and oriented 3. Status post BIV ICD placement Dr. Esparza. Postop day 1. Patient remains on Lasix and dobutamine drip. Patient still having +2 pitting edema. Cardiology and nephrology services are following. Cardiothoracic surgery consulted for requirement of epicardial lead placement per Dr. Jara. At this time patient denies any chest pain or shortness of breath. Patient denies nausea vomiting or diarrhea. Patient den ies any urinary burning or frequency On 04/26/2021 Patient was seen and examined on the telemetry floor, he is alert and oriented x 3 in no distress, he is complaining of shortness of breath with any activity otherwise he denies any complaints there is no fever or chills no headache or dizziness no chest pain no palpitation no cough no nausea or vomiting no abdominal pain no diarrhea no blood in the stools no burning with urination no frequency or urgency and no hematuria, there is no weakness or numbness in any of the extremities no change in vision speech or gait. On 04/27/2021 patient alert and oriented 3. Patient remains on dobutamine and Lasix drips. Nephrology and cardiology services are following. Per cardiothoracic epicardial lead placement will be followed up outpatient. At this time patient is complaining of bilateral lower extremity pain. Edematous noted to bilateral legs. Patient denies any chest pain. Patient denies nausea vomiting or diarrhea. Patient denies any urinary burning or frequency. On 04/28/2021 Patient was seen and examined on the medical floor, he is alert and oriented x 3 in no distress, he is maintained on IV Lasix drip and dobutamine drip , patient is complaining of left foot pain otherwise he denies any complaints there is no fever or chills no headache or dizziness no chest pain no shortness of breath no palpitation no cough no nausea or vomiting no abdominal pain no diarrhea no blood in the stools no burning with urination no frequency or urgency and no hematuria, there is no weakness or numbness in any of the extremities no change in vision speech or gait. On 04/29/2021 Patient was seen and examined on the medical floor, he is alert and oriented x 3 in no distress, he is complaining of back and lower extremity pain otherwise he denies any complaints there is no fever or chills no headache or dizziness no chest pain no shortness of breath no palpitation no cough no nausea or vomiting no abdominal pain no diarrhea no blood in the stools no burning with urination no frequency or urgency and no hematuria, there is no weakness or numbness in any of the extremities no change in vision speech or gait. On 04/30/2021 patient is alert and oriented 3. Patient appears to be having increased shortness of breath today. Patient remains on Lasix and dobutamine drip. Creatinine 3.47 and bun 114. Discussed case with cardiology team. Cardiology team spoke to cardiothoracic team and nephrology team tentative plan for patient to receive hemodialysis followed by possible surgical intervention for epicardial lead placement with Dr. Aleman. On 05/01/2021 patient was seen and examined on the telemetry floor, he is alert and oriented 3 in no apparent distress, he just had a dialysis catheter placed, he is complaining of back pain and complaining of shortness of breath, otherwise he denies any complaints there is no fever or chills no headache or dizziness no chest pain no cough no nausea or vomiting no abdominal pain no diarrhea no blood in the stools no burning with urination no frequency or urgency and no hematuria On 05/02/2021 patient alert and oriented 3. Status post hemodialysis yesterday 05/01/2021. Patient appears short of breath today. Patient does have good urine output. Creatinine 2.74 and bun 89. Patient denies chest pain. Patient denies nausea vomiting or diarrhea. Patient denies any urinary burning or frequency On 05/03/2021 Patient was seen and examined on the medical floor, he is alert and oriented x 3 in no distress, shortness of breath is improving gradually otherwise he denies any complaints there is no fever or chills no headache or dizziness no chest pain no palpitation no cough no nausea or vomiting no abdominal pain no diarrhea no blood in the stools no burning with urination no frequency or urgency and no hematuria, there is no weakness or numbness in any of the extremities no change in vision speech or gait. On 05/04/2021 patient is alert and oriented 3. Patient maintained on dobutamine and Lasix drip. Creatinine 2.56 today edema is improving. Status post 2 treatments of hemodialysis at this time patient denies chest pain or shortness of breath. Patient denies nausea vomiting or diarrhea. Patient denies any urinary burning or frequency on 05/05/2021 Patient was seen and examined on the medical floor, he is alert and oriented x 3 in no distress, he denies any complaints there is no fever or chills no headache or dizziness no chest pain no shortness of breath no palpitation no cough no nausea or vomiting no abdominal pain no diarrhea no blood in the stools no burning with urination no frequency or urgency and no hematuria, there is no weakness or numbness in any of the extremities no change in vision speech or gait. Patient received hemodialysis over the weekend, today he had ultrafiltration treatment only, he is still maintained on Lasix drip, cardiology and nephrology are following, clinically improving gradually, will follow. On 05/06/2021 Patient was seen and examined on the medical floor, he is alert and oriented x 3 in no distress, he denies any complaints there is no fever or chills no headache or dizziness no chest pain no shortness of breath no palpitation no cough no nausea or vomiting no abdominal pain no diarrhea no blood in the stools no burning with urination no frequency or urgency and no hematuria, there is no weakness or numbness in any of the extremities no change in vision speech or gait. Patient is receiving ultrafiltration again today, will follow in a.m. 05/07/2021 patient alert and oriented 3 currently sitting up in chair. Patient has been started on diuretics per nephrology services. Patient denies chest pain or shortness breath. Patient denies nausea vomiting or diarrhea. Patient denies any urinary burning or frequency. Patient did receive ultrafiltration yesterday. Possible plans for today. On 05/08/2021 Patient was seen and examined on the medical floor, he is alert and oriented x 3 in no distress, he is still having shortness of breath otherwise he denies any complaints there is no fever or chills no headache or dizziness no chest pain no palpitation no cough no nausea or vomiting no abdominal pain no diarrhea no blood in the stools no burning with urination no frequency or urgency and no hematuria, there is no weakness or numbness in any of the extremities no change in vision speech or gait. He is still having significant lower extremity edema On 05/09/2021 patient alert and oriented 3. Patient currently sitting up at site of bed eating breakfast. Patient is having improvement with shortness of breath and edema. Did discuss case with nephrology services would like patient to stay over the weekend to assess if patient will need hemodialysis upon discharge. Discharge planning is in place for possible ECF placement. At this time patient denies chest pain or shortness breath. Patient denies nausea vomiting or diarrhea. Patient denies any urinary burning or frequency. Creatinine 2.70 bun 78. Patient does have adequate urine output and [address]ai [address]. On 05/10/2021 Patient was seen and examined on the medical floor, he is alert and oriented x 3 in no distress, he is complaining of shortness of breath with any activity otherwise he denies any complaints there is no fever or chills no headache or dizziness no chest pain no palpitation no cough no nausea or vomiting no abdominal pain no diarrhea no blood in the stools no burning with urination no frequency or urgency and no hematuria, there is no weakness or numbness in any of the extremities no change in vision speech or gait. He underwent dialysis catheter placement today. On 05/11/2021 patient alert and oriented 3 currently sitting up in chair. Status post dialysis catheter placement. Creatinine 3.53 and bun 108. Patient to receive hemodialysis tomorrow morning possible discharge after. Plan is for patient to be DC'd home with home healthcare. At this time patient denies chest pain or shortness breath. Patient denies nausea vomiting or diarrhea. Patient denies any urinary burning or frequency Objective - Vital Signs Vital signs: Vital Signs Temp 98 F 05/11/21 09:15 Pulse 56 L 05/11/21 09:15 Resp 18 05/11/21 09:15 BP 131/73 05/11/21 09:15 Pulse Ox 99 05/11/21 09:15 Intake & Output 05/10/21 05/11/21 05/11/21 18:59 06:59 18:59 Intake Total 765 Output Total 1201 900 Balance -436 -900 Weight 100 kg Intake: IV 25 Oral 740 Output: Urine 1200 900 Stool 1 Other: Voiding Method Indwelling Catheter Indwelling Catheter # Bowel Movements 3 - Exam In general patient is alert and oriented x 3 in no distress HEENT head normocephalic and atraumatic Neck is supple no JVD no goiter no lymphadenopathy no carotid bruit Chest examination few scattered rhonchi no wheezing Cardiac exam reveals irregular heart sounds S1 and S2 no gallops no murmurs Abdomen is soft nontender no organomegaly with normal bowel sounds Extremity exam reveals no edema no cyanosis or clubbing Neurological examination reveals no gross focal deficits - Labs CBC & Chem 7: 05/11/21 07:39 05/11/21 07:39 Labs: Abnormal Lab Results - Last 24 Hours (Table) 05/10/21 05/10/21 05/10/21 Range/Units 10:15 10:15 11:51 RBC 3.18 L (4.30-5.90) m/uL Hgb 10.1 L (13.0-17.5) gm/dL Hct 30.9 L (39.0-53.0) % Lymphocytes # 0.8 L (1.0-4.8) k/uL Sodium 132 L (137-145) mmol/L Chloride 96 L (98-107) mmol/L BUN 96 H (9-20) mg/dL Creatinine 3.12 H (0.66-1.25) mg/dL Glucose 133 H (74-99) mg/dL POC Glucose (mg/dL) 163 H (75-99) mg/dL Alkaline Phosphatase (38-126) U/L Total Protein 5.7 L (6.3-8.2) g/dL Albumin 3.3 L (3.5-5.0) g/dL 05/10/21 05/10/21 05/11/21 Range/Units 16:09 20:17 06:19 RBC (4.30-5.90) m/uL Hgb (13.0-17.5) gm/dL Hct (39.0-53.0) % Lymphocytes # (1.0-4.8) k/uL Sodium (137-145) mmol/L Chloride (98-107) mmol/L BUN (9-20) mg/dL Creatinine (0.66-1.25) mg/dL Glucose (74-99) mg/dL POC Glucose (mg/dL) 139 H 144 H 122 H (75-99) mg/dL Alkaline Phosphatase (38-126) U/L Total Protein (6.3-8.2) g/dL Albumin (3.5-5.0) g/dL 05/11/21 05/11/21 Range/Units 07:39 07:39 RBC 3.45 L (4.30-5.90) m/uL Hgb 10.7 L (13.0-17.5) gm/dL Hct 33.2 L (39.0-53.0) % Lymphocytes # (1.0-4.8) k/uL Sodium 133 L (137-145) mmol/L Chloride 95 L (98-107) mmol/L BUN 108 H* (9-20) mg/dL Creatinine 3.53 H (0.66-1.25) mg/dL Glucose 122 H (74-99) mg/dL POC Glucose (mg/dL) (75-99) mg/dL Alkaline Phosphatase 137 H (38-126) U/L Total Protein 5.9 L (6.3-8.2) g/dL Albumin 3.4 L (3.5-5.0) g/dL Assessment and Plan Plan: Acute on chronic systolic congestive heart failure exacerbation Underlying history of coronary artery disease Acute kidney injury. Status post hemodialysis on 05/01/2021 Underlying history of atrial fibrillation Bradycardia on presentation Underlying history of hypertension Underlying history of chronic kidney disease stage III Underlying history of [id number] diabetes mellitus type 2 Underlying history of hyperlipidemia Underlying history of diverticulosis with previous history of gastrointestinal bleeding Underlying history of degenerative disc disease with chronic back pain Underlying history of benign prostatic hypertrophy At this time patient is admitted to telemetry floor Cardiology and nephrology services are following AICD placement on 04/24/[address] Esparza Status post hemodialysis on 05/01/2021 and 05/02/2021 Per cardiology cardiothoracic surgery feels the patient is too high-risk with no significant improvement with epicardial lead is placed therefore will not be a surgical candidate Status post hemodialysis catheter placement on 05/10/2021 Patient to receive hemodialysis on 05/12/2021, outpatient dialysis to be arranged per nephrology recommendation We will follow closely
[2021-05-11 11:58] LABS: Glucose,Whole Blood 210 mg/dL (75-99)
[2021-05-11 16:25] LABS: Glucose,Whole Blood 117 mg/dL (75-99)
[2021-05-11 20:37] LABS: Glucose,Whole Blood 131 mg/dL (75-99)
[2021-05-11] MEDS: ATORVASTATIN 20 MG TAB PO SCH (20:48)
[2021-05-12 06:49] LABS: Glucose,Whole Blood 161 mg/dL (75-99)
[2021-05-12] MEDS: carvediloL 3.125 MG TAB PO SCH ×2 (06:52→17:14)
[2021-05-12] MEDS: INSULIN ASPART (NovoLOG) 100 UNIT/ML VIAL SQ SCH ×3 (06:53→17:14)
[2021-05-12 07:15] LABS: Basophils % (A) 1 %; Eosinophils # (A) 0.1 k/uL (0-0.7); Eosinophils % (A) 2 %; HCT 32.5 % (39.0-53.0); HGB 10.8 gm/dL (13.0-17.5); Lymphocytes # (A) 0.8 k/uL (1.0-4.8); Lymphocytes % (A) 12 %; MCH 31.5 pg (25.0-35.0); MCHC 33.2 g/dL (31.0-37.0); Mean Platelet Volume 8.3; Monocytes # (A) 0.6 k/uL (0-1.0); Monocytes % (A) 10 %; Neutrophils # (A) 4.4 k/uL (1.3-7.7); Neutrophils % (A) 72 %; Platelet Count 183 k/uL (150-450); RBC 3.42 m/uL (4.30-5.90); RDW 15.3 % (11.5-15.5); WBC 6.1 k/uL (3.8-10.6)
[2021-05-12 07:33] LABS: Albumin 3.4 g/dL (3.5-5.0); Calcium 9.5 mg/dL (8.4-10.2); Potassium 3.2 mmol/L (3.5-5.1); Total Bilirubin 0.8 mg/dL (0.2-1.3); Total Protein 5.7 g/dL (6.3-8.2)
[2021-05-12] MEDS: LACTATED RINGERS 1,000 ML IV SCH ×2 (07:46→14:16)
--- NOTE | 2021-05-12 09:05 | IR ---
EXAMINATION TYPE: IR cvc insert central tunneled DATE OF EXAM: 05/10/2021 COMPARISON: NONE HISTORY: Fluoroscopy time. Fluoroscopy was provided to the referring clinician.
[2021-05-12] MEDS ORDERED: POTASSIUM CHLORIDE ER 20 MEQ TAB.ER PO STA (09:11)
[2021-05-12] MEDS: glipiZIDE 5 MG TAB PO SCH ×2 (09:15→18:24)
[2021-05-12] MEDS: CHOLECALCIFEROL 25 MCG (1000 IU) TABLET PO SCH (09:15)
[2021-05-12] MEDS: hydrALAZINE HCL 25 MG TAB PO SCH ×3 (09:15→18:25)
[2021-05-12] MEDS: MAGNESIUM OXIDE 400 MG TAB PO SCH (09:15)
[2021-05-12] MEDS: TORSEMIDE 20 MG TAB PO SCH ×2 (09:15→18:24)
[2021-05-12] MEDS: metOLazone 2.5 MG TAB PO SCH (09:16)
[2021-05-12] MEDS: bisacodyL 5 MG TABLET.DR PO SCH (09:16)
[2021-05-12] MEDS: APIXABAN 2.5 MG TABLET PO SCH ×2 (09:16→18:24)
[2021-05-12] MEDS: SILDENAFIL 20 MG TAB PO SCH (09:16)
[2021-05-12] MEDS: DOCUSATE 100 MG CAP PO SCH (09:16)
[2021-05-12] MEDS: CYANOCOBALAMIN 500 MCG TAB PO SCH (09:16)
[2021-05-12] MEDS: diphenhydrAMINE 25 MG CAP PO SCH (09:16)
--- NOTE | 2021-05-12 09:16 | P.PN ---
Subjective Patient is seen in follow-up for acute kidney injury on chronic kidney disease. Currently hemodialysis dependent. Maintained on oral Demadex and metolazone. Nonoliguric. Wants to go home. Vital signs are stable. General: The patient appeared well nourished and normally developed. HEENT: Head exam is unremarkable. Neck is without jugular venous distension. LUNGS: Breath sounds decreased. HEART: Rate and Rhythm are regular. ABDOMEN: Soft, no distention. EXTREMITITES: 1+ edema. Objective - Vital Signs Vital signs: Vital Signs Temp 98.0 F 05/12/21 04:18 Pulse 70 05/12/21 04:18 Resp 16 05/12/21 04:18 BP 122/79 05/12/21 04:18 Pulse Ox 96 05/12/21 07:52 Intake & Output 05/11/21 05/12/21 05/12/21 18:59 06:59 18:59 Intake Total 1440 Output Total 1401 1000 Balance 39 -1000 Weight 90.6 kg Intake: Oral 1440 Output: Urine 1400 1000 Stool 1 Other: Voiding Method Indwelling Catheter Indwelling Catheter # Bowel Movements 3 1 - Labs CBC & Chem 7: 05/12/21 06:24 05/12/21 06:24 Labs: Abnormal Lab Results - Last 24 Hours (Table) 05/11/21 05/11/21 05/11/21 Range/Units 11:56 16:20 20:14 RBC (4.30-5.90) m/uL Hgb (13.0-17.5) gm/dL Hct (39.0-53.0) % Lymphocytes # (1.0-4.8) k/uL Sodium (137-145) mmol/L Potassium (3.5-5.1) mmol/L Chloride (98-107) mmol/L BUN (9-20) mg/dL Creatinine (0.66-1.25) mg/dL Glucose (74-99) mg/dL POC Glucose (mg/dL) 210 H 117 H 131 H (75-99) mg/dL Alkaline Phosphatase (38-126) U/L Total Protein (6.3-8.2) g/dL Albumin (3.5-5.0) g/dL 05/12/21 05/12/21 05/12/21 Range/Units 06:18 06:24 06:24 RBC 3.42 L (4.30-5.90) m/uL Hgb 10.8 L (13.0-17.5) gm/dL Hct 32.5 L (39.0-53.0) % Lymphocytes # 0.8 L (1.0-4.8) k/uL Sodium 134 L (137-145) mmol/L Potassium 3.2 L (3.5-5.1) mmol/L Chloride 93 L (98-107) mmol/L BUN 116 H* (9-20) mg/dL Creatinine 3.41 H (0.66-1.25) mg/dL Glucose 148 H (74-99) mg/dL POC Glucose (mg/dL) 161 H (75-99) mg/dL Alkaline Phosphatase 129 H (38-126) U/L Total Protein 5.7 L (6.3-8.2) g/dL Albumin 3.4 L (3.5-5.0) g/dL Assessment and Plan Plan: Assessment: 1. Acute kidney injury secondary to ATN secondary to cardiorenal syndrome. Currently hemodialysis dependent. 2. Acute on chronic systolic CHF with ejection fraction of 30-35% with mild to moderate mitral regurgitation and severe pulmonary hypertension. 3. Volume overload. Improving with diuresis and ultrafiltration. 4. Diabetes mellitus. 5. Chronic kidney disease stage IIIb with baseline creatinine near 2 secondary to nephrosclerosis. 6. Bradycardia. Status post biventricular ICD placement on 04/24/2021. 7. Hypervolemic hyponatremia. Stable. 8. Hypokalemia from diuresis. Plan: Maintain Demadex 40 mg twice daily. Maintain metolazone. Low-salt diet. 1200 mL fluid restriction. Continue to monitor renal function and urine output. Plan for hemodialysis today. Monitor for renal recovery outpatient. Replace potassium. Outpatient dialysis being set up by case management.
[2021-05-12] MEDS: PANTOPRAZOLE 40 MG TABLET PO SCH (09:19)
[2021-05-12 11:36] LABS: Glucose,Whole Blood 254 mg/dL (75-99)
[2021-05-12] MEDS: HYDROcodone/APAP 7.5-325MG 1 EACH TAB PO PRN (13:21)
[2021-05-12 14:03] VITALS: RESP 18
[2021-05-12 15:49] VITALS: BP 130/58; PULSE 69; TEMP 97.3
[2021-05-12 16:41] LABS: Glucose,Whole Blood 202 mg/dL (75-99)
--- NOTE | 2021-05-12 17:13 | P.DS ---
Providers Date of admission: 04/20/21 02:04 Expected date of discharge: 05/12/21 Attending physician: Shilo Kebede Consults: 04/20/21 02:03 Consult Physician Routine Consulting Provider: Javier Oakley Consult Reason/Comments: elevated troponin. CHF exacerbation Do you want consulting provider notified?: Yes Consult Physician Routine Consulting Provider: Hien Boston Consult Reason/Comments: Acute on chronic renal failure Do you want consulting provider notified?: Yes 04/25/21 09:38 Consult Physician Routine Consulting Provider: Reymundo Aleman Consult Reason/Comments: needs epicardial lead Do you want consulting provider notified?: Yes 04/30/21 10:47 Consult Physician Routine Consulting Provider: Nikita Grayson Consult Reason/Comments: Temp dialysis cath Do you want consulting provider notified?: Yes Primary care physician: Kelly Rai Hospital Course: Diagnosis on discharge: Acute on chronic systolic congestive heart failure exacerbation Underlying history of coronary artery disease Acute kidney injury. Status post hemodialysis on 05/01/2021 patient will need to continue hemodialysis after discharge Underlying history of atrial fibrillation Bradycardia on presentation Underlying history of hypertension Underlying history of chronic kidney disease stage III Underlying history of [id number] diabetes mellitus type 2 Underlying history of hyperlipidemia Underlying history of diverticulosis with previous history of gastrointestinal bleeding Underlying history of degenerative disc disease with chronic back pain Underlying history of benign prostatic hypertrophy Hospital course: Berny Linares, is an 80 year old male who presented to [facility] emergency room with a chief complaint of worsening shortness of breath and upper chest pain, patient stated that his symptoms started 1 day prior to presentation and has been worsening, he was having difficulty breathing when he was trying to lie down, he was also having worsening lower extremity edema, on the day of presentation patient started having upper chest pain radiating to the back of his neck and to both shoulders, at that point he decided to come to emergency room. He was evaluated in the emergency room vital examination on presentation revealed a temperature of 98.1 pulse 49 respiration 20 blood pressure 118/62 pulse ox 92% on room air Laboratory data reveals a white blood count of 4.4 hemoglobin 12.4 platelet count 108 sodium 134 potassium 4.2 chloride 95 CO2 31 BUN 61 creatinine 2.33 troponin level was elevated at 0.183. Review of the chart revealed creatinine 2.2 on 10/16/2020 and 1.8 on 06/20/2020. BNP was 16,400 Testing in the emergency room revealed, chest x-ray done in the emergency room revealed evidence of congestive heart failure blunting of the bilateral costophrenic angles suggestive of mild bilateral pleural effusion Patient was admitted to medical floor for further evaluation and treatment, he was started on IV Lasix, cardiology consultation was requested. Past medical history is significant for history of chronic systolic congestive heart failure echocardiogram done in December 2018 revealed ejection fraction of 35-40%, patient also has a known history of atrial fibrillation maintained on coagulation with Eliquis, history of diffuse coronary artery disease patient had cardiac catheterization in 2015 at that time medication treatment was advised. History of AAA for which patient underwent stent grafting, patient also has a known history of hypertension, [id number] diabetes mellitus, benign prostatic hypertrophy, chronic kidney disease stage III, diverticulosis was previous history of lower gastrointestinal bleeding, degenerative disc disease with history of back surgery. Patient stated that he used to smoke he quit many years ago. On 04/21/2021 Patient was seen and examined on the medical floor, he is alert and oriented x 3 in no distress, patient is complaining of shortness of breath with activity otherwise he denies any complaints there is no fever or chills no headache or dizziness no chest pain no cough no nausea or vomiting no abdominal pain no diarrhea no blood in the stools no burning with urination no frequency or urgency and no hematuria, there is no weakness or numbness in any of the extremities no change in vision speech or gait. On 04/22/2021 Patient was seen and examined on the medical floor, he is alert and oriented x 3 in no distress, he denies any complaints there is no fever or chills no headache or dizziness no chest pain no shortness of breath no palpitation no cough no nausea or vomiting no abdominal pain no diarrhea no blood in the stools no burning with urination no frequency or urgency and no hematuria, there is no weakness or numbness in any of the extremities no change in vision speech or gait. Patient is comfortable while lying in bed he has significant shortness of breath with any activity On 04/23/2021 patient is alert and oriented 3 resting comfortably in bed. Tentative plans for AICD placement tomorrow per Dr. Jara. Patient maintained on dobutamine drip. Patient remains on IV Lasix. At this time patient denies chest pain or shortness of breath. Patient denies nausea vomiting or diarrhea. Patient denies any urinary burning or frequency. On 04/24/2021 patient is alert and oriented 3 in no distress, he denies any chest pain or palpitation no shortness of breath at rest he has shortness of breath with any activity. Tentative plans for AICD placement tomorrow per Dr. Jara. Patient maintained on dobutamine drip. Patient remains on IV Lasix. At this time patient denies chest pain or shortness of breath. Patient denies nausea vomiting or diarrhea. Patient denies any urinary burning or frequency. On 04/25/2021 patient is alert and oriented 3. Status post BIV ICD placement Dr. Esparza. Postop day 1. Patient remains on Lasix and dobutamine drip. Patient still having +2 pitting edema. Cardiology and nephrology services are following. Cardiothoracic surgery consulted for requirement of epicardial lead placement per Dr. Jara. At this time patient denies any chest pain or shortness of breath. Patient denies nausea vomiting or diarrhea. Patient denies any urinary burning or frequency On 04/26/2021 Patient was seen and examined on the telemetry floor, he is alert and oriented x 3 in no distress, he is complaining of shortness of breath with any activity otherwise he denies any complaints there is no fever or chills no headache or dizziness no chest pain no palpitation no cough no nausea or vomiting no abdominal pain no diarrhea no blood in the stools no burning with urination no frequency or urgency and no hematuria, there is no weakness or numbness in any of the extremities no change in vision speech or gait. On 04/27/2021 patient alert and oriented 3. Patient remains on dobutamine and Lasix drips. Nephrology and cardiology services are following. Per cardiothoracic epicardial lead placement will be followed up outpatient. At this time patient is complaining of bilateral lower extremity pain. Edematous noted to bilateral legs. Patient denies any chest pain. Patient denies nausea vomiting or diarrhea. Patient denies any urinary burning or frequency. On 04/28/2021 Patient was seen and examined on the medical floor, he is alert and oriented x 3 in no distress, he is maintained on IV Lasix drip and dobutamine drip , patient is complaining of left foot pain otherwise he denies any complaints there is no fever or chills no headache or dizziness no chest pain no shortness of breath no palpitation no cough no nausea or vomiting no abdominal pain no diarrhea no blood in the stools no burning with urination no frequency or urgency and no hematuria, there is no weakness or numbness in any of the extremities no change in vision speech or gait. On 04/29/2021 Patient was seen and examined on the medical floor, he is alert and oriented x 3 in no distress, he is complaining of back and lower extremity pain otherwise he denies any complaints there is no fever or chills no headache or dizziness no chest pain no shortness of breath no palpitation no cough no nausea or vomiting no abdominal pain no diarrhea no blood in the stools no burning with urination no frequency or urgency and no hematuria, there is no weakness or numbness in any of the extremities no change in vision speech or gait. On 04/30/2021 patient is alert and oriented 3. Patient appears to be having increased shortness of breath today. Patient remains on Lasix and dobutamine drip. Creatinine 3.47 and bun 114. Discussed case with cardiology team. Cardiology team spoke to cardiothoracic team and nephrology team tentative plan for patient to receive hemodialysis followed by possible surgical intervention for epicardial lead placement with Dr. Aleman. On 05/01/2021 patient was seen and examined on the telemetry floor, he is alert and oriented 3 in no apparent distress, he just had a dialysis catheter placed, he is complaining of back pain and complaining of shortness of breath, otherwise he denies any complaints there is no fever or chills no headache or dizziness no chest pain no cough no nausea or vomiting no abdominal pain no diarrhea no blood in the stools no burning with urination no frequency or urgency and no hematuria On 05/02/2021 patient alert and oriented 3. Status post hemodialysis yesterday 05/01/2021. Patient appears short of breath today. Patient does have good urine output. Creatinine 2.74 and bun 89. Patient denies chest pain. Patient denies nausea vomiting or diarrhea. Patient denies any urinary burning or frequency On 05/03/2021 Patient was seen and examined on the medical floor, he is alert and oriented x 3 in no distress, shortness of breath is improving gradually otherwise he denies any complaints there is no fever or chills no headache or dizziness no chest pain no palpitation no cough no nausea or vomiting no abdominal pain no diarrhea no blood in the stools no burning with urination no frequency or urgency and no hematuria, there is no weakness or numbness in any of the extremities no change in vision speech or gait. On 05/04/2021 patient is alert and oriented 3. Patient maintained on dobutamine and Lasix drip. Creatinine 2.56 today edema is improving. Status post 2 treatments of hemodialysis at this time patient denies chest pain or shortness of breath. Patient denies nausea vomiting or diarrhea. Patient denies any urinary burning or frequency on 05/05/2021 Patient was seen and examined on the medical floor, he is alert and oriented x 3 in no distress, he denies any complaints there is no fever or chills no headache or dizziness no chest pain no shortness of breath no palpitation no cough no nausea or vomiting no abdominal pain no diarrhea no blood in the stools no burning with urination no frequency or urgency and no hematuria, there is no weakness or numbness in any of the extremities no change in vision speech or gait. Patient received hemodialysis over the weekend, today he had ultrafiltration treatment only, he is still maintained on Lasix drip, cardiology and nephrology are following, clinically improving gradually, will follow. On 05/06/2021 Patient was seen and examined on the medical floor, he is alert and oriented x 3 in no distress, he denies any complaints there is no fever or chills no headache or dizziness no chest pain no shortness of breath no palpitation no cough no nausea or vomiting no abdominal pain no diarrhea no blood in the stools no burning with urination no frequency or urgency and no hematuria, there is no weakness or numbness in any of the extremities no change in vision speech or gait. Patient is receiving ultrafiltration again today, will follow in a.m. 05/07/2021 patient alert and oriented 3 currently sitting up in chair. Patient has been started on diuretics per nephrology services. Patient denies chest pain or shortness breath. Patient denies nausea vomiting or diarrhea. Patient denies any urinary burning or frequency. Patient did receive ultrafiltration yesterday. Possible plans for today. On 05/08/2021 Patient was seen and examined on the medical floor, he is alert and oriented x 3 in no distress, he is still having shortness of breath othe rwise he denies any complaints there is no fever or chills no headache or dizziness no chest pain no palpitation no cough no nausea or vomiting no abdominal pain no diarrhea no blood in the stools no burning with urination no frequency or urgency and no hematuria, there is no weakness or numbness in any of the extremities no change in vision speech or gait. He is still having significant lower extremity edema On 05/09/2021 patient alert and oriented 3. Patient currently sitting up at site of bed eating breakfast. Patient is having improvement with shortness of breath and edema. Did discuss case with nephrology services would like patient to stay over the weekend to assess if patient will need hemodialysis upon discharge. Discharge planning is in place for possible ECF placement. At this time patient denies chest pain or shortness breath. Patient denies nausea vomiting or diarrhea. Patient denies any urinary burning or frequency. Creatinine 2.70 bun 78. Patient does have adequate urine output and Lai catheter. On 05/10/2021 Patient was seen and examined on the medical floor, he is alert and oriented x 3 in no distress, he is complaining of shortness of breath with any activity otherwise he denies any complaints there is no fever or chills no headache or dizziness no chest pain no palpitation no cough no nausea or vomiting no abdominal pain no diarrhea no blood in the stools no burning with urination no frequency or urgency and no hematuria, there is no weakness or numbness in any of the extremities no change in vision speech or gait. He underwent dialysis catheter placement today. On 05/11/2021 patient alert and oriented 3 currently sitting up in chair. Status post dialysis catheter placement. Creatinine 3.53 and bun 108. Patient to receive hemodialysis tomorrow morning possible discharge after. Plan is for patient to be DC'd home with home healthcare. At this time patient denies chest pain or shortness breath. Patient denies nausea vomiting or diarrhea. Patient denies any urinary burning or frequency On 05/12/2021 patient was seen and examined on the telemetry floor he is alert and oriented 3 in no apparent distress he had dialysis today, he was cleared by cardiology and nephrology for discharge patient will be discharged home today he will continue on hemodialysis as outpatient patient is eager to go home he is refusing any custodial for rehab. Prognosis is guarded due to advanced age and multiple advanced medical problems and will follow with his primary care physician Dr. Rai, he will also follow with cardiology and nephrology Patient Condition at Discharge: Poor Plan - Discharge Summary Discharge Rx Participant: No New Discharge Prescriptions: New hydrALAZINE HCL [Apresoline] 25 mg PO TID tab carvediloL [Coreg] 3.125 mg PO BID-W/MEALS tab Torsemide [Demadex] 40 mg PO BID tab Apixaban [Eliquis] 2.5 mg PO BID tablet glipiZIDE [Glucotrol] 5 mg PO BID tab Continue Hydrocodone/Acetaminophen [Hydrocodone-Acetamin 7.5-325] 1 tab PO QID PRN PRN Reason: Pain Cyanocobalamin (Vitamin B-12) [Vitamin B-12] 1,000 mcg PO DAILY Docusate [Colace] 200 mg PO BID bisacodyL [Dulcolax] 5 mg PO BID Cholecalciferol [Vitamin D3 (25 Mcg = 1000 Iu)] 1,000 unit PO HS Atorvastatin [Lipitor] 20 mg PO HS #30 tab Omeprazole [PriLOSEC] 40 mg PO DAILY Cholecalciferol [Vitamin D3 (25 Mcg = 1000 Iu)] 2,000 unit PO DAILY Magnesium Oxide [Mag-Ox] 500 mg PO BID metOLazone [Zaroxolyn] 2.5 mg PO DAILY PRN PRN Reason: Edema diphenhydrAMINE [Benadryl] 25 mg PO BID Sildenafil [Revatio] 40 mg PO BID Metoprolol Tartrate [Lopressor] 12.5 mg PO DAILY Discontinued Terazosin HCl 5 mg PO BID glipiZIDE XL [Glucotrol XL] 10 mg PO DAILY #30 tab Apixaban [Eliquis] 5 mg PO BID #60 tab Losartan Potassium [Cozaar] 25 mg PO DAILY Furosemide [Lasix] 80 mg PO BID@0800,1200 Discharge Medication List Hydrocodone/Acetaminophen [Hydrocodone-Acetamin 7.5-325] 1 tab PO QID PRN 05/22/16 [History] Cyanocobalamin (Vitamin B-12) [Vitamin B-12] 1,000 mcg PO DAILY 04/26/17 [History] Docusate [Colace] 200 mg PO BID 04/26/17 [History] bisacodyL [Dulcolax] 5 mg PO BID 04/26/17 [History] Cholecalciferol [Vitamin D3 (25 Mcg = 1000 Iu)] 1,000 unit PO HS 05/10/18 [History] Atorvastatin [Lipitor] 20 mg PO HS #30 tab 05/13/18 [Rx] Cholecalciferol [Vitamin D3 (25 Mcg = 1000 Iu)] 2,000 unit PO DAILY 01/09/19 [H istory] Magnesium Oxide [Mag-Ox] 500 mg PO BID 01/09/19 [History] Omeprazole [PriLOSEC] 40 mg PO DAILY 01/09/19 [History] metOLazone [Zaroxolyn] 2.5 mg PO DAILY PRN 01/09/19 [History] Metoprolol Tartrate [Lopressor] 12.5 mg PO DAILY 04/20/21 [History] Sildenafil [Revatio] 40 mg PO BID 04/20/21 [History] diphenhydrAMINE [Benadryl] 25 mg PO BID 04/20/21 [History] Apixaban [Eliquis] 2.5 mg PO BID tablet 05/12/21 [Rx] Torsemide [Demadex] 40 mg PO BID tab 05/12/21 [Rx] carvediloL [Coreg] 3.125 mg PO BID-W/MEALS tab 05/12/21 [Rx] glipiZIDE [Glucotrol] 5 mg PO BID tab 05/12/21 [Rx] hydrALAZINE HCL [Apresoline] 25 mg PO TID tab 05/12/21 [Rx] Follow up Appointment(s)/Referral(s): [facility] [NON-STAFF] - Bipin Esparza MD [STAFF PHYSICIAN] - 1 Week (office will call with an appointment) Kelly Rai MD [Primary Care Provider] - 05/14/21 11:30 am Reymundo Aleman MD [STAFF PHYSICIAN] - 1 Week (Please call the office to schedule an appointment) Patient Instructions/Handouts: Heart Failure (DC), Chronic Kidney Disease (DC), Pacemaker (DC) Activity/Diet/Wound Care/Special Instructions: Hemodialysis at [facility] Wednesday, Wednesday, Wednesday @3:00 p.m. - tentative start date Wednesday - 05/14/21 -arrive at 2:30 p.m. on Wednesday (05/14/21) to sign papers
== END 2021-05-12 18:40 | disposition home health service (06) | DRG 226 ==
LOC: EC 23:34 → 3SCARD 04-20 02:04
PROVIDERS: ADMIT Internal Medicine; ATTEND Internal Medicine
PROC: 02HK3KZ Insertion of Defibrillator Lead into Right Ventricle, Percutaneous Approach (ICD-10-PCS; principal; 2021-04-24 15:00)
PROC: 0JH609Z Insertion of Cardiac Resynchronization Defibrillator Pulse Generator into Chest Subcutaneous Tissue and Fascia, Open Approach (ICD-10-PCS; principal; 2021-04-24 15:00)
PROC: 5A1D70Z Performance of Urinary Filtration, Intermittent, Less than 6 Hours Per Day (ICD-10-PCS; 2021-05-01)
PROC: 06HY33Z Insertion of Infusion Device into Lower Vein, Percutaneous Approach (ICD-10-PCS; 2021-05-01)
PROC: 06PYX3Z Removal of Infusion Device from Lower Vein, External Approach (ICD-10-PCS; 2021-05-10)
PROC: 0JH60XZ Insertion of Tunneled Vascular Access Device into Chest Subcutaneous Tissue and Fascia, Open Approach (ICD-10-PCS; 2021-05-10 08:30)
PROC: 02HV33Z Insertion of Infusion Device into Superior Vena Cava, Percutaneous Approach (ICD-10-PCS; 2021-05-10 08:30)
DX: I13.0 Hypertensive heart and chronic kidney disease with heart failure and stage 1 through stage 4 chronic kidney disease, or unspecified chronic kidney disease (principal); I50.23 Acute on chronic systolic (congestive) heart failure; I21.4 Non-ST elevation (NSTEMI) myocardial infarction; N17.0 Acute kidney failure with tubular necrosis; I48.19 Other persistent atrial fibrillation; E87.1 Hypo-osmolality and hyponatremia; J98.11 Atelectasis; I45.2 Bifascicular block; I27.20 Pulmonary hypertension, unspecified; D63.1 Anemia in chronic kidney disease; I42.8 Other cardiomyopathies; E11.22 Type 2 diabetes mellitus with diabetic chronic kidney disease; I50.82 Biventricular heart failure; N18.32 Chronic kidney disease, stage 3b; J44.9 Chronic obstructive pulmonary disease, unspecified; I71.4 Abdominal aortic aneurysm, without rupture; E66.01 Morbid (severe) obesity due to excess calories; Z99.2 Dependence on renal dialysis; Z20.822 Contact with and (suspected) exposure to COVID-19; I25.84 Coronary atherosclerosis due to calcified coronary lesion; R00.1 Bradycardia, unspecified; E78.5 Hyperlipidemia, unspecified; N40.0 Benign prostatic hyperplasia without lower urinary tract symptoms; K21.9 Gastro-esophageal reflux disease without esophagitis; I25.10 Atherosclerotic heart disease of native coronary artery without angina pectoris; M54.9 Dorsalgia, unspecified; G89.29 Other chronic pain; K57.90 Diverticulosis of intestine, part unspecified, without perforation or abscess without bleeding; E87.6 Hypokalemia; I08.0 Rheumatic disorders of both mitral and aortic valves; R13.10 Dysphagia, unspecified; K59.00 Constipation, unspecified; N50.89 Other specified disorders of the male genital organs; Z68.31 Body mass index [BMI] 31.0-31.9, adult; H91.90 Unspecified hearing loss, unspecified ear; Z99.81 Dependence on supplemental oxygen; Z79.01 Long term (current) use of anticoagulants; Z79.84 Long term (current) use of oral hypoglycemic drugs; Z79.899 Other long term (current) drug therapy; Z96.653 Presence of artificial knee joint, bilateral; Z86.73 Personal history of transient ischemic attack (TIA), and cerebral infarction without residual deficits; Z87.39 Personal history of other diseases of the musculoskeletal system and connective tissue; Z87.891 Personal history of nicotine dependence; Z95.828 Presence of other vascular implants and grafts; Z87.19 Personal history of other diseases of the digestive system; Z98.890 Other specified postprocedural states; Z71.3 Dietary counseling and surveillance; Z88.0 Allergy status to penicillin; Z91.013 Allergy to seafood; Z80.42 Family history of malignant neoplasm of prostate; Z82.3 Family history of stroke; Z82.49 Family history of ischemic heart disease and other diseases of the circulatory system
CPT/HCPCS: 33225; 33249; 36415; 36556; 36558; 71045; 71046; 76937; 77001; 80048; 80053; 83605; 83735; 83880; 84295; 84484; 85025; 85610; 85730; 86706; 87340; 87635; 90935; 93005; 93306; 93308; 94760; 96374; 96375; 99291